=== PATIENT | male | born 1935 | race Caucasian/White ===

== ENCOUNTER → 2017-12-17 16:03 | Outpatient (CLI) | payer MEDICARE, OTHER, SELFPAY ==
--- NOTE | 2017-12-17 16:20 | EKG12_ITS ---
Test Reason : PREOP Blood Pressure : / mmHG Vent. 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
[2017-12-17 16:45] LABS: Hematocrit 43.2 % (40-54); Hemoglobin 14.1 g/dl (13.0-16.5); Mean Corp Hgb Conc 32.6 g/gl (32-36); Mean Corpuscular Hgb 29.9 pg (27.0-32.0); Mean Corpuscular Volume 91.5 fL (80-94); Mean Platelet Vol. 9.8 fl (6.2-12.0); Platelet Count 221 K/mm3 (150-450); RBC Distribution Width CV 13.4 % (11.6-14.6); RBC Distribution Width SD 44.1 fl (35.1-43.9); Red Blood Count 4.72 M/mm3 (4.6-6.2); White Blood Count 8.1 K/mm3 (4.4-11.0)
[2017-12-17 16:46] LABS: Scan Indicated on CBC? Y/N NO
[2017-12-17 17:24] LABS: Anion Gap 9 (5-15); BUN 24 mg/dL (7-18); Calcium,Total 8.8 mg/dL (8.5-10.1); Chloride 104 mmol/L (98-107); Creatinine, Serum 1.72 mg/dL (0.70-1.30); EST Glomerular Filtration Rate 41 mL/min (>60); Est Glom Filt Rate - Afr Amer 49 mL/min (>60); Glucose 92 mg/dL (74-106); Potassium 4.6 mmol/L (3.5-5.1); Sodium Level 139 mmol/L (136-145)
== END ==
PROVIDERS: Family Provider Family Medicine; PCP Family Medicine; Visit Provider Physician Assistant
DX: Z01.810 Encounter for preprocedural cardiovascular examination (principal); Z01.818 Encounter for other preprocedural examination; I10 Essential (primary) hypertension
CPT/HCPCS: 36415; 80048; 85027; 93005

== ENCOUNTER 2017-12-18 22:21 | Emergency (ER) | payer MEDICARE, OTHER, SELFPAY ==
[2017-12-18 22:22] VITALS: BP 179/88; PULSE 76; RESP 16; TEMP 36.5; O2SAT 94; BMI 33.5
[2017-12-18 23:12] LABS: Absolute Lymphocyte Count 2.19 X10^3/ul (0.83-4.51); Absolute Neutrophil Count 3.4 X10^3/uL (2.0-7.7); Basophil# 0.03 X10^3/uL; Basophil% 0.4 % (0-1); Eosinophil# 0.43 X10^3/uL; Eosinophils% 6.3 % (0-5); Hematocrit 40.6 % (40-54); Hemoglobin 13.2 g/dl (13.0-16.5); Lymphocyte # 2.19 X10^3/ul (4.0); Lymphocyte % 32.3 % (19-41); Mean Corp Hgb Conc 32.5 g/gl (32-36); Mean Corpuscular Volume 92.3 fL (80-94); Mean Platelet Vol. 9.5 fl (6.2-12.0); Monocyte# 0.76 X10^3/uL; Monocyte% 11.2 % (0-10); Neutrophil # 3.35 X10^3/uL (2.7-7.7); Neutrophil % 49.5 % (47-70); POSITIVE COUNT NO; POSITIVE DIFFERENTIAL NO; POSITIVE MORPHOLOGY NO; Platelet Count 184 K/mm3 (150-450); RBC Distribution Width CV 13.4 % (11.6-14.6); RBC Distribution Width SD 44.7 fl (35.1-43.9); White Blood Count 6.8 K/mm3 (4.4-11.0)
[2017-12-18 23:25] LABS: Anion Gap 7 (5-15); BUN 25 mg/dL (7-18); BUN/Creat Ratio 12.5 RATIO (10-20); Calcium,Total 8.4 mg/dL (8.5-10.1); Chloride 108 mmol/L (98-107); EST Glomerular Filtration Rate 34 mL/min (>60); Est Glom Filt Rate - Afr Amer 41 mL/min (>60); Estimated Creatinine Clearance 30.85 ml/min; Glucose 162 mg/dL (74-106); Potassium 4.6 mmol/L (3.5-5.1); Sodium Level 141 mmol/L (136-145)
--- NOTE | 2017-12-18 23:41 | ED.DCSUM_ITS ---
- ER Visit Summary Date of Service: 12/18/17 Chief Complaint: High blood pressure History of Present Illness: The patient is a [address] Mounika Hester. He reports that he has a long-standing history of high blood pressure. He has been on 80 mg of Diovan for years. Ports that he went to the orthopedic surgeon yesterday his blood pressure was 190/90. Because of that he has been measuring it today. His systolic is been anywhere from 165-217. His diastolic is been anywhere from 80-108. Denies any symptoms with this. No headache, numbness, or weakness. No chest pain. He reports he has chronic shortness of breath is unchanged. Physical Examination: Vitals: Stable. Afebrile. General: Well-nourished and well-developed. Head: Normocephalic atraumatic. Neck: Supple, no lymphadenopathy. No JVD. Nontender. Cardiovascular: Regular rate and rhythm. No murmurs. Respiratory: No respiratory distress. Clear to auscultation bilaterally. Abdominal: Soft, nontender, nondistended, normal bowel sounds. No guarding, rebound, or peritoneal signs. Back: Nontender. Extremities: Nontender, trace edema bilaterally. Skin: Normal color, no rash. Neurologic: Alert and oriented ?3. Cranial nerves II through XII are intact. Normal strength and sensation. Psych: Normal affect. Test Results: Screening labs were obtained. CBC is remarkable for monocytes of 11 eosinophils of 6. Chem-7 is more for chloride of 108, calcium 8.4, glucose 162, BUN of 25, creatinine 2.0. His creatinine ranged between 1.72 and 2.08 in 2017. Emergency Department Course and Treatment: Patient is resting comfortably. His blood pressure decreased to 169/82 without any treatment. Treatment Plan: He will be discharged instructions to follow-up Dr. Hester within a week to have his blood pressure checked again. Return to the emergency department for any worsening symptoms. Disposition: To home in improved and stable condition. Impression: 1. Hypertension. This note was generated with PeerSpaceation software. It may contain incorrect words, spelling, and punctuation that were not noted in review of the chart prior to signing ED Disposition - Plan for ED Patient: Disposition: Home or Assisted Living Chief Complaint: Hypertension Instructions: ED HTN Established Referrals: Porter Hester DO [Primary Care Provider] - 1 Week
[2017-12-18 23:50] VITALS: BP 173/90; PULSE 63; RESP 20; O2SAT 94
== END 2017-12-18 23:53 | disposition home or self-care (01) ==
LOC: ED 22:57
PROVIDERS: Emergency Provider Emergency Medicine; Family Provider Family Medicine; PCP Family Medicine
DX: I10 Essential (primary) hypertension (principal); R06.02 Shortness of breath; I25.10 Atherosclerotic heart disease of native coronary artery without angina pectoris; E11.9 Type 2 diabetes mellitus without complications; M19.90 Unspecified osteoarthritis, unspecified site; G47.33 Obstructive sleep apnea (adult) (pediatric); F32.9 Major depressive disorder, single episode, unspecified; Z79.84 Long term (current) use of oral hypoglycemic drugs; Z79.899 Other long term (current) drug therapy; Z90.5 Acquired absence of kidney
CPT/HCPCS: 80048; 85025; 99285; A4216

== ENCOUNTER 2018-01-23 21:33 | Emergency (ER) | payer MEDICARE, OTHER, SELFPAY ==
[2018-01-23 21:35] VITALS: BP 161/89; PULSE 71; RESP 20; TEMP 36.7; O2SAT 95; BMI 32.3
--- NOTE | 2018-01-23 21:57 | RAD_ITS ---
STUDY: X-RAY - LEFT KNEE REASON FOR EXAM: Male, 82 years old. Fall, pain TECHNIQUE: 3 view(s) of the knee. COMPARISON: None. FINDINGS: Normal visualized distal femur. Normal visualized proximal tibia and fibula. Normal proximal tibiofibular articulation. 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 Normal lateral femorotibial compartment. There is mild degenerative arthrosis of the patellofemoral articulation. The soft tissue structures are unremarkable. RAD/Knee 3 Views IMPRESSION: Degenerative arthrosis. No fracture or dislocation. Electronically Signed: Yahir García DO at 22:27 EDT , Service support ,
--- NOTE | 2018-01-23 22:07 | RAD_ITS ---
STUDY: X-RAY - PELVIS AND LEFT HIP REASON FOR EXAM: Male, 82 years old. Fall, pain TECHNIQUE: Radiological exam, hip, unilateral, with pelvis when performed; 2 or 3 views. COMPARISON: None. FINDINGS: There is a non-specific bowel gas pattern. Normal visualized soft tissue structures. Normal bilateral iliac wings, sacroiliac joints and visualized sacrum. Normal bilateral superior and inferior pubic rami. Normal pubic symphysis. Normal bilateral ischial tuberosities. Normal visualized femoral head. Normal acetabulum. Normal hip joint. RAD/Hip 2-3 Views with Pelvis IMPRESSION: Normal x-ray examination of the pelvis and hip. Electronically Signed: Yahir García DO at 22:33 EDT , Service support ,
--- NOTE | 2018-01-23 23:35 | ED.DCSUM_ITS ---
- ER Visit Summary Date of Service: 01/23/18 Chief Complaint: Tripped and fell at home complaining of left hip and left knee pain. History of Present Illness: The patient is a 82 M over wire at home fell on the ground. Complaint left hip and knee pain. No prior history of surgery to his left hip or knee. He has had a prior right knee replacement. Denies hitting his head. He is on no blood thinners. Denies other complaints or other injuries. States he felt fine prior to the fall. Physical Examination: Well-appearing older male. Vital signs are stable afebrile. He does not look septic or toxic. He is in no acute distress. Pulse ox 95% on room air no hypoxia. HEENT exam atraumatic. Pupils round reactive light. No head or facial trauma. C-spine, T-spine, LS-spine and back are all nontender. He has normal range of motion to his neck. Lungs clear to auscultation bilaterally. Chest wall nontender. Heart regular rate and rhythm no murmur. Abdomen soft nontender. Pelvic girdle intact. He is p.o. P to his left lateral hip and buttock. There is no deformity. There is no rotation or shortening. He is able to flex and extend the left hip, left knee, left ankle and foot. Left foot is neurovascularly intact. He has mild tenderness to the medial left knee at the ACL PCL, MCL LCL are all intact. There is no effusion. He has good endpoints. 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 He is able to flex and extend the knee without any difficulty. The extensor mechanism is intact. Both the right upper, left upper and right lower extremities are unremarkable and nontender. Neurologic exam is normal without focal motor deficits. Test Results: Pelvis x-ray shows no acute fracture of the pelvis or the hip. X- ray of his left knee show degenerative changes but again no acute fracture. Both of the films are read both by myself and the radiologist. Emergency Department Course and Treatment: Patient will be discharged to home. [place] home pack as needed. Otherwise Tylenol Motrin for pain. An ice all sore areas down. Follow-up with his primary care physician if not improving in 1 week. Treatment Plan: [] Disposition: Discharge Impression: Acute fall Left hip and left knee contusions This note was generated with Dragon dictation software. It may contain incorrect words, spelling, and punctuation that were not noted in review of the chart prior to signing ED Disposition - Plan for ED Patient: Chief Complaint: Fall Referrals: Porter Hester DO [Primary Care Provider] -
--- NOTE | 2018-01-23 23:36 | DCINST.ED_ITS ---
ED Disposition - Plan for ED Patient: Disposition: Home or Assisted Living Chief Complaint: Fall Instructions: ED Contusion Hip Referrals: Porter Hester DO [Primary Care Provider] - 1 Week if not improving Additional Instructions: Ice all sore areas down. [place] for pain as needed. Also may use Tylenol and/or Motrin. You are going to be sore if this is not improving in the next week be reexamined. On your x-rays tonight there are no signs of any fractures or dislocations to your hip or your knee.
[2018-01-23] MEDS: HYDROcodone Bitartrate/Apap 5/325 Tablet PO (23:53)
[2018-01-23 23:55] VITALS: BP 159/89; PULSE 74; RESP 16; O2SAT 97
== END 2018-01-23 23:56 | disposition home or self-care (01) ==
PROVIDERS: Emergency Provider Emergency Medicine; Family Provider Family Medicine; PCP Family Medicine
DX: S70.02XA Contusion of left hip, initial encounter (principal); S80.02XA Contusion of left knee, initial encounter; W01.0XXA Fall on same level from slipping, tripping and stumbling without subsequent striking against object, initial encounter; Y93.9 Activity, unspecified; Y92.009 Unspecified place in unspecified non-institutional (private) residence as the place of occurrence of the external cause; Y99.9 Unspecified external cause status; M17.12 Unilateral primary osteoarthritis, left knee; I48.91 Unspecified atrial fibrillation; E11.9 Type 2 diabetes mellitus without complications; I10 Essential (primary) hypertension; Z96.651 Presence of right artificial knee joint; Z79.84 Long term (current) use of oral hypoglycemic drugs; Z79.899 Other long term (current) drug therapy
CPT/HCPCS: 73502; 73562; 99282

== ENCOUNTER → 2018-05-26 10:27 | Outpatient (CLI) | payer MEDICARE, OTHER, SELFPAY ==
[2018-05-26 11:45] LABS: PSA,Total- Diagnostic 8.95 ng/mL (0.0-4.0)
[2018-05-26 14:44] LABS: Anion Gap 7 (5-15); BUN 34 mg/dL (7-18); Calcium,Total 8.5 mg/dL (8.5-10.1); Chloride 109 mmol/L (98-107); Creatinine, Serum 2.12 mg/dL (0.70-1.30); EST Glomerular Filtration Rate 32 mL/min (>60); Est Glom Filt Rate - Afr Amer 39 mL/min (>60); Glucose 124 mg/dL (74-106); Potassium 4.8 mmol/L (3.5-5.1); Sodium Level 140 mmol/L (136-145)
== END ==
PROVIDERS: Family Provider Family Medicine; PCP Family Medicine; Visit Provider Urology
DX: R82.99 Other abnormal findings in urine (principal); N40.0 Benign prostatic hyperplasia without lower urinary tract symptoms; Z87.448 Personal history of other diseases of urinary system
CPT/HCPCS: 36415; 80048; 84153; 87086; 87088

== ENCOUNTER → 2018-05-30 10:01 | Outpatient (CLI) | payer MEDICARE, OTHER, SELFPAY ==
[2018-05-30 11:24] LABS: PSA,Total- Diagnostic 9.13 ng/mL (0.0-4.0)
== END ==
PROVIDERS: Family Provider Family Medicine; PCP Family Medicine; Visit Provider Urology
DX: R97.20 Elevated prostate specific antigen [PSA] (principal)
CPT/HCPCS: 36415; 84153

== ENCOUNTER → 2018-06-09 10:06 | Outpatient (CLI) | payer MEDICARE, OTHER, SELFPAY ==
[2018-06-09 12:22] LABS: Absolute Lymphocyte Count 2.07 X10^3/ul (0.83-4.51); Absolute Neutrophil Count 3.9 X10^3/uL (2.0-7.7); Basophil# 0.04 X10^3/uL; Basophil% 0.6 % (0-1); Eosinophil# 0.29 X10^3/uL; Hematocrit 42.6 % (40-54); Lymphocyte # 2.07 X10^3/ul (4.0); Lymphocyte % 28.7 % (19-41); Mean Corp Hgb Conc 32.9 g/gl (32-36); Mean Corpuscular Hgb 29.9 pg (27.0-32.0); Mean Platelet Vol. 10.4 fl (6.2-12.0); Monocyte# 0.84 X10^3/uL; Monocyte% 11.7 % (0-10); Neutrophil # 3.94 X10^3/uL (2.7-7.7); Neutrophil % 54.6 % (47-70); Platelet Count 210 K/mm3 (150-450); RBC Distribution Width CV 13.2 % (11.6-14.6); RBC Distribution Width SD 43.7 fl (35.1-43.9); Red Blood Count 4.68 M/mm3 (4.6-6.2); White Blood Count 7.2 K/mm3 (4.4-11.0)
[2018-06-09 12:29] LABS: POSITIVE COUNT NO; POSITIVE DIFFERENTIAL NO; POSITIVE MORPHOLOGY NO
[2018-06-09 12:43] LABS: ALB/GLOB Ratio 0.9 RATIO (0.9-2.4); AST(SGOT) 16 U/L (15-37); Alanine Aminotransfer ALT/SGPT 27 U/L (16-61); Albumin, Serum 3.5 g/dL (3.2-5.0); Alkaline Phosphatase 54 U/L (45-117); Anion Gap 5 (5-15); BUN 29 mg/dL (7-18); BUN/Creat Ratio 15.2 RATIO (10-20); Calcium,Total 8.7 mg/dL (8.5-10.1); Chloride 107 mmol/L (98-107); Creatinine, Serum 1.91 mg/dL (0.70-1.30); EST Glomerular Filtration Rate 36 mL/min (>60); Est Glom Filt Rate - Afr Amer 44 mL/min (>60); Globulin 3.9 g/dL (2.2-4.2); Glucose 150 mg/dL (74-106); Potassium 4.7 mmol/L (3.5-5.1); Protein, Total 7.4 g/dL (6.4-8.2); Sodium Level 138 mmol/L (136-145); Thyroid Stim Hormone (TSH) 1.67 uIU/mL (0.358-3.74)
[2018-06-09 12:49] LABS: AST(SGOT) 18 U/L (15-37); Alanine Aminotransfer ALT/SGPT 28 U/L (16-61); Albumin, Serum 3.6 g/dL (3.2-5.0); Alkaline Phosphatase 55 U/L (45-117); Bilirubin, Direct 0.11 mg/dL (0.00-0.30); Cholesterol 188 mg/dL (200); Globulin 3.8 g/dL (2.2-4.2); High Density Lipoprotein 38 mg/dL; Protein, Total 7.4 g/dL (6.4-8.2); Triglycerides 211 mg/dL; Very Low Density Lipoprotein 42 mg/dL (5-40)
== END ==
PROVIDERS: Internal Medicine Cardiovascular Disease; Family Provider Family Medicine; PCP Family Medicine; Visit Provider Physician Assistant Medical
DX: I10 Essential (primary) hypertension (principal); E78.5 Hyperlipidemia, unspecified; I25.10 Atherosclerotic heart disease of native coronary artery without angina pectoris; R06.00 Dyspnea, unspecified; R53.83 Other fatigue; Z79.899 Other long term (current) drug therapy
CPT/HCPCS: 80053; 80061; 80076; 84436; 84443; 85025

== ENCOUNTER → 2018-06-16 06:24 | Outpatient (CLI) | payer MEDICARE, OTHER, SELFPAY ==
--- NOTE | 2018-06-16 12:26 | STRESSREP ---
Stress Test Report Date: 06/16/2018 Procedure: Pharmacologic stress nuclear imaging study Indications: Shortness of breath/dyspnea; CAD; PVCs Consent: Per the patient Procedure: The patient underwent pharmacologic (Regadenoson) evaluation with a peak heart rate of 77 beats per minute (55 predicted maximal heart rate) and a peak blood pressure of 134/80 mmHg. The baseline ECG demonstrated sinus rhythm with a right bundle branch block pattern. The peak pharmacologic ECG demonstrated no obvious ECG changes. There were no cardiac dysrhythmias pretest, during pharmacologic infusion, or recovery. There was no complaint of chest discomfort during pharmacologic infusion or recovery. The examination was discontinued secondary to completion of protocol. Impression: 1. Pharmacologic (Regadenoson) evaluation 2. Peak pharmacologic ECG with continued right bundle branch block pattern with no obvious ECG changes. 3. There were no cardiac dysrhythmias pretest, during pharmacologic infusion, or recovery 4. Nuclear images pending Myocardial perfusion imaging study: Technique: The patient was injected with 15 millicuries of technetium 99m Cardiolite and subsequently rest SPECT Cardiolite nuclear imaging was obtained in the horizontal long, vertical long, and short axis views. The patient underwent pharmacologic (Regadenoson) evaluation with a peak heart rate of 77 beats per minute (55 % percent predicted maximal heart rate) and a peak blood pressure of 134/80 mmHg. The patient was injected with 45 millicuries of technetium 99m Cardiolite and subsequently stress SPECT Cardiolite nuclear imaging was obtained in the horizontal long, vertical long, and short axis views. A gated Cardiolite study at peak stress was obtained. Interpretation: Rest and stress SPECT Cardiolite nuclear imaging status post realignment, normalization, and attenuation correction demonstrate a small area of subtle diminished tracer uptake near the apical segment which appears to be somewhat more prominent at rest as opposed to stress and otherwise appearing to demonstrate relative uniform tracer uptake and myocardial perfusion appearing within normal limits. There is end systolic thickening and brightening. The gated Cardiolite study demonstrates myocardial thickening and inward wall motion. The reported LVEF is 63 %. Impression: 1. Rest and stress SPECT currently nuclear imaging demonstrate a small area of subtle diminished tracer uptake near the apical segments which appears to be somewhat more prominent at rest as opposed to stress compatible with an area of shifting soft tissue attenuation/artifact and/or physiologic apical thinning and otherwise appearing to demonstrate relative uniform tracer uptake and myocardial perfusion appearing within normal limits. There are no myocardial perfusion changes consider diagnostic for associated stress-induced myocardial ischemia. 2. The gated Cardiolite study reports an LVEF of 63 %. This note was generated with [employer] Interactiveation software. It may contain incorrect words, spelling, and punctuation that were not noted in checking the note before signing.
== END ==
PROVIDERS: Family Provider Family Medicine; PCP Family Medicine; Visit Provider Nurse Practitioner Family
DX: R06.09 Other forms of dyspnea (principal); R53.83 Other fatigue
CPT/HCPCS: 78452; 93017; A9500; A4216; J2785

== ENCOUNTER → 2018-06-22 14:47 | Outpatient (CLI) | payer MEDICARE, OTHER, SELFPAY | PROVIDERS: Family Provider Family Medicine; PCP Family Medicine; Visit Provider Internal Medicine Cardiovascular Disease | DX: R06.02 Shortness of breath (principal) | CPT/HCPCS: 71046 ==

== ENCOUNTER → 2018-07-05 20:00 | Outpatient (CLI) | payer MEDICARE, OTHER, SELFPAY | PROVIDERS: Family Provider Family Medicine; PCP Family Medicine; Visit Provider Family Medicine | DX: G47.33 Obstructive sleep apnea (adult) (pediatric) (principal) | CPT/HCPCS: 98960; G0463 ==

== ENCOUNTER → 2018-07-20 11:03 | Outpatient (CLI) | payer MEDICARE, OTHER, SELFPAY ==
[2018-07-20 13:15] LABS: Microalbumin,Random Urine 23.3 mg/L (NO RANGE EST.); Microalbumin:Creatinine Ratio 20.6 mg/g CRE (<30 mg/g CRE)
== END ==
PROVIDERS: Family Provider Family Medicine; PCP Family Medicine; Visit Provider Internal Medicine Nephrology
DX: E11.9 Type 2 diabetes mellitus without complications (principal)
CPT/HCPCS: 82043; 82570

== ENCOUNTER → 2018-07-21 10:13 | Outpatient (CLI) | payer MEDICARE, OTHER, SELFPAY ==
--- NOTE | 2018-07-21 10:17 | US_ITS ---
STUDY: RENAL ULTRASOUND - COMPLETE REASON FOR EXAM: Male, 83 years old. Chronic renal disease TECHNIQUE: Ultrasound evaluation of the kidneys was performed with real-time and static denson-scale imaging. COMPARISON: None. FINDINGS: RIGHT KIDNEY: Not visualized which may be consistent with prior nephrectomy.. LEFT KIDNEY: Normal location of the left kidney, which is normal in size. The left kidney measures 11.9 x 6.2 x 6.2 cm. There is a normal cortex of the left kidney. The renal cortex measures 1.7 cm. There is no left renal mass or cyst. There are no left renal calculi. There is no left hydronephrosis. DISTAL LEFT URETER: There is non-visualization of the distal left ureter. There is no demonstrated left ureterovesical junction calculus. There is a visualized left ureteral jet. Increased cortical echoes which may be consistent with renal parenchymal disease BLADDER: The distended urinary bladder has a volume of 29.37 ml. US/Kidney and Bladder IMPRESSION: Status post right nephrectomy.. Findings consistent with nonspecific renal parenchymal disease Electronically Signed: Leonel Rojas MD at 22:56 EDT , Service support ,
== END ==
PROVIDERS: Family Provider Family Medicine; PCP Family Medicine; Visit Provider Internal Medicine Nephrology
DX: Z90.5 Acquired absence of kidney (principal)
CPT/HCPCS: 76770

== ENCOUNTER → 2018-08-22 13:20 | Outpatient (CLI) | payer MEDICARE, OTHER, SELFPAY ==
[2018-08-22 14:29] LABS: Albumin, Serum 3.8 g/dL (3.2-5.0); BUN 22 mg/dL (7-18); BUN/Creat Ratio 13.3 RATIO (10-20); Calcium,Total 9.2 mg/dL (8.5-10.1); Chloride 107 mmol/L (98-107); Creatinine, Serum 1.66 mg/dL (0.70-1.30); EST Glomerular Filtration Rate 42 mL/min (>60); Est Glom Filt Rate - Afr Amer 51 mL/min (>60); Glucose 103 mg/dL (74-106); Phosphorus 2.9 mg/dL (2.5-4.9); Potassium 4.5 mmol/L (3.5-5.1); Sodium Level 139 mmol/L (136-145)
[2018-08-22 14:39] LABS: PTHIN 84.7 pg/mL (18.4-80.1); Vitamin D,25 Hydroxy 20.6 ng/mL (29.95-100.01)
== END ==
PROVIDERS: Family Provider Family Medicine; PCP Family Medicine; Referring Provider Internal Medicine Nephrology; Visit Provider Internal Medicine Nephrology
DX: N18.3 Chronic kidney disease, stage 3 (moderate) (principal)
CPT/HCPCS: 36415; 80069; 82306; 83970

== ENCOUNTER → 2018-10-20 11:44 | Outpatient (CLI) | payer MEDICARE, OTHER, SELFPAY ==
[2018-06-22 13:27] VITALS: BMI 33.5
--- NOTE | 2018-10-20 11:49 | RAD_ITS ---
STUDY: X-RAY CHEST REASON FOR EXAM: Male, 83 years old. Dyspnea on exertion. TECHNIQUE: PA and lateral views of the chest. COMPARISON: PA and lateral chest x-ray June 22, 2018. FINDINGS: Stable calcified granulomata in the right lateral midlung and right lateral costophrenic sulcus. Stable chronic scarring or subsegmental atelectasis in the inferior left base. No new infiltrate. There is no demonstrated pleural abnormality. Normal size heart. Normal mediastinum and morgan. Normal visualized pulmonary arteries. There is stable atherosclerotic calcification of the aortic arch and proximal descending thoracic aorta. There are stable multilevel degenerative changes and mild dextroscoliosis of the visualized thoracic spine. Prior right shoulder arthroplasty with humeral prosthesis again noted. There is no demonstrated abnormality of the visualized soft tissue structures of the upper abdomen. RAD/Chest PA and Lateral IMPRESSION: Stable x-ray examination of the chest since June 2018. Electronically Signed: Jaime Mitchell MD at 12:08 EST , Service support ,
--- OUTSIDE RECORDS SUMMARY | 2018-12-06 07:09 | XMS RPT_ITS ---
:1935 Author Organization [place] Support Name Relationship Address Phone MICHELLE SEXTON Unavailable Unavailable + [place] [address] R Unavailable Unavailable Unavailable SCHEIBE, BARB Unavailable [address] + [place] [address] LUIS FERNANDO SEXTONA Unavailable Unavailable + [place] [address] R Unavailable Unavailable Unavailable SCHEIBE, BARB Unavailable [address] + [place] [address] LUIS FERNANDO SEXTONA Unavailable Unavailable + [place] [address] R Unavailable Unavailable Unavailable SCHEIBE, BARB Unavailable [address] + [place] [address] CARLIE MICHELLE Unavailable Unavailable + [place] [address] R Unavailable Unavailable Unavailable SCHEIBE, BARB Unavailable [address] + [place] [address] CARLIE MICHELLE Unavailable Unavailable + [place] [address] R Unavailable Unavailable Unavailable SCHEIBE, BARB Unavailable [address] + [place] [address] CARLIE MICHELLE Unavailable Unavailable + [place] [address] R Unavailable Unavailable Unavailable SCHEIBE, BARB Unavailable [address] + [place] [address] CARLIE MICHELLE Unavailable Unavailable + [place] [address] R Unavailable Unavailable Unavailable SCHEIBE, BARB Unavailable [address] + [place] [address] SEXTON, MICHELLE Unavailable 1 + [place] [address] R Unavailable Unavailable Unavailable SCHEIBE, BARB Unavailable [address] + [place] [address] SEXTON, MICHELLE Unavailable 1 + [place] [address] R Unavailable Unavailable Unavailable SCHEIBE, BARB Unavailable [address] + [place] [address] SEXTON, MICHELLE Unavailable 1 + [place] [address] R Unavailable Unavailable Unavailable SCHEIBE, BARB Unavailable [address] + [place] [address] SEXTON, MICHELLE Unavailable 1 + [place] [address] R Unavailable Unavailable Unavailable SCHEIBE, BARB Unavailable [address] + [place] [address] SEXTON, MICHELLE Unavailable 1 + [place] [address] R Unavailable Unavailable Unavailable SCHEIBE, BARB Unavailable [address] + [place] [address] SEXTON, MICHELLE Unavailable Unavailable + [place] [address] R Unavailable Unavailable Unavailable SCHEIBE, BARB Unavailable [address] + [place] [address] SEXTON, MICHELLE Unavailable 1 + [place] [address] R Unavailable Unavailable Unavailable SCHEIBE, BARB Unavailable [address] + [place] [address] SEXTON, MICHELLE Unavailable 1 + [place] [address] R Unavailable Unavailable Unavailable SCHEIBE, BARB Unavailable [address] + [place] [address] SEXTON, MICHELLE Unavailable Unavailable + [place] [address] R Unavailable Unavailable Unavailable SCHEIBE, BARB Unavailable [address] + [place] [address] SEXTON, MICHELLE Unavailable Unavailable + [place] [address] R Unavailable Unavailable Unavailable SCHEIBE, BARB Unavailable [address] + [place] [address] SEXTON MICHELLE Unavailable Unavailable + [place] [address] R Unavailable Unavailable Unavailable SCHEIBE, BARB Unavailable [address] + [place] [address] SEXTON MICHELLE Unavailable Unavailable + [place] [address] R Unavailable Unavailable Unavailable SCHEIBE, BARB Unavailable [address] + [place] [address] Sexton Michelle Unavailable . + [place] [address] R Unavailable Unavailable Unavailable SCHEIBE, BARB Unavailable [address] + [place] [address] Sexton, Michelle Unavailable . + [place] [address] R Unavailable Unavailable Unavailable SCHEIBE, BARB Unavailable [address] + [place] [address] R Unavailable Unavailable Unavailable SCHEIBE, BARB Unavailable [address] + [place] [address] R Unavailable Unavailable Unavailable SCHEIBE, BARB Unavailable [address] + [place] [address] Sexton Michelle Unavailable . + [place] [address] R Unavailable Unavailable Unavailable SCHEIBE, BARB Unavailable [address] + [place] [address] Care Team Providers Name Role Phone Porter Hester Attending Unavailable Porter Hester Referring Unavailable Porter Hester Primary Care Unavailable Porter Hester Attending Unavailable Porter Hester Referring Unavailable Porter Hester Primary Care Unavailable Porter Hester Attending Unavailable Porter Hester Referring Unavailable Porter Hester Primary Care Unavailable Carole, Ashanti Attending Unavailable Carole, Jayaprakash Referring Unavailable Porter Hester Primary Care Unavailable Carole, Ashanti Attending Unavailable Carole, Jayaprakash Referring Unavailable Mir, Porter Primary Care Unavailable Aldo Lora Attending Unavailable Mir, Porter Referring Unavailable JanAlejandro jordan Attending Unavailable JanAlejandro jordan Referring Unavailable Mir, Porter Primary Care Unavailable Mir, Porter Primary Care Unavailable Oleg Dove Attending Unavailable Fili Turcios D.O. Attending Unavailable Mir, Porter Referring Unavailable Mir, Porter Primary Care Unavailable Leonel Antonio Attending Unavailable Johann Henley Attending Unavailable Alejandro Michelle Referring Unavailable Ginny, Harjit Hinds Attending Unavailable Ginny, Harjit Hinds Referring Unavailable Mir, Porter Primary Care Unavailable Ginny, Harjit Hinds Attending Unavailable Ginny, Harjit Hinds Referring Unavailable Mir, Porter Primary Care Unavailable Ginny, Harjit Hinds Attending Unavailable Ginny, Rey Referring Unavailable Mir, Porter Primary Care Unavailable LiAnita roman Attending Unavailable LiAnita Referring Unavailable Mir, Porter Primary Care Unavailable Juan F Rubin H Attending Unavailable Mir, Porter Referring Unavailable Mir, Porter Primary Care Unavailable RoofJuan F H Attending Unavailable Roof, Juan F H Referring Unavailable Mir, Porter Primary Care Unavailable Luis Fernando Ribera Attending Unavailable Mir, Porter Referring Unavailable Mir, Porter Primary Care Unavailable Luis Fernando Ribera Attending Unavailable Luis Fernando Ribera Referring Unavailable Mir, Porter Primary Care Unavailable Mir, Porter Attending Unavailable Mir, Porter Primary Care Unavailable Mir, Porter Referring Unavailable Luis Fernando Ribera Attending Unavailable Roof, Juan F H Referring Unavailable Tatiana Oleary Attending Unavailable Mir, Porter Primary Care Unavailable Tatiana Oleary Attending Unavailable Anirudh, Tatiana Referring Unavailable Mir, Porter Primary Care Unavailable Tatiana Oleary Attending Unavailable Tatiana Oleary Referring Unavailable Mir, Porter Primary Care Unavailable Jyotsna Duron Consulting Unavailable PROBLEMS PROBLEMS DATE TYPE CONDITION / CODE ATTENDING STATUS SOURCE 11/09/2018 Unknown J18.9 - Pneumonia, Porter Hester Active [place] unspecified organism / Community J18.9(ICD-10) Hospital Repository 11/18/2018 Unknown R06.09 - Other forms Aldo Lora Active [place] of dyspnea / Community R06.09(ICD-10) Hospital Repository 07/20/2018 Unknown E11.9 - Type 2 Tatiana Oleary Active [place] diabetes mellitus Community without complications Hospital / E11.9(ICD-10) Repository 06/22/2018 Unknown R06.02 - Shortness of [place], Active [place] breath / [facility] R06.02(ICD-10) Hospital Repository 06/10/2018 Unknown R53.83 - Other fatigue Juan F Rubin Active [place] / R53.83(ICD-10) [facility] Repository 05/27/2018 Unknown N40.0 - Benign Ginny, Harjit Active [place] prostatic hyperplasia [facility] without lower urinary Hospital tract symptoms / Repository N40.0(ICD-10) 06/01/2018 Unknown R82.99 - Other Ginny, Harjit Active [place] abnormal findings in [facility] urine / R82.99(ICD-10) Hospital Repository 03/02/2018 Unknown G47.33 - Obstructive Fili Turcios Active [place] sleep apnea (adult) D.O. Community (pediatric) / Hospital G47.33(ICD-10) Repository 03/02/2018 Unknown E66.9 - Obesity, Fili uTrcios Active [place] unspecified / D.O. Community E66.9(ICD-10) Hospital Repository 12/17/2017 Unknown Z01.810 - Encounter Alejandro Michelle Active [place] for preprocedural [facility] cardiovascular Hospital examination / Repository Z01.810(ICD-10) 12/17/2017 Unknown Z01.818 - Encounter Alejandro Michelle Active [place] for other Community preprocedural Hospital examination / Repository Z01.818(ICD-10) 01/27/2018 Unknown R94.31 - Abnormal Kale, Johann Active [place] electrocardiogram Community [ECG] [EKG] / Hospital R94.31(ICD-10) Repository PROCEDURES PROCEDURES No Procedure Records FoundRESULTS RESULTS VITAMIN D,25 HYDROXY Collected: 11/17/2018 Status: F Source: [place] 2:19 PM [facility] REPOSITORY TYPE CODE TESTS RESULT OUT OF REFERENCE UNITS RANGE LAB L506.1000 29.95-100.01 ng/mL Low Vitamin D 28.1 25-OH Result Comment: Vitamin D 25(OH) Status Range Deficiency <20 ng/mL (50nmol/L) Insuffciency 20 - 30 ng/mL (50 - 75 nmol/L) Sufficiency 30 - 100 ng/mL (75 - 250 nmol/L) Toxicity >100 ng/mL (>250 nmol/L) Performed By: #### L506.1000 #### [facility] [address] [place], [place], [address] CBC-COMPLETE BLOOD CNT Collected: 11/15/2018 Status: F Source: [place] NO DIFF 12:44 PM [facility] REPOSITORY TYPE CODE TESTS RESULT OUT OF RANGE REFERENCE UNITS LAB L100.1000 4.4-11.0 K/mm3 Normal WBC 10.2 LAB L100.1200 4.6-6.2 M/mm3 Low RBC 4.55 LAB L100.1300 13.0-16.5 g/dl Normal HGB 13.6 LAB L100.1400 40-54 % Normal HCT 42.2 LAB L100.1500 80-94 fL Normal MCV 92.7 LAB L100.1600 27.0-32.0 pg Normal MCH 29.9 LAB L100.1700 32-36 g/gl Normal MCHC 32.2 LAB L100.1810 11.6-14.6 % Normal RDW CV 13.6 LAB L100.1820 35.1-43.9 fl High RDW SD 45.0 LAB L100.1900 150-450 K/mm3 Normal PLT 232 LAB L100.2000 6.2-12.0 fl Normal MPV 10.0 Performed By: #### L100.0500 #### [facility] [address] [place], [place], [address] PROTEIN+CREATININE Collected: Status: F Source: [place] RATIO,URINE 11/15/2018 12:44 PM [facility] REPOSITORY TYPE CODE TESTS RESULT OUT OF RANGE REFERENCE UNITS LAB L501.1200 NO RANGE EST. mg/dL Normal UR CREAT 117.00 LAB L501.1930 <11.9 mg/dL High 19.0 PROTEIN,UR.R AN. LAB L501.1940 0-200 mg/g CRE Normal PROT:CRE 162 RATIO Performed By: #### L501.0900 #### [facility] [address] [place], [place], [address] RENAL PROFILE Collected: 11/15/2018 Status: F Source: [place] 12:44 PM [facility] REPOSITORY TYPE CODE TESTS RESULT OUT OF RANGE REFERENCE UNITS LAB L501.0100 74-106 mg/dL High GLU 121 Result Comment: Fasting Glucose result from 100 to 125 mg/dL suggests IMPAIRED HOMEOSTASIS per A.D.A. criteria. Please note revised GLUCOSE reference range effective 2017. LAB L501.1000 7-18 mg/dL High BUN 26 LAB L501.1100 0.70-1.30 mg/dL High CREAT,SERUM 1.70 Result Comment: The validity of the calculated GFR AND GFRAA in patients over 70 years has not been determined. Clinical correlation is essential. LAB L501.1110 >60 mL/min Low EST GFR 41 Result Comment: Non- GFR Calc LAB L501.1115 >60 mL/min Low EST GFR - AA 50 Result Comment: GFR Calc LAB L501.1300 10-20 RATIO Normal BUN/CRE 15.3 LAB L501.1800 3.2-5.0 g/dL Normal ALB 3.5 LAB L501.2200 8.5-10.1 mg/dL CA Normal 8.5 LAB L501.2300 2.5-4.9 mg/dL Normal PHOS 2.8 LAB L501.5300 136-145 mmol/L NA Normal 140 LAB L501.5600 3.5-5.1 mmol/L K Normal 4.3 LAB L501.5900 98-107 mmol/L High CL 109 LAB L501.6100 21.0-32.0 mmol/L Normal CO2 22.0 Performed By: #### L500.3600 #### [facility] [address] [facility], [address] PTHIN Collected: 11/15/2018 Status: F Source: [place] 12:44 PM [facility] REPOSITORY TYPE CODE TESTS RESULT OUT OF RANGE REFERENCE UNITS LAB L509.1000 18.4-80.1 pg/mL High PTHIN 102.6 Performed By: #### L509.1000 #### [facility] [address] [place], [address] CHEST PA AND LATERAL Observed: 11/09/2018 Status: F Source: [place] 11:19 AM [facility] REPOSITORY [facility] Imaging Services [address] [facility] [place] [place] [address] Chest PA and Lateral MR#: [id number] Acct: [id number] Name: TARAN RAMIREZ Rep #: [id number] : 1935 M 83 From: Khari Robbins MD PCP: Porter Hester DO Status: REG CLI Study: Chest PA and Lateral Date of Exam: 11/09/18 Exam# [id number] Ordering Dr: Porter Hester DO STUDY: X-RAY CHEST REASON FOR EXAM: Male, 83 years old. Cough and shortness of breath for 6 weeks TECHNIQUE: PA and lateral views of the chest. COMPARISON: 10/20/2018 FINDINGS: Granulomata of the right lung are stable. Similar scarring in the lingula. No airspace consolidation. There is no demonstrated pleural abnormality. Normal size heart. Normal mediastinum and morgan. Normal visualized pulmonary arteries. There is atherosclerotic calcification of the aortic arch with tortuosity. There are diffuse degenerative changes of the visualized thoracic spine. Right shoulder replacement noted. There is no demonstrated abnormality of the visualized soft tissue structures of the upper abdomen. RAD/Chest PA and Lateral IMPRESSION: No airspace consolidation or pleural effusion. Electronically Signed: Khari Robbins MD at 14:28 EST , Service support , CC: Porter Hester DO Gis Administrator: Signed PULMONARY FUNCTION Observed: 11/05/2018 Status: F Source: [place] REPORT COMP 5:46 AM [facility] REPOSITORY [facility] Pulmonary Services/Neurology [address] [place] [address] MR#: [id number] Acct: [id number] Name: TARAN RAMIREZ Rep #: [id number] : 1935 83 From: Aldo Lora MD Referring Dr: Porter Hester DO Status: REG CLI Ordering Dr: Date: Location: [facility] Sex: M C COMPLETE PULMONARY FUNCTION TEST INTERPRETATION Brief HPI: Patient is an 83 year old male, currently under the care of Dr. Hester, who presents to [facility] for complete pulmonary function tests secondary to diagnosis of dyspnea. Respiratory therapist reports good effort and reproducible results. Interpretation: Forced expiration spirometry shows no large airways obstructive ventilatory defect with an FEV1 of 145% predicted. There is no significant bronchodilator response by strict ATS criteria. Spirograms are of good quality and plateau slowly, indicating slowly emptying areas of the lungs. The respiratory flow volume loop shows decreased expiratory flow rates at high lung volumes consistent with small airways obstruction. Lung volumes by body plethysmography show an elevated total lung capacity at 6.49 L, 173% predicted. All other lung volumes are increased symmetrically. Diffusion capacity by carbon monoxide is normal at 124% predicted. The airway resistance is normal. Compared to previous pulmonary function tests from 08/31/2016, there has been no significant change. Impression: Pulmonary function tests are within normal limits and show no significant change compared to previous 11/05/18 0546 <Electronically signed by Aldo Lora MD> Date Aldo Lora MD CC: Aldo Lora MD; Porter Hester DO Date Dictated: 11/04/181416 Date Transcribed: 11/04/181416 Gis Administrator: NAREN Signed CHEST PA AND LATERAL Observed: 10/20/2018 Status: F Source: [place] 11:49 AM [facility] REPOSITORY [facility] Imaging Services [address] [place] [address] Chest PA and Lateral MR#: [id number] Acct: [id number] Name: TARAN RAMIREZ Rep #: [id number] : 1935 M 83 From: Gustavo Mitchell MD PCP: Porter Hester DO Status: REG CLI Study: Chest PA and Lateral Date of Exam: 10/20/18 Exam# [id number] Ordering Dr: Porter Hester DO STUDY: X-RAY CHEST REASON FOR EXAM: Male, 83 years old. Dyspnea on exertion. TECHNIQUE: PA and lateral views of the chest. COMPARISON: PA and lateral chest x-ray June 22, 2018. FINDINGS: Stable calcified granulomata in the right lateral midlung and right lateral costophrenic sulcus. Stable chronic scarring or subsegmental atelectasis in the inferior left base. No new infiltrate. There is no demonstrated pleural abnormality. Normal size heart. Normal mediastinum and morgan. Normal visualized pulmonary arteries. There is stable atherosclerotic calcification of the aortic arch and proximal descending thoracic aorta. There are stable multilevel degenerative changes and mild dextroscoliosis of the visualized thoracic spine. Prior right shoulder arthroplasty with humeral prosthesis again noted. There is no demonstrated abnormality of the visualized soft tissue structures of the upper abdomen. RAD/Chest PA and Lateral IMPRESSION: Stable x-ray examination of the chest since June 2018. Electronically Signed: Jaime Mitchell MD at 12:08 EST , Service support , CC: Porter Hester DO Gis Administrator: Signed RENAL PROFILE Collected: 08/22/2018 Status: F Source: [place] 1:24 PM [facility] REPOSITORY TYPE CODE TESTS RESULT OUT OF RANGE REFERENCE UNITS LAB L501.0100 74-106 mg/dL Normal GLU 103 Result Comment: Fasting Glucose result from 100 to 125 mg/dL suggests IMPAIRED HOMEOSTASIS per A.D.A. criteria. Please note revised GLUCOSE reference range effective 2017. LAB L501.1000 7-18 mg/dL High BUN 22 LAB L501.1100 0.70-1.30 mg/dL High CREAT,SERUM 1.66 Result Comment: The validity of the calculated GFR AND GFRAA in patients over 70 years has not been determined. Clinical correlation is essential. LAB L501.1110 >60 mL/min Low EST GFR 42 Result Comment: Non- GFR Calc LAB L501.1115 >60 mL/min Low EST GFR - AA 51 Result Comment: GFR Calc LAB L501.1300 10-20 RATIO Normal BUN/CRE 13.3 LAB L501.1800 3.2-5.0 g/dL Normal ALB 3.8 LAB L501.2200 8.5-10.1 mg/dL CA Normal 9.2 LAB L501.2300 2.5-4.9 mg/dL Normal PHOS 2.9 LAB L501.5300 136-145 mmol/L NA Normal 139 LAB L501.5600 3.5-5.1 mmol/L K Normal 4.5 LAB L501.5900 98-107 mmol/L CL Normal 107 LAB L501.6100 21.0-32.0 mmol/L Normal CO2 25.0 Performed By: #### L500.3600 #### [facility] [address] [facility], [address] PTHIN Collected: 08/22/2018 Status: F Source: [place] 1:24 PM [facility] REPOSITORY TYPE CODE TESTS RESULT OUT OF RANGE REFERENCE UNITS LAB L509.1000 18.4-80.1 pg/mL High PTHIN 84.7 Performed By: #### L509.1000 #### [facility] [address] [facility], [address] VITAMIN D,25 HYDROXY Collected: 08/22/2018 Status: F Source: [place] 1:24 PM [facility] REPOSITORY TYPE CODE TESTS RESULT OUT OF REFERENCE UNITS RANGE LAB L506.1000 29.95-100.01 ng/mL Low Vitamin D 20.6 25-OH Result Comment: Vitamin D 25(OH) Status Range Deficiency <20 ng/mL (50nmol/L) Insuffciency 20 - 30 ng/mL (50 - 75 nmol/L) Sufficiency 30 - 100 ng/mL (75 - 250 nmol/L) Toxicity >100 ng/mL (>250 nmol/L) Performed By: #### L506.1000 #### [facility] [address] [facility], [address] KIDNEY AND BLADDER Observed: 07/21/2018 Status: F Source: [place] 10:17 AM [facility] REPOSITORY [facility] Imaging Services [address] [place] [address] Kidney and Bladder MR#: [id number] Acct: [id number] Name: TARAN RAMIREZ Rep #: [id number] : 1935 M 83 From: Leonel Rojas MD PCP: Porter Hester DO Status: REG CLI Study: Kidney and Bladder Date of Exam: 07/21/18 Exam# [id number] Ordering Dr: Tatiana Oleary DO STUDY: RENAL ULTRASOUND - COMPLETE REASON FOR EXAM: Male, 83 years old. Chronic renal disease TECHNIQUE: Ultrasound evaluation of the kidneys was performed with real-time and static denson-scale imaging. COMPARISON: None. FINDINGS: RIGHT KIDNEY: Not visualized which may be consistent with prior nephrectomy.. LEFT KIDNEY: Normal location of the left kidney, which is normal in size. The left kidney measures 11.9 x 6.2 x 6.2 cm. There is a normal cortex of the left kidney. The renal cortex measures 1.7 cm. There is no left renal mass or cyst. There are no left renal calculi. There is no left hydronephrosis. DISTAL LEFT URETER: There is non-visualization of the distal left ureter. There is no demonstrated left ureterovesical junction calculus. There is a visualized left ureteral jet. Increased cortical echoes which may be consistent with renal parenchymal disease BLADDER: The distended urinary bladder has a volume of 29.37 ml. US/Kidney and Bladder IMPRESSION: Status post right nephrectomy.. Findings consistent with nonspecific renal parenchymal disease Electronically Signed: Leonel Rojas MD at 22:56 EDT , Service support , CC: Tatiana Oleary DO; Porter Hester DO Gis Administrator: Signed MICROALB:CREAT Collected: 07/20/2018 Status: F Source: [facility] 11:05 AM [facility] REPOSITORY TYPE CODE TESTS RESULT OUT OF RANGE REFERENCE UNITS LAB L501.1200 NO RANGE EST. mg/dL Normal UR CREAT 113.00 LAB L502.0500 NO RANGE EST. mg/L Normal 23.3 MICROALBUMIN ,UR LAB L502.0600 <30 mg/g CRE mg/g CRE Normal 20.6 MALB:CREAT Performed By: #### L502.0250 #### [facility] [address] [place], [address] CARDIOLOGY VISIT Observed: 06/22/2018 Status: F Source: [place] REPORT 5:21 PM [facility] REPOSITORY [facility] [address] [place] [address] OFFICE VISIT Date of Service: 06/22/18 MR#: [id number] Acct: [id number] Name: TARAN RAMIREZ Rep #: [id number] : 1935 Provider: Luis Fernando Ribera MD Age/Sex: 83/M [facility] [facility] Status: Signed HPI HPI Details: TARAN RAMIREZ, is a 83 M who presents to the office today for for outpatient cardiovascular follow-up. He recently underwent evaluation with an exercise tolerance test/imaging study at [facility] based on concerns of chest discomfort. This was a pharmacologic stress nuclear imaging study. His myocardial perfusion did not demonstrate any evidence of ongoing myocardial ischemia. His gated LVEF was 63%. He states he has discomfort in his chest. It waxes and wanes. He also notes he gets short of breath and dyspneic somewhat with activity. He has not had orthopnea or PND. He denies near syncope or syncope or obvious palpitations. He does become tired and fatigued. He also notes that he has progressive renal insufficiency of his one and only kidney. He is due to see nephrology for this in the near future. Intake Vital Signs06/22/18 Height 6 ft 06/22/18 Weight: 247 lb 06/22/18 Body Mass Index (BMI) 33.5 Intake Visit Reasons: 9 M FU Allergies amoxicillin Allergy (Verified 06/22/18 13:27) Hives diphenhydramine [From Benadryl] Allergy (Verified 06/22/18 13:27) Hives Medications Allopurinol [Zyloprim] 100 mg PO DAILYCM 09/08/16 [History Confirmed 06/22/18] Glimepiride [Amaryl] 2 mg PO DAILY 09/08/16 [History Confirmed 06/22/18] lovastatin 40 mg tablet 40 mg PO DAILY #90 tab 05/23/18 [Rx Confirmed 06/22/18] mexiletine 150 mg capsule 300 mg PO .COMPLEX #360 cap 05/23/18 [Rx Confirmed 06/22/18] losartan 50 mg tablet 50 mg PO QDAY #90 tab 06/22/18 [Rx Confirmed 06/22/18] PFSH Medical History Contraction, premature ventricular (Chronic) Fatigue (Chronic) Carotid bruit (Chronic) Dyspnea (Chronic) Long-term use of high-risk medication (Chronic) BMI 32.0-32.9,adult (Chronic) Obesity (Chronic) OSBALDO (obstructive sleep apnea) (Chronic) Sleep apnea (Chronic) CAD (coronary artery disease) (Chronic) History of osteoarthritis (Chronic) Essential hypertension (Chronic) Dyslipidemia (Chronic) History of depression (Chronic) BPH (benign prostatic hyperplasia) (Chronic) Surgical History History of nephrectomy, unilateral (Resolved) History of right knee joint replacement (Resolved) History of back surgery (Resolved) History of elbow surgery (Resolved) History of excision of pilonidal cyst (Resolved) History of appendectomy (Resolved) H/O shoulder surgery (Chronic) Family History Father CAD (coronary artery disease) Mother CAD (coronary artery disease) Diabetes Social History Smoking Status: Never smoker second hand exposure: No alcohol intake: current alcohol intake frequency: 0-2 drinks per day Alcohol type: wine substance use type: does not use caffeine: Yes what type of physical activity do you participate in: none ROS Const Const: Positive for fatigue (continues ); negative for weakness, weight gain, weight loss, frequent falls or excessive sweating Eyes Eyes: Negative for change in vision, blurry vision or transient loss of vision ENT ENT: Negative for dizziness or balance problems Cardio Chest Pain: Yes Onset: at rest Location: mid sternal Duration: minutes (20) Palpitations: No Edema: None Muscle aches with walking: None Additional Details: Patient reports that he has increased sweating. 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 Patient reports that CP was midsternal, unable to describe the character but states that discomfort radiated into his back. Second episode was last night which patient states felt more like a fullness and while sitting at the computer which lasted 15 minutes. Resp Respiratory: Positive for SOB with activity (increased); negative for SOB at rest GI GI: Negative vomiting or vomiting blood/hematemesis : Negative for hematuria Musc Musc: Positive for muscle aches/ myalgia (left knee pain); negative for balance problems, muscle weakness or joint pain Skin Skin: Negative non-healing lesions or rash Neuro Neuro: Negative for weakness, blurry vision, dizziness, lightheadedness, frequent falls or orthostatic symptoms Chente Hematologic/Lymphatic: Negative for easy bleeding Endo Endo: Positive for fatigue (continues ); negative for excessive sweating Psych Psych: Negative for anxiety or depression Allergy Allergy/Immunology: Negative for hives, Negative for rash Cardiology Exam Const Appearance: cooperative, comfortable, no acute distress, well developed and well groomed Nutritional Appearance: overweight Orientation: alert, awake and oriented x3 Head Head: normal to inspection, normocephalic and atraumatic Ears: hearing grossly impaired Nose: external nose normal Face and Sinus: face symmetric Mouth: oral mucosae normal Teeth and gingiva: fair dentition Eyes Eyelids: eyelids normal Conjunctivae: conjunctivae normal Pupils: PERRL EOM: EOM intact bilaterally Neck Neck: normal visual inspection and full ROM Carotids: normal carotid upstroke Chest Chest inspection: normal inspection of the chest and symmetric chest movement Auscultation: Bilateral: Clear to Auscultation Cardio Palpation: normal PMI Rate: regular rate Rhythm: regular rhythm Heart sounds: S1 normal and S2 normal GI GI: normal to inspection, bowel sounds present, soft and no hepatosplenomegaly Neuro General: alert, awake, oriented x3 and moves all extremities Skin Skin: no rashes or lesions noted Extremities Pulses: Normal: Right Radial Pulse, Left Radial Pulse Lower Extremity Edema: Trace: Bilateral Psych Psychological: normal affect Supplemental Info He had a transthoracic echocardiogram on 10/01/2017. The results are as described below. Interpretation Summary Normal LV size. Left ventricular systolic function is normal. The estimated ejection fraction is 55 %. Mild (1+) tricuspid valve insufficiency. Contrast injection was performed. Procedure: The patient underwent pharmacologic (Regadenoson) evaluation with a peak heart rate of 77 beats per minute (55 predicted maximal heart rate) and a peak blood pressure of 134/80 mmHg. The baseline ECG demonstrated sinus rhythm with a right bundle branch block pattern. The peak pharmacologic ECG demonstrated no obvious ECG changes. There were no cardiac dysrhythmias pretest, during pharmacologic infusion, or recovery. There was no complaint of chest discomfort during pharmacologic infusion or recovery. The examination was discontinued secondary to completion of protocol. Impression: 1. Pharmacologic (Regadenoson) evaluation 2. Peak pharmacologic ECG with continued right bundle branch block pattern with no obvious ECG changes. 3. There were no cardiac dysrhythmias pretest, during pharmacologic infusion, or recovery 4. Nuclear images pending Myocardial perfusion imaging study: Technique: The patient was injected with 15 millicuries of technetium 99m Cardiolite and subsequently rest SPECT Cardiolite nuclear imaging was obtained in the horizontal long, vertical long, and short axis views. The patient underwent pharmacologic (Regadenoson) evaluation with a peak heart rate of 77 beats per minute (55 % percent predicted maximal heart rate) and a peak blood pressure of 134/80 mmHg. The patient was injected with 45 millicuries of technetium 99m Cardiolite and subsequently stress SPECT Cardiolite nuclear imaging was obtained in the horizontal long, vertical long, and short axis views. A gated Cardiolite study at peak stress was obtained. Interpretation: Rest and stress SPECT Cardiolite nuclear imaging status post realignment, normalization, and attenuation correction demonstrate a small area of subtle diminished tracer uptake near the apical segment which appears to be somewhat more prominent at rest as opposed to stress and otherwise appearing to demonstrate relative uniform tracer uptake and myocardial perfusion appearing within normal limits. There is end systolic thickening and brightening. The gated Cardiolite study demonstrates myocardial thickening and inward wall motion. The reported LVEF is 63 %. Impression: 1. Rest and stress SPECT currently nuclear imaging demonstrate a small area of subtle diminished tracer uptake near the apical segments which appears to be somewhat more prominent at rest as opposed to stress compatible with an area of shifting soft tissue attenuation/artifact and/or physiologic apical thinning and otherwise appearing to demonstrate relative uniform tracer uptake and myocardial perfusion appearing within normal limits. There are no myocardial perfusion changes consider diagnostic for associated stress-induced myocardial ischemia. 2. The gated Cardiolite study reports an LVEF of 63 %. His previous cardiac catheterization was performed on 02/16/2013. FINAL IMPRESSION: 1. Relatively normal left ventricular end-diastolic pressure. 2. Left ventricle: A. Normal left ventricular size, wall motion, and systolic function. 13. Estimated left ventricular ejection fraction of 55 percent. 3. Left main coronary artery: A. Long vessels. B. Proximal [place] bend/kink with the appearance of 50 percent eccentric appearing stenosi s. C. Positive reflux into the left coronary cusp. D. Absence of left ventricular pressure damping/arterial waveform damping upon engagement of the left coronary artery catheter. 4. Left anterior descending coronary artery: A. Near the takeoff of the septa.l scale balancer, there is the appearance of 25 percent hazy, somewhat eccentric appearing stenosis. 5. Left circumflex coronary: A. Moderate nondominant vessels. B. Diffuse minimal luminal irregularities. 6. Right coronary: A. Large dominant vessels. B. Diffuse minimal luminal irregularities. His previous intravascular ultrasound was performed at [facility] on 02/16/2013. Per the hospital summary it noted that his LAD mid segment had 50% stenosis. He was recommended for continued medical management. He had a previous electrophysiology study performed on 06/02/2007. This was for PVC ablation. He had a previous 24-hour Holter monitor performed on 11/04/2010. SINUS RHYTHM WITH BUNDLE BRANCH BLOCK. MINIMUM HR 53 BPM AT 10:08:37 PM, NO ACTIVITY OR SYMPTOM RECORDED. AVERAGE HR 75 8PM MAXIMUM HR 118 8PM AT 7:09:17 AM, NO ACTIVITY OR SYMPTOM RECORDED. OCCASIONAL ISOLATED PREMATURE ATRIAL COMPLEXES. ONE ATRIAL COUPLET. NO RUNS NOTED. RARE ISOLATED PREMATURE VENTRICULAR COMPLEXES. ONE VENTRICULAR COUPLET. NO RUNS NOTED. ONE SYMPTOM OF SHARP PAIN IN R ARMPIT DOCUMENTED IN 24 HOUR HOLTER DIARY- MONITOR SHOWED SINUS RHYTHM WITH BUNDLE BRANCH BLOCK RATE 78 BPM WITHOUT ECTOPY OR ST CHANGES. Assessment AND Plan 1. Atherosclerosis of [place] coronary artery of [place] heart without angina pectoris I25.10 Plan He does have a history of underlying CAD as previously described. It is been non-angiographically significant in the past. He has had 2 stress test performed since his previous cardiac catheterization and intravascular ultrasound procedure. Neither one has demonstrated any obvious evidence of ongoing myocardial ischemia. At the present time it was not recommended that he proceed with further invasive evaluation especially in the light of his solo kidney with progressive renal insufficiency based on concerns of IV contrast related nephropathy. He should be considered for noncardiac evaluation of his chest discomfort. 2. Premature ventricular beat I49.3 Plan He does have a history of underlying ventricular ectopy. He has been on medical management. He has gone through electrophysiology procedures in the past. He appears without acute change at this time 3. Dyslipidemia E78.5 Plan His lipid history has been reviewed. He will continue medical management per 4. Essential hypertension I10 Plan His blood pressure appears to be somewhat low. He will change his losartan therapy to 25 mg twice a day. He will follow his blood pressure response. 5. Obesity E66.9 Plan He remains overweight. He states based upon his eating habits and his diminished musculoskeletal function it is hard for him to lose weight. 6. Dyspnea on exertion R06.09 Plan He does get short of breath and dyspneic. He will have a chest x-ray to evaluate for any obvious cardiovascular or pulmonary disease process may be contributing to this. Plan Detail Other Orders Orders: Other Medications Changed: Additional Comments He is going to follow-up with nephrology for his solo kidney with progressive renal insufficiency. Thank you for allowing me to participate in the care of your patient. Please don't hesitate to call if any issues arise. This note was generated using a voice recognition system and there may be incorrect words, spelling or punctuation that were not noted when reviewing the office note prior to saving. Follow Up 6 Months (PFM) Coding Level of Care Code Off vis,est,level 4 Diagnoses Atherosclerosis of [place] coronary artery of [place] heart without angina pectoris I25.10 Associated angina: without angina Coronary Disease-Associated Artery/Lesion type: [place] artery [place] vs. transplanted heart: [place] heart Premature ventricular beat I49.3 Dyslipidemia E78.5 Essential hypertension I10 Obesity E66.9 Dyspnea on exertion R06.09 Dyspnea type: dyspnea on exertion Coding Level of Care Code Off vis,est,level 4 Diagnoses Atherosclerosis of [place] coronary artery of [place] heart without angina pectoris I25.10 Associated angina: without angina Coronary Disease-Associated Artery/Lesion type: [place] artery [place] vs. transplanted heart: [place] heart Premature ventricular beat I49.3 Dyslipidemia E78.5 Essential hypertension I10 Obesity E66.9 Dyspnea on exertion R06.09 Dyspnea type: dyspnea on exertion 08/15/18 1721 <Electronically signed by Luis Fernando Ribera MD> Date Luis Fernando Ribera MD Cosigner Signature: Date (if applicable) CC: Tatiana Oleary DO; Porter Hester DO CHEST PA AND LATERAL Observed: 06/22/2018 Status: F Source: [facility] 2:49 PM [facility] REPOSIT[facility] Imaging Services [address] [place] [address] Chest PA and Lateral MR#: [id number] Acct: [id number] Name: TARAN RAMIREZ Rep #: [id number] : 1935 M 83 From: Gustavo Gonzáles MD PCP: Porter Hester DO Status: REG CLI Study: Chest PA and Lateral Date of Exam: 06/22/18 Exam# [id number] Ordering Dr: Luis Fernando Ribera MD STUDY: X-RAY CHEST REASON FOR EXAM: Male, 83 years old. Shortness of breath and cough TECHNIQUE: PA and lateral views of the chest. COMPARISON: 09/08/2016 FINDINGS: There are interstitial fibrotic changes of the lungs. There is no demonstrated pleural abnormality. Normal size heart. Normal mediastinum and morgan. Normal visualized pulmonary arteries. There is atherosclerotic calcification of the aortic arch with tortuosity. There are diffuse degenerative changes of the visualized thoracic spine. Replaced right glenohumeral joint shows anatomic alignment and no complication. There is no demonstrated abnormality of the visualized soft tissue structures of the upper abdomen. RAD/Chest PA and Lateral IMPRESSION: Degenerative changes, as described above. No demonstrated acute cardiopulmonary process. No interval change Electronically Signed: Jaime Gonzáles MD at 15:09 EDT , Service support , CC: Porter Hester DO; Luis Fernando Ribera MD Gis Administrator: Signed STRESS REPORT Observed: 06/16/2018 Status: F Source: [place] 12:31 PM [facility] REPOS[facility] Cardiovascular Services [address] [place] [address] MR#: [id number] Acct: [id number] Name: TARAN RAMIREZ Rep #: [id number] : 1935 83 From: Luis Fernando Ribera MD Primary Care: Porter Hester DO Status: REG CLI Ordering Dr: Ayesha: Tucker Escobar Stress Test Report Date: 06/16/2018 Procedure: Pharmacologic stress nuclear imaging study Indications: Shortness of breath/dyspnea; CAD; PVCs Consent: Per the patient Procedure: The patient underwent pharmacologic (Regadenoson) evaluation with a peak heart rate of 77 beats per minute (55 predicted maximal heart rate) and a peak blood pressure of 134/80 mmHg. The baseline ECG demonstrated sinus rhythm with a right bundle branch block pattern. The peak pharmacologic ECG demonstrated no obvious ECG changes. There were no cardiac dysrhythmias pretest, during pharmacologic infusion, or recovery. There was no complaint of chest discomfort during pharmacologic infusion or recovery. The examination was discontinued secondary to completion of protocol. Impression: 1. Pharmacologic (Regadenoson) evaluation 2. Peak pharmacologic ECG with continued right bundle branch block pattern with no obvious ECG changes. 3. There were no cardiac dysrhythmias pretest, during pharmacologic infusion, or recovery 4. Nuclear images pending Myocardial perfusion imaging study: Technique: The patient was injected with 15 millicuries of technetium 99m Cardiolite and subsequently rest SPECT Cardiolite nuclear imaging was obtained in the horizontal long, vertical long, and short axis views. The patient underwent pharmacologic (Regadenoson) evaluation with a peak heart rate of 77 beats per minute (55 % percent predicted maximal heart rate) and a peak blood pressure of 134/80 mmHg. The patient was injected with 45 millicuries of technetium 99m Cardiolite and subsequently stress SPECT Cardiolite nuclear imaging was obtained in the horizontal long, vertical long, and short axis views. A gated Cardiolite study at peak stress was obtained. Interpretation: Rest and stress SPECT Cardiolite nuclear imaging status post realignment, normalization, and attenuation correction demonstrate a small area of subtle diminished tracer uptake near the apical segment which appears to be somewhat more prominent at rest as opposed to stress and otherwise appearing to demonstrate relative uniform tracer uptake and myocardial perfusion appearing within normal limits. There is end systolic thickening and brightening. The gated Cardiolite study demonstrates myocardial thickening and inward wall motion. The reported LVEF is 63 %. Impression: 1. Rest and stress SPECT currently nuclear imaging demonstrate a small area of subtle diminished tracer uptake near the apical segments which appears to be somewhat more prominent at rest as opposed to stress compatible with an area of shifting soft tissue attenuation/artifact and/or physiologic apical thinning and otherwise appearing to demonstrate relative uniform tracer uptake and myocardial perfusion appearing within normal limits. There are no myocardial perfusion changes consider diagnostic for associated stress-induced myocardial ischemia. 2. The gated Cardiolite study reports an LVEF of 63 %. This note was generated with Reamazeation software. It may contain incorrect words, spelling, and punctuation that were not noted in checking the note before signing. 06/16/18 1231 <Electronically signed by Luis Fernando Ribera MD> Date Luis Fernando Ribera MD CC: BRENDA Rubin; Porter Hester DO Date Dictated: 06/16/18 1226 Date Transcribed: 06/16/18 1226 Gis Administrator: PM Signed CARDIOLOGY VISIT Observed: 06/10/2018 Status: F Source: [place] REPORT 3:19 PM [facility] REPOS[facility] [address] [place] [address] OFFICE VISIT Date of Service: 06/10/18 MR#: [id number] Acct: [id number] Name: TARAN RAMIREZ Rep #: [id number] : 1935 Provider: BRENDA Rubin Age/Sex: 83/M [place] [facility] [place]: Signed HPI HPI Details: TARAN RAMIREZ, is a 83 M who presents to the office today for a cardiovascular outpatient follow-up. He has a history of coronary artery disease, PVCs/paroxysmal ventricular tachycardia, previous LV systolic dysfunction, hypertension, hyperlipidemia, and OSBALDO. Pt. denies chest, arm, jaw, or neck discomfort. His exercise tolerance is stable. Pt. denies symptoms of CHF, palpitations, lightheadedness, dizziness, near syncope, or syncopal episodes. Pt. denies edema or claudication issues. Pt. denies orthopnea, PND, fever, chills, blood in urine, blood in stool, or myalgia. He states SOB with activity, though this is new it has worsened over the last months. He states worsening fatigue over the last 6 weeks. He states sleeping on a small incline d/t comfort. 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 Is patient in pain?: No Allergies amoxicillin Allergy (Verified 06/10/18 13:47) Hives diphenhydramine [From Benadryl] Allergy (Verified 06/10/18 13:47) Hives Medications Allopurinol [Zyloprim] 100 mg PO DAILYCM 09/08/16 [History Confirmed 06/10/18] Glimepiride [Amaryl] 2 mg PO DAILY 09/08/16 [History Confirmed 06/10/18] Valsartan [Diovan] 80 mg PO DAILY 09/08/16 [History Confirmed 06/10/18] lovastatin 40 mg tablet 40 mg PO DAILY #90 tab 05/23/18 [Rx Confirmed 06/10/18] mexiletine 150 mg capsule 300 mg PO .COMPLEX #360 cap 05/23/18 [Rx Confirmed 06/10/18] [facility] Medical History Contraction, premature ventricular (Chronic) Fatigue (Chronic) Carotid bruit (Chronic) Dyspnea (Chronic) Long-term use of high-risk medication (Chronic) BMI 32.0-32.9,adult (Chronic) Obesity (Chronic) OSBALDO (obstructive sleep apnea) (Chronic) Sleep apnea (Chronic) CAD (coronary artery disease) (Chronic) History of osteoarthritis (Chronic) Essential hypertension (Chronic) Dyslipidemia (Chronic) History of depression (Chronic) BPH (benign prostatic hyperplasia) (Chronic) Surgical History History of nephrectomy, unilateral (Resolved) History of right knee joint replacement (Resolved) History of back surgery (Resolved) History of elbow surgery (Resolved) History of excision of pilonidal cyst (Resolved) History of appendectomy (Resolved) H/O shoulder surgery (Chronic) Family History Father CAD (coronary artery disease) Mother CAD (coronary artery disease) Diabetes Social History Smoking Status: Never smoker second hand exposure: No alcohol intake: current alcohol intake frequency: 0-2 drinks per day Alcohol type: wine substance use type: does not use caffeine: Yes what type of physical activity do you participate in: none ROS Const Const: Positive for fatigue; negative for weakness, body ache, fever(s) or chills ENT ENT: Negative for dizziness Cardio Chest Pain: No Palpitations: No Edema: None Muscle aches with walking: None Resp Respiratory: Positive for SOB with activity; negative for SOB at rest, SOB orthopnea\SOB lying down or paroxysmal nocturnal dyspnea GI GI: Negative nausea, black,tarry stools, bright, red blood in stools or vomiting blood/hematemesis : Negative for hematuria or frequent nighttime urination/ nocturia Musc Musc: Negative for muscle aches/ myalgia Skin Skin: Negative non-healing lesions or rash Neuro Neuro: Negative for lightheadedness, near syncope, syncope, orthostatic symptoms, weakness or dizziness Endo Endo: Positive for fatigue Allergy Allergy/Immunology: Negative for rash Cardiology Exam Const Appearance: cooperative, healthy appearing, comfortable and no acute distress Nutritional Appearance: obese Orientation: alert, awake and oriented x3 Head Head: normal to inspection Ears: hearing grossly normal bilaterally Nose: external nose normal Face and Sinus: face symmetric Mouth: oral mucosae normal Eyes General: appearance normal, both eyes and all related structures Eyelids: eyelids normal Neck Neck: no JVD and normal visual inspection Carotids: normal carotid upstroke Chest Chest inspection: normal inspection of the chest and normal respiratory effort; negative cough Auscultation: Bilateral: Clear to Auscultation Cardio Rate: regular rate Rhythm: regular rhythm Heart sounds: S1 normal and S2 normal; negative rub, gallop or murmur GI GI: normal to inspection and obese Neuro General: alert, awake, oriented x3 and CN's II-XI intact bilaterally Skin Skin: no rashes or lesions noted Extremities Pulses: Normal: Right Posterior Tibial Pulse, Left Posterior Tibial Pulse, Right Radial Pulse, Left Radial Pulse Lower Extremity Edema: None: Bilateral Psych Psychological: normal affect Supplemental Info Echocardiogram from September 2017 showed normal LV size, estimated ejection fraction 55%, mild tricuspid valve insufficiency, and an RVSP of 28 mmHg. Stress test from December 2013 was negative for myocardial induced ischemia and reported an ejection fraction of 59%. Heart catheterization from February 2013 showed an ejection fraction 55% and showed stenosis of left main coronary artery system. It was recommended patient undergo intravascular ultrasound for further evaluation. This was done at [facility] and revealed mild coronary artery disease. Patient did not undergo any intervention at that time. Carotid duplex ultrasound from September 2017 showed mild, less than 50%, stenosis of both right and left extracranial internal carotid. Assessment AND Plan 1. Fatigue, unspecified type R53.83 Plan This is patient's main concern. He had laboratory work done for this. There was no evidence of anemia or thyroid disorder. His kidney function is stable. There is concerns that his fatigue is possibly an anginal equivalent. His heart catheterization 2012 did showed mild coronary artery disease. His stress test in 2013 was negative for stress induced myocardial ischemia. He will undergo repeat stress test to evaluate further. We will wait for results of this test for further recommendation. Orders Orders: 2. Dyspnea on exertion R06.09 Plan Patient does acknowledge shortness of breath on exertion. This is not new, but he feels this may have worsened over the last few months. He will undergo a stress test for further evaluation. His echocardiogram in 2016 showed preserved ejection fraction 55% and mild tricuspid valve insufficiency. If his stress test is negative further consideration from a pulmonary evaluation and continual weight management is recommended. Orders Orders: 3. Atherosclerosis of [place] coronary artery of [place] heart without angina pectoris I25.10 Plan Patient's echocardiogram in September 2017 showed ejection fraction 55%. Stress test in December 2013 was negative for stress-induced myocardial ischemia. Heart catheterization February 2013 showed mild coronary artery disease. He denies any chest pain, arm pain, or jaw pain suggestive angina. However his concerns of worsening dyspnea and fatigue raises some ischemic concerns. He will undergo a stress test for further evaluation of this. He will continue current medications. 4. PVC (premature ventricular contraction) I49.3 Plan Patient denies any palpitations. We will continue to monitor. 5. Essential (primary) hypertension I10 Plan His blood pressure on the lower end of expected range. This may be contributing to his fatigue. He was asked to decrease his valsartan to 40 mg p.o. daily and monitor blood pressure. 6. History of nephrectomy, unilateral Z90.5 Plan Patient does acknowledge having a nephrectomy in the past. This will be important to consider if he requires further evaluation with a cardiac catheterization. His most recent kidney function laboratory work is stable. He will continue to follow- up with primary anesthesiology fellow. Plan Detail Additional Comments Thank you for allowing us to participate in the patients plan of care, if you have any questions please do not hesitate to call. This note was generated using a voice recognition system and there may be incorrect words, spelling or punctuation that were not noted when reviewing the office note prior to saving. Coding Level of Care Code Off vis,est,level 3 Diagnoses Fatigue, unspecified type R53.83 Fatigue type: unspecified Dyspnea on exertion R06.09 Dyspnea type: dyspnea on exertion Atherosclerosis of [place] coronary artery of [place] heart without angina pectoris I25.10 Coronary Disease-Associated Artery/Lesion type: [place] artery [place] vs. transplanted heart: [place] heart Associated angina: without angina PVC (premature ventricular contraction) I49.3 Essential (primary) hypertension I10 History of nephrectomy, unilateral Z90.5 Coding Level of Care Code Off vis,est,level 3 Diagnoses Fatigue, unspecified type R53.83 Fatigue type: unspecified Dyspnea on exertion R06.09 Dyspnea type: dyspnea on exertion Atherosclerosis of [place] coronary artery of [place] heart without angina pectoris I25.10 Coronary Disease-Associated Artery/Lesion type: [place] artery [place] vs. 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 Signature: Date (if applicable) CC: Porter Mir DO CBC W/DIFF, AUTOMATED Collected: 06/09/2018 Status: F Source: MAGAN 10:11 AM [facility] REPOSITORY TYPE CODE TESTS RESULT OUT OF RANGE REFERENCE UNITS LAB L100.1000 4.4-11.0 K/mm3 Normal WBC 7.2 LAB L100.1200 4.6-6.2 M/mm3 Normal RBC 4.68 LAB L100.1300 13.0-16.5 g/dl Normal HGB 14.0 LAB L100.1400 40-54 % Normal HCT 42.6 LAB L100.1500 80-94 fL Normal MCV 91.0 LAB L100.1600 27.0-32.0 pg Normal MCH 29.9 LAB L100.1700 32-36 g/gl Normal MCHC 32.9 LAB L100.1810 11.6-14.6 % Normal RDW CV 13.2 LAB L100.1820 35.1-43.9 fl Normal RDW SD 43.7 LAB L100.1900 150-450 K/mm3 Normal PLT 210 LAB L100.2000 6.2-12.0 fl Normal MPV 10.4 LAB L100.2100 47-70 % Normal NEUT% 54.6 LAB L100.2200 19-41 % Normal LY% 28.7 LAB L100.2300 0-10 % High MONO% 11.7 LAB L100.2400 0-5 % Normal EO% 4.0 LAB L100.2500 0-1 % Normal BASO% 0.6 LAB L100.2550 0.0-0.9 % Normal IM GRAN % 0.400 Result Comment: IG% - Immature Granulocytes (promyelocytes, myelocytes and metamyelocytes) > 1% indicates that a LEFT SHIFT is Present. LAB L100.2620 2.0-7.7 X10 3/uL Normal Absolute Neut 3.9 LAB L100.2720 0.83-4.51 X10 3/ul Normal Absolute Lymph 2.07 Performed By: #### L100.0100 #### [facility] [address] [place], [address] COMPREHENSIVE METABOLIC Collected: 06/09/2018 Status: F Source: MAGAN [facility] 10:11 AM [facility] REPOSITORY TYPE CODE TESTS RESULT OUT OF RANGE REFERENCE UNITS LAB L501.0100 74-106 mg/dL High GLU 150 Result Comment: Fasting Glucose result greater than or equal to 126 mg/dL suggests DIABETES MELLITUS per A.D.A. criteria. Please note revised GLUCOSE reference range effective 2017. LAB L501.1000 7-18 mg/dL High BUN 29 LAB L501.1100 0.70-1.30 mg/dL High CREAT,SERUM 1.91 Result Comment: The validity of the calculated GFR AND GFRAA in patients over 70 years has not been determined. Clinical correlation is essential. LAB L501.1110 >60 mL/min Low EST GFR 36 Result Comment: Non- GFR Calc LAB L501.1115 >60 mL/min Low EST GFR - AA 44 Result Comment: GFR Calc LAB L501.1300 10-20 RATIO Normal BUN/CRE 15.2 LAB L501.1500 6.4-8.2 g/dL T Normal PROT 7.4 LAB L501.1800 3.2-5.0 g/dL Normal ALB 3.5 LAB L501.1950 2.2-4.2 g/dL Normal GLOB 3.9 LAB L501.2000 0.9-2.4 RATIO Normal A/G 0.9 LAB L501.2200 8.5-10.1 mg/dL CA Normal 8.7 LAB L501.4100 15-37 U/L Normal AST 16 LAB L501.4305 45-117 U/L Normal ALK P 54 LAB L501.4405 16-61 U/L Normal ALT 27 LAB L501.4600 0.20-1.00 mg/dL T Normal BILI 0.40 LAB L501.5300 136-145 mmol/L NA Normal 138 LAB L501.5600 3.5-5.1 mmol/L K Normal 4.7 LAB L501.5900 98-107 mmol/L CL Normal 107 LAB L501.6100 21.0-32.0 mmol/L Normal CO2 26.0 LAB L501.6200 5-15 Normal GAP 5 Performed By: #### L500.4050, L501.9310, L501.9520 #### [facility] [address] [place], [place], [id number] T4 TOTAL, THYROXIN Collected: 06/09/2018 Status: F Source: MAGAN 10:11 AM [facility] REPOSITORY TYPE CODE TESTS RESULT OUT OF RANGE REFERENCE UNITS LAB L501.9310 4.5-12.1 ug/dL T4 Normal THYROXIN 8.0 Performed By: #### L500.4050, L501.9310, L501.9520 #### [facility] [address] [place], [place], [address] THYROID STIM HORMONE Collected: 06/09/2018 Status: F Source: MAGAN (TSH) 10:11 AM [facility] REPOSITORY TYPE CODE TESTS RESULT OUT OF RANGE REFERENCE UNITS LAB L501.9520 0.358-3.74 uIU/mL Normal TSH 1.67 Performed By: #### L500.4050, L501.9310, L501.9520 #### [facility] [address] [place], [place], [address] LIVER PROFILE Collected: 06/09/2018 Status: F Source: MAGAN 10:11 AM [facility] REPOSITORY Order Comment: Order Date: 09/17/17 Order Info: [id number] - *Hepatic Function Panel Order Info: [id number] - *Lipid Profile CC PCP Comments: 12 hours fasting, may have water. TYPE CODE TESTS RESULT OUT OF RANGE REFERENCE UNITS LAB L501.1500 6.4-8.2 g/dL Normal T PROT 7.4 LAB L501.1800 3.2-5.0 g/dL Normal ALB 3.6 LAB L501.1950 2.2-4.2 g/dL Normal GLOB 3.8 LAB L501.4100 15-37 U/L Normal AST 18 LAB L501.4305 45-117 U/L Normal ALK P 55 LAB L501.4405 16-61 U/L Normal ALT 28 LAB L501.4600 0.20-1.00 mg/dL Normal T BILI 0.40 LAB L501.4700 0.00-0.30 mg/dL Normal D BILI 0.11 Performed By: #### L500.3400 #### [facility] [address] [place], [address] LIPID PROFILE Collected: 06/09/2018 Status: F Source: [place] 10:11 AM [facility] REPOSITORY Order Comment: Order Date: 09/17/17 Order Info: [id number] - *Hepatic Function Panel Order Info: [id number] - *Lipid Profile CC PCP Comments: 12 hours fasting, may have water. TYPE CODE TESTS RESULT OUT OF RANGE REFERENCE UNITS LAB L501.4900 200 mg/dL Normal CHOL 188 Result Comment: <200 mg/dL Desirable 200-240 mg/dL Borderline >240 mg/dL High Risk LAB L501.5000 mg/dL High TRIG 211 Result Comment: The drugs N-Acetylcysteine and Metamizole may falsely depress this assay. Serum Triglycerides Reference Interval Normal <150 mg/dL Borderline high 150 - 199 mg/dL High 200 - 499 mg/dL Very High > or = 500 mg/dL LAB L501.6400 mg/dL Low HDL 38 Result Comment: The drugs N-Acetylcysteine and Metamizole may falsely depress this assay. Reference Range HDL <40 mg/dL Low HDL Cholesterol HDL >or= 60 mg/dL High HDL Cholesterol LAB L501.6500 0-130 mg/dL Normal LDL 108 LAB L501.6600 5-40 mg/dL High VLDL 42 Performed By: #### L500.4100 #### [facility] [address], [address] PSA,TOTAL- DIAGNOSTIC Collected: 05/30/2018 Status: F Source: [place] 10:06 AM [facility] REPOSITORY TYPE CODE TESTS RESULT OUT OF REFERENCE UNITS RANGE LAB L501.9940 0.0-4.0 ng/mL PSA, High DIAGNOSTIC 9.13 Result Comment: This test was performed using the TPSA assay method for the [employer] chemistry system. Values obtained with different assay methods cannot be used interchangably. When changing PSA assays in the course of monitoring a patient, additional sequential testing should be carried out to confirm baseline values. Performed By: #### L501.9940 #### [facility] [address] [place], [address] PSA,TOTAL- DIAGNOSTIC Collected: 05/26/2018 Status: F Source: [place] 10:40 AM [facility] REPOSITORY TYPE CODE TESTS RESULT OUT OF REFERENCE UNITS RANGE LAB L501.9940 0.0-4.0 ng/mL PSA, High DIAGNOSTIC 8.95 Result Comment: This test was performed using the TPSA assay method for the [employer] chemistry system. Values obtained with different assay methods cannot be used interchangably. When changing PSA assays in the course of monitoring a patient, additional sequential testing should be carried out to confirm baseline values. Performed By: #### L501.9940, L500.2500 #### [facility] [address] [place], [address] BASIC METABOLIC Collected: 05/26/2018 Status: F Source: [place] PROFILE (BMP) 10:40 AM [facility] REPOSITORY TYPE CODE TESTS RESULT OUT OF RANGE REFERENCE UNITS LAB L501.0100 74-106 mg/dL High GLU 124 Result Comment: Fasting Glucose result from 100 to 125 mg/dL suggests IMPAIRED HOMEOSTASIS per A.D.A. criteria. Please note revised GLUCOSE reference range effective 2017. LAB L501.1000 7-18 mg/dL High BUN 34 LAB L501.1100 0.70-1.30 mg/dL High CREAT,SERUM 2.12 Result Comment: The validity of the calculated GFR AND GFRAA in patients over 70 years has not been determined. Clinical correlation is essential. LAB L501.1110 >60 mL/min Low EST GFR 32 Result Comment: Non- GFR Calc LAB L501.1115 >60 mL/min Low EST GFR - AA 39 Result Comment: GFR Calc LAB L501.1300 10-20 RATIO Normal BUN/CRE 16.0 LAB L501.2200 8.5-10.1 mg/dL CA Normal 8.5 LAB L501.5300 136-145 mmol/L NA Normal 140 LAB L501.5600 3.5-5.1 mmol/L K Normal 4.8 LAB L501.5900 98-107 mmol/L High CL 109 LAB L501.6100 21.0-32.0 mmol/L Normal CO2 24.0 LAB L501.6200 5-15 Normal GAP 7 Performed By: #### L501.9940, L500.2500 #### [facility] [address] [place], [address] Observed: 05/26/2018 Status: F Source: [facility]ON CULTURE, URINE 10:00 AM [facility] REPOSITORY Urine Culture Below infection level. ORGANISM 1: Mixed Gram Positive Organisms [place] Count 1000-10,000 Performed By: #### M100.0650 #### [facility] [address] [place], [address] EMERGENCY DEPARTMENT Observed: 01/24/2018 Status: F Source: MAGAN SUMMARY 7:00 AM [facility] REPOSITORY [facility] Medical Records Department [address] [facility] [place] [address] Emergency Department Summary 01/23/18 2332 MR#: [id number] Acct: [id number] Name: TARAN RAMIREZ Rep #: [id number] : 1935 82 From: Leonel Antonio MD PCP: Porter Hester DO Status: DEP ER - ER Visit Summary Date of Service: 01/23/18 Chief Complaint: Tripped and fell at home complaining of left hip and left knee pain. History of Present Illness: The patient is a 82 M over wire at home fell on the ground. Complaint left hip and knee pain. No prior history of surgery to his left hip or knee. He has had a prior right knee replacement. Denies hitting his head. He is on no blood thinners. Denies other complaints or other injuries. States he felt fine prior to the fall. Physical Examination: Well-appearing older male. Vital signs are stable afebrile. He does not look septic or toxic. He is in no acute distress. Pulse ox 95% on room air no hypoxia. HEENT exam atraumatic. Pupils round reactive light. No head or facial trauma. C-spine, T-spine, LS-spine and back are all nontender. He has normal range of motion to his neck. Lungs clear to auscultation bilaterally. Chest wall nontender. Heart regular rate and rhythm no murmur. Abdomen soft nontender. Pelvic girdle intact. He is p.o. P to his left lateral hip and buttock. There is no deformity. There is no rotation or shortening. He is able to flex and extend the left hip, left knee, left ankle and foot. Left foot is neurovascularly intact. He has mild tenderness to the medial left knee at the ACL PCL, MCL LCL are all intact. There is no effusion. He has good endpoints. 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 He is able to flex and extend the knee without any difficulty. The extensor mechanism is intact. Both the right upper, left upper and right lower extremities are unremarkable and nontender. Neurologic exam is normal without focal motor deficits. Test Results: Pelvis x-ray shows no acute fracture of the pelvis or the hip. X-ray of his left knee show degenerative changes but again no acute fracture. Both of the films are read both by myself and the radiologist. Emergency Department Course and Treatment: Patient will be discharged to home. Randolph home pack as needed. Otherwise Tylenol Motrin for pain. An ice all sore areas down. Follow-up with his primary care physician if not improving in 1 week. Treatment Plan: [] Disposition: Discharge Impression: Acute fall Left hip and left knee contusions This note was generated with [employer] dictation software. It may contain incorrect words, spelling, and punctuation that were not noted in review of the chart prior to signing ED Disposition - Plan for ED Patient: Chief Complaint: Fall Referrals: Porter Hester, DO [Primary Care Provider] - What to do if you have Problems For any increased pain, shortness of breath, bleeding, nausea or vomiting, chest pain, or any unexpected problems, contact your Primary Care Provider. Call [facility] ([phone]) or report to the closest Emergency Room. Call 911 if necessary. 01/24/18 0700 <Electronically signed by Leonel Antonio MD> Date Leonel Antonio MD Cosigner Signature (If Indicated): Date CC: Porter Hester DO DISCHARGE INSTRUCTION Observed: 01/24/2018 Status: F Source: MAGAN 7:00 AM [facility] REPOSITORY [facility] Medical Records Department [address] [place] [address] Discharge Instruction 01/23/18 2335 MR#: [id number] Acct: [id number] Name: TARAN RAMIREZ Rep #: [id number] : 1935 82 From: Leonel Antonio MD PCP: Porter Hester DO Status: DEP ER ED Disposition - Plan for ED Patient: Disposition: Home or Assisted Living Chief Complaint: Fall Instructions: ED Contusion Hip Referrals: Porter Hester DO [Primary Care Provider] - 1 Week if not improving Additional Instructions: Ice all sore areas down. Randolph for pain as needed. Also may use Tylenol and/or Motrin. You are going to be sore if this is not improving in the next week be reexamined. On your x-rays tonight there are no signs of any fractures or dislocations to your hip or your knee. What to do if you have Problems For any increased pain, shortness of breath, bleeding, nausea or vomiting, chest pain, or any unexpected problems, contact your Primary Care Provider. Call [facility] ([phone]) or report to the closest Emergency Room. Call 911 if necessary. 01/24/18 0700 <Electronically signed by Leonel Antonio MD> Date Leonel Antonio MD Cosigner Signature (If Indicated): Date CC: Porter Hester DO KNEE 3 VIEWS Observed: 01/23/2018 Status: F Source: MAGAN 9:59 PM [facility] REPOSITORY [facility] Imaging Services [address] [place] [address] Knee 3 Views MR#: [id number] Acct: [id number] Name: TARAN RAMIREZ Rep #: [id number] : 1935 M 82 From: Yahir García PCP: Porter Hester DO Status: PRE ER Study: Knee 3 Views Date of Exam: 01/23/18 Exam# [id number] Ordering Dr: Provider, Mulugeta P. STUDY: X-RAY - LEFT KNEE REASON FOR EXAM: Male, 82 years old. Fall, pain TECHNIQUE: 3 view(s) of the knee. COMPARISON: None. FINDINGS: Normal visualized distal femur. Normal visualized proximal tibia and fibula. Normal proximal tibiofibular articulation. 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 Normal lateral femorotibial compartment. There is mild degenerative arthrosis of the patellofemoral articulation. The soft tissue structures are unremarkable. RAD/Knee 3 Views IMPRESSION: Degenerative arthrosis. No fracture or dislocation. Electronically Signed: Yahir García DO at 22:27 EDT , Service support , CC: ED PHYSICIAN PROVIDER; Porter Hester DO Gis Administrator: Signed HIP 2-3 VIEWS WITH Observed: 01/23/2018 Status: F Source: [place]ERNON PELVIS 9:59 PM [facility] REPOSITORY [facility] Imaging Services [address] [place] [address] Hip 2-3 Views with Pelvis MR#: [id number] Acct: [id number] Name: TARAN RAMIREZ Rep #: [id number] : 1935 M 82 From: Yahir García PCP: oPrter Hester DO Status: PRE ER Study: Hip 2-3 Views with Pelvis Date of Exam: 01/23/18 Exam# [id number] Ordering Dr: Provider, Mulugeta PBhupinder STUDY: X-RAY - PELVIS AND LEFT HIP REASON FOR EXAM: Male, 82 years old. Fall, pain TECHNIQUE: Radiological exam, hip, unilateral, with pelvis when performed; 2 or 3 views. COMPARISON: None. FINDINGS: There is a non-specific bowel gas pattern. Normal visualized soft tissue structures. Normal bilateral iliac wings, sacroiliac joints and visualized sacrum. Normal bilateral superior and inferior pubic rami. Normal pubic symphysis. Normal bilateral ischial tuberosities. Normal visualized femoral head. Normal acetabulum. Normal hip joint. RAD/Hip 2-3 Views with Pelvis IMPRESSION: Normal x-ray examination of the pelvis and hip. Electronically Signed: Yahir García DO at 22:33 EDT , Service support , CC: ED PHYSICIAN PROVIDER; Porter Hester DO Gis Administrator: Signed PULMONARY VISIT REPORT Observed: 01/11/2018 Status: F Source: [place] 12:03 PM [facility] of [address] [place] [address] OFFICE VISIT Date of Service: 01/11/18 MR#: [id number] Acct: [id number] Name: IGOR RAMIREZORD Nhung Rep #: [id number] : 1935 Provider: Fili Turcios D.O. Age/Sex: 82/M Location: [facility] Status: Signed Assessment AND Plan 1. OSBALDO (obstructive sleep apnea) G47.33 Plan The patient's sleep apnea is currently controlled on bilevel therapy with a pressure setting of 14/10 cm of water with humidification. The patient's main concern was for that of an air leak. However, it does appear that he is not regularly changing his interface cushions. The patient has been advised to contact [employer] or supplies and to regularly change his interface cushions to help minimize the chance of breakdown and subsequent air leaks. He is in agreement. There is no indication for a change in his current pressure settings. The patient has been advised to call this office with any issues. Otherwise, we will see him back for follow-up in 1 year. 2. Obesity E66.9 Plan Weight loss through dietary modification and a graded exercise regimen is strongly encouraged. Plan Detail Follow Up 1 Year (DMB) HPI HPI Comments Details: The patient is an 82-year-old male who presents to the clinic today for a routine scheduled follow-up office visit due to underlying obstructive sleep apnea. If you recall, the patient has an established diagnosis of OSBALDO, for which she is currently prescribed nocturnal bilevel therapy. Patient did complete pulmonary function testing in August 2016, which was essentially found to be normal. A subsequent 6 minute walk test showed no evidence of exertional hypoxia. His last surface echocardiogram dated July 2016 showed normal LV size and function with an ejection fraction of 60%. His RV was normal in size and function. RVSP was estimated to be 31 mmHg. The patient is currently utilizing [employer] for his DME needs. The patients compliance report was personally reviewed at today's office visit. Over the last 30 days, the patient has demonstrated a 70% compliance with use. Of that, 57% of the time the patient was utilizing his bilevel therapy greater than or equal to 4 hours per night. On average, he is utilizing his nocturnal Pap therapy a little under 5 hours per night. He is currently prescribed bilevel therapy with a pressure setting of 14/10 cm of water. He has a residual AHI noted to be 2.0. No significant air leaks are noted. Despite this, the patient reports that he experiences air leaks from his current interface, which has led to a great deal of frustration on his part. In fact, he reports that he is about ready to give up using his BiPAP. Upon further questioning, it does not appear that the patient is changing his cushions on a regular basis. He waited 6 months to replace his last set. He did report that upon changing his cushions, that the air leaks diminished. He also voiced frustration over having so many physician appointments. He reports feeling rested upon awakening in the morning. He is making strides in losing weight. He denies the presence of daytime napping or excessive daytime fatigue/sleepiness. Intake Vital Signs01/11/18 Height 5 ft 11 in 01/11/18 Weight: 245 lb Intake Visit Reasons: 6 M [place] [facility]: [facility] Accompanied by: Self Allergies amoxicillin Allergy (Verified 01/11/18 10:22) Hives diphenhydramine [From Benadryl] Allergy (Verified 01/11/18 10:22) Hives Medications Allopurinol [Zyloprim] 100 mg PO DAILYCM 09/08/16 [History Confirmed 01/11/18] Glimepiride [Amaryl] 2 mg PO DAILY 09/08/16 [History Confirmed 01/11/18] Lovastatin [Mevacor] 40 mg PO DAILY 09/08/16 [History Confirmed 01/11/18] Mexiletine [Mexitil] 150 mg PO BID 09/08/16 [History Confirmed 01/11/18] Valsartan [Diovan] 80 mg PO DAILY 09/08/16 [History Confirmed 01/11/18] [facility] Medical History Contraction, premature ventricular (Chronic) Fatigue (Chronic) Carotid bruit (Chronic) Dyspnea (Chronic) Long-term use of high-risk medication (Chronic) BMI 32.0-32.9,adult (Chronic) Obesity (Chronic) OSBALDO (obstructive sleep apnea) (Chronic) Sleep apnea (Chronic) CAD (coronary artery disease) (Chronic) History of osteoarthritis (Chronic) Essential hypertension (Chronic) Dyslipidemia (Chronic) History of depression (Chronic) BPH (benign prostatic hyperplasia) (Chronic) Surgical History History of nephrectomy, unilateral (Resolved) History of right knee joint replacement (Resolved) History of back surgery (Resolved) History of elbow surgery (Resolved) History of excision of pilonidal cyst (Resolved) History of appendectomy (Resolved) H/O shoulder surgery (Chronic) Family History Father CAD (coronary artery disease) Mother CAD (coronary artery disease) Diabetes Social History Smoking Status: Never smoker second hand exposure: No alcohol intake: current alcohol intake frequency: 0-2 drinks per day Alcohol type: wine substance use type: does not use caffeine: Yes what type of physical activity do you participate in: none Review of Systems Const CONSTITUTIONAL: Positive daytime sleepiness and fatigue; negative anorexia, body ache, chills, fever(s), night sweats, oral thrush, stops breathing during sleep, weight loss, sleeping in chair, weight loss, weight gain, frequent colds, seasonal allergies, other, headache(s) or orthopnea EETM Ear Nose Throat Mouth: Positive hearing normal and dry mouth in morning; negative hard of hearing, hoarseness, change in vision, itchy eyes, eye pain, swallowing Difficulty, ear pain, nose bleed, headache(s), mouth pain, nasal congestion, nasal discharge, post nasal drip, sinus pain, sinus pressure, sore throat or other Cardio Cardiovascular: Negative chest pain, chest pain at rest, chest pain with activity, irregular heart rhythm, edema, shortness of breath when lying down, palpitations, murmur or other Resp Respiratory: Positive as per HPI and shortness of breath shortness of breath: Positive with activity; negative pain with cough, wheezing, chest congestion, cough, chest tightness, pain on inspiration, inhalers, increase use of rescue inhalers, snoring, apnea or other Gastro Gastrointestional: Negative bloody stools, change in appetite, difficulty swallowing, reflux, hematemesis, melena stool, loose stool, constipation or other Genitourinary: Negative blood in urine, nocturia, pain with urination or other Musc Musculoskeletal: Negative body pain, back pain, neck pain or other Skin/Breast Skin/Breast: Negative dry skin, itching, rash, unusual bruising, breast lump or other Neuro Neurological: Negative restless legs, confusion, weakness or other Psych Psychocological: Negative abnormal sleep pattern, anxiety, thoughts of hurting self/others, hopelessness or other Lymph Lymphatic: Negative easy bleeding, easy bruising, swollen lymph nodes or other Exam Const Constitutional: Positive conversant, cooperative, in no acute respiratory distress, well developed, well nourished, good hygiene and obese Head Head: Positive normocephalic and atraumatic; negative cyanosis of lips/distal nose Eyes Eye: Positive clear conjunctiva; negative nystagmus or scleral abnormality Ears Ear: Positive hearing normal and external ears normal; negative hard of hearing Nose Nose: Positive external nose normal; negative epistaxis Mouth Mouth: Positive oral mucosae normal and posterior oropharynx is adequate; negative no lesions or post nasal drip Mallampati Score: II: Mallampati Score Neck Neck: Positive normal visual inspection and trachea midline; negative lymphadenopathy Chest Wall Chest: Positive symmetric chest movement Normal AP diameter. Resp lung sounds: Positive clear to auscultation and good air exchange; negative wheezes, rhonchi or rales Cardio Cardiac: Positive regular rate, regular rhythm, S1 normal and S2 normal; negative rub, gallop or murmur GI GI: Positive normal bowel sounds and obese Soft without distention Genitourinary: Positive deferred Musc Musculoskeletal: Positive steady gait Skin Pulmonary Skin Exam: Positive intact; negative lesion, ulcers, dermal atrophy or rash Pulses Pulse: Yes Pedal pulses present: Extremities Extremities: No clubbing, No cyanosis, No edema Neuro Neurologic: Yes conversant, Yes no focal neuro deficits, Yes cooperative Lymph Lymphatic: No lymphadenopathy Psych Appearance: Positive grossly normal Mental Status: Positive mental status grossly normal Mood: Positive congruent mood Affect: Positive normal affect Coding Level of Care Code Off vis,est,level 3 Diagnoses OSBALDO (obstructive sleep apnea) G47.33 Obesity E66.9 01/11/18 1203 <Electronically signed by Fili Turcios DO> Date Fili Turcios DO Cosigner Signature: Date (if applicable) CC: Porter Hester DO 12 LEAD ELECTROCARDIOGRAM Observed: 12/20/2017 Status: F Source: VERNON 2:56 PM [facility] REPOSITORY [facility] Cardiovascular Services [address] [place] [address] 12 Lead EKG 12/17/17 1628 MR#: [id number] Acct: [id number] Name: TARAN RAMIREZ Rep #: [id number] : 1935 82 From: Johann Henley MD Attending Dr: Alejandro Oneal Status: REG CLI Ordering Dr: Alejandro Michelle PA-C Date: 12/17/17 Location: LAB Sex: M C Admitted: Test Reason : PREOP Blood Pressure : / mmHG Vent. 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) Abnormal ECG Confirmed by JOHANN HENLEY MD ([id number]), manager editorial ROXANNE YAÑEZ ([id number]) on 12/20/2017 2:55:50 PM Referred By: Alejandro Michelle Confirmed By:JOHANN HENLEY MD 12/20/17 1455 Date Johann Henley MD CC: Porter Hester DO; Alejandro IBARRA Signed EMERGENCY DEPARTMENT Observed: 12/20/2017 Status: F Source: VERNON SUMMARY 1:13 AM [facility] REPOSITORY [facility] Medical Records Department [address] [place] [address] Emergency Department Summary 12/18/17 2334 MR#: [id number] Acct: [id number] Name: TARAN RAMIREZ Rep #: [id number] : 1935 82 From: Oleg Dove MD PCP: Porter Hester DO Status: DEP ER - ER Visit Summary Date of Service: 12/18/17 Chief Complaint: High blood pressure History of Present Illness: The patient is a [address] Mounika Hester. He reports that he has a long-standing history of high blood pressure. He has been on 80 mg of Diovan for years. Ports that he went to the orthopedic surgeon yesterday his blood pressure was 190/90. Because of that he has been measuring it today. His systolic is been anywhere from 165-217. His diastolic is been anywhere from 80-108. Denies any symptoms with this. No headache, numbness, or weakness. No chest pain. He reports he has chronic shortness of breath is unchanged. Physical Examination: Vitals: Stable. Afebrile. General: Well-nourished and well-developed. Head: Normocephalic atraumatic. Neck: Supple, no lymphadenopathy. No JVD. Nontender. Cardiovascular: Regular rate and rhythm. No murmurs. Respiratory: No respiratory distress. Clear to auscultation bilaterally. Abdominal: Soft, nontender, nondistended, normal bowel sounds. No guarding, rebound, or peritoneal signs. Back: Nontender. Extremities: Nontender, trace edema bilaterally. Skin: Normal color, no rash. Neurologic: Alert and oriented 3. Cranial nerves II through XII are intact. Normal strength and sensation. Psych: Normal affect. Test Results: Screening labs were obtained. CBC is remarkable for monocytes of 11 eosinophils of 6. Chem-7 is more for chloride of 108, calcium 8.4, glucose 162, BUN of 25, creatinine 2.0. His creatinine ranged between 1.72 and 2.08 in 2017. Emergency Department Course and Treatment: Patient is resting comfortably. His blood pressure decreased to 169/82 without any treatment. Treatment Plan: He will be discharged instructions to follow- up Dr. Hester within a week to have his blood pressure checked again. Return to the emergency department for any worsening symptoms. Disposition: To home in improved and stable condition. Impression: 1. Hypertension. This note was generated with INXPO dictation software. It may contain incorrect words, spelling, and punctuation that were not noted in review of the chart prior to signing ED Disposition - Plan for ED Patient: Disposition: Home or Assisted Living Chief Complaint: Hypertension Instructions: ED HTN Established Referrals: Porter Hester, DO [Primary Care Provider] - 1 Week What to do if you have Problems For any increased pain, shortness of breath, bleeding, nausea or vomiting, chest pain, or any unexpected problems, contact your Primary Care Provider. Call [facility] ([phone]) or report to the closest Emergency Room. Call 911 if necessary. 12/20/17 0111 <Electronically signed by Oleg Dove MD> Date Oleg Dove MD Cosigner Signature (If Indicated): Date CC: Porter Hester DO CBC W/DIFF, AUTOMATED Collected: 12/18/2017 Status: F Source: MAGAN 11:08 PM [facility] REPOSITORY TYPE CODE TESTS RESULT OUT OF RANGE REFERENCE UNITS LAB L100.1000 4.4-11.0 K/mm3 Normal WBC 6.8 LAB L100.1200 4.6-6.2 M/mm3 Low RBC 4.40 LAB L100.1300 13.0-16.5 g/dl Normal HGB 13.2 LAB L100.1400 40-54 % Normal HCT 40.6 LAB L100.1500 80-94 fL Normal MCV 92.3 LAB L100.1600 27.0-32.0 pg Normal MCH 30.0 LAB L100.1700 32-36 g/gl Normal MCHC 32.5 LAB L100.1810 11.6-14.6 % Normal RDW CV 13.4 LAB L100.1820 35.1-43.9 fl High RDW SD 44.7 LAB L100.1900 150-450 K/mm3 Normal PLT 184 LAB L100.2000 6.2-12.0 fl Normal MPV 9.5 LAB L100.2100 47-70 % Normal NEUT% 49.5 LAB L100.2200 19-41 % Normal LY% 32.3 LAB L100.2300 0-10 % High MONO% 11.2 LAB L100.2400 0-5 % High EO% 6.3 LAB L100.2500 0-1 % Normal BASO% 0.4 LAB L100.2550 0.0-0.9 % Normal IM GRAN % 0.300 Result Comment: IG% - Immature Granulocytes (promyelocytes, myelocytes and metamyelocytes) > 1% indicates that a LEFT SHIFT is Present. LAB L100.2620 2.0-7.7 X10 3/uL Normal Absolute Neut 3.4 LAB L100.2720 0.83-4.51 X10 3/ul Normal Absolute Lymph 2.19 Performed By: #### L100.0100 #### [facility] [address] [place], [address] BASIC METABOLIC Collected: 12/18/2017 Status: F Source: MAGAN PROFILE (BMP) 11:08 PM [facility] REPOSITORY TYPE CODE TESTS RESULT OUT OF RANGE REFERENCE UNITS LAB L501.0100 74-106 mg/dL High GLU 162 Result Comment: Fasting Glucose result greater than or equal to 126 mg/dL suggests DIABETES MELLITUS per A.D.A. criteria. Please note revised GLUCOSE reference range effective 2017. LAB L501.1000 7-18 mg/dL High BUN 25 LAB L501.1100 0.70-1.30 mg/dL High CREAT,SERUM 2.00 Result Comment: The validity of the calculated GFR AND GFRAA in patients over 70 years has not been determined. Clinical correlation is essential. LAB L501.1110 >60 mL/min Low EST GFR 34 Result Comment: Non- GFR Calc LAB L501.1115 >60 mL/min Low EST GFR - AA 41 Result Comment: GFR Calc LAB L501.1255 ml/min Normal Estimated CRCL 30.85 LAB L501.1300 10-20 RATIO Normal BUN/CRE 12.5 LAB L501.2200 8.5-10 mg/dL Low .1 CA 8.4 LAB L501.5300 136-14 mmol/L Normal 5 NA 141 LAB L501.5600 3.5-5. mmol/L Normal 1 K 4.6 LAB L501.5900 98-107 mmol/L High CL 108 LAB L501.6100 21.0-3 mmol/L Normal 2.0 CO2 26.0 LAB L501.6200 5-15 Normal GAP 7 Performed By: #### L500.2500 #### [facility] [address] [place], [address] CBC-COMPLETE BLOOD CNT Collected: 12/17/2017 Status: F Source: MAGAN NO DIFF 4:10 PM [facility] REPOSITORY TYPE CODE TESTS RESULT OUT OF RANGE REFERENCE UNITS LAB L100.1000 4.4-11.0 K/mm3 Normal WBC 8.1 LAB L100.1200 4.6-6.2 M/mm3 Normal RBC 4.72 LAB L100.1300 13.0-16.5 g/dl Normal HGB 14.1 LAB L100.1400 40-54 % Normal HCT 43.2 LAB L100.1500 80-94 fL Normal MCV 91.5 LAB L100.1600 27.0-32.0 pg Normal MCH 29.9 LAB L100.1700 32-36 g/gl Normal MCHC 32.6 LAB L100.1810 11.6-14.6 % Normal RDW CV 13.4 LAB L100.1820 35.1-43.9 fl High RDW SD 44.1 LAB L100.1900 150-450 K/mm3 Normal PLT 221 LAB L100.2000 6.2-12.0 fl Normal MPV 9.8 Performed By: #### L100.0500 #### [facility] [address] [place], [address] BASIC METABOLIC Collected: 12/17/2017 Status: F Source: VERNON PROFILE ([facility]) 4:10 PM [facility] REPOSITORY TYPE CODE TESTS RESULT OUT OF RANGE REFERENCE UNITS LAB L501.0100 74-106 mg/dL Normal GLU 92 Result Comment: Please note revised GLUCOSE reference range effective 2017. LAB L501.1000 7-18 mg/dL High BUN 24 LAB L501.1100 0.70-1.30 mg/dL High CREAT,SERUM 1.72 Result Comment: The validity of the calculated GFR AND GFRAA in patients over 70 years has not been determined. Clinical correlation is essential. LAB L501.1110 >60 mL/min Low EST GFR 41 Result Comment: Non- GFR Calc LAB L501.1115 >60 mL/min Low EST GFR - AA 49 Result Comment: GFR Calc LAB L501.1300 10-20 RATIO Normal BUN/CRE 14.0 LAB L501.2200 8.5-10.1 mg/dL CA Normal 8.8 LAB L501.5300 136-145 mmol/L NA Normal 139 LAB L501.5600 3.5-5.1 mmol/L K Normal 4.6 LAB L501.5900 98-107 mmol/L CL Normal 104 LAB L501.6100 21.0-32.0 mmol/L Normal CO2 26.0 LAB L501.6200 5-15 Normal GAP 9 Performed By: #### L500.2500 #### [facility] [address], [address] ALLERGIES ALLERGIES DATE TYPE / CODE NAME / CODE REACTION SEVERITY SOURCE 06/22/2018 Drug amoxicillin/ Hives Unknown [facility] Allergy/4160 [id number](R Hospital 68725(SNOMED XNORM) Repository CT) 06/22/2018 Drug diphenhydram Hives Unknown [facility] Allergy/4160 ine/[id number] Hospital 12707(SNOMED 87(RXNORM) Repository CT) ENCOUNTERS ENCOUNTERS ADMIT/DISCHARGE ACCOUNT ADMITTING ENCOUNTER LOCATION SOURCE NUMBER CLASS 11/17/2018 [id number] Ambulatory Magan Darragh 9 [facility] ing:MTLAB Repository 11/15/2018 [id number] Ambulatory Darragh Darragh 4 [facility] ing:MTLAB Repository 11/09/2018 [id number] Ambulatory Magan Darragh 8 [facility] ing:MTRAD Repository 11/04/2018 [id number] Ambulatory Darragh Darragh 3 [facility] ing:PSN Repository 11/04/2018 [id number] Ambulatory BMSBuilding:W Darragh 9 [facility] Repository 10/20/2018 [id number] Ambulatory Darragh Magan 3 [facility] ing:MTRAD Repository 08/22/2018 [id number] Ambulatory Darragh Darragh 8 [facility] ing:MTLAB Repository 07/21/2018 [id number] Ambulatory Magan Darragh 3 [facility] ing:US Repository 07/20/2018 [id number] Ambulatory Magan Magan 3 [facility] ing:POLAB3 Repository 07/05/2018 [id number] Ambulatory Darragh Magan 0 [facility] ing:SL Repository 06/22/2018 [id number] Ambulatory Darragh Darragh 5 [facility] ing:RAD Repository 06/22/2018/ [id number] Ambulatory BMSBuilding:B Magan 8 6 [facility] Repository 06/16/2018 [id number] Ambulatory Darragh Magan 1 [facility] ing:CVS Repository 06/16/2018 [id number] Ambulatory BMSBuilding:W Darragh 8 [facility] Repository 06/10/2018/ [id number] Ambulatory BMSBuilding:B Darragh 8 7 MS.[facility] Repository 06/09/2018 [id number] Ambulatory Darragh Darragh 3 [facility] ing:MTLAB Repository 05/30/2018 [id number] Ambulatory Magan Darragh 4 [facility] ing:LAB Repository 05/26/2018 [id number] Ambulatory Darragh Magan 3 [facility] ing:LAB Repository 05/26/2018 [id number] Ambulatory Magan Darragh 7 [facility] ing:LABSPEC Repository 01/23/2018/ [id number] Emergency Magan Magan 8 8 [facility] ing:ED Repository 01/11/2018/ [id number] [facility] 12/18/2017/ [id number] Emergency Darragh Darragh 8 5 [facility] ing:ED Repository 12/17/2017 [id number] Ambulatory Darragh Darragh 7 [facility] ing:LAB Repository 12/17/2017 [id number] Ambulatory BMSBuilding:W Darragh 4 [facility] Repository PAYERS PAYERS ENCOUNTER GUARANTOR PAYER SUBSCRIBER SOURCE 11/17/2018 TARAN E Primary TARAN E Darragh [id number] Insurance:MEDICARE SCHEIBEDOB: [facility] PART A BPolicy Number: [id number] [id number] Repository [address]Qsm: (330) Date:2018-11-17 [phone] () 11/17/2018 Secondary TARAN E Darragh Insurance:HUMANA SCHEIBEDOB: [facility] [id number] Hospital Number: Repository [id number] Date:0782-19-87IY[address] [address]HU: 11/17/2018 Tertiary NOT GIVENUNK Magan Insurance:SELF PAY [facility] Number: Effective Repository Date:2018-11-17 11/15/2018 TARAN E Primary TARAN E Magan [id number] Insurance:MEDICARE SCHEIBEDOB: [facility] PART A BPolicy Number: [id number] [id number] Repository [address]Tkg: (330) Date:2018-11-15 () 11/15/2018 Secondary TARAN E Magan Insurance:HUMANA SCHEIBEDOB: [facility] [id number] Hospital Number: Repository [id number] Date:9326-60-30MJ[address] [address]CR: 11/15/2018 Tertiary NOT GIVENUNK Magan Insurance:SELF PAY [facility] Number: Effective Repository Date:2018-11-15 11/09/2018 TARAN E Primary TARAN E Darragh [id number] Insurance:MEDICARE SCHEIBEDOB: [facility] PART A BPolicy Number: [id number] [id number] Repository [address]Aag: 330) Date:2018-11-09 () 11/09/2018 Secondary TARAN E Darragh Insurance:HUMANA SCHEIBEDOB: [facility] [id number] Hospital Number: Repository [id number] Date:0080-77-01AS [address] [place] [address]RZ: 11/09/2018 Tertiary NOT GIVENUNK Darragh Insurance:SELF PAY [facility] Number: Effective Repository Date:2018-11-09 11/04/2018 TARAN E Primary TARAN E Magan [id number] Insurance:MEDICARE SCHEIBEDOB: [facility] PART A BPolicy Number: [id number] [id number] Repository [address]Wrz: (330) Date:2018-10-24 () 11/04/2018 Secondary TARAN E Darragh Insurance:HUMANA SCHEIBEDOB: [facility] [id number] Hospital Number: Repository [id number] Date:4256-26-13WK[address] [address]TP: 11/04/2018 Tertiary NOT GIVENUNK Magan Insurance:SELF PAY [facility] Hospital Number: Effective Repository Date:2018-10-24 11/04/2018 TARAN E Primary TARAN E Darragh [id number] Insurance:MEDICARE SCHEIBEDOB: [facility] PART A BPolicy Number: [id number] [id number] Repository [address]Set: 330) Date:2018-10-240052 () 11/04/2018 Secondary TARAN E Darragh Insurance:HUMANA SCHEIBEDOB: [facility] [id number] Hospital Number: Repository [id number] Date:3277-19-09EA [address] [address]SG: 11/04/2018 Tertiary NOT GIVENUNK Darragh Insurance:SELF PAY [facility] Hospital Number: Effective Repository Date:2018-11-04 10/20/2018 TARAN E Primary TARAN E Magan [id number] Insurance:MEDICARE SCHEIBEDOB: [facility] PART A BPolicy Number: [id number] [place], [place] [id number] Repository [address]Ogq: 330) Date:2018-10-209015 () 10/20/2018 Secondary TARAN E Magan Insurance:HUMANA SCHEIBEDOB: [facility] [id number] Hospital Number: Repository [id number] Date:5958-69-09EV [address] [address]HZ: 10/20/2018 Tertiary NOT GIVENUNK Magan Insurance:SELF PAY [facility] Hospital Number: Effective Repository Date:2018-10-20 08/22/2018 TARAN E Primary TARAN E Magan [id number] Insurance:MEDICARE SCHEIBEDOB: [facility] PART A BPolicy Number: [id number] [place] [id number] Repository [address]Zpu: (330) Date:2018-08-22 () 08/22/2018 Secondary TARAN E Darragh Insurance:HUMANA SCHEIBEDOB: [facility] [id number] Hospital Number: Repository [id number] Date:2684-26-27XY [address] [address]NY: 08/22/2018 Tertiary NOT GIVENUNK Magan Insurance:SELF PAY [facility] Hospital Number: Effective Repository Date:2018-08-22 07/21/2018 TARAN E Primary TARAN E Darragh [id number] Insurance:MEDICARE SCHEIBEDOB: [facility] PART A BPolicy Number: [id number] [place], [place] [id number] Repository [address]Tcy: 330) Date:2018-07-20 () 07/21/2018 Secondary TARAN E Darragh Insurance:HUMANA SCHEIBEDOB: [facility] [id number] Hospital Number: Repository [id number] Date:3494-29-80YY [address] [address]KJ: 07/21/2018 Tertiary NOT GIVENUNK Magan Insurance:SELF PAY [facility] Hospital Number: Effective Repository Date:2018-07-20 07/20/2018 TARAN E Primary TARAN E Magan [id number] Insurance:MEDICARE SCHEIBEDOB: [facility] PART A BPolicy Number: [id number] [place] [id number] Repository [address]Ctq: (330) Date:2018-07-20 () 07/20/2018 Secondary TARAN E Magan Insurance:HUMANA SCHEIBEDOB: [facility] [id number] Hospital Number: Repository [id number] Date:3712-31-88RV [address] [place] [address]KG: 07/20/2018 Tertiary NOT GIVENUNK Darragh Insurance:SELF PAY [facility] Number: Effective Repository Date:2018-07-20 07/05/2018 TARAN E Primary TARAN E Darragh [id number] Insurance:MEDICARE SCHEIBEDOB: [facility] PART A BPolicy Number: [id number] [place] [id number] Repository [address]Ubx: (964) Date:2018-07-010375 () 07/05/2018 Secondary TARAN E Magan Insurance:HUMANA SCHEIBEDOB: [facility] [id number] Hospital Number: Repository [id number] Date:7441-28-90MS [address] [address]YT: 07/05/2018 Tertiary NOT GIVENUNK Magan Insurance:SELF PAY [facility] Hospital Number: Effective Repository Date:2018-07-01 06/22/2018 TARAN E Primary TARAN E Magan [id number] Insurance:MEDICARE SCHEIBEDOB: [facility] PART A BPolicy Number: [id number] [place], [place] [id number] Repository [address]Xmp: (936) Date:2018-06-222087 () 06/22/2018 Secondary TARAN E Darragh Insurance:HUMANA SCHEIBEDOB: [facility] [id number] Hospital Number: Repository [id number] Date:1490-49-38ZN [address] [place] [address]WM: 06/22/2018 Tertiary NOT GIVENUNK Magan Insurance:SELF PAY [facility] Number: Effective Repository Date:2018-06-22 06/22/2018 TARAN E Primary TARAN E Darragh [id number] Insurance:MEDICARE SCHEIBEDOB: [facility] PART A BPolicy Number: [id number] [place], [place] [id number] Repository [address]Fab: (330) Date:2017-10-26 () 06/22/2018 Secondary TARAN E Darragh Insurance:HUMANA SCHEIBEDOB: [facility] [id number] Hospital Number: Repository [id number] Date:5940-84-81SP [address] [place] [address]ZA: 06/22/2018 Tertiary NOT GIVENUNK Magan Insurance:SELF PAY [facility] Hospital Number: Effective Repository Date:2018-06-22 06/16/2018 TARAN E Primary TARAN E Darragh [id number] Insurance:MEDICARE SCHEIBEDOB: [facility] PART A BPolicy Number: [id number] [place], [place] [id number] Repository [address]Elb: 330) Date:2018-06-10 () 06/16/2018 Secondary TARAN E Magan Insurance:HUMANA SCHEIBEDOB: [facility] [id number] Hospital Number: Repository [id number] Date:2762-27-86EE [address] [place] [address]CV: 06/16/2018 Tertiary NOT GIVENUNK Magan Insurance:SELF PAY [facility] Hospital Number: Effective Repository Date:2018-06-10 06/16/2018 TARAN E Primary TARAN E Magan [id number] Insurance:MEDICARE SCHEIBEDOB: [facility] PART A BPolicy Number: [id number] [place] [id number] Repository [address]Bra: 330) Date:2018-06-10 () 06/16/2018 Secondary TARAN E Magan Insurance:HUMANA SCHEIBEDOB: [facility] [id number] Hospital Number: Repository [id number] Date:7732-89-50XU[address] [address]MC: 06/16/2018 Tertiary NOT GIVENUNK Darragh Insurance:SELF PAY [facility] Hospital Number: Effective Repository Date:2018-06-16 06/10/2018 TARAN E Primary TARAN E Darragh [id number] Insurance:MEDICARE SCHEIBEDOB: [facility] PART A BPolicy Number: [id number] [place], [place] [id number] Repository [address]Ctp: (330) Date:2018-06-10 () 06/10/2018 Secondary TARAN E Magan Insurance:HUMANA SCHEIBEDOB: [facility] [id number] Hospital Number: Repository [id number] Date:0853-52-54CL [address] [address]XW: 06/10/2018 Tertiary NOT GIVENUNK Magan Insurance:SELF PAY [facility] Hospital Number: Effective Repository Date:2018-06-10 06/09/2018 TARAN E Primary TARAN E Darragh [id number] Insurance:MEDICARE SCHEIBEDOB: [facility] PART A BPolicy Number: [id number] [place], [place] [id number] Repository [address]Eag: 330) Date:2018-06-09 () 06/09/2018 Secondary TARAN E Darragh Insurance:HUMANA SCHEIBEDOB: [facility] [id number] Hospital Number: Repository [id number] Date:0423-09-49KK [address] [place] [address]HT: 06/09/2018 Tertiary NOT GIVENUNK Magan Insurance:SELF PAY [facility] Hospital Number: Effective Repository Date:2018-06-09 05/30/2018 TARAN E Primary TARAN E Magan [id number] Insurance:MEDICARE SCHEIBEDOB: [facility] PART A BPolicy Number: [id number] [place], [place] [id number] Repository [address]Hcr: (330) Date:2018-05-30 () 05/30/2018 Secondary TARAN E Magan Insurance:HUMANA SCHEIBEDOB: [facility] [id number] Hospital Number: Repository [id number] Date:2933-82-36SL[address] [address]JG: 05/30/2018 Tertiary NOT GIVENUNK Magan Insurance:SELF PAY [facility] Hospital Number: Effective Repository Date:2018-05-30 05/26/2018 TARAN E Primary TARAN E Magan [id number] Insurance:MEDICARE SCHEIBEDOB: [facility] PART A BPolicy Number: [id number] [place], [place] [id number] Repository [address]Msy: 330) Date:2018-05-266762 () 05/26/2018 Secondary TARAN E Magan Insurance:HUMANA SCHEIBEDOB: [facility] [id number] Hospital Number: Repository [id number] Date:4282-73-46ZX[address] [address]HV: 05/26/2018 Tertiary NOT GIVENUNK Darragh Insurance:SELF PAY [facility] [facility] Hospital Number: Effective Repository Date:2018-05-26 05/26/2018 TARAN E Primary TARAN E Darragh [id number] Insurance:MEDICARE SCHEIBEDOB: [facility] PART A BPolicy Number: [id number] [id number] Repository 42216Rkb: [phone]) Date:2018-05-263285 () 05/26/2018 Secondary TARAN E Darragh Insurance:HUMANA SCHEIBEDOB: [facility] [id number] Hospital Number: Repository [id number] Date:[id number] [address]DD: 05/26/2018 Tertiary NOT GIVENUNK Darragh Insurance:SELF PAY [facility] Hospital Number: Effective Repository Date:2018-05-26 01/23/2018 TARAN E Primary TARAN E Darragh [id number] Insurance:MEDICARE SCHEIBEDOB: [facility] PART A BPolicy Number: [id number] [place], [place] [id number] Repository 198[address]Zvx: ([phone]) Date:2018-01-23760 () 01/23/2018 Secondary TARAN E Magan Insurance:HUMANA SCHEIBEDOB: [facility] [id number] Hospital Number: Repository [id number] Date:[id number] [address] [place] [address]MO: 01/23/2018 Tertiary NOT GIVENUNK Darragh Insurance:SELF PAY [facility] Hospital Number: Effective Repository Date:2018-01-23 01/11/2018 TARAN E Primary TARAN E Darragh [id number] Insurance:MEDICARE SCHEIBEDOB: [facility] PART A BPolicy Number: [id number] [place], [place] [id number] Repository [address]Xax: [phone]) Date:2017-10-185798 () 01/11/2018 Secondary TARAN E Darragh Insurance:HUMANA SCHEIBEDOB: [facility] [id number] Hospital Number: Repository [id number] Date:[id number] [address] [address]NO: 01/11/2018 Tertiary NOT GIVENUNK Magan Insurance:SELF PAY [facility] Hospital Number: Effective Repository Date:2017-10-18 12/18/2017 Taran E Primary Taran E Darragh [id number] Insurance:MEDICARE ScheibeDOB[facility] PART [facility] BPolicy Number: [id number] [id number] Repository [address]Uky: ([phone]) Date:2017-12-186302 () 12/18/2017 Secondary Taran E Darragh Insurance:HUMANA ScheibeDOB: [facility] [id number] Hospital Number: Repository [id number] Date:[id number] [address] [place] [address]NR: 12/18/2017 Tertiary NOT GIVENUNK Magan Insurance:SELF PAY [facility] Number: Effective Repository Date:2017-12-18 12/17/2017 Taran E Primary Taran E Magan [id number] Insurance:MEDICARE ScheibeDOB: [facility] PART A BPolicy Number: [id number], [place] [id number] Repository [address]Ozn: [phone]) Date:2017-12-176463 () 12/17/2017 Secondary Taran E Magan Insurance:HUMANA ScheibeDOB: [facility] [id number] Hospital Number: Repository [id number] Date:[id number] [address] [address]VQ: 12/17/2017 Tertiary NOT GIVENUNK Magan Insurance:SELF PAY [facility] Hospital Number: Effective Repository Date:2017-12-17 12/17/2017 TARAN E Primary TARAN E Darragh [id number] Insurance:MEDICARE SCHEIBEDOB: [facility] PART A BPolicy Number: [id number] [place], [place] [id number] Repository [address]Vsj: ([phone]) Date:2017-12-176435 (HP) 12/17/2017 Secondary TARAN E Darragh Insurance:HUMANA SCHEIBEDOB: [facility] [id number] Hospital Number: Repository [id number] Date:[id number] [address] [address]RY: 12/17/2017 Tertiary NOT GIVENUNK Darragh Insurance:SELF PAY [facility] Number: Effective Repository Date:2017-12-17
== END ==
PROVIDERS: Family Provider Family Medicine; PCP Family Medicine; Referring Provider Family Medicine; Visit Provider Family Medicine
DX: R06.09 Other forms of dyspnea (principal)
CPT/HCPCS: 71046

== ENCOUNTER → 2018-11-04 07:58 | Outpatient (CLI) | payer MEDICARE, OTHER, SELFPAY ==
--- NOTE | 2018-11-04 14:17 | PFTCOMP ---
COMPLETE PULMONARY FUNCTION TEST INTERPRETATION Brief HPI: Patient is an 83 year old male, currently under the care of Dr. Hester, who presents to [facility] for complete pulmonary function tests secondary to diagnosis of dyspnea. Respiratory therapist reports good effort and reproducible results. Interpretation: Forced expiration spirometry shows no large airways obstructive ventilatory defect with an FEV1 of 145% predicted. There is no significant bronchodilator response by strict ATS criteria. Spirograms are of good quality and plateau slowly, indicating slowly emptying areas of the lungs. The respiratory flow volume loop shows decreased expiratory flow rates at high lung volumes consistent with small airways obstruction. Lung volumes by body plethysmography show an elevated total lung capacity at 6.49 L, 173% predicted. All other lung volumes are increased symmetrically. Diffusion capacity by carbon monoxide is normal at 124% predicted. The airway resistance is normal. Compared to previous pulmonary function tests from 08/31/2016, there has been no significant change. Impression: Pulmonary function tests are within normal limits and show no significant change compared to previous
== END ==
PROVIDERS: Family Provider Family Medicine; PCP Family Medicine; Referring Provider Family Medicine; Visit Provider Family Medicine
DX: R06.09 Other forms of dyspnea (principal)
CPT/HCPCS: 94060; 94726; 94729

== ENCOUNTER → 2018-11-09 11:15 | Outpatient (CLI) | payer MEDICARE, OTHER, SELFPAY ==
[2018-06-22 13:27] VITALS: BMI 33.5
--- NOTE | 2018-11-09 11:19 | RAD_ITS ---
STUDY: X-RAY CHEST REASON FOR EXAM: Male, 83 years old. Cough and shortness of breath for 6 weeks TECHNIQUE: PA and lateral views of the chest. COMPARISON: 10/20/2018 FINDINGS: Granulomata of the right lung are stable. Similar scarring in the lingula. No airspace consolidation. There is no demonstrated pleural abnormality. Normal size heart. Normal mediastinum and morgan. Normal visualized pulmonary arteries. There is atherosclerotic calcification of the aortic arch with tortuosity. There are diffuse degenerative changes of the visualized thoracic spine. Right shoulder replacement noted. There is no demonstrated abnormality of the visualized soft tissue structures of the upper abdomen. RAD/Chest PA and Lateral IMPRESSION: No airspace consolidation or pleural effusion. Electronically Signed: Khari Robbins MD at 14:28 EST , Service support ,
== END ==
PROVIDERS: Family Provider Family Medicine; PCP Family Medicine; Referring Provider Family Medicine; Visit Provider Family Medicine
DX: J18.9 Pneumonia, unspecified organism (principal)
CPT/HCPCS: 71046

== ENCOUNTER → 2018-11-15 12:39 | Outpatient (CLI) | payer MEDICARE, OTHER, SELFPAY ==
[2018-06-22 13:27] VITALS: BMI 33.5
[2018-11-15 13:27] LABS: Hematocrit 42.2 % (40-54); Hemoglobin 13.6 g/dl (13.0-16.5); Mean Corp Hgb Conc 32.2 g/gl (32-36); Mean Corpuscular Hgb 29.9 pg (27.0-32.0); Mean Corpuscular Volume 92.7 fL (80-94); Platelet Count 232 K/mm3 (150-450); RBC Distribution Width CV 13.6 % (11.6-14.6); Red Blood Count 4.55 M/mm3 (4.6-6.2); White Blood Count 10.2 K/mm3 (4.4-11.0)
[2018-11-15 13:29] LABS: Scan Indicated on CBC? Y/N NO
[2018-11-15 13:40] LABS: Protein:Creat Ratio 162 mg/g CRE (0-200)
[2018-11-15 13:51] LABS: Albumin, Serum 3.5 g/dL (3.2-5.0); BUN 26 mg/dL (7-18); BUN/Creat Ratio 15.3 RATIO (10-20); Calcium,Total 8.5 mg/dL (8.5-10.1); Chloride 109 mmol/L (98-107); EST Glomerular Filtration Rate 41 mL/min (>60); Est Glom Filt Rate - Afr Amer 50 mL/min (>60); Glucose 121 mg/dL (74-106); Phosphorus 2.8 mg/dL (2.5-4.9); Potassium 4.3 mmol/L (3.5-5.1); Sodium Level 140 mmol/L (136-145)
[2018-11-15 13:59] LABS: PTHIN 102.6 pg/mL (18.4-80.1)
== END ==
PROVIDERS: Family Provider Family Medicine; PCP Family Medicine; Referring Provider Internal Medicine Nephrology; Visit Provider Internal Medicine Nephrology
DX: N28.89 Other specified disorders of kidney and ureter (principal)
CPT/HCPCS: 36415; 80069; 82570; 83970; 84156; 85027

== ENCOUNTER → 2018-11-17 14:16 | Outpatient (CLI) | payer MEDICARE, OTHER, SELFPAY ==
[2018-11-17 16:09] LABS: Vitamin D,25 Hydroxy 28.1 ng/mL (29.95-100.01)
== END ==
PROVIDERS: Family Provider Family Medicine; PCP Family Medicine; Referring Provider Internal Medicine Nephrology; Visit Provider Internal Medicine Nephrology
DX: N28.89 Other specified disorders of kidney and ureter (principal); E55.9 Vitamin D deficiency, unspecified
CPT/HCPCS: 82306

== ENCOUNTER → 2018-12-13 12:37 | Outpatient (CLI) | payer MEDICARE, OTHER, SELFPAY ==
[2018-12-13 11:35] VITALS: BMI 33.3
== END ==
PROVIDERS: Family Provider Family Medicine; PCP Family Medicine; Referring Provider Nurse Practitioner Family; Visit Provider Nurse Practitioner Family
DX: R07.9 Chest pain, unspecified (principal)
CPT/HCPCS: 36415; 84484

== ENCOUNTER → 2019-01-04 08:49 | Outpatient (CLI) | payer MEDICARE, OTHER, SELFPAY ==
[2018-12-13 11:35] VITALS: BMI 33.3
[2019-01-04 10:23] LABS: Hemoglobin 13.9 g/dl (13.0-16.5); Mean Corp Hgb Conc 33.1 g/gl (32-36); Mean Corpuscular Volume 93.5 fL (80-94); Mean Platelet Vol. 10.3 fl (6.2-12.0); Platelet Count 204 K/mm3 (150-450); RBC Distribution Width CV 13.3 % (11.6-14.6); RBC Distribution Width SD 44.1 fl (35.1-43.9); Red Blood Count 4.49 M/mm3 (4.6-6.2); White Blood Count 6.3 K/mm3 (4.4-11.0)
[2019-01-04 10:24] LABS: Protein, Urine (Random) 17.1 mg/dL (<11.9); Protein:Creat Ratio 192 mg/g CRE (0-200); Scan Indicated on CBC? Y/N NO
[2019-01-04 10:43] LABS: PTHIN 75.9 pg/mL (18.4-80.1)
[2019-01-04 11:04] LABS: AST(SGOT) 17 U/L (15-37); Alanine Aminotransfer ALT/SGPT 27 U/L (16-61); Albumin, Serum 3.4 g/dL (3.2-5.0); Alkaline Phosphatase 58 U/L (45-117); Anion Gap 6 (5-15); BUN 32 mg/dL (7-18); BUN/Creat Ratio 19.6 RATIO (10-20); Bilirubin, Direct 0.11 mg/dL (0.00-0.30); Calcium,Total 8.6 mg/dL (8.5-10.1); Chloride 109 mmol/L (98-107); Cholesterol 192 mg/dL (200); Creatinine, Serum 1.63 mg/dL (0.70-1.30); EST Glomerular Filtration Rate 43 mL/min (>60); Est Glom Filt Rate - Afr Amer 52 mL/min (>60); Globulin 3.6 g/dL (2.2-4.2); Glucose 143 mg/dL (74-106); High Density Lipoprotein 42 mg/dL; Phosphorus 3.2 mg/dL (2.5-4.9); Potassium 4.5 mmol/L (3.5-5.1); Sodium Level 138 mmol/L (136-145); Triglycerides 197 mg/dL; Very Low Density Lipoprotein 39 mg/dL (5-40)
== END ==
PROVIDERS: Internal Medicine Cardiovascular Disease; Family Provider Family Medicine; PCP Family Medicine; Referring Provider Internal Medicine Nephrology; Visit Provider Internal Medicine Nephrology
DX: N28.89 Other specified disorders of kidney and ureter (principal); E55.9 Vitamin D deficiency, unspecified; E78.5 Hyperlipidemia, unspecified
CPT/HCPCS: 36415; 80048; 80061; 80076; 82306; 82570; 83970; 84100; 84156; 85027

== ENCOUNTER → 2019-03-02 11:38 | Outpatient (CLI) | payer MEDICARE, OTHER, SELFPAY ==
[2019-01-06 13:43] VITALS: BMI 33.3
[2019-03-02 14:04] LABS: Protein, Urine (Random) 8.5 mg/dL (<11.9); Protein:Creat Ratio 197 mg/g CRE (0-200)
[2019-03-02 14:05] LABS: Albumin, Serum 3.5 g/dL (3.2-5.0); BUN 26 mg/dL (7-18); BUN/Creat Ratio 14.9 RATIO (10-20); Calcium,Total 8.4 mg/dL (8.5-10.1); Chloride 110 mmol/L (98-107); Creatinine, Serum 1.75 mg/dL (0.70-1.30); EST Glomerular Filtration Rate 40 mL/min (>60); Est Glom Filt Rate - Afr Amer 48 mL/min (>60); Glucose 100 mg/dL (74-106); Phosphorus 2.2 mg/dL (2.5-4.9); Potassium 4.5 mmol/L (3.5-5.1); Sodium Level 139 mmol/L (136-145)
[2019-03-02 14:09] LABS: Vitamin D,25 Hydroxy 16.5 ng/mL (29.95-100.01)
[2019-03-02 14:10] LABS: PTHIN 76.7 pg/mL (18.4-80.1)
[2019-03-02 17:49] LABS: Hematocrit 41.8 % (40-54); Hemoglobin 13.6 g/dl (13.0-16.5); Mean Corp Hgb Conc 32.5 g/gl (32-36); Mean Corpuscular Hgb 29.4 pg (27.0-32.0); Mean Corpuscular Volume 90.3 fL (80-94); Mean Platelet Vol. 10.4 fl (6.2-12.0); Platelet Count 203 K/mm3 (150-450); RBC Distribution Width CV 13.3 % (11.6-14.6); RBC Distribution Width SD 43.7 fl (35.1-43.9); Red Blood Count 4.63 M/mm3 (4.6-6.2); White Blood Count 6.9 K/mm3 (4.4-11.0)
[2019-03-02 17:52] LABS: Scan Indicated on CBC? Y/N NO
== END ==
PROVIDERS: Family Provider Family Medicine; PCP Family Medicine; Referring Provider Internal Medicine Nephrology; Visit Provider Internal Medicine Nephrology
DX: N28.89 Other specified disorders of kidney and ureter (principal); E55.9 Vitamin D deficiency, unspecified
CPT/HCPCS: 36415; 80069; 82306; 82570; 83970; 84156; 85027

== ENCOUNTER → 2019-04-11 14:06 | Outpatient (CLI) | payer MEDICARE, OTHER, SELFPAY ==
[2019-04-11 13:04] VITALS: BMI 33.0
--- NOTE | 2019-04-11 14:10 | RAD_ITS ---
STUDY: X-RAY CHEST REASON FOR EXAM: Male, 84 years old. Shortness of breath. TECHNIQUE: PA and lateral views of the chest. Patient again is mildly slumped and rotated to the left. COMPARISON: PA and lateral chest x-ray November 09, 2018. FINDINGS: Calcified granulomata again seen in the right lung base, and there is stable subsegmental atelectasis or scarring in the left base. There is no demonstrated pleural abnormality. Normal size heart. Normal mediastinum and morgan. Normal visualized pulmonary arteries. There is atherosclerotic calcification of the aortic arch. There are stable multilevel degenerative changes of the visualized thoracic spine. 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 There is no demonstrated abnormality of the visualized soft tissue structures of the upper abdomen. RAD/Chest PA and Lateral IMPRESSION: Stable x-ray examination of the chest, as described. Electronically Signed: Jaime Mitchell MD at 14:34 EDT , Service support ,
[2019-04-11 15:52] LABS: Absolute Lymphocyte Count 2.48 X10^3/ul (0.83-4.51); Absolute Neutrophil Count 3.8 X10^3/uL (2.0-7.7); Basophil# 0.04 X10^3/uL; Basophil% 0.5 % (0-1); Eosinophil# 0.39 X10^3/uL; Eosinophils% 5.2 % (0-5); Hematocrit 40.5 % (40-54); Hemoglobin 13.3 g/dl (13.0-16.5); Lymphocyte # 2.48 X10^3/ul (4.0); Lymphocyte % 33.1 % (19-41); Mean Corp Hgb Conc 32.8 g/gl (32-36); Mean Corpuscular Volume 91.4 fL (80-94); Mean Platelet Vol. 10.2 fl (6.2-12.0); Monocyte# 0.75 X10^3/uL; Neutrophil # 3.81 X10^3/uL (2.7-7.7); Neutrophil % 50.9 % (47-70); POSITIVE COUNT NO; POSITIVE DIFFERENTIAL NO; POSITIVE MORPHOLOGY NO; Platelet Count 218 K/mm3 (150-450); RBC Distribution Width CV 13.5 % (11.6-14.6); RBC Distribution Width SD 44.7 fl (35.1-43.9); Red Blood Count 4.43 M/mm3 (4.6-6.2); White Blood Count 7.5 K/mm3 (4.4-11.0)
[2019-04-11 16:09] LABS: Anion Gap 7 (5-15); BUN 29 mg/dL (7-18); BUN/Creat Ratio 17.2 RATIO (10-20); Calcium,Total 8.4 mg/dL (8.5-10.1); Chloride 110 mmol/L (98-107); Creatinine, Serum 1.69 mg/dL (0.70-1.30); EST Glomerular Filtration Rate 41 mL/min (>60); Est Glom Filt Rate - Afr Amer 50 mL/min (>60); Glucose 130 mg/dL (74-106); Potassium 4.3 mmol/L (3.5-5.1); Sodium Level 138 mmol/L (136-145)
[2019-04-11 16:29] LABS: BNP,B-Type NATRIURETIC PEPTIDE 9.3 pg/mL (0-100)
== END ==
PROVIDERS: Family Provider Family Medicine; PCP Family Medicine; Referring Provider Nurse Practitioner Family; Visit Provider Nurse Practitioner Family
DX: I10 Essential (primary) hypertension (principal); E78.5 Hyperlipidemia, unspecified; I25.10 Atherosclerotic heart disease of native coronary artery without angina pectoris; I47.2 Ventricular tachycardia; R06.00 Dyspnea, unspecified
CPT/HCPCS: 36415; 71046; 80048; 83880; 85025

== ENCOUNTER → 2019-05-02 12:46 | Outpatient (CLI) | payer MEDICARE, OTHER, SELFPAY ==
[2019-04-11 13:04] VITALS: BMI 33.0
--- NOTE | 2019-05-02 12:48 | ECHOCS_ITS ---
Reason For Study: DYSPNEA/SOB Procedure This was a 2D Doppler, Color Flow transthoracic echocardiogram. The study was technically difficult. Due to body habitus. Contrast injection was performed. Exam performed in department. Left Ventricle Normal LV size. Left ventricular systolic function is normal. The estimated ejection fraction is 65 %. No evidence for diastolic dysfunction. No regional wall motion abnormalities noted. Right Ventricle Normal RV size. Normal systolic function. Atria The left atrium is mildly enlarged. Normal right atrium. No doppler evidence for ASD. Mitral Valve There is mild to moderate mitral annular calcification. Extension of the mitral annular calcification onto the posterior mitral valve leaflet. Trivial mitral valve insufficiency. Tricuspid Valve Normal tricuspid valve. Trivial tricuspid valve insufficiency. Right ventricular systolic pressure estimated to be 25 mmHg. Aortic Valve Trisinus/trileaflet aortic valve. Normal aortic valve. Pulmonic Valve The pulmonic valve is not well visualized. Mild (1+) pulmonic valve insufficiency. Great Vessels Normal sized aortic root. Pericardium/Pleural No pericardial effusion. Medication 22 gauge I.V. with prn adaptor inserted into right arm. Diluted definity 3.0ml given slow IV push to enhance endocardial definition. MMode/2D Measurements & Calculations RVDd: 4.2 cm Ao root diam: 3.8 cm LAV(MOD-bp): 60.0 ml LAV(MOD-bp) Indexed: 26.8 ml/m2 LAV(MOD-sp2): 52.4 ml LAV(MOD-sp4): 63.6 ml LA dimension(2D): 4.4 cm LA A4 area: 21.0 cm2 RA A4 area: 17.1 cm2 Doppler Measurements & Calculations MV E max sudeep: 45.0 cm/sec Lat Peak E' Sudeep: 6.4 cm/sec Med Peak E' Sudeep: 4.4 cm/sec MV A max sudeep: 95.5 cm/sec E/E' lat: 7.0 E/E' med: 10.2 MV E/A: 0.47 Ao V2 max: 108.0 cm/sec LV V1 max: 83.3 cm/sec PA V2 max: 113.5 cm/sec Ao max P.7 mmHg LV V1 max P.8 mmHg TR max sudeep: 239.4 cm/sec TR max P.9 mmHg Interpretation Summary The study was technically difficult. Contrast injection was performed. Left ventricular systolic function is normal. The estimated ejection fraction is 65 %. The left atrium is mildly enlarged. There is mild to moderate mitral annular calcification. Extension of the mitral annular calcification onto the posterior mitral valve leaflet. Trivial mitral valve insufficiency. Trivial tricuspid valve insufficiency. Mild (1+) pulmonic valve insufficiency. Right ventricular systolic pressure estimated to be 25 mmHg. No evidence for diastolic dysfunction. Ordering Physician: Juan F Rubin Referring Physician: Porter Hester Performed By: Magalie Brar RDCS, RVT
== END ==
PROVIDERS: Family Provider Family Medicine; PCP Family Medicine; Referring Provider Nurse Practitioner Family; Visit Provider Nurse Practitioner Family
DX: R06.00 Dyspnea, unspecified (principal); R06.02 Shortness of breath; I25.10 Atherosclerotic heart disease of native coronary artery without angina pectoris; I47.2 Ventricular tachycardia; I10 Essential (primary) hypertension; E78.5 Hyperlipidemia, unspecified
CPT/HCPCS: 93306; Q9957; A4216; C8929

== ENCOUNTER → 2019-05-22 15:54 | Outpatient (CLI) | payer MEDICARE, OTHER, SELFPAY ==
[2019-04-11 13:04] VITALS: BMI 33.0
[2019-05-22 18:06] LABS: Anion Gap 7 (5-15); BUN 31 mg/dL (7-18); BUN/Creat Ratio 16.2 RATIO (10-20); Calcium,Total 8.5 mg/dL (8.5-10.1); Chloride 111 mmol/L (98-107); Creatinine, Serum 1.91 mg/dL (0.70-1.30); EST Glomerular Filtration Rate 36 mL/min (>60); Est Glom Filt Rate - Afr Amer 44 mL/min (>60); Glucose 150 mg/dL (74-106); PSA,Total- Diagnostic 9.26 ng/mL (0.0-4.0); Potassium 4.6 mmol/L (3.5-5.1); Sodium Level 140 mmol/L (136-145)
== END ==
PROVIDERS: Family Provider Family Medicine; PCP Family Medicine; Referring Provider Urology; Visit Provider Urology
DX: C64.9 Malignant neoplasm of unspecified kidney, except renal pelvis (principal); N40.1 Benign prostatic hyperplasia with lower urinary tract symptoms; N13.8 Other obstructive and reflux uropathy
CPT/HCPCS: 36415; 80048; 84153

== ENCOUNTER → 2019-09-08 13:02 | Outpatient (CLI) | payer MEDICARE, OTHER, SELFPAY ==
[2019-09-04 11:18] VITALS: BMI 33.0
[2019-09-08 14:09] LABS: Absolute Lymphocyte Count 1.83 X10^3/uL (0.83-4.51); Basophil# 0.05 X10^3/uL; Basophil% 0.7 % (0-1); Eosinophil# 0.32 X10^3/uL; Eosinophils% 4.6 % (0-5); Hematocrit 40.7 % (40-54); Lymphocyte # 1.83 X10^3/ul (4.0); Lymphocyte % 26.6 % (19-41); Mean Corp Hgb Conc 31.9 g/dL (32-36); Mean Corpuscular Hgb 29.8 pg (27.0-32.0); Mean Corpuscular Volume 93.3 fL (80-94); Monocyte# 0.66 X10^3/uL; Monocyte% 9.6 % (0-10); NRBC Flagged by Analyzer 0 % (0-5); Neutrophil # 3.99 X10^3/uL (2.7-7.7); Neutrophil % 57.9 % (47-70); Platelet Count 236 K/mm3 (150-450); RBC Distribution Width SD 44.7 fl (35.1-43.9); Red Blood Count 4.36 M/mm3 (4.6-6.2); White Blood Count 6.9 K/mm3 (4.4-11.0)
[2019-09-08 14:22] LABS: Protein:Creat Ratio 199 mg/g CRE (0-200)
[2019-09-08 14:23] LABS: Albumin, Serum 3.3 g/dL (3.2-5.0); BUN 23 mg/dL (7-18); BUN/Creat Ratio 13.5 RATIO (10-20); Calcium,Total 8.9 mg/dL (8.5-10.1); Chloride 105 mmol/L (98-107); EST Glomerular Filtration Rate 41 mL/min (>60); Est Glom Filt Rate - Afr Amer 50 mL/min (>60); Glucose 176 mg/dL (74-106); Phosphorus 3.2 mg/dL (2.5-4.9); Sodium Level 139 mmol/L (136-145)
[2019-09-08 14:48] LABS: Vitamin D,25 Hydroxy 45.2 ng/mL (29.95-100.01)
[2019-09-08 14:49] LABS: PTHIN 58.4 pg/mL (18.4-80.1)
== END ==
PROVIDERS: Family Provider Family Medicine; PCP Family Medicine; Referring Provider Internal Medicine Nephrology; Visit Provider Internal Medicine Nephrology
DX: N18.3 Chronic kidney disease, stage 3 (moderate) (principal); E55.9 Vitamin D deficiency, unspecified
CPT/HCPCS: 36415; 80069; 82306; 82570; 83970; 84156; 85025

== ENCOUNTER → 2019-10-20 07:48 | Outpatient (CLI) | payer MEDICARE, OTHER, SELFPAY ==
[2019-09-08 13:42] VITALS: BMI 33.0
[2019-10-20 10:29] LABS: Hemoglobin A1c 7.1 % (4.2-6.3)
[2019-10-20 10:38] LABS: Vitamin B12 407 pg/mL (211-911)
[2019-10-20 10:47] LABS: AST(SGOT) 13 U/L (15-37); Alanine Aminotransfer ALT/SGPT 24 U/L (16-61); Albumin, Serum 3.4 g/dL (3.2-5.0); Alkaline Phosphatase 57 U/L (45-117); Bilirubin, Direct 0.08 mg/dL (0.00-0.30); Cholesterol 195 mg/dL (200); Globulin 3.6 g/dL (2.2-4.2); High Density Lipoprotein 37 mg/dL; T4 Free Direct 1.03 ng/dL (0.76-1.46); Thyroid Stim Hormone (TSH) 2.18 uIU/mL (0.358-3.74); Triglycerides 157 mg/dL; Uric Acid 6.7 mg/dL (3.5-7.2); Very Low Density Lipoprotein 31 mg/dL (5-40)
== END ==
PROVIDERS: Internal Medicine Cardiovascular Disease; Family Provider Family Medicine; PCP Family Medicine; Referring Provider Family Medicine; Visit Provider Family Medicine
DX: E11.9 Type 2 diabetes mellitus without complications (principal); I48.91 Unspecified atrial fibrillation; I10 Essential (primary) hypertension; M10.9 Gout, unspecified; E53.8 Deficiency of other specified B group vitamins; E78.5 Hyperlipidemia, unspecified
CPT/HCPCS: 36415; 80061; 80076; 82607; 83036; 84439; 84443; 84550

== ENCOUNTER → 2020-02-26 14:49 | Outpatient (CLI) | payer MEDICARE, OTHER, SELFPAY ==
[2019-11-03 09:51] VITALS: BMI 33.7
[2020-02-26 17:51] LABS: Hematocrit 42.2 % (40-54); Hemoglobin 13.5 g/dL (13.0-16.5); Mean Corpuscular Hgb 29.4 pg (27.0-32.0); Mean Corpuscular Volume 91.9 fL (80-94); Mean Platelet Vol. 10.2 fl (6.2-12.0); Platelet Count 237 K/mm3 (150-450); RBC Distribution Width CV 13.2 % (11.6-14.6); RBC Distribution Width SD 44.4 fl (35.1-43.9); Red Blood Count 4.59 M/mm3 (4.6-6.2); White Blood Count 9.4 K/mm3 (4.4-11.0)
[2020-02-26 18:08] LABS: PTHIN 85.6 pg/mL (18.4-80.1)
[2020-02-26 18:16] LABS: Albumin, Serum 3.6 g/dL (3.2-5.0); BUN 28 mg/dL (7-18); BUN/Creat Ratio 17.2 RATIO (10-20); Calcium,Total 8.9 mg/dL (8.5-10.1); Chloride 109 mmol/L (98-107); Creatinine, Serum 1.63 mg/dL (0.70-1.30); EST Glomerular Filtration Rate 43 mL/min (>60); Est Glom Filt Rate - Afr Amer 52 mL/min (>60); Glucose 111 mg/dL (74-106); Phosphorus 3.6 mg/dL (2.5-4.9); Potassium 4.1 mmol/L (3.5-5.1); Sodium Level 140 mmol/L (136-145)
[2020-02-26 18:54] LABS: Protein, Urine (Random) 16.7 mg/dL (<11.9); Protein:Creat Ratio 127 mg/g CRE (0-200)
== END ==
PROVIDERS: PCP Family Medicine; Referring Provider Internal Medicine Nephrology; Visit Provider Internal Medicine Nephrology
DX: N18.3 Chronic kidney disease, stage 3 (moderate) (principal); E55.9 Vitamin D deficiency, unspecified
CPT/HCPCS: 36415; 80069; 82306; 82570; 83970; 84156; 85027

== ENCOUNTER → 2020-05-08 10:59 | Outpatient (CLI) | payer MEDICARE, OTHER, SELFPAY ==
[2020-03-05 07:45] VITALS: BMI 33.7
[2020-05-08 11:31] LABS: Bacteria 0 SEEN /hpf (None Seen); Mucous, Urine 0 SEEN /hpf (<or=2+)
[2020-05-08 12:28] LABS: Color, Urine Yellow (Yellow); Glucose, Dipstick Normal (Normal); Ketone-Dipstick Negative (Negative); Leukocyte Esterase-Dipstick 500 /ul (Negative); Nitrite-Dipstick Negative (Negative); Occult Blood-Urine 10 /ul (Negative); Protein-Dipstick Negative (Negative); Specific Gravity, Urine 1.015 (1.002-1.030); Urine Bilirubin Dipstick Negative (Negative); Urine Clarity Sl. Cloudy (Clear); Urine Urobilinogen Normal (Normal)
[2020-05-08 12:36] LABS: Red Blood Cells-Urine 0-5 SEEN /hpf (0-5); Squamous Epithelial Cells - UA 0-5 SEEN /hpf (0-5); White Blood Cells 25-50 SEEN /hpf (0-5)
[2020-05-08 12:37] LABS: Absolute Lymphocyte Count 2.09 X10^3/uL (0.83-4.51); Absolute Neutrophil Count 4.6 X10^3/uL (2.0-7.7); Basophil# 0.05 X10^3/uL; Basophil% 0.6 % (0-1); Eosinophil# 0.27 X10^3/uL; Eosinophils% 3.4 % (0-5); Hematocrit 42.2 % (40-54); Lymphocyte # 2.09 X10^3/ul (4.0); Lymphocyte % 26.4 % (19-41); Mean Corp Hgb Conc 30.8 g/dL (32-36); Mean Corpuscular Hgb 29.3 pg (27.0-32.0); Mean Corpuscular Volume 95.3 fL (80-94); Mean Platelet Vol. 10.1 fl (6.2-12.0); Monocyte# 0.92 X10^3/uL; Monocyte% 11.6 % (0-10); NRBC Flagged by Analyzer 0 % (0-5); Neutrophil # 4.56 X10^3/uL (2.7-7.7); Neutrophil % 57.6 % (47-70); Platelet Count 222 K/mm3 (150-450); RBC Distribution Width CV 13.5 % (11.6-14.6); RBC Distribution Width SD 46.9 fl (35.1-43.9); Red Blood Count 4.43 M/mm3 (4.6-6.2); White Blood Count 7.9 K/mm3 (4.4-11.0)
[2020-05-08 12:51] LABS: Microalbumin,Random Urine 10.9 mg/L (NO RANGE EST.); Microalbumin:Creatinine Ratio 10.7 mg/g CRE (<30 mg/g CRE)
[2020-05-08 12:57] LABS: PTHIN 76.2 pg/mL (18.4-80.1)
[2020-05-08 13:00] LABS: Hemoglobin A1c 6.7 % (3.8-5.6); Vitamin B12 367 pg/mL (211-911); Vitamin D,25 Hydroxy 76.3 ng/mL
[2020-05-08 13:17] LABS: ALB/GLOB Ratio 0.8 RATIO (0.9-2.4); AST(SGOT) 9 U/L (15-37); Alanine Aminotransfer ALT/SGPT 23 U/L (16-61); Albumin, Serum 3.4 g/dL (3.2-5.0); Alkaline Phosphatase 63 U/L (45-117); Anion Gap 6 (5-15); BUN 39 mg/dL (7-18); CPK Total, Creatine Kinase 165 U/L (39-308); Calcium,Total 8.8 mg/dL (8.5-10.1); Chloride 112 mmol/L (98-107); Creatinine, Serum 1.77 mg/dL (0.70-1.30); EST Glomerular Filtration Rate 39 mL/min (>60); Est Glom Filt Rate - Afr Amer 47 mL/min (>60); Ferritin 104 ng/mL (26-388); Globulin 4.1 g/dL (2.2-4.2); Glucose 130 mg/dL (74-106); Magnesium 2.3 mg/dL (1.6-2.6); Potassium 4.5 mmol/L (3.5-5.1); Protein, Total 7.5 g/dL (6.4-8.2); Sodium Level 140 mmol/L (136-145); Thyroid Stim Hormone (TSH) 1.06 uIU/mL (0.358-3.74); Uric Acid 7.6 mg/dL (3.5-7.2)
[2020-05-12 23:45] LABS: Vitamin B1, Thiamine 135.5 nmol/L (66.5-200.0)
== END ==
PROVIDERS: PCP Family Medicine; Visit Provider Family Medicine
DX: E11.22 Type 2 diabetes mellitus with diabetic chronic kidney disease (principal); I12.9 Hypertensive chronic kidney disease with stage 1 through stage 4 chronic kidney disease, or unspecified chronic kidney disease; N18.9 Chronic kidney disease, unspecified; R25.2 Cramp and spasm; G62.9 Polyneuropathy, unspecified; I49.01 Ventricular fibrillation; M10.9 Gout, unspecified
CPT/HCPCS: 80053; 81001; 82043; 82306; 82550; 82570; 82607; 82728; 83036; 83735; 83970; 84100; 84425; 84443; 84550; 85025

== ENCOUNTER → 2020-05-21 09:41 | Outpatient (CLI) | payer MEDICARE, OTHER, SELFPAY ==
[2020-03-05 07:45] VITALS: BMI 33.7
--- NOTE | 2020-05-21 09:50 | ART_ITS ---
Reason For Study: claudication Procedure A bilateral lower extremity continuous wave Doppler with analog waveform analysis and ankle brachial indexes. Left Segmental Pressures Left brachial= 143mmHg. Left posterior tibial artery = 194mmHg. Left dorsalis pedis artery = 152mmHg. Left digit = 70 mmHg. The left dorsalis pedis waveforms are triphasic. The left posterior tibial artery waveforms are triphasic. Right Segmental Pressures Right brachial= 143mmHg. Right posterior tibial artery = 179mmHg. Right dorsalis pedis artery = 155mmHg. Right digit = 119 mmHg. The right dorsalis pedis waveforms are triphasic. The right posterior tibial artery waveforms are triphasic. Indices The right ankle brachial index by the posterior tibial artery is 1.25. The right ankle brachial index by the dorsalis pedis is 1.08. The right digital-brachial index is .83. The right post exercise ankle brachial index is 1.27. The left ankle brachial index by the posterior tibial artery is 1.36. The left ankle brachial index by the dorsalis pedis is 1.06. The left digital-brachial index is .49. The left post exercise ankle brachial index is 1.52. Interpretation Summary Triphasic Doppler waveforms are noted at ankle level bilaterally. Pulse-volume recordings appear satisfactory at ankle and digital levels bilaterally. Resting ankle-brachial indices are normal bilaterally. The right digital-brachial index is normal. The left digital-brachial index is moderately diminished. The patient ambulated at a moderate pace for 2.5 minutes, following which ankle pressures augmented, which is a normal physiological response. Arterial flow appears normal at all levels in the right lower extremity. Arterial flow appears normal at ankle level on the left. There is evidence of moderate, distal, small-vessel arterial occlusive disease at digital level on the left. Ordering Physician: Juan F Clayton Performed By: JOSÉ LUIS RODGERS RVT
== END ==
PROVIDERS: PCP Family Medicine; Referring Provider Family Medicine; Visit Provider Family Medicine
DX: R97.20 Elevated prostate specific antigen [PSA] (principal); I73.9 Peripheral vascular disease, unspecified
CPT/HCPCS: 36415; 84153; 93922

== ENCOUNTER → 2020-06-03 08:32 | Outpatient (CLI) | payer MEDICARE, OTHER, SELFPAY ==
[2020-03-05 07:45] VITALS: BMI 33.7
[2020-06-03 10:09] LABS: ALB/GLOB Ratio 0.9 RATIO (0.9-2.4); AST(SGOT) 11 U/L (15-37); Alanine Aminotransfer ALT/SGPT 21 U/L (16-61); Albumin, Serum 3.4 g/dL (3.2-5.0); Alkaline Phosphatase 62 U/L (45-117); Anion Gap 6 (5-15); BUN 39 mg/dL (7-18); BUN/Creat Ratio 24.4 RATIO (10-20); Calcium,Total 8.8 mg/dL (8.5-10.1); Chloride 109 mmol/L (98-107); Cholesterol 182 mg/dL (200); EST Glomerular Filtration Rate 44 mL/min (>60); Est Glom Filt Rate - Afr Amer 53 mL/min (>60); Globulin 3.7 g/dL (2.2-4.2); Glucose 145 mg/dL (74-106); High Density Lipoprotein 35 mg/dL; Potassium 4.3 mmol/L (3.5-5.1); Protein, Total 7.1 g/dL (6.4-8.2); Sodium Level 139 mmol/L (136-145); Triglycerides 184 mg/dL; Very Low Density Lipoprotein 37 mg/dL (5-40)
== END ==
PROVIDERS: PCP Family Medicine; Referring Provider Family Medicine; Visit Provider Family Medicine
DX: I25.10 Atherosclerotic heart disease of native coronary artery without angina pectoris (principal); I10 Essential (primary) hypertension
CPT/HCPCS: 36415; 80053; 80061

== ENCOUNTER → 2020-06-25 14:33 | Outpatient (CLI) | payer MEDICARE, OTHER, SELFPAY ==
[2020-03-05 07:45] VITALS: BMI 33.7
[2020-06-25 17:59] LABS: AST(SGOT) 14 U/L (15-37); Alanine Aminotransfer ALT/SGPT 29 U/L (16-61); Albumin, Serum 3.4 g/dL (3.2-5.0); Alkaline Phosphatase 59 U/L (45-117); Bilirubin, Direct 0.12 mg/dL (0.00-0.30); Cholesterol 140 mg/dL (200); Globulin 3.7 g/dL (2.2-4.2); High Density Lipoprotein 39 mg/dL; Protein, Total 7.1 g/dL (6.4-8.2); Triglycerides 211 mg/dL; Very Low Density Lipoprotein 42 mg/dL (5-40)
== END ==
PROVIDERS: PCP Family Medicine; Referring Provider Internal Medicine Cardiovascular Disease; Visit Provider Internal Medicine Cardiovascular Disease
DX: E78.5 Hyperlipidemia, unspecified (principal)
CPT/HCPCS: 36415; 80061; 80076

== ENCOUNTER → 2020-07-17 08:56 | Outpatient (CLI) | payer MEDICARE, OTHER, SELFPAY ==
[2020-03-05 07:45] VITALS: BMI 33.7
[2020-07-10 15:28] VITALS: BMI 33.0
--- NOTE | 2020-07-17 08:58 | CDU_ITS ---
Reason For Study: Carotid stenosis Rt. Velocities/BP Lt. Velocities/BP Prox CCA 117.4/17 cm/sec. Prox CCA 157.6/20.6 cm/sec. Mid CCA 121.1/15.2 cm/sec. Mid CCA 95.5/18.8 cm/sec. Dist CCA 143/18.8 cm/sec. Dist CCA 108.3/20.6 cm/sec. Prox ICA 108.3/15.2 cm/sec. Prox ICA 64.2/12.6 cm/sec. Mid ICA 93.7/18.8 cm/sec. Mid ICA 74/20 cm/sec. Dist ICA 75.4/17 cm/sec. Dist ICA 58.1/20 cm/sec. Rt. ICA/CCA = 0.9. Lt. ICA/CCA = 0.7. Prox ECA 143/11.5 cm/sec. Prox ECA 84.1/5 cm/sec. Rt. Vert. 40.9/9.7 cm/sec. Lt. Vert. 49.4/13.5 cm/sec. Right Extracranial There is heterogeneous, irregular atherosclerotic plaque noted in the right common carotid artery. There is heterogeneous, irregular atherosclerotic plaque noted in the right internal carotid artery. There is homogeneous, smooth atherosclerotic plaque noted in the right external carotid artery. Antegrade flow is noted in the right vertebral artery. Left Extracranial There is heterogeneous, irregular atherosclerotic plaque noted in the left common carotid artery. There is heterogeneous, smooth atherosclerotic plaque noted in the left internal carotid artery. There is heterogeneous, smooth atherosclerotic plaque noted in the left external carotid artery. Antegrade flow is noted in the left vertebral artery. Procedure Carotid Duplex 23889. Exam performed in department. Interpretation Summary Mild (<50%) stenosis right extracranial internal carotid. Mild (<50%) stenosis left extracranial internal carotid. Flow within the vertebral arteries is antegrade bilaterally. Ordering Physician: Juan F Clayton Referring Physician: Juan F Clayton Performed By: Marlys Garsia RVT
== END ==
PROVIDERS: PCP Family Medicine; Referring Provider Family Medicine; Visit Provider Family Medicine
DX: I65.23 Occlusion and stenosis of bilateral carotid arteries (principal)
CPT/HCPCS: 93880

== ENCOUNTER → 2020-10-04 09:24 | Outpatient (CLI) | payer MEDICARE, OTHER, SELFPAY ==
[2020-07-10 15:28] VITALS: BMI 33.0
[2020-10-04 10:44] LABS: Absolute Lymphocyte Count 2.33 X10^3/uL (0.83-4.51); Absolute Neutrophil Count 4.8 X10^3/uL (2.0-7.7); Basophil# 0.07 X10^3/uL; Basophil% 0.8 % (0-1); Eosinophil# 0.38 X10^3/uL; Eosinophils% 4.4 % (0-5); Hematocrit 41.8 % (40-54); Hemoglobin 13.2 g/dL (13.0-16.5); Lymphocyte # 2.33 X10^3/ul (4.0); Lymphocyte % 27.3 % (19-41); Mean Corp Hgb Conc 31.6 g/dL (32-36); Mean Corpuscular Hgb 29.5 pg (27.0-32.0); Mean Corpuscular Volume 93.5 fL (80-94); Mean Platelet Vol. 10.1 fl (6.2-12.0); Monocyte% 10.5 % (0-10); NRBC Flagged by Analyzer 0 % (0-5); Neutrophil # 4.83 X10^3/uL (2.7-7.7); Neutrophil % 56.5 % (47-70); Platelet Count 219 K/mm3 (150-450); RBC Distribution Width SD 44.1 fl (35.1-43.9); Red Blood Count 4.47 M/mm3 (4.6-6.2); White Blood Count 8.6 K/mm3 (4.4-11.0)
[2020-10-04 11:15] LABS: Hemoglobin A1c 7.2 % (3.8-5.6)
[2020-10-04 11:33] LABS: AST(SGOT) 21 U/L (15-37); Alanine Aminotransfer ALT/SGPT 40 U/L (16-61); Albumin, Serum 3.6 g/dL (3.2-5.0); Alkaline Phosphatase 61 U/L (45-117); Anion Gap 5 (5-15); BUN 29 mg/dL (7-18); BUN/Creat Ratio 14.8 RATIO (10-20); Chloride 109 mmol/L (98-107); Cholesterol 127 mg/dL (200); Creatinine, Serum 1.96 mg/dL (0.70-1.30); EST Glomerular Filtration Rate 35 mL/min (>60); Est Glom Filt Rate - Afr Amer 42 mL/min (>60); Globulin 3.6 g/dL (2.2-4.2); Glucose 179 mg/dL (74-106); High Density Lipoprotein 48 mg/dL; Magnesium 2.2 mg/dL (1.6-2.6); Potassium 4.7 mmol/L (3.5-5.1); Protein, Total 7.2 g/dL (6.4-8.2); Sodium Level 137 mmol/L (136-145); Triglycerides 162 mg/dL; Uric Acid 6.1 mg/dL (3.5-7.2); Very Low Density Lipoprotein 32 mg/dL (5-40)
[2020-10-04 12:50] LABS: PTHIN 100.8 pg/mL (18.4-80.1)
[2020-10-04 14:36] LABS: Vitamin D,25 Hydroxy 34.6 ng/mL
== END ==
PROVIDERS: PCP Family Medicine; Referring Provider Family Medicine; Visit Provider Family Medicine
DX: E11.22 Type 2 diabetes mellitus with diabetic chronic kidney disease (principal); I12.9 Hypertensive chronic kidney disease with stage 1 through stage 4 chronic kidney disease, or unspecified chronic kidney disease; N18.30 Chronic kidney disease, stage 3 unspecified; I48.91 Unspecified atrial fibrillation; N25.81 Secondary hyperparathyroidism of renal origin; E78.5 Hyperlipidemia, unspecified; E55.9 Vitamin D deficiency, unspecified; M10.9 Gout, unspecified
CPT/HCPCS: 36415; 80053; 80061; 82306; 83036; 83735; 83970; 84550; 85025

== ENCOUNTER → 2020-10-15 | Outpatient (CLI) | payer MEDICARE, OTHER, SELFPAY ==
[2020-07-10 15:28] VITALS: BMI 33.0
== END | disposition home or self-care (01) ==
LOC: LABSPEC 16:22
PROVIDERS: PCP Family Medicine; Referring Provider Nurse Practitioner Adult Health; Visit Provider Nurse Practitioner Adult Health
DX: N39.0 Urinary tract infection, site not specified (principal)
CPT/HCPCS: 87086; 87088

== ENCOUNTER → 2020-10-24 15:04 | Outpatient (CLI) | payer MEDICARE, OTHER, SELFPAY ==
[2020-07-10 15:28] VITALS: BMI 33.0
[2020-10-24 18:21] LABS: Anion Gap 6 (5-15); BUN 31 mg/dL (7-18); BUN/Creat Ratio 15.7 RATIO (10-20); Calcium,Total 8.9 mg/dL (8.5-10.1); Chloride 108 mmol/L (98-107); Creatinine, Serum 1.98 mg/dL (0.70-1.30); EST Glomerular Filtration Rate 34 mL/min (>60); Est Glom Filt Rate - Afr Amer 42 mL/min (>60); Glucose 102 mg/dL (74-106); Potassium 4.3 mmol/L (3.5-5.1); Sodium Level 138 mmol/L (136-145)
== END ==
PROVIDERS: PCP Family Medicine; Referring Provider Family Medicine; Visit Provider Family Medicine
DX: N18.30 Chronic kidney disease, stage 3 unspecified (principal)
CPT/HCPCS: 36415; 80048

== ENCOUNTER → 2020-12-27 09:13 | Outpatient (CLI) | payer MEDICARE, OTHER, SELFPAY ==
[2020-07-10 15:28] VITALS: BMI 33.0
[2020-12-27 09:53] LABS: Absolute Neutrophil Count 4.7 X10^3/uL (2.0-7.7); Basophil# 0.06 X10^3/uL; Basophil% 0.7 % (0-1); Eosinophil# 0.37 X10^3/uL; Eosinophils% 4.5 % (0-5); Hematocrit 43.5 % (40-54); Hemoglobin 14.1 g/dL (13.0-16.5); Lymphocyte % 26.7 % (19-41); Mean Corp Hgb Conc 32.4 g/dL (32-36); Mean Corpuscular Hgb 29.3 pg (27.0-32.0); Mean Corpuscular Volume 90.4 fL (80-94); Mean Platelet Vol. 9.8 fl (6.2-12.0); Monocyte# 0.84 X10^3/uL; Monocyte% 10.2 % (0-10); NRBC Flagged by Analyzer 0 % (0-5); Neutrophil # 4.71 X10^3/uL (2.7-7.7); Neutrophil % 57.2 % (47-70); Platelet Count 229 K/mm3 (150-450); RBC Distribution Width SD 42.8 fl (35.1-43.9); Red Blood Count 4.81 M/mm3 (4.6-6.2); White Blood Count 8.2 K/mm3 (4.4-11.0)
[2020-12-27 10:22] LABS: ALB/GLOB Ratio 0.9 RATIO (0.9-2.4); AST(SGOT) 15 U/L (15-37); Alanine Aminotransfer ALT/SGPT 28 U/L (16-61); Albumin, Serum 3.5 g/dL (3.2-5.0); Alkaline Phosphatase 60 U/L (45-117); Anion Gap 4 (5-15); BUN 28 mg/dL (7-18); Calcium,Total 8.9 mg/dL (8.5-10.1); Chloride 109 mmol/L (98-107); Cholesterol 150 mg/dL (200); Creatinine, Serum 1.75 mg/dL (0.70-1.30); EST Glomerular Filtration Rate 40 mL/min (>60); Est Glom Filt Rate - Afr Amer 48 mL/min (>60); Globulin 3.7 g/dL (2.2-4.2); Glucose 190 mg/dL (74-106); High Density Lipoprotein 49 mg/dL; Potassium 4.6 mmol/L (3.5-5.1); Protein, Total 7.2 g/dL (6.4-8.2); Sodium Level 136 mmol/L (136-145); Triglycerides 191 mg/dL; Very Low Density Lipoprotein 38 mg/dL (5-40)
[2020-12-27 10:25] LABS: Hemoglobin A1c 8.2 % (3.8-5.6)
[2020-12-27 10:51] LABS: Microalbumin,Random Urine 15.7 mg/L (NO RANGE EST.); Microalbumin:Creatinine Ratio 18.9 mg/g CRE (<30 mg/g CRE)
== END ==
PROVIDERS: PCP Family Medicine; Referring Provider Family Medicine; Visit Provider Family Medicine
DX: I10 Essential (primary) hypertension (principal); E11.9 Type 2 diabetes mellitus without complications; E78.5 Hyperlipidemia, unspecified
CPT/HCPCS: 36415; 80053; 80061; 82043; 82570; 83036; 85025

== ENCOUNTER → 2021-02-26 16:02 | Outpatient (CLI) | payer MEDICARE, OTHER, SELFPAY ==
[2020-07-10 15:28] VITALS: BMI 33.0
--- NOTE | 2021-02-26 16:05 | RAD_ITS ---
INDICATION: SOB EXAMINATION/TECHNIQUE: X-RAY - XR Chest 2 Views COMPARISON: 04/11/2019. FINDINGS: Calcified granulomata again seen in the right lung base, and there is stable subsegmental atelectasis or scarring in the left base. 1.1 cm round density in the right lower hemithorax. Normal size heart. Normal mediastinum and morgan. Normal visualized pulmonary arteries. There is atherosclerotic calcification of the aortic arch. There are stable multilevel degenerative changes of the visualized thoracic spine. 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 There is no demonstrated abnormality of the visualized soft tissue structures of the upper abdomen. RAD/Chest PA and Lateral IMPRESSION: No acute abnormalities. 1.1 cm round density in the right lower hemithorax is most likely a nipple shadow, however, recommend short term follow up chest radiographs to rule out pulmonary nodule. Electronically Signed: Xavier Carias MD at 19:49 EDT Tel , Service support ,
[2021-02-26 17:56] LABS: Anion Gap 6 (5-15); BUN 32 mg/dL (7-18); BUN/Creat Ratio 17.2 RATIO (10-20); Calcium,Total 9.2 mg/dL (8.5-10.1); Chloride 108 mmol/L (98-107); Creatinine, Serum 1.86 mg/dL (0.70-1.30); EST Glomerular Filtration Rate 37 mL/min (>60); Est Glom Filt Rate - Afr Amer 45 mL/min (>60); Glucose 157 mg/dL (74-106); Potassium 4.1 mmol/L (3.5-5.1); Sodium Level 137 mmol/L (136-145)
== END ==
LOC: MTLAB 16:03 → MTRAD 16:04
PROVIDERS: PCP Family Medicine; Referring Provider Family Medicine; Visit Provider Family Medicine
DX: R06.02 Shortness of breath (principal); E11.59 Type 2 diabetes mellitus with other circulatory complications
CPT/HCPCS: 36415; 71046; 80048

== ENCOUNTER → 2021-03-05 10:04 | Outpatient (CLI) | payer MEDICARE, OTHER, SELFPAY ==
[2021-03-05 09:14] VITALS: BMI 33.9
[2021-03-05 12:36] LABS: Anion Gap 6 (5-15); BUN 27 mg/dL (7-18); BUN/Creat Ratio 14.4 RATIO (10-20); Chloride 109 mmol/L (98-107); Creatinine, Serum 1.88 mg/dL (0.70-1.30); EST Glomerular Filtration Rate 36 mL/min (>60); Est Glom Filt Rate - Afr Amer 44 mL/min (>60); Glucose 132 mg/dL (74-106); Potassium 4.2 mmol/L (3.5-5.1); Sodium Level 139 mmol/L (136-145)
== END ==
PROVIDERS: PCP Family Medicine; Referring Provider Family Medicine; Visit Provider Family Medicine
DX: E11.59 Type 2 diabetes mellitus with other circulatory complications (principal)
CPT/HCPCS: 36415; 80048

== ENCOUNTER → 2021-03-12 10:58 | Outpatient (CLI) | payer MEDICARE, OTHER, SELFPAY ==
[2021-03-05 09:14] VITALS: BMI 33.9
--- NOTE | 2021-03-12 11:00 | RAD_ITS ---
INDICATION: SOB F/U MASS EXAMINATION/TECHNIQUE: X-RAY - XR Chest 2 Views COMPARISON: 02/26/2021. FINDINGS: Calcified granulomata again seen in the right lung base, and there is stable subsegmental atelectasis or scarring in the left base. 1.1 cm round density in the right lower hemithorax is again seen. The cardiomediastinal silhouette is unremarkable. No pleural effusion or pneumothorax. There are stable multilevel degenerative changes of the visualized thoracic spine. 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 RAD/Chest PA and Lateral IMPRESSION: Redemonstration of 1.1 cm round density in the right lower hemithorax. Recommend repeat chest radiograph with nipple markers. Otherwise, no change from prior study. Electronically Signed: Xavier Carias MD at 18:36 EDT Tel , Service support ,
[2021-03-12 13:13] LABS: Anion Gap 4 (5-15); BUN 24 mg/dL (7-18); BUN/Creat Ratio 13.9 RATIO (10-20); Calcium,Total 9.1 mg/dL (8.5-10.1); Chloride 111 mmol/L (98-107); Creatinine, Serum 1.73 mg/dL (0.70-1.30); EST Glomerular Filtration Rate 40 mL/min (>60); Est Glom Filt Rate - Afr Amer 49 mL/min (>60); Glucose 122 mg/dL (74-106); Potassium 4.3 mmol/L (3.5-5.1); Sodium Level 138 mmol/L (136-145)
== END ==
PROVIDERS: PCP Family Medicine; Referring Provider Family Medicine; Visit Provider Family Medicine
DX: R06.02 Shortness of breath (principal); E11.59 Type 2 diabetes mellitus with other circulatory complications
CPT/HCPCS: 36415; 71046; 80048

== ENCOUNTER → 2021-03-20 08:08 | Outpatient (CLI) | payer MEDICARE, OTHER, SELFPAY ==
[2021-03-05 09:14] VITALS: BMI 33.9
[2021-03-20 10:08] LABS: Absolute Lymphocyte Count 2.52 X10^3/uL (0.83-4.51); Absolute Neutrophil Count 4.5 X10^3/uL (2.0-7.7); Basophil# 0.07 X10^3/uL; Basophil% 0.8 % (0-1); Eosinophil# 0.43 X10^3/uL; Eosinophils% 5.1 % (0-5); Hematocrit 44.8 % (40-54); Hemoglobin 14.1 g/dL (13.0-16.5); Lymphocyte # 2.52 X10^3/ul (0.83-4.51); Lymphocyte % 29.8 % (19-41); Mean Corp Hgb Conc 31.5 g/dL (32-36); Mean Corpuscular Hgb 29.3 pg (27.0-32.0); Mean Corpuscular Volume 92.9 fL (80-94); Mean Platelet Vol. 9.8 fl (6.2-12.0); Monocyte# 0.91 X10^3/uL; Monocyte% 10.8 % (0-10); NRBC Flagged by Analyzer 0 % (0-5); Neutrophil # 4.47 X10^3/uL (2.7-7.7); Neutrophil % 52.9 % (47-70); Platelet Count 221 K/mm3 (150-450); RBC Distribution Width CV 13.2 % (11.6-14.6); RBC Distribution Width SD 44.9 fl (35.1-43.9); Red Blood Count 4.82 M/mm3 (4.6-6.2); White Blood Count 8.5 K/mm3 (4.4-11.0)
[2021-03-20 10:36] LABS: Hemoglobin A1c 7.2 % (3.8-5.6)
[2021-03-20 10:39] LABS: ALB/GLOB Ratio 0.9 RATIO (0.9-2.4); AST(SGOT) 15 U/L (15-37); Alanine Aminotransfer ALT/SGPT 24 U/L (16-61); Albumin, Serum 3.4 g/dL (3.2-5.0); Alkaline Phosphatase 54 U/L (45-117); Anion Gap 6 (5-15); BUN 26 mg/dL (7-18); BUN/Creat Ratio 14.3 RATIO (10-20); Calcium,Total 8.9 mg/dL (8.5-10.1); Chloride 107 mmol/L (98-107); Cholesterol 129 mg/dL (200); Creatinine, Serum 1.82 mg/dL (0.70-1.30); EST Glomerular Filtration Rate 38 mL/min (>60); Est Glom Filt Rate - Afr Amer 46 mL/min (>60); Globulin 3.8 g/dL (2.2-4.2); Glucose 104 mg/dL (74-106); High Density Lipoprotein 49 mg/dL; Potassium 4.3 mmol/L (3.5-5.1); Protein, Total 7.2 g/dL (6.4-8.2); Sodium Level 137 mmol/L (136-145); Triglycerides 182 mg/dL; Uric Acid 5.4 mg/dL (3.5-7.2); Very Low Density Lipoprotein 36 mg/dL (5-40)
[2021-03-20 10:40] LABS: PTHIN 89.9 pg/mL (18.4-80.1)
[2021-03-20 11:02] LABS: Vitamin D,25 Hydroxy 33.5 ng/mL
== END ==
PROVIDERS: PCP Family Medicine; Referring Provider Family Medicine; Visit Provider Family Medicine
DX: R06.02 Shortness of breath (principal); E11.69 Type 2 diabetes mellitus with other specified complication; N25.81 Secondary hyperparathyroidism of renal origin; M10.9 Gout, unspecified; E55.9 Vitamin D deficiency, unspecified
CPT/HCPCS: 36415; 80053; 80061; 82306; 83036; 83970; 84550; 85025

== ENCOUNTER → 2021-04-18 08:29 | Outpatient (CLI) | payer MEDICARE, OTHER, SELFPAY ==
[2021-03-05 09:14] VITALS: BMI 33.9
[2021-04-18 10:08] LABS: Absolute Lymphocyte Count 2.14 X10^3/uL (0.83-4.51); Absolute Neutrophil Count 4.5 X10^3/uL (2.0-7.7); Basophil# 0.06 X10^3/uL; Basophil% 0.8 % (0-1); Eosinophil# 0.38 X10^3/uL; Eosinophils% 4.8 % (0-5); Hemoglobin 13.6 g/dL (13.0-16.5); Lymphocyte # 2.14 X10^3/ul (0.83-4.51); Lymphocyte % 26.9 % (19-41); Mean Corp Hgb Conc 32.4 g/dL (32-36); Mean Corpuscular Hgb 29.4 pg (27.0-32.0); Mean Corpuscular Volume 90.9 fL (80-94); Mean Platelet Vol. 9.8 fl (6.2-12.0); Monocyte# 0.83 X10^3/uL; Monocyte% 10.4 % (0-10); NRBC Flagged by Analyzer 0 % (0-5); Neutrophil % 56.6 % (47-70); Platelet Count 230 K/mm3 (150-450); RBC Distribution Width CV 13.3 % (11.6-14.6); RBC Distribution Width SD 43.8 fl (35.1-43.9); Red Blood Count 4.62 M/mm3 (4.6-6.2)
[2021-04-18 10:28] LABS: Hemoglobin A1c 6.7 % (3.8-5.6)
[2021-04-18 10:30] LABS: PTHIN 93.3 pg/mL (18.4-80.1)
[2021-04-18 10:31] LABS: ALB/GLOB Ratio 0.9 RATIO (0.9-2.4); AST(SGOT) 22 U/L (15-37); Alanine Aminotransfer ALT/SGPT 38 U/L (16-61); Albumin, Serum 3.4 g/dL (3.2-5.0); Alkaline Phosphatase 58 U/L (45-117); Anion Gap 7 (5-15); BUN 29 mg/dL (7-18); BUN/Creat Ratio 16.3 RATIO (10-20); Calcium,Total 8.7 mg/dL (8.5-10.1); Chloride 110 mmol/L (98-107); Creatinine, Serum 1.78 mg/dL (0.70-1.30); EST Glomerular Filtration Rate 39 mL/min (>60); Est Glom Filt Rate - Afr Amer 47 mL/min (>60); Globulin 3.7 g/dL (2.2-4.2); Glucose 134 mg/dL (74-106); Potassium 4.4 mmol/L (3.5-5.1); Protein, Total 7.1 g/dL (6.4-8.2); Sodium Level 140 mmol/L (136-145); Uric Acid 6.4 mg/dL (3.5-7.2)
[2021-04-18 10:34] LABS: Microalbumin,Random Urine 14.3 mg/L (NO RANGE EST.)
[2021-04-18 13:43] LABS: Cholesterol 127 mg/dL (200); High Density Lipoprotein 48 mg/dL; Triglycerides 125 mg/dL; Very Low Density Lipoprotein 25 mg/dL (5-40)
== END ==
PROVIDERS: PCP Family Medicine; Referring Provider Family Medicine; Visit Provider Family Medicine
DX: E11.69 Type 2 diabetes mellitus with other specified complication (principal); N25.81 Secondary hyperparathyroidism of renal origin; M10.9 Gout, unspecified; E55.9 Vitamin D deficiency, unspecified
CPT/HCPCS: 36415; 80053; 80061; 82043; 82306; 82570; 83036; 83970; 84550; 85025

== ENCOUNTER 2021-05-28 09:16 | Outpatient (RCR) | payer MEDICARE, OTHER, SELFPAY ==
[2021-03-05 09:14] VITALS: BMI 33.9
[2021-05-28 10:51] LABS: AST(SGOT) 15 U/L (15-37); Alanine Aminotransfer ALT/SGPT 33 U/L (16-61); Albumin, Serum 3.5 g/dL (3.2-5.0); Alkaline Phosphatase 57 U/L (45-117); Cholesterol 131 mg/dL (200); Globulin 3.8 g/dL (2.2-4.2); High Density Lipoprotein 48 mg/dL; Protein, Total 7.3 g/dL (6.4-8.2); Triglycerides 144 mg/dL; Very Low Density Lipoprotein 29 mg/dL (5-40)
== END 2021-05-28 18:00 | disposition home or self-care (01) ==
LOC: MTLAB 09:16
PROVIDERS: PCP Family Medicine; Referring Provider Internal Medicine Cardiovascular Disease; Visit Provider Internal Medicine Cardiovascular Disease
DX: E78.00 Pure hypercholesterolemia, unspecified (principal)
CPT/HCPCS: 36415; 80061; 80076

== ENCOUNTER → 2021-06-11 09:37 | Outpatient (CLI) | payer MEDICARE, OTHER, SELFPAY ==
[2021-06-06 15:00] VITALS: BMI 33.1
[2021-06-11 12:25] LABS: PSA,Total- Diagnostic 6.52 ng/mL (0.0-4.0)
== END ==
PROVIDERS: PCP Family Medicine; Referring Provider Urology; Visit Provider Urology
DX: R97.20 Elevated prostate specific antigen [PSA] (principal)
CPT/HCPCS: 36415; 84153

== ENCOUNTER → 2021-07-18 09:02 | Outpatient (CLI) | payer MEDICARE, OTHER, SELFPAY ==
[2021-07-18 10:20] LABS: Absolute Lymphocyte Count 2.45 X10^3/uL (0.83-4.51); Basophil# 0.06 X10^3/uL; Basophil% 0.6 % (0-1); Eosinophil# 0.35 X10^3/uL; Eosinophils% 3.6 % (0-5); Hematocrit 43.7 % (40-54); Hemoglobin 14.2 g/dL (13.0-16.5); Lymphocyte # 2.45 X10^3/ul (0.83-4.51); Lymphocyte % 24.9 % (19-41); Mean Corp Hgb Conc 32.5 g/dL (32-36); Mean Corpuscular Hgb 29.6 pg (27.0-32.0); Mean Platelet Vol. 9.9 fl (6.2-12.0); Monocyte# 0.97 X10^3/uL; Monocyte% 9.9 % (0-10); NRBC Flagged by Analyzer 0 % (0-5); Neutrophil # 5.95 X10^3/uL (2.7-7.7); Neutrophil % 60.6 % (47-70); Platelet Count 251 K/mm3 (150-450); RBC Distribution Width CV 13.4 % (11.6-14.6); RBC Distribution Width SD 45.3 fl (35.1-43.9); White Blood Count 9.8 K/mm3 (4.4-11.0)
[2021-07-18 11:10] LABS: ALB/GLOB Ratio 0.8 RATIO (0.9-2.4); AST(SGOT) 22 U/L (15-37); Alanine Aminotransfer ALT/SGPT 41 U/L (16-61); Albumin, Serum 3.4 g/dL (3.2-5.0); Alkaline Phosphatase 65 U/L (45-117); Anion Gap 5 (5-15); BUN 29 mg/dL (7-18); BUN/Creat Ratio 15.4 RATIO (10-20); Calcium,Total 9.1 mg/dL (8.5-10.1); Chloride 109 mmol/L (98-107); Creatinine, Serum 1.88 mg/dL (0.70-1.30); EST Glomerular Filtration Rate 36 mL/min (>60); Est Glom Filt Rate - Afr Amer 44 mL/min (>60); Globulin 4.4 g/dL (2.2-4.2); Glucose 137 mg/dL (74-106); Magnesium 2.2 mg/dL (1.6-2.6); Potassium 4.7 mmol/L (3.5-5.1); Protein, Total 7.8 g/dL (6.4-8.2); Sodium Level 137 mmol/L (136-145); Thyroid Stim Hormone (TSH) 1.86 uIU/mL (0.358-3.74)
== END ==
PROVIDERS: PCP Family Medicine; Referring Provider Family Medicine; Visit Provider Family Medicine
DX: I48.91 Unspecified atrial fibrillation (principal); E11.9 Type 2 diabetes mellitus without complications
CPT/HCPCS: 36415; 80053; 83036; 83735; 84443; 85025

== ENCOUNTER 2021-08-22 10:26 | Observation (INO) | payer MEDICARE, OTHER, SELFPAY ==
[2021-08-22] VITALS (8 sets, daily range): BP systolic 134–157; BP diastolic 67–75; PULSE 58–83; RESP 14–20; TEMP 36.5–36.7; O2SAT 92–95; BMI 36.2; BMI 36.0
--- NOTE | 2021-08-22 10:38 | RAD_ITS ---
STUDY: X-RAY CHEST REASON FOR EXAM: Male, 86 years old. Chest pain TECHNIQUE: Single AP portable view of the chest. COMPARISON: Comparison is made with prior study dated 03/12/2021. FINDINGS: EKG electrodes are seen. Increased markings at the left lung base with a confluence suggestive of atelectasis and/or early infiltrate. There is no demonstrated pleural abnormality. Normal size heart. Normal mediastinum and morgan. Normal visualized pulmonary arteries. There is atherosclerotic calcification of the aortic arch with tortuosity. There are diffuse degenerative changes of the visualized thoracic spine. The patient is status post right shoulder replacement. There is no demonstrated abnormality of the visualized soft tissue structures of the upper abdomen. RAD/Chest 1 View (Portable) IMPRESSION: Atelectasis versus early infiltrate in the left lower lobe. Electronically Signed: Bin Eubanks MD at 12:15 EDT , Service support ,
--- NOTE | 2021-08-22 10:38 | EDS_ITS ---
HPI History of Present Illness Chief Complaint: Chest Pain Narrative Narrative: 86-year-old male presenting with chest pain. He states this has been intermittent for the past week. He states it is progressively worsening. His chest pain is associated with shortness of breath, diaphoresis, nausea. He denies radiation of his pain. At worst it is 5-6 out of 10. He is currently chest pain-free. Prior similar symptoms: Yes Recent Illness/Hospitalization: No PFSH PFSH Medical History Atherosclerotic heart disease of [place] coronary artery without angina pectoris BMI 32.0-32.9,adult BPH (benign prostatic hyperplasia) Carotid bruit Contraction, premature ventricular Diabetes Dyslipidemia Dyspnea Essential hypertension Fatigue History of depression History of osteoarthritis HTN (hypertension) Kidney disease Long-term use of high-risk medication Obesity OSBALDO (obstructive sleep apnea) Paroxysmal ventricular tachycardia Sleep apnea SOB (shortness of breath) Type 2 diabetes mellitus Home Medications allopurinol 100 mg tablet 100 mg PO DAILYCM #90 tab 11/03/19 [Rx Last Taken Unknown] valsartan 320 mg tablet 320 mg PO DAILY 06/07/20 [History Last Taken Unknown] aspirin 81 mg tablet,delayed release 81 mg PO DAILY 07/10/20 [History Last Taken Unknown] finasteride 5 mg tablet 5 mg PO DAILY 07/10/20 [History Last Taken Unknown] rosuvastatin 40 mg tablet 40 mg PO DAILY 07/10/20 [History Last Taken Unknown] glipizide 10 mg tablet 10 mg PO DAILY 03/05/21 [History Last Taken Unknown] mexiletine 150 mg capsule See Rx Instructions .ROUTE .COMPLEX #360 cap 05/16/21 [Rx Last Taken Unknown] amlodipine 10 mg tablet 10 mg PO DAILY tab 06/06/21 [History Last Taken Unknown] Allergy/AdvReac Type Severity Reaction Status Date / Time amoxicillin Allergy Hives Verified 08/22/21 10:27 diphenhydramine Allergy Hives Verified 08/22/21 10:27 [From Benconradl] Family History Mother CAD (coronary artery disease) Diabetes Surgical History History of appendectomy History of back surgery History of carpal tunnel release History of elbow surgery History of excision of pilonidal cyst History of nephrectomy, unilateral History of right knee joint replacement History of shoulder surgery Social History Smoking Status: Never smoker second hand exposure: No alcohol intake: current alcohol intake frequency: 0-2 drinks per day Alcohol type: wine substance use type: does not use caffeine: No what type of physical activity do you participate in: none ROS ROS ED Constitutional Constitutional ED: Denies fever(s) Eyes Eyes: Denies change in vision ENT ENT ED: Denies rhinorrhea or sore throat Cardiovascular Cardiovascular: Reports chest pain; Denies palpitations Respiratory/Chest Respiratory/Chest: Reports dyspnea; Denies cough Gastrointestinal Gastrointestinal: Reports nausea; Denies abdominal pain, diarrhea or vomiting Genitourinary Genitourinary ED: Denies dysuria Musculoskeletal Musculoskeletal: Denies myalgias Integumentary Denies rash Neurologic Neurologic: Denies headache(s) Psychiatric Psychiatric: Denies suicidal thoughts EXAM Physical Exam Const Vital Signs: 08/22/21 10:28 08/22/21 11:15 Temperature 97.7 F L Temperature Source Temporal Pulse Rate 83 Respiratory Rate 14 Blood Pressure 145/75 H Blood Pressure Mean 98 Pulse Ox 94 94 Oxygen Delivery Method Room Air Room Air Positive well nourished and well developed General Appearance ED: well developed HEENT Reports normocephalic and head/scalp atraumatic Eyes PERRL and EOMs intact bilaterally Neck supple General: Negative for tenderness Chest Wall inspection of chest normal Resp normal respiratory effort and clear to auscultation bilaterally Cardio regular rate and regular rhythm GI non-tender and non-distended Palpation: soft; Negative for guarding or rebound tenderness present no CVA tenderness Extremity normal to inspection Neuro oriented x3 Sensorium / Orientation: alert Psych mental status grossly normal MDM MDM MDM Narrative Medical decision making narrative: Patient was given aspirin. CBC, chemistries unremarkable other than creatinine 1.7, glucose 155. High-sensitivity troponin is 10. Chest x-ray read by myself and radiology shows atelectasis versus early infiltrate. Patient denies fever or cough. He is chest pain-free on reevaluation. Heart score is 6. Discussed with hospitalist for observation. Lab Data Attestation: I reviewed the patient's lab results. Labs: Laboratory Results - last 24 hr 08/22/21 08/22/21 11:00 11:00 WBC 7.5 RBC 4.12 L Hgb 12.2 L Hct 37.6 L MCV 91.3 MCH 29.6 MCHC 32.4 RDW Std Deviation 46.2 H RDW Coeff of Valeria 13.7 Plt Count 198 MPV 9.4 Immature Gran % (Auto) 0.400 Neut % (Auto) 60.2 Lymph % (Auto) 23.1 [place] % (Auto) 10.7 H Eos % (Auto) 4.9 Baso % (Auto) 0.7 Absolute Neuts (auto) 4.5 Absolute Lymphs (auto) 1.73 Nucleated RBC % 0 Sodium 138 Potassium 4.3 Chloride 110 H Carbon Dioxide 25.0 Anion Gap 3 L BUN 23 H Creatinine 1.70 H Estim Creat Clear Calc 31.77 Est GFR (MDRD) Af Amer 49 L Est GFR (MDRD) Non-Af 41 L BUN/Creatinine Ratio 13.5 Glucose 155 H Calcium 8.6 Troponin I High Sens 10 Radiography Chest X-Ray - ED: 1 View, Read by ED Physician and Read by Radiologist Diagnostic Testing: Clinical Impression(s) from Imaging Studies Chest X-Ray 08/22/21 10:38 IMPRESSION: Atelectasis versus early infiltrate in the left lower lobe. Electronically Signed: Bin Eubanks MD at 12:15 EDT , Service support , EKG Initial EKG: Attestation: I personally reviewed and interpreted this EKG as follows: Interpretation: Sinus Rhythm, No Acute Injury Pattern and RBBB Discharge Plan Dx/Rx/DC Orders Clinical Impression: Chest pain Disposition Disposition: Acute Care [facility]
--- NOTE | 2021-08-22 10:38 | EKG12_ITS ---
Test Reason : CP Blood Pressure : / mmHG Vent. Rate : 087 BPM Atrial Rate : 087 BPM P-R Int : 196 ms QRS Dur : 146 ms QT Int : 372 ms P-R-T Axes : 060 -48 030 degrees QTc Int : 447 ms Normal sinus rhythm Right bundle branch block Left anterior fascicular block Bifascicular block Inferior infarct , age undetermined Abnormal ECG Confirmed by VIKY CAMARGO, LIAM ([id number]), managing editor MATTY SHIRLEY ([id number]) on 08/26/2021 7:52:20 AM Referred By: /BB Confirmed By:LIAM SALMON MD
[2021-08-22 11:09] LABS: Absolute Lymphocyte Count 1.73 X10^3/uL (0.83-4.51); Absolute Neutrophil Count 4.5 X10^3/uL (2.0-7.7); Basophil# 0.05 X10^3/uL; Basophil% 0.7 % (0-1); Eosinophil# 0.37 X10^3/uL; Eosinophils% 4.9 % (0-5); Hematocrit 37.6 % (40-54); Hemoglobin 12.2 g/dL (13.0-16.5); Lymphocyte # 1.73 X10^3/ul (0.83-4.51); Lymphocyte % 23.1 % (19-41); Mean Corp Hgb Conc 32.4 g/dL (32-36); Mean Corpuscular Hgb 29.6 pg (27.0-32.0); Mean Corpuscular Volume 91.3 fL (80-94); Mean Platelet Vol. 9.4 fl (6.2-12.0); Monocyte% 10.7 % (0-10); NRBC Flagged by Analyzer 0 % (0-5); Neutrophil # 4.52 X10^3/uL (2.7-7.7); Neutrophil % 60.2 % (47-70); Platelet Count 198 K/mm3 (150-450); RBC Distribution Width CV 13.7 % (11.6-14.6); RBC Distribution Width SD 46.2 fl (35.1-43.9); Red Blood Count 4.12 M/mm3 (4.6-6.2); White Blood Count 7.5 K/mm3 (4.4-11.0)
[2021-08-22] MEDS: Aspirin 81 MG TAB.CHEW 324 MG PO (11:21)
[2021-08-22 11:25] LABS: Anion Gap 3 (5-15); BUN 23 mg/dL (7-18); BUN/Creat Ratio 13.5 RATIO (10-20); Calcium,Total 8.6 mg/dL (8.5-10.1); Chloride 110 mmol/L (98-107); EST Glomerular Filtration Rate 41 mL/min (>60); Est Glom Filt Rate - Afr Amer 49 mL/min (>60); Estimated Creatinine Clearance 31.77 ml/min; Glucose 155 mg/dL (74-106); Potassium 4.3 mmol/L (3.5-5.1); Sodium Level 138 mmol/L (136-145); Troponin-I HS 10 pg/mL (3.0-78.0)
[2021-08-22 13:55] LABS: Bedside Glucose 96 mg/dL (70-110)
--- NOTE | 2021-08-22 14:25 | EKG12_ITS ---
Test Reason : CP Blood Pressure : / mmHG Vent. Rate : 065 BPM Atrial Rate : 061 BPM P-R Int : 000 ms QRS Dur : 148 ms QT Int : 446 ms P-R-T Axes : 000 -27 017 degrees QTc Int : 463 ms Atrial fibrillation Right bundle branch block Inferior infarct , age undetermined Abnormal ECG When compared with ECG of 22-AUG-2021 10:35, MANUAL COMPARISON REQUIRED, DATA IS UNCONFIRMED Confirmed by VIKY CAMARGO, LIAM ([id number]), video effects editor MATTY SHIRLEY ([id number]) on 08/27/2021 9:50:26 AM Referred By: Juan F Clayton Confirmed By:LIAM SALMON MD
[2021-08-22 14:28] LABS: Troponin-I HS 11 pg/mL (3.0-78.0)
[2021-08-22 17:25] LABS: Troponin-I HS 11 pg/mL (3.0-78.0)
--- NOTE | 2021-08-22 19:24 | PCM.HP.STD ---
HPI - General General Date of Admission: 08/22/21 HPI Narrative SULEMAN RAMIREZ, is a 86 M who presents to the hospital with a weeks worth of intermittent chest pain. He states that it seems to start in his upper stomach underneath his sternum and radiates to the right. He had come in the night before but thought that the ER was too full so he came in today. He does have a heart score of 4 however the story is not very suspicious. Troponin was unremarkable in the ER at 10. An EKG was nonischemic. It is possible that he has GI source for pain however it was felt prudent to monitor him overnight with a stress test potentially to rule out ACS. [facility] Medical History Atherosclerotic heart disease of [place] coronary artery without angina pectoris BMI 32.0-32.9,adult BPH (benign prostatic hyperplasia) Carotid bruit Contraction, premature ventricular Diabetes Dyslipidemia Dyspnea Essential hypertension Fatigue History of depression History of osteoarthritis HTN (hypertension) Kidney disease Long-term use of high-risk medication Obesity OSBALDO (obstructive sleep apnea) Paroxysmal ventricular tachycardia Sleep apnea SOB (shortness of breath) Type 2 diabetes mellitus Home Medications allopurinol 100 mg tablet 100 mg PO DAILYCM #90 tab 11/03/19 [Rx Last Taken 08/22/21] valsartan 320 mg tablet 320 mg PO DAILY 06/07/20 [History Last Taken 08/22/21] aspirin 81 mg tablet,delayed release 81 mg PO DAILY 07/10/20 [History Last Taken 08/22/21] finasteride 5 mg tablet 5 mg PO DAILY 07/10/20 [History Last Taken Unknown] glipizide 10 mg tablet 20 mg PO DAILY 03/05/21 [History Last Taken 08/22/21] mexiletine 150 mg capsule See Rx Instructions .ROUTE .COMPLEX #360 cap 05/16/21 [Rx Last Taken 08/22/21] amlodipine 10 mg tablet 10 mg PO DAILY tab 06/06/21 [History Last Taken Unknown] insulin glargine U-300 conc [Toujeo Max U-300 SoloStar] 16 unit SUBCUT DAILY 08/22/21 [History Last Taken 08/22/21] tamsulosin 0.4 mg PO DAILY 08/22/21 [History Last Taken Unknown] Allergy/AdvReac Type Severity Reaction Status Date / Time amoxicillin Allergy Hives Verified 08/22/21 10:27 diphenhydramine Allergy Hives Verified 08/22/21 10:27 [From Durga] Family History Mother CAD (coronary artery disease) Diabetes Surgical History History of appendectomy History of back surgery History of carpal tunnel release History of elbow surgery History of excision of pilonidal cyst History of nephrectomy, unilateral History of right knee joint replacement History of shoulder surgery Social History Smoking Status: Never smoker second hand exposure: No alcohol intake: current alcohol intake frequency: 0-2 drinks per day Alcohol type: wine substance use type: does not use caffeine: No what type of physical activity do you participate in: none ROS Constitutional Constitutional: Denies chills, fatigue, fever(s) or malaise Eyes Eyes: Denies blurry vision ENT HEENT: Denies headache(s) or nasal discharge Cardiovascular Cardiovascular: Reports chest pain; Denies dyspnea on exertion or syncope Respiratory/Chest Respiratory/Chest: Denies cough, shortness of breath at rest or shortness of breath with exertion Gastrointestinal Gastrointestinal: Denies constipation, diarrhea, nausea or vomiting Genitourinary Genitourinary: Denies dysuria Neurologic Neurologic: Denies focal weakness, numbness or tremor(s) Psychiatric Psychiatric: Denies anxiety or depression Vital Signs Vital Signs Vital Signs: 08/22/21 10:28 08/22/21 11:15 08/22/21 12:35 Temperature 97.7 F L 98 F Temperature Source Temporal Temporal Pulse Rate 83 61 Respiratory Rate 14 20 H Respiratory Effort Respiratory Depth Respiratory Pattern Blood Pressure 145/75 H 137/71 H Blood Pressure Mean 98 93 Blood Pressure Source Blood Pressure Position Blood Pressure Location Pulse Ox 94 94 92 Oxygen Delivery Method Room Air Room Air Room Air 08/22/21 13:39 08/22/21 14:13 08/22/21 15:51 Temperature 97.7 F L Temperature Source Oral Pulse Rate 76 58 L Respiratory Rate 16 Respiratory Effort Normal Non-Labored Respiratory Depth Normal Respiratory Pattern Normal Blood Pressure 134/67 H Blood Pressure Mean 89 Blood Pressure Source Monitor Blood Pressure Position Semi-Fowlers Blood Pressure Location Left Arm Pulse Ox 94 Oxygen Delivery Method Room Air Room Air Weight Weight: 244 lb 3.2 oz Body Mass Index (BMI) 36.0 Physical Exam Const alert, oriented x3 and no apparent distress General Appearance: cooperative HEENT normocephalic and moist oral mucous membranes Eyes PERRL, EOMs intact bilaterally and conjunctivae normal Neck supple and no JVD Resp normal respiratory effort, no retractions, no use of accessory muscles and clear to auscultation bilaterally Auscultation: Negative for crackles, rales, rhonchi or wheezes Cardio regular rate, regular rhythm, S1 normal heart sound, S2 normal heart sound and no murmurs GI soft to palpation, non-tender and non-distended; Negative for hepatosplenomegaly Extremity no clubbing, cyanosis or edema Skin no rashes or lesions noted Neuro no focal motor deficits and no sensory deficits noted Psych affect normal Appearance: appropriate Results Lab / Micro Data Result Diagrams: 08/23/21 06:30 08/23/21 06:30 Labs: Laboratory Results - last 24 hr 08/22/21 11:00: WBC 7.5, RBC 4.12 L, Hgb 12.2 L, Hct 37.6 L, MCV 91.3, MCH 29.6, MCHC 32.4, RDW Std Deviation 46.2 H, RDW Coeff of Valeria 13.7, Plt Count 198, MPV 9.4, Immature Gran % (Auto) 0.400, Neut % (Auto) 60.2, Lymph % (Auto) 23.1, [place] % (Auto) 10.7 H, Eos % (Auto) 4.9, Baso % (Auto) 0.7, Absolute Neuts (auto) 4.5, Absolute Lymphs (auto) 1.73, Nucleated RBC % 0 08/22/21 11:00: Sodium 138, Potassium 4.3, Chloride 110 H, Carbon Dioxide 25.0, Anion Gap 3 L, BUN 23 H, Creatinine 1.70 H, Estim Creat Clear Calc 31.77, Est GFR (MDRD) Af Amer 49 L, Est GFR (MDRD) Non-Af 41 L, BUN/Creatinine Ratio 13.5, Glucose 155 H, Calcium 8.6, Troponin I High Sens 10 08/22/21 13:45: POC Glucose 96 08/22/21 13:50: Troponin I High Sens 11 08/22/21 16:46: Troponin I High Sens 11 Radiology Impression Chest X-Ray 08/22/21 10:38 IMPRESSION: Atelectasis versus early infiltrate in the left lower lobe. Electronically Signed: Bin Eubanks MD at 12:15 EDT , Service support , Assessment & Plan Assessment/Plan (1) Chest pain: PLAN: 1. Chest pain rule out/HTN/HLD/paroxysmal V. tach -Troponin stayed normal, EKG is nonischemic we will proceed with stress test. If stress test is normal plan for discharge in the morning can potentially start him on a PPI -We will continue with his home blood pressure medications -He states that he has had heart caths in the past which were unremarkable and he has never had a stent placed -Continue with mexiletine for his cardiac arrhythmia 2. DM2 -Stable, continue with his glipizide and his home insulin -Accu-Cheks AC at bedtime with sliding scale insulin for coverage 3. BPH -Stable -Continue with finasteride and Flomax DVT: Ambulation Charges/Coding Visit Charges OBSV E&M: 02429 Initial observation care L2
--- NOTE | 2021-08-22 19:57 | PCS.PANDOC ---
PANDEMIC DOCUMENTATION INITIATED: Date: 06/23/2021 Time: 190
[2021-08-22 21:45] LABS: Bedside Glucose 98 mg/dL (70-110)
[2021-08-22] MEDS: Mexiletine 150 MG Capsule 300 MG PO (22:57)
[2021-08-22 23:10] LABS: Bedside Glucose 188 mg/dL (70-110)
[2021-08-23 02:56] VITALS: BP 128/74; PULSE 66; RESP 18; TEMP 36.7; O2SAT 95
[2021-08-23 03:00] VITALS: PULSE 69
--- NOTE | 2021-08-23 05:00 | EKG12_ITS ---
Test Reason : AM Blood Pressure : / mmHG Vent. Rate : 065 BPM Atrial Rate : 065 BPM P-R Int : 218 ms QRS Dur : 158 ms QT Int : 422 ms P-R-T Axes : 047 -27 020 degrees QTc Int : 438 ms Sinus rhythm with 1st degree A-V block with Premature supraventricular complexes and with occasional Premature ventricular complexes Right bundle branch block Inferior infarct , age undetermined Abnormal ECG When compared with ECG of 22-AUG-2021 14:25, MANUAL COMPARISON REQUIRED, DATA IS UNCONFIRMED Confirmed by VIKY CAMARGO, LIAM ([id number]), features editor GEMA CHANDLER ([id number]) on 08/26/2021 2:09:37 PM Referred By: VAMSHI Confirmed By:LIAM SALMON MD
[2021-08-23 06:02] VITALS: BP 145/77; PULSE 68; RESP 18; TEMP 36.7; O2SAT 94
[2021-08-23] MEDS: Aspirin E.C. 81 MG Tablet PO (06:11)
[2021-08-23 06:36] LABS: Bedside Glucose 132 mg/dL (70-110)
[2021-08-23 06:45] LABS: Absolute Lymphocyte Count 1.85 X10^3/uL (0.83-4.51); Absolute Neutrophil Count 4.1 X10^3/uL (2.0-7.7); Basophil# 0.05 X10^3/uL; Basophil% 0.7 % (0-1); Eosinophil# 0.42 X10^3/uL; Eosinophils% 5.7 % (0-5); Hematocrit 37.9 % (40-54); Lymphocyte # 1.85 X10^3/ul (0.83-4.51); Lymphocyte % 25.3 % (19-41); Mean Corp Hgb Conc 31.7 g/dL (32-36); Mean Corpuscular Hgb 29.5 pg (27.0-32.0); Mean Corpuscular Volume 93.1 fL (80-94); Mean Platelet Vol. 9.6 fl (6.2-12.0); Monocyte% 12.3 % (0-10); NRBC Flagged by Analyzer 0 % (0-5); Neutrophil # 4.06 X10^3/uL (2.7-7.7); Neutrophil % 55.6 % (47-70); Platelet Count 196 K/mm3 (150-450); RBC Distribution Width CV 13.5 % (11.6-14.6); RBC Distribution Width SD 46.3 fl (35.1-43.9); Red Blood Count 4.07 M/mm3 (4.6-6.2); White Blood Count 7.3 K/mm3 (4.4-11.0)
[2021-08-23 07:03] VITALS: PULSE 69
[2021-08-23 07:26] LABS: Anion Gap 4 (5-15); BUN 26 mg/dL (7-18); BUN/Creat Ratio 15.2 RATIO (10-20); Calcium,Total 8.5 mg/dL (8.5-10.1); Chloride 107 mmol/L (98-107); Creatinine, Serum 1.71 mg/dL (0.70-1.30); EST Glomerular Filtration Rate 41 mL/min (>60); Est Glom Filt Rate - Afr Amer 49 mL/min (>60); Estimated Creatinine Clearance 31.58 ml/min; Glucose 131 mg/dL (74-106); Potassium 5.1 mmol/L (3.5-5.1); Sodium Level 139 mmol/L (136-145)
[2021-08-23 09:57] VITALS: BP 127/68; PULSE 66; RESP 18; TEMP 36.7; O2SAT 93
--- NOTE | 2021-08-23 11:21 | STRESSREP_ITS ---
Stress Test Report Regadenoson myocardial perfusion stress test. Indication; 86-year-old patient, with multiple medical comorbidities diabetes hyperlipidemia essential hypertension and CKD as well as obstructive sleep apnea. Patient had symptoms of shortness of breath and also has a known history of CAD. Stress protocol: Resting EKG demonstrates. Normal sinus rhythm. Right bundle branch block Ist. degree AV block. 0.4 mg of regadenoson was infused per usual protocol followed by rapid intravenous saline flush injection continuous EKG monitoring was performed. The maximum heart rate attained was 82 bpm which was 60% of maximum predicted heart . Stress EKG showed, no significant change from the resting EKG, with maximum heart rate of 82 bpm. Arrhythmia: Infrequent PVCs Symptoms: Patient had no symptoms of chest pain Blood pressure at rest: 138/60 mmHg blood pressure at the end of stress: 138/60 mmHg Myocardial perfusion protocol. 14.4 mCi ]of Technetium 99m Sestamibi was injected at rest. [ 0.4 mg ]of Regadenoson was infused per usual protocol peak infusion[44.6 mCi ]of Technetium 99m sestamibi was injected. Stress images were obtained stress and rest images were reconstructed and compared in the short axis vertical and horizontal long axis. Gated images were also obtained Perfusion SPECT analysis: Review of the images demonstrate normal uptake of sestamibi at rest, post stress images demonstrate similar uptake of sestamibi to the resting images, homogeneous tracer uptake With no evidence of reversible myocardial ischemia. Inferior attenuation artifact noted Gated SPECT analysis: The gated ejection fraction is 68% Normal LV systolic function and normal left ventricular wall motion. Conclusion: Negative Lexiscan sestamibi myocardial perfusion study for reversible myocardial ischemia Normal LV systolic function Abnormal baseline EKG with right bundle branch block, 30 degree AV block and episodes of premature ventricular complexes Michael Osorio MD,FACC,[facility]
--- NOTE | 2021-08-23 12:45 | CASEMGMT ---
ROSHNI CM in to discuss NORMAN form with patient. RN CM explained NORMAN form, patient voiced understanding. Pt signed form and filed in chart. Pt provided with a copy of signed NORMAN form. Patient had no further questions or concerns at this time.
--- NOTE | 2021-08-23 12:52 | PCM.DC ---
Discharge Instructions Diet Discharge Diet: Carb Control Diet Activity Discharge Activity: Return to Normal Activity Dressing / Incision Call your doctor if you observe: Fever of 101 or Higher, Shortness of breath, Dizziness, Fainting spells, Swelling in the ankles, Chest pain and Increased palpitations (irregular heartbeat) Follow Up Care Test Results: Test results from this visit will be discussed in further detail at your follow-up appointment, if applicable. Discharge Plan Admission Admit Date/Time: 08/22/21 12:27 Attending Provider: Tashi Penny Primary Care Provider: Juan F Clayton Discharge Orders/Prescriptions Prescriptions: New omeprazole 20 mg capsule,delayed release(DR/EC) 20 mg PO DAILY Qty: 30 RF: 0 Continued allopurinol 100 mg tablet 100 mg PO DAILYCM Qty: 90 RF: 0 aspirin [Adult Low Dose Aspirin] 81 mg tablet,delayed release (DR/EC) 81 mg PO DAILY RF: 0 finasteride 5 mg tablet 5 mg PO DAILY RF: 0 valsartan 320 mg tablet 320 mg PO DAILY RF: 0 glipizide 10 mg tablet 20 mg PO DAILY RF: 0 Toujeo Max U-300 SoloStar 300 unit/mL (3 mL) Insulin Pen 16 unit SUBCUT DAILY RF: 0 tamsulosin 0.4 mg capsule 0.4 mg PO DAILY RF: 0 mexiletine 150 mg capsule See Rx Instructions .ROUTE .COMPLEX Qty: 360 RF: 3 amlodipine 10 mg tablet 10 mg PO DAILY RF: 0 Referrals / Follow Up: Juan F Clayton MD [Primary Care Provider] - Within 1 Week Disposition Disposition (needs filled in before D/C Order can be placed): Home, Self Care
[2021-08-23 13:16] LABS: Bedside Glucose 208 mg/dL (70-110)
--- NOTE | 2021-08-23 13:39 | DS.PCM_ITS ---
Providers Date of Admission: 08/22/21 Primary Care Physician: Dr. Juan F Clayton MD Reason For Visit: CP RO Diagnosis Discharge Diagnosis (1) Chest pain: Status: Acute Code(s): R07.9 - Chest pain, unspecified Medications at Discharge Home Medications allopurinol 100 mg tablet 100 mg PO DAILYCM #90 tab 11/03/19 valsartan 320 mg tablet 320 mg PO DAILY 06/07/20 aspirin 81 mg tablet,delayed release 81 mg PO DAILY 07/10/20 finasteride 5 mg tablet 5 mg PO DAILY 07/10/20 glipizide 10 mg tablet 20 mg PO DAILY 03/05/21 mexiletine 150 mg capsule See Rx Instructions .ROUTE .COMPLEX #360 cap 05/16/21 amlodipine 10 mg tablet 10 mg PO DAILY tab 06/06/21 Toujeo Max U-300 SoloStar 16 unit SUBCUT DAILY 08/22/21 tamsulosin 0.4 mg PO DAILY 08/22/21 omeprazole 20 mg PO DAILY #30 cap 08/23/21 Hospital Course Operations None Procedures Nuclear stress test Summary of Care Provided Minutes Spent on Discharge: 45 Hospital Course: Per HPI: SULEMAN RAMIREZ, is a 86 M who presents to the hospital with a weeks worth of intermittent chest pain. He states that it seems to start in his upper stomach underneath his sternum and radiates to the right. He had come in the night before but thought that the ER was too full so he came in today. He does have a heart score of 4 however the story is not very suspicious. Troponin was unremarkable in the ER at 10. An EKG was nonischemic. It is possible that he has GI source for pain however it was felt prudent to monitor him overnight with a stress test potentially to rule out ACS. Hospital Course: 1. Chest pain rule out/HTN/HLD/paroxysmal V. [id number] male presented to the hospital 1week of intermittent chest pain. He states that it started in his abdomen and would go up substernally and then up into his right chest. Initial troponin was unremarkable and a troponin series was negative. EKG was nonischemic. Given his heart score of 4 he was admitted for observation and a stress test. Stress test was negative. I discussed the situation with him and the fact that a lot of this originates in his abdomen decided to place him on a PPI and stressed outpatient follow-up with his PCP for further evaluation of the abdominal pain if it does not resolve. I discussed plan for discharge with him and his they expressed understanding of the risk and benefits of going home and would like to go home today. 2. Type 2 diabetes, BPH are chronic medical conditions which complicate his care. His home medications were continued were appropriate Physical Exam Const alert, oriented x3 and no apparent distress General Appearance: cooperative HEENT normocephalic and moist oral mucous membranes Eyes PERRL, EOMs intact bilaterally and conjunctivae normal Neck supple and no JVD Resp normal respiratory effort, no retractions, no use of accessory muscles and clear to auscultation bilaterally Auscultation: Negative for crackles, rales, rhonchi or wheezes Cardio regular rate, regular rhythm, S1 normal heart sound, S2 normal heart sound and no murmurs GI soft to palpation, non-tender and non-distended; Negative for hepatosplenomegaly Extremity no clubbing, cyanosis or edema Skin no rashes or lesions noted Neuro no focal motor deficits and no sensory deficits noted Psych affect normal Appearance: appropriate Weight / BMI Weight Weight: 244 lb 3.2 oz Body Mass Index (BMI) 36.0 ABG / Lab / Microbiology Data Result Diagrams: 08/23/21 06:30 08/23/21 06:30 Laboratory: Laboratory Results - last 24 hr 08/22/21 13:45: POC Glucose 96 08/22/21 13:50: Troponin I High Sens 11 08/22/21 16:46: Troponin I High Sens 11 08/22/21 21:38: POC Glucose 98 08/22/21 23:05: POC Glucose 188 H 08/23/21 06:28: POC Glucose 132 H 08/23/21 06:30: WBC 7.3, RBC 4.07 L, Hgb 12.0 L, Hct 37.9 L, MCV 93.1, MCH 29.5, MCHC 31.7 L, RDW Std Deviation 46.3 H, RDW Coeff of Valeria 13.5, Plt Count 196, MPV 9.6, Immature Gran % (Auto) 0.400, Neut % (Auto) 55.6, Lymph % (Auto) 25.3, [place] % (Auto) 12.3 H, Eos % (Auto) 5.7 H, Baso % (Auto) 0.7, Absolute Neuts (auto) 4.1, Absolute Lymphs (auto) 1.85, Nucleated RBC % 0 08/23/21 06:30: Sodium 139, Potassium 5.1, Chloride 107, Carbon Dioxide 28.0, Anion Gap 4 L, BUN 26 H, Creatinine 1.71 H, Estim Creat Clear Calc 31.58, Est GFR (MDRD) Af Amer 49 L, Est GFR (MDRD) Non-Af 41 L, BUN/Creatinine Ratio 15.2, Glucose 131 H, Calcium 8.5 08/23/21 11:39: POC Glucose 208 H D/C Instructions Discharge Diet: Carb Control Diet Call your doctor if you observe: Fever of 101 or Higher, Shortness of breath, Dizziness, Fainting spells, Swelling in the ankles, Chest pain and Increased palpitations (irregular heartbeat) Meaningful Use Info Meaningful Use Diagnoses (Choose all that apply): None applicable Discharge Plan Admission Admit Date/Time: 08/22/21 12:27 Attending Provider: Tashi Penny Primary Care Provider: Juan F Clayton Discharge Orders/Prescriptions Prescriptions: New omeprazole 20 mg capsule,delayed release(DR/EC) 20 mg PO DAILY Qty: 30 RF: 0 Continued allopurinol 100 mg tablet 100 mg PO DAILYCM Qty: 90 RF: 0 aspirin [Adult Low Dose Aspirin] 81 mg tablet,delayed release (DR/EC) 81 mg PO DAILY RF: 0 finasteride 5 mg tablet 5 mg PO DAILY RF: 0 valsartan 320 mg tablet 320 mg PO DAILY RF: 0 glipizide 10 mg tablet 20 mg PO DAILY RF: 0 Toujeo Max U-300 SoloStar 300 unit/mL (3 mL) Insulin Pen 16 unit SUBCUT DAILY RF: 0 tamsulosin 0.4 mg capsule 0.4 mg PO DAILY RF: 0 mexiletine 150 mg capsule See Rx Instructions .ROUTE .COMPLEX Qty: 360 RF: 3 amlodipine 10 mg tablet 10 mg PO DAILY RF: 0 Referrals / Follow Up: Juan F Clayton MD [Primary Care Provider] - Within 1 Week Disposition Disposition (needs filled in before D/C Order can be placed): Home, Self Care Charges/Coding Visit Charges OBSV E&M: 86672 Observation care discharge
== END 2021-08-23 13:01 | disposition home or self-care (01) ==
LOC: ED 12:32 → PCU 12:54
PROVIDERS: Admitting Provider Family Medicine; Emergency Provider Emergency Medicine; PCP Family Medicine; Visit Provider Family Medicine
DX: R07.89 Other chest pain (principal); R06.02 Shortness of breath; R61 Generalized hyperhidrosis; R11.0 Nausea; I25.10 Atherosclerotic heart disease of native coronary artery without angina pectoris; E78.5 Hyperlipidemia, unspecified; E11.9 Type 2 diabetes mellitus without complications; I10 Essential (primary) hypertension; M19.90 Unspecified osteoarthritis, unspecified site; N40.0 Benign prostatic hyperplasia without lower urinary tract symptoms; G47.33 Obstructive sleep apnea (adult) (pediatric); I45.10 Unspecified right bundle-branch block; I48.91 Unspecified atrial fibrillation; E66.9 Obesity, unspecified; Z79.899 Other long term (current) drug therapy; Z79.82 Long term (current) use of aspirin; Z68.36 Body mass index [BMI] 36.0-36.9, adult; Z79.4 Long term (current) use of insulin
CPT/HCPCS: 36415; 71045; 78452; 80048; 82962; 84484; 85025; 93005; 93017; 99218; 99285; A9500; A4216; G0378; J2785

== ENCOUNTER → 2021-08-26 10:55 | Outpatient (CLI) | payer MEDICARE, OTHER, SELFPAY ==
--- NOTE | 2021-08-26 10:58 | RAD_ITS ---
STUDY: X-RAY - ACUTE ABDOMINAL SERIES REASON FOR EXAM: Male, 86 years old. ABDOMINAL PAIN TECHNIQUE: Single view of the chest. Supine, and erect view(s) of the abdomen were obtained. COMPARISON: None. FINDINGS: Calcified granulomas. Normal size heart. Normal mediastinum and morgan. Normal visualized pulmonary arteries. There is atherosclerotic calcification of the aortic arch with tortuosity. Patient status post right shoulder replacement. There is a moderate amount of colonic fecal material. The soft tissue structures of the abdomen and pelvis are unremarkable. There are diffuse degenerative changes of the visualized lumbar spine. Dextroscoliosis of the thoracic spine. RAD/Acute Abdomen Inc Chest IMPRESSION: Moderate amount of fecal material is seen in the colon. Electronically Signed: Bin Eubanks MD at 11:41 EDT , Service support ,
== END ==
PROVIDERS: PCP Family Medicine; Referring Provider Family Medicine; Visit Provider Family Medicine
DX: R10.9 Unspecified abdominal pain (principal)
CPT/HCPCS: 74022

== ENCOUNTER 2021-09-18 11:53 | Emergency (ER) | payer MEDICARE, OTHER, SELFPAY ==
[2021-09-18 11:53] VITALS: BP 115/70; PULSE 94; RESP 16; TEMP 36.3; O2SAT 99; BMI 34.4
--- NOTE | 2021-09-18 12:35 | CT_ITS ---
STUDY: CT ABDOMEN AND PELVIS WITH CONTRAST REASON FOR EXAM: Male, 86 years old. Abdominal pain -- IV PO Contrast. The patient is status post right nephrectomy. RADIATION DOSAGE (If Supplied By Facility): CTDIvol = ( 18.70 ) mGy, DLP = ( 1321.93 ) mGycm TECHNIQUE: Transaxial images were obtained from the dome of the diaphragm to the symphysis pubis with oral contrast. Oral and amp; IV Gastrografin and amp; 100mL Isovue-300 was administered. Sagittal and coronal images were reconstructed. Individualized dose optimization techniques were used for this CT. COMPARISON: Comparison is made with prior examination dated 07/09/2016. FINDINGS: Mild increased linear markings at the lung bases suggestive of a linear atelectasis and/or scarring. Coronary artery calcification. Normal liver. Normal gallbladder and extrahepatic biliary system. Normal spleen. Normal pancreas. Normal bilateral adrenal glands. The patient is status post right nephrectomy. Normal left kidney. Normal visualized stomach. Normal small intestine. There are multiple colonic diverticula consistent with diverticulosis. The appendix is visualized and appears normal. There is diffuse atherosclerotic calcification of the abdominal aorta, without a demonstrated aneurysm. Normal inferior vena cava. Normal retroperitoneum. Distended urinary bladder. There is enlargement of the prostate gland. It measures 6 times by 5.6 cm. There is evidence of prior TURP. Prostatic calcifications are seen. There is a left-sided inguinal hernia containing adipose tissue. There are diffuse degenerative changes of the visualized lumbar spine. CT/Abdomen/Pelvis WITH Contrast IMPRESSION: Prostatic enlargement with evidence of prior TURP. Sigmoid diverticulosis. Status post right nephrectomy. Electronically Signed: Bin Eubanks MD at 14:59 EST , Service support ,
--- NOTE | 2021-09-18 12:36 | ED.VIS.GI ---
HPI HPI - GI History of Present Illness Chief Complaint: Abd Pain Detail of Chief Complaint: Abdominal pain off-and-on for the last 2 to 3 weeks Informant: patient Narrative Narrative: Abdominal pain for the last 2 to 3 weeks. Patient states that it is severe at times and wakes him up at night. Pains kind of in the middle of his abdomen. This morning it was severe but seems to be letting up a little bit now. He was seen in the emergency department 2 or 3 weeks ago for a similar pain that radiated up into his chest and was admitted and had a cardiac rule out. Patient has not had any imaging of his abdomen. He has had prior appendectomy. He denies pain radiating into his back or down his legs. He denies urinary symptoms. He denies blood in stool or black tarry stool. He denies fever. Food does not seem to affect the pain. Pain is currently just mild. [facility] Medical History Atherosclerotic heart disease of [place] coronary artery without angina pectoris BMI 32.0-32.9,adult BPH (benign prostatic hyperplasia) Carotid bruit Contraction, premature ventricular Diabetes Dyslipidemia Dyspnea Essential hypertension Fatigue History of depression History of osteoarthritis HTN (hypertension) Kidney disease Long-term use of high-risk medication Obesity OSBALDO (obstructive sleep apnea) Paroxysmal ventricular tachycardia Sleep apnea SOB (shortness of breath) Type 2 diabetes mellitus Home Medications allopurinol 100 mg tablet 100 mg PO DAILYCM #90 tab 11/03/19 [Rx Last Taken 08/22/21] valsartan 320 mg tablet 320 mg PO DAILY 06/07/20 [History Last Taken 08/22/21] aspirin 81 mg tablet,delayed release 81 mg PO DAILY 07/10/20 [History Last Taken 08/22/21] finasteride 5 mg tablet 5 mg PO DAILY 07/10/20 [History Last Taken Unknown] glipizide 10 mg tablet 20 mg PO DAILY 03/05/21 [History Last Taken 08/22/21] mexiletine 150 mg capsule See Rx Instructions .ROUTE .COMPLEX #360 cap 05/16/21 [Rx Last Taken 08/22/21] amlodipine 10 mg tablet 10 mg PO DAILY tab 06/06/21 [History Last Taken Unknown] Toujeo Max U-300 SoloStar 16 unit SUBCUT DAILY 08/22/21 [History Last Taken 08/22/21] tamsulosin 0.4 mg PO DAILY 08/22/21 [History Last Taken Unknown] omeprazole 20 mg PO DAILY #30 cap 08/23/21 [Rx Last Taken Unknown] rosuvastatin 40 mg PO QHS 09/18/21 [History Last Taken Unknown] Allergy/AdvReac Type Severity Reaction Status Date / Time amoxicillin Allergy Hives Verified 09/18/21 11:55 diphenhydramine Allergy Hives Verified 09/18/21 11:55 [From Benadryl] Family History Mother CAD (coronary artery disease) Diabetes Surgical History History of appendectomy History of back surgery History of carpal tunnel release History of elbow surgery History of excision of pilonidal cyst History of nephrectomy, unilateral History of right knee joint replacement History of shoulder surgery Social History Smoking Status: Never smoker second hand exposure: No alcohol intake: current alcohol intake frequency: 0-2 drinks per day Alcohol type: wine substance use type: does not use caffeine: No what type of physical activity do you participate in: none ROS ROS ED Constitutional Constitutional ED: Reports systems reviewed and no addt'l complaints, except as documented; Denies body ache(s), change in weight or chills Eyes Eyes: Denies acute decrease in peripheral vision, change in vision, double vision or loss of vision ENT ENT ED: Reports none; Denies ear pain, lip swelling, loss taste/smell, neck pain, otalgia or sore throat Cardiovascular Cardiovascular: Reports none; Denies abdominal pain, chest pain with activity, leg edema, lightheadedness, palpitations, rapid heart rate or syncope Respiratory/Chest Respiratory/Chest: Reports none; Denies change in mental status, dry cough, dyspnea, hemoptysis, shortness of breath at rest or shortness of breath with exertion Gastrointestinal Gastrointestinal: Reports none and abdominal pain; Denies change in stool character, diarrhea, hematemesis, hematochezia, melena, rectal bleeding or vomiting Genitourinary Genitourinary ED: Reports none; Denies abdominal discomfort, anuria, dysuria, genital pain or polyuria Musculoskeletal Musculoskeletal: Reports none; Denies arthralgias, back pain, difficulty walking, extremity pain, muscle weakness or myalgias Integumentary Reports none; Denies abscess or rash Neurologic Neurologic: Reports none; Denies abnormal gait, confusion, focal weakness, frequent falls, headache(s), loss of vision, numbness, paresthesias, radicular pain, vertigo or weakness Psychiatric Psychiatric: Reports systems reviewed and no addt'l complaints, except as documented and none; Denies behavioral changes, confusion, difficulty concentrating, hallucinations, suicidal ideation, tactile hallucinations or visual hallucinations Endocrine Endocrinology: Denies none, cold intolerance, excessive sweating, fatigue or heat intolerance Hematologic/Lymphatic Hematologic/Lymphatic: Reports none; Denies anemia, easy bleeding or easy bruising Allergic/Immunologic Allergic/Immunologic ED: Denies as per HPI, none, lip swelling, mouth swelling, throat swelling, tongue swelling or hives EXAM Physical Exam Const Vital Signs: 09/18/21 11:53 Temperature 97.4 F L Temperature Source Temporal Pulse Rate 94 Respiratory Rate 16 Blood Pressure 115/70 Blood Pressure Mean 85 Pulse Ox 99 Oxygen Delivery Method Room Air Positive well nourished and well developed General Appearance ED: well developed and NAD HEENT Reports TM's clear and moist mucous membranes normocephalic and atraumatic; Negative for trauma or tenderness Tympanic Membrane ED: Yes TM's clear Eyes PERRL and EOMs intact bilaterally General Eye ED: Negative for pale conjunctiva or scleral icterus Neck no lymphadenopathy, supple and no JVD General: Negative for tenderness Chest Wall inspection of chest normal and palpation of chest normal Chest: Negative for tenderness Resp normal respiratory effort and clear to auscultation bilaterally Effort and Inspection: Negative for respiratory distress or pain with movement Auscultation: Negative for rhonchi, wheezes or diminished lung sounds Cardio regular rate, regular rhythm, S1 normal heart sound, S2 normal heart sound and no murmurs Peripheral Pulses: pulses 2+ throughout GI normal to inspection, nondistended, normoactive bowel sounds, soft to palpation, non-distended and no masses GI Narrative: Patient has tenderness palpation over the mid central abdomen above the umbilicus. Patient has large body habitus and difficult to palpate aorta. No obvious masses noted. Patient does have some guarding. There is no rebound, rigidity, or peritoneal signs. Back/Spine no CVA tenderness and no thoracic nor lumbar tenderness Extremity normal to inspection General Extremety ED: Negative for edema General Extremity: Negative for edema Neuro oriented x3, CN's II-XII intact bilaterally, no sensory deficits noted and gait normal Sensorium / Orientation: awake, alert, oriented to person, oriented to place and oriented to time Motor Exam: strength 5/5 throughout and strength abnormal Psych mental status grossly normal Skin no rashes or lesions noted and no wounds MDM MDM MDM Narrative Medical decision making narrative: IV line established on arrival. Patient had significant work-up in the emergency department including labs and urine as well as a CT scan of the abdomen pelvis. No etiology for his abdominal pain was found. Patient was noted to have a large prostate and prior TURP. No other acute process noted. Patient states that he was written a prescription for omeprazole in the past but he has not been taking it. Patient advised to start taking his omeprazole and follow-up with his family doctor in possibly GI if his symptoms persist as he may need further evaluation such as EGD or colonoscopy. Lab Data Attestation: I reviewed the patient's lab results. Labs: Laboratory Results - last 24 hr 09/18/21 09/18/21 09/18/21 13:14 13:14 13:14 WBC 8.7 RBC 4.56 L Hgb 13.4 Hct 41.3 MCV 90.6 MCH 29.4 MCHC 32.4 RDW Std Deviation 44.8 H RDW Coeff of Valeria 13.3 Plt Count 246 MPV 9.5 Immature Gran % (Auto) 0.300 Neut % (Auto) 57.9 Lymph % (Auto) 27.1 [place] % (Auto) 10.1 H Eos % (Auto) 3.9 Baso % (Auto) 0.7 Absolute Neuts (auto) 5.1 Absolute Lymphs (auto) 2.37 Nucleated RBC % 0 Sodium 138 Potassium 4.3 Chloride 107 Carbon Dioxide 25.0 Anion Gap 6 BUN 22 H Creatinine 1.61 H Estim Creat Clear Calc 35.73 Est GFR (MDRD) Af Amer 53 L Est GFR (MDRD) Non-Af 44 L BUN/Creatinine Ratio 13.7 Glucose 116 H Lactic Acid 0.8 Calcium 8.9 Total Bilirubin 0.50 AST 18 ALT 25 Alkaline Phosphatase 66 Total Protein 7.2 Albumin 3.2 Globulin 4.0 Albumin/Globulin Ratio 0.8 L Lipase 76 Urine Color Urine Clarity Urine pH Ur Specific [place] Urine Protein Urine Glucose (UA) Urine Ketones Urine Occult Blood Urine Nitrite Urine Bilirubin Urine Urobilinogen Ur Leukocyte Esterase Urine RBC Urine WBC Ur Squamous Epith Cells Urine Bacteria Urine Mucus 09/18/21 14:45 WBC RBC Hgb Hct MCV MCH MCHC RDW Std Deviation RDW Coeff of Valeria Plt Count MPV Immature Gran % (Auto) Neut % (Auto) Lymph % (Auto) [place] % (Auto) Eos % (Auto) Baso % (Auto) Absolute Neuts (auto) Absolute Lymphs (auto) Nucleated RBC % Sodium Potassium Chloride Carbon Dioxide Anion Gap BUN Creatinine Estim Creat Clear Calc Est GFR (MDRD) Af Amer Est GFR (MDRD) Non-Af BUN/Creatinine Ratio Glucose Lactic Acid Calcium Total Bilirubin AST ALT Alkaline Phosphatase Total Protein Albumin Globulin Albumin/Globulin Ratio Lipase Urine Color Straw Urine Clarity Clear Urine pH 6.5 Ur Specific [place] 1.005 Urine Protein Negative Urine Glucose (UA) Normal Urine Ketones Negative Urine Occult Blood Negative Urine Nitrite Negative Urine Bilirubin Negative Urine Urobilinogen Normal Ur Leukocyte Esterase 100 H Urine RBC 0 SEEN Urine WBC 0-5 SEEN Ur Squamous Epith Cells 0 SEEN Urine Bacteria 0 SEEN Urine Mucus 0 SEEN Radiography Diagnostic Testing: Clinical Impression(s) from Imaging Studies Abdomen/Pelvis CT 09/18/21 12:35 IMPRESSION: Prostatic enlargement with evidence of prior TURP. Sigmoid diverticulosis. Status post right nephrectomy. Electronically Signed: Bin Eubanks MD at 14:59 EST , Service support , Discharge Plan Triage Chief Complaint: Abd Pain ED Provider: Jan Perez Dx/Rx/DC Orders Clinical Impression: Abdominal pain Instructions: ED Abdominal Pain Unkn Cause Male... Prescriptions: No Action allopurinol 100 mg tablet 100 mg PO DAILYCM Qty: 90 RF: 0 aspirin [Adult Low Dose Aspirin] 81 mg tablet,delayed release (DR/EC) 81 mg PO DAILY RF: 0 finasteride 5 mg tablet 5 mg PO DAILY RF: 0 valsartan 320 mg tablet 320 mg PO DAILY RF: 0 glipizide 10 mg tablet 20 mg PO DAILY RF: 0 Toujeo Max U-300 SoloStar 300 unit/mL (3 mL) Insulin Pen 16 unit SUBCUT DAILY RF: 0 tamsulosin 0.4 mg capsule 0.4 mg PO DAILY RF: 0 omeprazole 20 mg capsule,delayed release(DR/EC) 20 mg PO DAILY Qty: 30 RF: 0 rosuvastatin 40 mg tablet 40 mg PO QHS RF: 0 mexiletine 150 mg capsule See Rx Instructions .ROUTE .COMPLEX Qty: 360 RF: 3 amlodipine 10 mg tablet 10 mg PO DAILY RF: 0 Primary Care Provider: Juan F Clayton Referrals: Juan F Clayton MD [Primary Care Provider] - 3-5 Days Disposition Disposition: Home, Self Care
[2021-09-18] MEDS: 0.9% Normal Saline 1,000 ML 125 ML IV (13:16)
[2021-09-18 13:39] LABS: Absolute Lymphocyte Count 2.37 X10^3/uL (0.83-4.51); Absolute Neutrophil Count 5.1 X10^3/uL (2.0-7.7); Basophil# 0.06 X10^3/uL; Basophil% 0.7 % (0-1); Eosinophil# 0.34 X10^3/uL; Eosinophils% 3.9 % (0-5); Hematocrit 41.3 % (40-54); Hemoglobin 13.4 g/dL (13.0-16.5); Lymphocyte # 2.37 X10^3/ul (0.83-4.51); Lymphocyte % 27.1 % (19-41); Mean Corp Hgb Conc 32.4 g/dL (32-36); Mean Corpuscular Hgb 29.4 pg (27.0-32.0); Mean Corpuscular Volume 90.6 fL (80-94); Mean Platelet Vol. 9.5 fl (6.2-12.0); Monocyte# 0.88 X10^3/uL; Monocyte% 10.1 % (0-10); NRBC Flagged by Analyzer 0 % (0-5); Neutrophil # 5.05 X10^3/uL (2.7-7.7); Neutrophil % 57.9 % (47-70); Platelet Count 246 K/mm3 (150-450); RBC Distribution Width CV 13.3 % (11.6-14.6); RBC Distribution Width SD 44.8 fl (35.1-43.9); Red Blood Count 4.56 M/mm3 (4.6-6.2); White Blood Count 8.7 K/mm3 (4.4-11.0)
[2021-09-18 13:55] LABS: ALB/GLOB Ratio 0.8 RATIO (0.9-2.4); AST(SGOT) 18 U/L (15-37); Alanine Aminotransfer ALT/SGPT 25 U/L (16-61); Albumin, Serum 3.2 g/dL (3.2-5.0); Alkaline Phosphatase 66 U/L (45-117); Anion Gap 6 (5-15); BUN 22 mg/dL (7-18); BUN/Creat Ratio 13.7 RATIO (10-20); Calcium,Total 8.9 mg/dL (8.5-10.1); Chloride 107 mmol/L (98-107); Creatinine, Serum 1.61 mg/dL (0.70-1.30); EST Glomerular Filtration Rate 44 mL/min (>60); Est Glom Filt Rate - Afr Amer 53 mL/min (>60); Estimated Creatinine Clearance 35.73 ml/min; Glucose 116 mg/dL (74-106); Lipase 76 U/L (73-393); Potassium 4.3 mmol/L (3.5-5.1); Protein, Total 7.2 g/dL (6.4-8.2); Sodium Level 138 mmol/L (136-145)
[2021-09-18 14:09] LABS: Lactic Acid 0.8 mmol/L (0.4-1.9)
[2021-09-18 14:51] LABS: Bacteria 0 SEEN /hpf (None Seen); Mucous, Urine 0 SEEN /hpf (<or=2+); Red Blood Cells-Urine 0 SEEN /hpf (0-5); Squamous Epithelial Cells - UA 0 SEEN /hpf (0-5)
[2021-09-18 14:58] LABS: Color, Urine Straw (Yellow); Glucose, Dipstick Normal (Normal); Ketone-Dipstick Negative (Negative); Leukocyte Esterase-Dipstick 100 /ul (Negative); Nitrite-Dipstick Negative (Negative); Occult Blood-Urine Negative /ul (Negative); Protein-Dipstick Negative (Negative); Specific Gravity, Urine 1.005 (1.002-1.030); Urine Bilirubin Dipstick Negative (Negative); Urine Clarity Clear (Clear); Urine Urobilinogen Normal (Normal); Urine pH 6.5 (5.0 - 8.0)
[2021-09-18 15:25] LABS: White Blood Cells 0-5 SEEN /hpf (0-5)
[2021-09-18 15:48] VITALS: BP 161/73; PULSE 67; RESP 18; O2SAT 94
[2021-09-18 15:49] VITALS: BP 161/73; RESP 67; TEMP -7.7; TEMP 18; O2SAT 94
== END 2021-09-18 15:50 | disposition home or self-care (01) ==
PROVIDERS: Emergency Provider Emergency Medicine; PCP Family Medicine
DX: R10.9 Unspecified abdominal pain (principal); I25.10 Atherosclerotic heart disease of native coronary artery without angina pectoris; E11.9 Type 2 diabetes mellitus without complications; I10 Essential (primary) hypertension; E78.5 Hyperlipidemia, unspecified; N40.0 Benign prostatic hyperplasia without lower urinary tract symptoms; G47.33 Obstructive sleep apnea (adult) (pediatric); E66.9 Obesity, unspecified; Z68.32 Body mass index [BMI] 32.0-32.9, adult; Z79.4 Long term (current) use of insulin; Z79.82 Long term (current) use of aspirin; Z79.899 Other long term (current) drug therapy; Z96.651 Presence of right artificial knee joint; Z90.5 Acquired absence of kidney
CPT/HCPCS: 74177; 80053; 81001; 83605; 83690; 85025; 96360; 96361; 99283; J7030; Q9967

== ENCOUNTER → 2021-10-15 08:50 | Outpatient (CLI) | payer MEDICARE, OTHER, SELFPAY ==
--- NOTE | 2021-10-15 08:55 | ECHOD_ITS ---
Reason For Study: HERNANDEZ Procedure This was a 2D Doppler, Color Flow transthoracic echocardiogram. The study was technically difficult. Exam performed in department. Left Ventricle Normal LV size. Left ventricular systolic function is normal. The estimated ejection fraction is 60 %. No evidence for diastolic dysfunction. No regional wall motion abnormalities noted. Right Ventricle Normal RV size. Normal systolic function. Atria Normal left atrium. Normal right atrium. No doppler evidence for ASD. Mitral Valve There is moderate mitral annular calcification. Extension of the mitral annular calcification onto the base of the posterior mitral valve leaflet. Trivial mitral valve insufficiency. Tricuspid Valve Normal tricuspid valve. Trivial tricuspid valve insufficiency. Right ventricular systolic pressure estimated to be 27 mmHg. Aortic Valve Trisinus/trileaflet aortic valve. Normal aortic valve. Trivial aortic valve insufficiency. Pulmonic Valve The pulmonic valve is not well visualized. Mild (1+) pulmonic valve insufficiency. Great Vessels The aortic root is not well visualized. Pericardium/Pleural No pericardial effusion. Medication Definity deferred due to single kidney. MMode/2D Measurements & Calculations LVIDd: 3.8 cm IVSd: 1.1 cm LA dimension: 4.3 cm LVIDs: 1.9 cm LVPWd: 0.86 cm FS: 49.9 % LAV(MOD-bp): 44.9 ml LA A4 area: 19.9 cm2 LA dimension(2D): 3.8 cm LAV(MOD-bp) Indexed: 19.5 ml/m2 LAV(MOD-sp2): 29.6 ml LAV(MOD-sp4): 60.6 ml RA A4 area: 13.7 cm2 Doppler Measurements & Calculations MV E max sudeep: 51.8 cm/sec Lat Peak E' Sudeep: 7.9 cm/sec Med Peak E' Sudeep: 6.3 cm/sec MV A max sudeep: 72.9 cm/sec E/E' lat: 6.6 E/E' med: 8.2 MV E/A: 0.71 Ao V2 max: 105.0 cm/sec LV V1 max: 71.0 cm/sec PA V2 max: 100.9 cm/sec Ao max P.4 mmHg LV V1 max P.0 mmHg TR max sudeep: 245.3 cm/sec TR max P.1 mmHg ECHO/Echo Complete Interpretation Summary The study was technically difficult. Left ventricular systolic function is normal. The estimated ejection fraction is 60 %. There is moderate mitral annular calcification. Extension of the mitral annular calcification onto the base of the posterior mi tral valve leaflet. Trivial mitral valve insufficiency. Trivial tricuspid valve insufficiency. Trivial aortic valve insufficiency. Mild (1+) pulmonic valve insufficiency. Right ventricular systolic pressure estimated to be 27 mmHg. No evidence for diastolic dysfunction. Ordering Physician: Juan F Clayton Referring Physician: Juan F Clayton Performed By: Kaylie Sheikh CARLOS
== END ==
PROVIDERS: PCP Family Medicine; Referring Provider Family Medicine; Visit Provider Family Medicine
DX: R06.02 Shortness of breath (principal)
CPT/HCPCS: 93306

== ENCOUNTER 2021-11-10 08:45 | Outpatient (CLI) | payer MEDICARE, OTHER, SELFPAY ==
[2021-11-10 08:49] LABS: Bacteria 0 SEEN /hpf (None Seen); Mucous, Urine 0 SEEN /hpf (<or=2+); Squamous Epithelial Cells - UA 0 SEEN /hpf (0-5)
[2021-11-10 10:14] LABS: Absolute Lymphocyte Count 2.27 X10^3/uL (0.83-4.51); Absolute Neutrophil Count 4.4 X10^3/uL (2.0-7.7); Basophil# 0.06 X10^3/uL; Basophil% 0.8 % (0-1); Eosinophil# 0.32 X10^3/uL; Eosinophils% 4.1 % (0-5); Hematocrit 42.3 % (40-54); Hemoglobin 13.9 g/dL (13.0-16.5); Lymphocyte # 2.27 X10^3/ul (0.83-4.51); Lymphocyte % 28.8 % (19-41); Mean Corp Hgb Conc 32.9 g/dL (32-36); Mean Corpuscular Hgb 29.6 pg (27.0-32.0); Mean Platelet Vol. 9.7 fl (6.2-12.0); Monocyte# 0.78 X10^3/uL; Monocyte% 9.9 % (0-10); NRBC Flagged by Analyzer 0 % (0-5); Neutrophil # 4.41 X10^3/uL (2.7-7.7); Neutrophil % 55.9 % (47-70); Platelet Count 222 K/mm3 (150-450); RBC Distribution Width CV 13.5 % (11.6-14.6); RBC Distribution Width SD 45.1 fl (35.1-43.9); White Blood Count 7.9 K/mm3 (4.4-11.0)
[2021-11-10 10:47] LABS: Hemoglobin A1c 6.4 % (3.8-5.6); Vitamin D,25 Hydroxy 29.8 ng/mL
[2021-11-10 11:19] LABS: ALB/GLOB Ratio 0.8 RATIO (0.9-2.4); AST(SGOT) 15 U/L (15-37); Alanine Aminotransfer ALT/SGPT 28 U/L (16-61); Albumin, Serum 3.1 g/dL (3.2-5.0); Alkaline Phosphatase 60 U/L (45-117); Anion Gap 6 (5-15); BUN 27 mg/dL (7-18); BUN/Creat Ratio 15.6 RATIO (10-20); Calcium,Total 9.1 mg/dL (8.5-10.1); Chloride 111 mmol/L (98-107); Creatinine, Serum 1.73 mg/dL (0.70-1.30); EST Glomerular Filtration Rate 40 mL/min (>60); Est Glom Filt Rate - Afr Amer 48 mL/min (>60); Globulin 4.1 g/dL (2.2-4.2); Glucose 107 mg/dL (74-106); Magnesium 2.3 mg/dL (1.6-2.6); Potassium 4.5 mmol/L (3.5-5.1); Protein, Total 7.2 g/dL (6.4-8.2); Sodium Level 139 mmol/L (136-145); Thyroid Stim Hormone (TSH) 1.86 uIU/mL (0.358-3.74)
[2021-11-10 12:23] LABS: Color, Urine Yellow (Yellow); Glucose, Dipstick Normal (Normal); Ketone-Dipstick Negative (Negative); Leukocyte Esterase-Dipstick 500 /ul (Negative); Nitrite-Dipstick Negative (Negative); Occult Blood-Urine 10 /ul (Negative); Protein-Dipstick Negative (Negative); Specific Gravity, Urine 1.015 (1.002-1.030); Urine Bilirubin Dipstick Negative (Negative); Urine Clarity Clear (Clear); Urine Urobilinogen Normal (Normal)
[2021-11-10 12:29] LABS: Red Blood Cells-Urine 0-5 SEEN /hpf (0-5); White Blood Cells 25-50 SEEN /hpf (0-5)
[2021-11-10 13:06] LABS: AST(SGOT) 16 U/L (15-37); Alanine Aminotransfer ALT/SGPT 26 U/L (16-61); Albumin, Serum 3.1 g/dL (3.2-5.0); Alkaline Phosphatase 58 U/L (45-117); Bilirubin, Direct 0.08 mg/dL (0.00-0.30); Cholesterol 225 mg/dL (200); Globulin 4.1 g/dL (2.2-4.2); High Density Lipoprotein 37 mg/dL; Protein, Total 7.2 g/dL (6.4-8.2); Triglycerides 191 mg/dL; Very Low Density Lipoprotein 38 mg/dL (5-40)
[2021-11-10 13:16] LABS: Microalbumin,Random Urine 8.7 mg/L (NO RANGE EST.); Microalbumin:Creatinine Ratio 7.2 mg/g CRE (<30 mg/g CRE); Protein, Urine (Random) 21.1 mg/dL (<11.9); Protein:Creat Ratio 173 mg/g CRE (0-200)
== END 2021-11-10 23:59 | disposition short-term general hospital (02) ==
LOC: MFPLAB 08:46
PROVIDERS: Internal Medicine Cardiovascular Disease; PCP Family Medicine; Visit Provider Family Medicine
DX: E11.22 Type 2 diabetes mellitus with diabetic chronic kidney disease (principal); I48.91 Unspecified atrial fibrillation; N18.9 Chronic kidney disease, unspecified; E55.9 Vitamin D deficiency, unspecified
CPT/HCPCS: 80053; 80061; 80076; 81001; 82043; 82306; 82570; 83036; 83735; 84156; 84443; 85025

== ENCOUNTER → 2022-03-11 | Outpatient (CLI) | payer MEDICARE, OTHER, SELFPAY ==
[2022-03-11 08:56] LABS: Mucous, Urine 0 SEEN /hpf (<or=2+); Red Blood Cells-Urine 0 SEEN /hpf (0-5); Squamous Epithelial Cells - UA 0 SEEN /hpf (0-5)
[2022-03-11 09:59] LABS: Absolute Lymphocyte Count 1.81 X10^3/uL (0.83-4.51); Absolute Neutrophil Count 3.8 X10^3/uL (2.0-7.7); Basophil# 0.05 X10^3/uL; Basophil% 0.7 % (0-1); Eosinophil# 0.34 X10^3/uL; Hematocrit 42.5 % (40-54); Hemoglobin 13.8 g/dL (13.0-16.5); Lymphocyte # 1.81 X10^3/ul (0.83-4.51); Lymphocyte % 26.6 % (19-41); Mean Corp Hgb Conc 32.5 g/dL (32-36); Mean Corpuscular Hgb 30.1 pg (27.0-32.0); Mean Corpuscular Volume 92.8 fL (80-94); Mean Platelet Vol. 9.8 fl (6.2-12.0); Monocyte# 0.77 X10^3/uL; Monocyte% 11.3 % (0-10); NRBC Flagged by Analyzer 0 % (0-5); Neutrophil # 3.77 X10^3/uL (2.7-7.7); Neutrophil % 55.5 % (47-70); Platelet Count 239 K/mm3 (150-450); RBC Distribution Width CV 13.8 % (11.6-14.6); RBC Distribution Width SD 46.6 fl (35.1-43.9); Red Blood Count 4.58 M/mm3 (4.6-6.2); White Blood Count 6.8 K/mm3 (4.4-11.0)
[2022-03-11 10:02] LABS: Color, Urine Yellow (Yellow); Glucose, Dipstick Normal (Normal); Ketone-Dipstick Negative (Negative); Leukocyte Esterase-Dipstick 100 /ul (Negative); Nitrite-Dipstick Negative (Negative); Occult Blood-Urine 10 /ul (Negative); Protein-Dipstick Negative (Negative); Specific Gravity, Urine 1.015 (1.002-1.030); Urine Bilirubin Dipstick Negative (Negative); Urine Clarity Clear (Clear); Urine Urobilinogen Normal (Normal)
[2022-03-11 10:17] LABS: Vitamin D,25 Hydroxy 31.1 ng/mL
[2022-03-11 10:19] LABS: Microalbumin:Creatinine Ratio 26.5 mg/g CRE (<30 mg/g CRE); Protein, Urine (Random) 31.9 mg/dL (<11.9); Protein:Creat Ratio 352 mg/g CRE (0-200); White Blood Cells 5-10 SEEN /hpf (0-5)
[2022-03-11 10:20] LABS: Bacteria 1+ /hpf (None Seen)
[2022-03-11 10:21] LABS: ALB/GLOB Ratio 0.9 RATIO (0.9-2.4); AST(SGOT) 16 U/L (15-37); Alanine Aminotransfer ALT/SGPT 25 U/L (16-61); Albumin, Serum 3.5 g/dL (3.2-5.0); Alkaline Phosphatase 57 U/L (45-117); Anion Gap 8 (5-15); BUN 32 mg/dL (7-18); BUN/Creat Ratio 20.8 RATIO (10-20); Calcium,Total 8.8 mg/dL (8.5-10.1); Chloride 110 mmol/L (98-107); Cholesterol 261 mg/dL (200); Creatinine, Serum 1.54 mg/dL (0.70-1.30); EST Glomerular Filtration Rate 46 mL/min (>60); Est Glom Filt Rate - Afr Amer 55 mL/min (>60); Globulin 3.9 g/dL (2.2-4.2); Glucose 167 mg/dL (74-106); High Density Lipoprotein 43 mg/dL; Magnesium 2.1 mg/dL (1.6-2.6); Potassium 4.5 mmol/L (3.5-5.1); Protein, Total 7.4 g/dL (6.4-8.2); Sodium Level 138 mmol/L (136-145); Thyroid Stim Hormone (TSH) 1.65 uIU/mL (0.358-3.74); Triglycerides 156 mg/dL; Very Low Density Lipoprotein 31 mg/dL (5-40)
[2022-03-11 10:23] LABS: Hemoglobin A1c 6.6 % (3.8-5.6)
== END | disposition home or self-care (01) ==
LOC: MFPLAB 08:50
PROVIDERS: PCP Family Medicine; Referring Provider Family Medicine; Visit Provider Family Medicine
DX: I48.91 Unspecified atrial fibrillation (principal); E11.22 Type 2 diabetes mellitus with diabetic chronic kidney disease; E55.9 Vitamin D deficiency, unspecified; N18.9 Chronic kidney disease, unspecified
CPT/HCPCS: 36415; 80053; 80061; 81001; 82043; 82306; 82570; 83036; 83735; 84156; 84443; 85025

== ENCOUNTER → 2022-03-20 | Outpatient (CLI) | payer MEDICARE, OTHER, SELFPAY ==
--- NOTE | 2022-03-20 12:43 | PFTCOMP ---
COMPLETE PULMONARY FUNCTION TEST INTERPRETATION Brief HPI: Patient is an 87-year-old male, currently under the care of Dr. Clayton, who presents to [facility] for complete pulmonary function tests secondary to diagnosis of dyspnea. Respiratory therapist reports good effort and reproducible results. Interpretation: Forced expiration spirometry shows a mild large airways obstructive ventilatory defect with an FEV1 of 80% predicted. There is no significant bronchodilator response by strict ATS criteria. Spirograms are of good quality and plateau slowly, indicating slowly emptying areas of the lungs. The respiratory flow volume loop shows decreased expiratory flow rates at high lung volumes consistent with small airways obstruction. Lung volumes by body plethysmography show a decreased total lung capacity at 5.26 L, 81% predicted. All other lung volumes are reduced symmetrically. Diffusion capacity by carbon monoxide is normal at 109% predicted. The airway resistance is elevated. Compared to previous pulmonary function tests from 11/04/18, there has been a significant reduction in total lung capacity by 19%. Impression: Mild mixed ventilatory defect with relatively preserved diffusion capacity. There has been worsening in lung volumes compared to previous testing.
== END | disposition home or self-care (01) ==
LOC: PSN 10:38
PROVIDERS: PCP Family Medicine; Referring Provider Family Medicine; Visit Provider Family Medicine
DX: R06.02 Shortness of breath (principal)
CPT/HCPCS: 94060; 94726; 94729

== ENCOUNTER → 2022-03-26 | Outpatient (CLI) | payer MEDICARE, OTHER, SELFPAY ==
[2022-03-26 10:53] LABS: AST(SGOT) 13 U/L (15-37); Alanine Aminotransfer ALT/SGPT 22 U/L (16-61); Albumin, Serum 3.3 g/dL (3.2-5.0); Alkaline Phosphatase 60 U/L (45-117); Bilirubin, Direct 0.11 mg/dL (0.00-0.30); Cholesterol 235 mg/dL (200); Globulin 3.7 g/dL (2.2-4.2); High Density Lipoprotein 38 mg/dL; Triglycerides 145 mg/dL; Very Low Density Lipoprotein 29 mg/dL (5-40)
== END | disposition home or self-care (01) ==
LOC: MTLAB 08:19
PROVIDERS: PCP Family Medicine; Referring Provider Internal Medicine Cardiovascular Disease; Visit Provider Internal Medicine Cardiovascular Disease
DX: I25.10 Atherosclerotic heart disease of native coronary artery without angina pectoris (principal); E78.2 Mixed hyperlipidemia
CPT/HCPCS: 36415; 80061; 80076

== ENCOUNTER → 2022-04-10 | Outpatient (CLI) | payer MEDICARE, OTHER, SELFPAY ==
--- NOTE | 2022-04-10 12:36 | RAD_ITS ---
STUDY: X-RAY - LUMBAR SPINE REASON FOR EXAM: Male, 87 years old. Low back pain. Facet joint osteoarthritis. TECHNIQUE: 3 view(s) of the lumbar spine were obtained. COMPARISON: None FINDINGS: Normal lumbar lordosis. There is a levoscoliosis of the lumbar spine. Minimal anterior listhesis of L3 on L4 most likely secondary to the facet joint osteoarthritis. There is multilevel endplate spondylosis of the lumbar vertebrae. There is multi-level degenerative disc disease with multi-level disc space narrowing. Facet joint osteoarthritis and hypertrophy. There is atherosclerotic calcification of the abdominal aorta without a demonstrated aneurysm. RAD/Lumbar Spine 2 or 3 Views IMPRESSION: Degenerative changes of the spine, as detailed above. Electronically Signed: Bin Eubanks MD at 16:22 EDT ,
[2022-04-10 16:03] LABS: Erythrocyte Sedimentation Rate 16 mm/hr (0-20)
== END | disposition home or self-care (01) ==
PROVIDERS: PCP Family Medicine; Referring Provider Family Medicine; Visit Provider Family Medicine
DX: M47.819 Spondylosis without myelopathy or radiculopathy, site unspecified (principal)
CPT/HCPCS: 36415; 72100; 85652

== ENCOUNTER 2022-04-20 11:24 | Emergency (ER) | payer MEDICARE, OTHER, SELFPAY ==
[2022-04-20 11:25] VITALS: BP 135/61; PULSE 74; RESP 16; TEMP 36.7; O2SAT 95; BMI 32.8
--- NOTE | 2022-04-20 12:03 | VDLE_ITS ---
Reason For Study: Pain RIGHT GSV is normal. CFV is compressible, spontaneous, phasic, competent and demonstrates normal augmentation. FV is compressible, spontaneous, phasic, competent and demonstrates normal augmentation. POP V is compressible, spontaneous, phasic, competent and demonstrates normal augmentation. T/P Trunk is compressible. PTV is compressible. RT PerV is compressible. Procedure This is a venous duplex using B-mode, color flow and spectral Doppler. Exam performed portable in ED. A preliminary report was called and/or faxed to [facility]. VL/Venous Duplex US, Unilateral Interpretation Summary There is no evidence of right lower extremity deep vein thrombosis. Right great saphenous vein appears patent and compressible segmentally. Ordering Physician: Urvashi Rios Referring Physician: Juan F Clayton Performed By: Marlys Garsia RVT
--- NOTE | 2022-04-20 12:14 | EDS_ITS ---
HPI History of Present Illness Chief Complaint: Lower Extremity Injury Informant: patient Onset/Context/Timing Onset: Days Context: Gradual Onset Current Severity: Mild Maximum Severity: Moderate Narrative Narrative: Patient present secondary to right leg pain. He states has had pain ongoing for greater than a week. He states it started in his right hip and radiates to his right thigh. Last evening he felt it was radiating down into his lower leg. He is concerned that he may have a blood clot. He has not noted significant swelling. His PCP put him on prednisone last week but he reports no improvement with that. He does note that he was riding on a tractor plowing a field shortly before the pain started. He states he was stiff and sore that evening. [facility] Medical History Atherosclerotic heart disease of [place] coronary artery without angina pectoris BMI 32.0-32.9,adult BPH (benign prostatic hyperplasia) Carotid bruit Contraction, premature ventricular Diabetes Dyslipidemia Dyspnea Essential hypertension Fatigue History of depression History of osteoarthritis HTN (hypertension) Kidney disease Long-term use of high-risk medication Mixed hyperlipidemia Obesity OSBALDO (obstructive sleep apnea) Paroxysmal ventricular tachycardia Sleep apnea SOB (shortness of breath) Type 2 diabetes mellitus Home Medications allopurinol 100 mg tablet 100 mg PO DAILYCM #90 tab 11/03/19 [Rx Last Taken 08/22/21] valsartan 320 mg tablet 320 mg PO DAILY 06/07/20 [History Last Taken 08/22/21] aspirin 81 mg tablet,delayed release 81 mg PO DAILY 07/10/20 [History Last Taken 08/22/21] finasteride 5 mg tablet 5 mg PO DAILY 07/10/20 [History Last Taken Unknown] glipizide 10 mg tablet 20 mg PO DAILY 03/05/21 [History Last Taken 08/22/21] amlodipine 10 mg tablet 10 mg PO DAILY tab 06/06/21 [History Last Taken Unknown] Toujeo Max U-300 SoloStar 16 unit SUBCUT DAILY 08/22/21 [History Last Taken 08/22/21] tamsulosin 0.4 mg PO DAILY 08/22/21 [History Last Taken Unknown] omeprazole 20 mg PO DAILY #30 cap 08/23/21 [Rx Last Taken Unknown] rosuvastatin 40 mg tablet 40 mg PO QHS #90 tab 11/10/21 [Rx Last Taken Unknown] mexiletine 150 mg capsule See Rx Instructions .ROUTE .COMPLEX #360 cap 01/06/22 [Rx Last Taken Unknown] hydrocodone-acetaminophen 1 tab PO Q6H PRN 3 Days #10 tab 04/20/22 [Rx Last Taken Unknown] prednisone See Taper PO DAILY #63 tab 04/20/22 [Rx Last Taken Unknown] Allergy/AdvReac Type Severity Reaction Status Date / Time amoxicillin Allergy Hives Verified 04/20/22 11:29 diphenhydramine Allergy Hives Verified 04/20/22 11:29 [From Benadryl] Family History Mother CAD (coronary artery disease) Diabetes Surgical History History of appendectomy History of back surgery History of carpal tunnel release History of elbow surgery History of excision of pilonidal cyst History of nephrectomy, unilateral History of right knee joint replacement History of shoulder surgery Social History Smoking Status: Never smoker second hand exposure: No alcohol intake: current alcohol intake frequency: 0-2 drinks per day Alcohol type: wine substance use type: does not use caffeine: No what type of physical activity do you participate in: none ROS ROS ED Constitutional Constitutional ED: Denies chills or fever(s) Eyes Eyes: Denies change in vision ENT ENT ED: Denies sore throat Cardiovascular Cardiovascular: Denies chest pain Respiratory/Chest Respiratory/Chest: Denies cough or dyspnea Gastrointestinal Gastrointestinal: Denies abdominal pain, nausea or vomiting Genitourinary Genitourinary ED: Denies dysuria Musculoskeletal Musculoskeletal: Reports arthralgias; Denies back pain or neck pain Integumentary Denies rash Neurologic Neurologic: Denies headache(s), paresthesias or weakness Allergic/Immunologic Allergic/Immunologic ED: Denies urticaria EXAM Physical Exam Const Vital Signs: 04/20/22 11:25 Temperature 98.0 F Temperature Source Temporal Pulse Rate 74 Respiratory Rate 16 Blood Pressure 135/61 H Blood Pressure Mean 85 Pulse Ox 95 Oxygen Delivery Method Room Air Positive well nourished and well developed General Appearance ED: well developed HEENT Reports moist mucous membranes Eyes PERRL and EOMs intact bilaterally Neck supple Chest Wall inspection of chest normal and palpation of chest normal Resp normal respiratory effort and clear to auscultation bilaterally Cardio regular rate and regular rhythm GI non-tender Palpation: soft Back/Spine Back/Spine Narrative: No lumbar tenderness. Mild tenderness over the right sciatic notch. Extremity Extremity Narrative: Reproducible tenderness with palpation over the right lower extremity. No pain with logroll of the hip. Full range of motion at joints. Neuro oriented x3 Sensorium / Orientation: alert Psych mental status grossly normal Skin no rashes or lesions noted MDM MDM MDM Narrative Medical decision making narrative: Venous ultrasound of the right leg obtained. Radiography Diagnostic Testing: Clinical Impression(s) from Imaging Studies Venous Doppler Study 04/20/22 12:03 Interpretation Summary There is no evidence of right lower extremity deep vein thrombosis. Right great saphenous vein appears patent and compressible segmentally. Ordering Physician: Urvashi Rios Referring Physician: Juan F Clayton Performed By: Marlys Garsia RVT Treatment and Re-Evaluation Narrative: Venous ultrasound reveals no evidence of DVT. Patient be treated with a short course of [place] and prednisone. I believe his symptoms and exam are consistent with sciatica. Return instructions provided. Discharge Plan Triage Chief Complaint: Lower Extremity Injury ED Provider: Urvashi Rios Dx/Rx/DC Orders Clinical Impression: Sciatica Instructions: ED Sciatica Prescriptions: New hydrocodone-acetaminophen 5-325 mg tablet 1 tab PO Q6H PRN (Reason: pain) 3 Days Qty: 10 RF: 0 prednisone 10 mg tablet See Taper mg PO DAILY Qty: 63 RF: 0 No Action allopurinol 100 mg tablet 100 mg PO DAILYCM Qty: 90 RF: 0 aspirin [Adult Low Dose Aspirin] 81 mg tablet,delayed release (DR/EC) 81 mg PO DAILY RF: 0 finasteride 5 mg tablet 5 mg PO DAILY RF: 0 valsartan 320 mg tablet 320 mg PO DAILY RF: 0 glipizide 10 mg tablet 20 mg PO DAILY RF: 0 Toujeo Max U-300 SoloStar 300 unit/mL (3 mL) Insulin Pen 16 unit SUBCUT DAILY RF: 0 tamsulosin 0.4 mg capsule 0.4 mg PO DAILY RF: 0 omeprazole 20 mg capsule,delayed release(DR/EC) 20 mg PO DAILY Qty: 30 RF: 0 amlodipine 10 mg tablet 10 mg PO DAILY RF: 0 rosuvastatin 40 mg tablet 40 mg PO QHS Qty: 90 RF: 4 mexiletine 150 mg capsule See Rx Instructions .ROUTE .COMPLEX Qty: 360 RF: 3 Primary Care Provider: Juan F Clayton Referrals: Juan F Clayton MD [Primary Care Provider] - 1-2 Weeks Disposition Disposition: Home, Self Care
== END 2022-04-20 13:26 | disposition home or self-care (01) ==
PROVIDERS: Emergency Provider Emergency Medicine; PCP Family Medicine; Visit Provider Emergency Medicine
DX: M54.31 Sciatica, right side (principal); I47.2 Ventricular tachycardia; E11.9 Type 2 diabetes mellitus without complications; I25.10 Atherosclerotic heart disease of native coronary artery without angina pectoris; I10 Essential (primary) hypertension; E78.2 Mixed hyperlipidemia; N40.0 Benign prostatic hyperplasia without lower urinary tract symptoms; G47.33 Obstructive sleep apnea (adult) (pediatric); E66.9 Obesity, unspecified; Z68.32 Body mass index [BMI] 32.0-32.9, adult; Z79.84 Long term (current) use of oral hypoglycemic drugs; Z79.82 Long term (current) use of aspirin; Z79.899 Other long term (current) drug therapy
CPT/HCPCS: 93971; 99282

== ENCOUNTER → 2022-06-03 | Outpatient (CLI) | payer MEDICARE, OTHER, SELFPAY ==
[2022-06-03 09:15] LABS: Bacteria 0 SEEN /hpf (None Seen); Mucous, Urine 0 SEEN /hpf (<or=2+); Red Blood Cells-Urine 0 SEEN /hpf (0-5); Squamous Epithelial Cells - UA 0 SEEN /hpf (0-5)
[2022-06-03 09:58] LABS: Absolute Lymphocyte Count 2.02 X10^3/uL (0.83-4.51); Basophil# 0.04 X10^3/uL; Basophil% 0.5 % (0-1); Eosinophil# 0.41 X10^3/uL; Eosinophils% 5.6 % (0-5); Hematocrit 42.3 % (40-54); Hemoglobin 13.7 g/dL (13.0-16.5); Lymphocyte # 2.02 X10^3/ul (0.83-4.51); Lymphocyte % 27.7 % (19-41); Mean Corp Hgb Conc 32.4 g/dL (32-36); Mean Corpuscular Hgb 30.2 pg (27.0-32.0); Mean Corpuscular Volume 93.4 fL (80-94); Monocyte# 0.76 X10^3/uL; Monocyte% 10.4 % (0-10); NRBC Flagged by Analyzer 0 % (0-5); Neutrophil # 4.02 X10^3/uL (2.7-7.7); Neutrophil % 55.3 % (47-70); Platelet Count 213 K/mm3 (150-450); RBC Distribution Width CV 13.7 % (11.6-14.6); RBC Distribution Width SD 47.5 fl (35.1-43.9); Red Blood Count 4.53 M/mm3 (4.6-6.2); White Blood Count 7.3 K/mm3 (4.4-11.0)
[2022-06-03 10:04] LABS: Color, Urine Yellow (Yellow); Glucose, Dipstick Normal (Normal); Ketone-Dipstick Negative (Negative); Leukocyte Esterase-Dipstick 100 /ul (Negative); Nitrite-Dipstick Negative (Negative); Occult Blood-Urine Negative /ul (Negative); Protein-Dipstick Negative (Negative); Specific Gravity, Urine 1.015 (1.002-1.030); Urine Bilirubin Dipstick Negative (Negative); Urine Clarity Clear (Clear); Urine Urobilinogen Normal (Normal)
[2022-06-03 10:09] LABS: Protein:Creat Ratio 254 mg/g CRE (0-200)
[2022-06-03 10:10] LABS: White Blood Cells 0-5 SEEN /hpf (0-5)
[2022-06-03 10:26] LABS: Hemoglobin A1c 6.8 % (3.8-5.6)
[2022-06-03 10:32] LABS: ALB/GLOB Ratio 0.9 RATIO (0.9-2.4); AST(SGOT) 12 U/L (15-37); Alanine Aminotransfer ALT/SGPT 20 U/L (16-61); Albumin, Serum 3.3 g/dL (3.2-5.0); Alkaline Phosphatase 60 U/L (45-117); Anion Gap 4 (5-15); BUN 29 mg/dL (7-18); BUN/Creat Ratio 17.9 RATIO (10-20); Chloride 112 mmol/L (98-107); Cholesterol 224 mg/dL (200); Creatinine, Serum 1.62 mg/dL (0.70-1.30); EST Glomerular Filtration Rate 43 mL/min (>60); Est Glom Filt Rate - Afr Amer 52 mL/min (>60); Globulin 3.5 g/dL (2.2-4.2); Glucose 150 mg/dL (74-106); High Density Lipoprotein 37 mg/dL; Magnesium 2.1 mg/dL (1.6-2.6); Phosphorus 2.8 mg/dL (2.5-4.9); Potassium 4.5 mmol/L (3.5-5.1); Protein, Total 6.8 g/dL (6.4-8.2); Sodium Level 139 mmol/L (136-145); Triglycerides 185 mg/dL; Very Low Density Lipoprotein 37 mg/dL (5-40)
[2022-06-03 10:42] LABS: Vitamin D,25 Hydroxy 36.7 ng/mL
== END | disposition home or self-care (01) ==
LOC: MFPLAB 09:14
PROVIDERS: PCP Family Medicine; Referring Provider Family Medicine; Visit Provider Family Medicine
DX: E11.69 Type 2 diabetes mellitus with other specified complication (principal); E11.22 Type 2 diabetes mellitus with diabetic chronic kidney disease; I48.91 Unspecified atrial fibrillation; N25.81 Secondary hyperparathyroidism of renal origin; E55.9 Vitamin D deficiency, unspecified; N18.9 Chronic kidney disease, unspecified
CPT/HCPCS: 36415; 80053; 80061; 81001; 82306; 82570; 83036; 83735; 83970; 84100; 84156; 85025

== ENCOUNTER → 2022-06-10 | Outpatient (CLI) | payer MEDICARE, OTHER, SELFPAY ==
--- NOTE | 2022-06-10 11:28 | RAD_ITS ---
INDICATION: STOOL BURDEN EXAMINATION/TECHNIQUE: X-RAY - XR Abdomen Series W/ Chest 1 View COMPARISON: 08/26/2021 FINDINGS: --Chest: LINES/DEVICES: None. LUNGS: Peribronchial cuffing, mild prominence of the perihilar bronchovascular markings is visualized. Linear streaky opacities visualized in the left lower lung field with subtle bronchovascular prominence suggestive of subsegmental atelectatic streaks. No evidence of focal consolidation. The costophrenic angles are clear no evidence of pleural effusion is seen. No evidence of pneumothorax or parenchymal lung mass. MEDIASTINUM AND CARDIOVASCULAR STRUCTURES: Cardiac silhouette not enlarged. BONES AND SOFT TISSUES: No acute findings. Unremarkable right shoulder prosthesis. --Abdomen: BOWEL GAS PATTERN: Non-obstructive. No bowel or stomach distention. FREE AIR: None visualized. ORGANOMEGALY: Not seen. CALCIFICATIONS: No abnormal calcifications observed. BONES AND SOFT TISSUES: No acute findings. Degenerative bone changes visualized most prominent at L4-L5. RAD/Acute Abdomen Inc Chest IMPRESSION: Subsegmental atelectatic streaks visualized in the left lower lung field. COPD changes. No evidence of acute chest, abdomen or pelvic pathology is seen. Electronically Signed: Jb Mar MD at 14:11 EDT Reading Location ID and State: [facility] / [place] Tel , Service support ,
== END | disposition home or self-care (01) ==
LOC: MTRAD 11:26
PROVIDERS: PCP Family Medicine; Referring Provider Family Medicine; Visit Provider Family Medicine
DX: R10.9 Unspecified abdominal pain (principal)
CPT/HCPCS: 74022

== ENCOUNTER 2022-06-29 14:02 | Emergency (ER) | payer MEDICARE, OTHER, SELFPAY ==
[2022-06-29 14:03] VITALS: BP 164/66; PULSE 97; RESP 19; TEMP 37; O2SAT 95; BMI 34.8
--- NOTE | 2022-06-29 14:26 | RAD_ITS ---
STUDY: X-RAY CHEST REASON FOR EXAM: Male, 87 years old. Chest pain and shortness of breath. TECHNIQUE: Single AP portable view of the chest. COMPARISON: Acute abdominal series with chest, 06/10/2022. FINDINGS: Lungs well-expanded. There is chronic interstitial changes without new infiltrate or mass. There is no demonstrated pleural abnormality. Normal size heart. Normal mediastinum and morgan. Normal visualized pulmonary arteries. There is atherosclerotic calcification of the aortic arch with tortuosity. Stable dextroscoliosis and degenerative changes. Again seen are degenerative changes left hip with right humeral head replacement. There is no demonstrated abnormality of the visualized soft tissue structures of the upper abdomen. RAD/Chest 1 View (Portable) IMPRESSION: No acute cardiopulmonary disease or major interval change. Electronically Signed: Edgard Bender DO at 21:36 EDT ,
--- NOTE | 2022-06-29 14:26 | EKG12_ITS ---
Test Reason : chest pain Blood Pressure : / mmHG Vent. Rate : 071 BPM Atrial Rate : 071 BPM P-R Int : 202 ms QRS Dur : 154 ms QT Int : 396 ms P-R-T Axes : 017 -29 015 degrees QTc Int : 430 ms Sinus rhythm with Premature atrial complexes Right bundle branch block Abnormal ECG Confirmed by NIDA CAMARGO, GEOVANNY ([id number]), research editor MATTY SHIRLEY ([id number]) on 07/01/2022 11:19:20 AM Referred By: Blanca Confirmed By:GEOVANNY ALVA MD
--- NOTE | 2022-06-29 14:28 | EDS_ITS ---
HPI History of Present Illness Chief Complaint: Chest Pain Informant: patient Onset/Context/Timing Onset: Yesterday Narrative Narrative: Patient presents with generalized malaise and chest pressure for the last 2 da ys. He states he does feels very fatigued. He does have some shortness of breath. He has had mild cough with yellow sputum production. states that he felt very warm last night but she could not find her thermometer. [facility] Medical History Atherosclerotic heart disease of [place] coronary artery without angina pectoris BMI 32.0-32.9,adult BPH (benign prostatic hyperplasia) Carotid bruit Contraction, premature ventricular Diabetes Dyslipidemia Dyspnea Essential hypertension Fatigue History of depression History of osteoarthritis HTN (hypertension) Kidney disease Long-term use of high-risk medication Mixed hyperlipidemia Obesity OSBALDO (obstructive sleep apnea) Paroxysmal ventricular tachycardia Sleep apnea SOB (shortness of breath) Type 2 diabetes mellitus Home Medications allopurinol 100 mg tablet 100 mg PO DAILYCM #90 tabs 11/03/19 [Rx Last Taken 08/22/21] valsartan 320 mg tablet 320 mg PO DAILY 06/07/20 [History Last Taken 08/22/21] aspirin 81 mg tablet,delayed release (Adult Low Dose Aspirin) 81 mg PO DAILY 07/10/20 [History Last Taken 08/22/21] finasteride 5 mg tablet 5 mg PO DAILY 07/10/20 [History Last Taken Unknown] amlodipine 10 mg tablet 10 mg PO DAILY 06/06/21 [History Last Taken Unknown] tamsulosin 0.4 mg capsule 0.4 mg PO DAILY 08/22/21 [History Last Taken Unknown] hydrocodone-acetaminophen 5-325mg 5mg-325mg 1 tab PO Q6H PRN pain 3 days #10 tabs 04/20/22 [Rx Last Taken Unknown] albuterol sulfate 90 mcg/actuation aerosol inhaler 2 inh inhalation Q6H PRN 05/04/22 [History Last Taken Unknown] glipizide 10 mg tablet 10 mg PO DAILY diabetes 05/04/22 [History Last Taken Unknown] glipizide 10 mg tablet, extended release 24 hr 10 mg PO DAILY 05/04/22 [History Last Taken Unknown] mexiletine 150 mg capsule See Rx Instructions .Route .COMPLEX #360 caps 06/15/22 [Rx Last Taken Unknown] Allergy/AdvReac Type Severity Reaction Status Date / Time amoxicillin Allergy Hives Verified 06/29/22 14:08 diphenhydramine Allergy Hives Verified 06/29/22 14:08 [From Benadryl] Family History Mother CAD (coronary artery disease) Diabetes Surgical History History of appendectomy History of back surgery History of carpal tunnel release History of elbow surgery History of excision of pilonidal cyst History of nephrectomy, unilateral History of right knee joint replacement History of shoulder surgery Social History Smoking Status: Never smoker second hand exposure: No alcohol intake: current alcohol intake frequency: 0-2 drinks per day Alcohol type: wine substance use type: does not use caffeine: No what type of physical activity do you participate in: none ROS ROS ED Constitutional Constitutional ED: Reports chills, fever(s) and subjective Eyes Eyes: Denies change in vision or discharge from eye(s) ENT ENT ED: Denies discharge from eye(s), rhinorrhea or sore throat Cardiovascular Cardiovascular: Reports chest pain; Denies palpitations Respiratory/Chest Respiratory/Chest: Reports cough, dyspnea and sputum Gastrointestinal Gastrointestinal: Reports constipation; Denies abdominal pain, diarrhea, nausea or vomiting Genitourinary Genitourinary ED: Denies difficulty urinating or dysuria Musculoskeletal Musculoskeletal: Denies back pain or extremity pain Integumentary Denies Abrasions or rash Neurologic Neurologic: Reports weakness; Denies headache(s) Psychiatric Psychiatric: Denies anxiety or depression Allergic/Immunologic Allergic/Immunologic ED: Denies lip swelling or urticaria EXAM Physical Exam Const Vital Signs: 06/29/22 14:03 06/29/22 14:09 06/29/22 14:03 Temperature 98.6 F Temperature Source Oral Pulse Rate 97 Respiratory Rate 19 H Respiratory Effort Short of Breath Blood Pressure 164/66 H Blood Pressure Mean 98 Pulse Ox 95 Oxygen Delivery Method Room Air 06/29/22 15:03 06/29/22 16:00 Temperature Temperature Source Pulse Rate 71 68 Respiratory Rate 18 17 Respiratory Effort Blood Pressure 148/70 H 153/71 H Blood Pressure Mean 96 98 Pulse Ox 93 95 Oxygen Delivery Method Room Air Room Air Positive well nourished and well developed General Appearance ED: well developed HEENT Reports normocephalic and head/scalp atraumatic Eyes PERRL and EOMs intact bilaterally Neck supple Chest Wall inspection of chest normal and palpation of chest normal Resp normal respiratory effort Resp Narrative: Diminished right lung base Cardio regular rate and regular rhythm GI normal to inspection, nondistended, normoactive bowel sounds Palpation: soft Extremity normal to inspection Neuro oriented x3 and no sensory deficits noted Sensorium / Orientation: alert Motor Exam: strength 5/5 throughout Psych mental status grossly normal Skin no rashes or lesions noted MDM MDM MDM Narrative Medical decision making narrative: EKG and chest x-ray obtained. Lab work ordered. COVID swab obtained. Lab Data Attestation: I reviewed the patient's lab results. Labs: Laboratory Results - last 24 hr 06/29/22 06/29/22 06/29/22 14:35 14:35 14:35 WBC 5.4 RBC 4.31 L Hgb 13.1 Hct 39.3 L MCV 91.2 MCH 30.4 MCHC 33.3 RDW Std Deviation 46.6 H RDW Coeff of Valeria 13.7 Plt Count 165 MPV 9.7 Immature Gran % (Auto) 0.600 Neut % (Auto) 47.3 Lymph % (Auto) 22.9 [place] % (Auto) 25.9 H Eos % (Auto) 2.6 Baso % (Auto) 0.7 Absolute Neuts (auto) 2.6 Absolute Lymphs (auto) 1.24 Nucleated RBC % 0 D-Dimer Quant (PE/DVT) 1.00 H* Sodium 137 Potassium 4.2 Chloride 108 H Carbon Dioxide 23.0 Anion Gap 6 BUN 27 H Creatinine 1.69 H Estim Creat Clear Calc 32.40 Est GFR (MDRD) Af Amer 50 L Est GFR (MDRD) Non-Af 41 L BUN/Creatinine Ratio 16.0 Glucose 150 H Calcium 8.6 Total Bilirubin 0.30 Direct Bilirubin 0.07 AST 16 ALT 22 Alkaline Phosphatase 57 Troponin I High Sens 15 Total Protein 6.6 Albumin 3.0 L Globulin 3.6 Lipase 153 Radiography Chest X-Ray - ED: 1 View, Read by ED Physician and Chronic Changes Diagnostic Testing: Clinical Impression(s) from Imaging Studies Chest CTA 06/29/22 15:08 IMPRESSION: 1. No evidence of pulmonary embolism. 2. No aortic dissection or aneurysm. 3. No acute cardiopulmonary disease or major interval change. Electronically Signed: Edgard Bender DO at 16:54 EDT Reading Location ID and State: [address] [place] [address] Tel [phone], Service support , EKG Initial EKG: Attestation: I personally reviewed and interpreted this EKG as follows: Interpretation: Sinus Rhythm (Sinus at 71 with right bundle branch block. No acute ischemia.) Treatment and Re-Evaluation Narrative: Repeat evaluation patient resting comfortably. EKG reveals no ischemia. Chest x-ray per my interpretation reveals chronic changes with no focal infiltrate. CBC is unremarkable. D-dimer elevated at 1.0. Chemistry studies reveal BUN of 27 and creatinine 1.69. Patient does have chronic renal insufficiency. LFTs and lipase unremarkable. CTA of the chest is obtained and reveals no evidence of PE. Patient's COVID test does return positive. Test results are discussed with patient and at bedside. I did offer to write Paxil event for the patient, however he states he feels that he is actually getting better and does not wish to take this medication. Supportive care was discussed. Return instructions provided. Discharge Plan Triage Chief Complaint: Chest Pain ED Provider: Urvashi Rios Dx/Rx/DC Orders Clinical Impression: COVID-19 Instructions: Coronavirus Disease 2019 (COVID-19): Overview, Coronavirus Disease 2019 (COVID-19): Caring for Yourself or Others Prescriptions: No Action allopurinol 100 mg tablet 100 mg PO DAILYCM Qty: 90 0RF aspirin [Adult Low Dose Aspirin] 81 mg tablet,delayed release (DR/EC) 81 mg PO DAILY finasteride 5 mg tablet 5 mg PO DAILY valsartan 320 mg tablet 320 mg PO DAILY glipizide 10 mg tablet 10 mg PO DAILY glipizide 10 mg tablet extended release 24hr 10 mg PO DAILY albuterol sulfate 90 mcg/actuation HFA aerosol inhaler 2 inh inhalation Q6H PRN tamsulosin 0.4 mg capsule 0.4 mg PO DAILY hydrocodone-acetaminophen 5-325 mg tablet 1 tab PO Q6H PRN (Reason: pain) 3 Days Qty: 10 0RF amlodipine 10 mg tablet 10 mg PO DAILY mexiletine 150 mg capsule See Rx Instructions .ROUTE .COMPLEX Qty: 360 3RF Dose Instruction: TAKE 2 CAPSULES BY MOUTH EVERY 12 HOURS Rx Instructions: TAKE 2 CAPSULES BY MOUTH EVERY 12 HOURS Primary Care Provider: Juan F Clayton Referrals: Juan F Calyton MD [Primary Care Provider] - 1-2 Weeks Disposition Disposition: Home, Self Care
[2022-06-29 14:47] LABS: Absolute Lymphocyte Count 1.24 X10^3/uL (0.83-4.51); Absolute Neutrophil Count 2.6 X10^3/uL (2.0-7.7); Basophil# 0.04 X10^3/uL; Basophil% 0.7 % (0-1); Eosinophil# 0.14 X10^3/uL; Eosinophils% 2.6 % (0-5); Hematocrit 39.3 % (40-54); Hemoglobin 13.1 g/dL (13.0-16.5); Lymphocyte # 1.24 X10^3/ul (0.83-4.51); Lymphocyte % 22.9 % (19-41); Mean Corp Hgb Conc 33.3 g/dL (32-36); Mean Corpuscular Hgb 30.4 pg (27.0-32.0); Mean Corpuscular Volume 91.2 fL (80-94); Mean Platelet Vol. 9.7 fl (6.2-12.0); Monocyte% 25.9 % (0-10); NRBC Flagged by Analyzer 0 % (0-5); Neutrophil # 2.56 X10^3/uL (2.7-7.7); Neutrophil % 47.3 % (47-70); Platelet Count 165 K/mm3 (150-450); RBC Distribution Width CV 13.7 % (11.6-14.6); RBC Distribution Width SD 46.6 fl (35.1-43.9); Red Blood Count 4.31 M/mm3 (4.6-6.2); White Blood Count 5.4 K/mm3 (4.4-11.0)
[2022-06-29 15:01] LABS: AST(SGOT) 16 U/L (15-37); Alanine Aminotransfer ALT/SGPT 22 U/L (16-61); Alkaline Phosphatase 57 U/L (45-117); Anion Gap 6 (5-15); BUN 27 mg/dL (7-18); Bilirubin, Direct 0.07 mg/dL (0.00-0.30); Calcium,Total 8.6 mg/dL (8.5-10.1); Chloride 108 mmol/L (98-107); Creatinine, Serum 1.69 mg/dL (0.70-1.30); EST Glomerular Filtration Rate 41 mL/min (>60); Est Glom Filt Rate - Afr Amer 50 mL/min (>60); Globulin 3.6 g/dL (2.2-4.2); Glucose 150 mg/dL (74-106); Lipase 153 U/L (73-393); Potassium 4.2 mmol/L (3.5-5.1); Protein, Total 6.6 g/dL (6.4-8.2); Sodium Level 137 mmol/L (136-145); Troponin-I HS 15 pg/mL (3.0-78.0)
[2022-06-29 15:03] VITALS: BP 148/70; PULSE 71; RESP 18; O2SAT 93
--- NOTE | 2022-06-29 15:08 | CT_ITS ---
STUDY: CTA CHEST REASON FOR EXAM: Male, 87 years old. Pulmonary embolism. Shortness of breath. Chest pain for 2 days radiating to the right shoulder. RADIATION DOSAGE (If Supplied By Facility): CTDIvol = ( 15.76 ) mGy, DLP = ( 521.22 ) mGycm TECHNIQUE: The examination was performed with the intravenous administration of IV 100mL Isovue-370. Post-processing of the angiographic images was performed, with multiplanar reformation and 3D reconstruction. Individualized dose optimization techniques were used for this CT. COMPARISON: Chest, 06/29/2022. CT of the chest, 12/26/2013. FINDINGS: Normal enhancement of the main pulmonary artery and right and left pulmonary arteries. Normal enhancement of the bilateral peripheral pulmonary arteries. There is no demonstrated pulmonary embolism. Mild atherosclerotic tortuosity without aneurysm. There is no demonstrated aortic dissection. Normal heart and pericardium. Coronary artery calcifications. Normal mediastinum. Normal hilar regions. Normal visualized trachea and bronchi. The lungs are under expanded. There is no visualized acute infiltrate or mass. Stable 6 mm calcified granuloma in the right upper lobe. Minimal atelectatic changes versus scarring in the lingula along the lower oblique fissure. This appears stable. Normal pleura. There is a right shoulder replacement. There are marked degenerative changes of the left shoulder. Chest wall structures are otherwise grossly normal. 2 Normal osseous structures. Normal visualized upper abdomen. CT/CTA Chest W/WO Contrast IMPRESSION: 1. No evidence of pulmonary embolism. 2. No aortic dissection or aneurysm. 3. No acute cardiopulmonary disease or major interval change. Electronically Signed: Edgard Bender DO at 16:54 EDT ,
[2022-06-29 16:00] VITALS: BP 153/71; PULSE 68; RESP 17; O2SAT 95
[2022-06-29 17:00] VITALS: BP 153/71; PULSE 60; RESP 22; O2SAT 94
[2022-06-29 17:02] VITALS: RESP 22
== END 2022-06-29 17:21 | disposition home or self-care (01) ==
PROVIDERS: Emergency Provider Emergency Medicine; PCP Family Medicine; Visit Provider Emergency Medicine
DX: U07.1 COVID-19 (principal); E11.22 Type 2 diabetes mellitus with diabetic chronic kidney disease; I25.10 Atherosclerotic heart disease of native coronary artery without angina pectoris; I12.9 Hypertensive chronic kidney disease with stage 1 through stage 4 chronic kidney disease, or unspecified chronic kidney disease; N18.9 Chronic kidney disease, unspecified; E78.2 Mixed hyperlipidemia; N40.0 Benign prostatic hyperplasia without lower urinary tract symptoms; G47.33 Obstructive sleep apnea (adult) (pediatric); E66.9 Obesity, unspecified; Z79.82 Long term (current) use of aspirin; Z79.84 Long term (current) use of oral hypoglycemic drugs; Z79.899 Other long term (current) drug therapy; Z90.5 Acquired absence of kidney; Z96.651 Presence of right artificial knee joint
CPT/HCPCS: 71045; 71275; 80048; 80076; 83690; 84484; 85025; 85379; 87811; 93005; 99284; Q9967; A4216

== ENCOUNTER → 2022-07-21 | Outpatient (CLI) | payer MEDICARE, OTHER, SELFPAY ==
[2022-07-21 15:57] LABS: PSA,Total- Diagnostic 7.62 ng/mL (0.0-4.0)
== END | disposition home or self-care (01) ==
PROVIDERS: PCP Family Medicine; Referring Provider Urology; Visit Provider Urology
DX: R97.20 Elevated prostate specific antigen [PSA] (principal)
CPT/HCPCS: 36415; 84153

== ENCOUNTER → 2022-09-02 | Outpatient (CLI) | payer MEDICARE, OTHER, SELFPAY ==
[2022-09-02 10:03] LABS: Absolute Lymphocyte Count 2.59 X10^3/uL (0.83-4.51); Absolute Neutrophil Count 5.9 X10^3/uL (2.0-7.7); Basophil# 0.07 X10^3/uL; Basophil% 0.7 % (0-1); Eosinophil# 0.36 X10^3/uL; Eosinophils% 3.6 % (0-5); Hematocrit 41.7 % (40-54); Hemoglobin 13.4 g/dL (13.0-16.5); Lymphocyte # 2.59 X10^3/ul (0.83-4.51); Lymphocyte % 25.7 % (19-41); Mean Corp Hgb Conc 32.1 g/dL (32-36); Mean Corpuscular Hgb 29.9 pg (27.0-32.0); Mean Corpuscular Volume 93.1 fL (80-94); Monocyte# 0.99 X10^3/uL; Monocyte% 9.8 % (0-10); NRBC Flagged by Analyzer 0 % (0-5); Neutrophil # 5.94 X10^3/uL (2.7-7.7); Neutrophil % 58.9 % (47-70); Platelet Count 258 K/mm3 (150-450); RBC Distribution Width CV 13.1 % (11.6-14.6); RBC Distribution Width SD 44.8 fl (35.1-43.9); Red Blood Count 4.48 M/mm3 (4.6-6.2); White Blood Count 10.1 K/mm3 (4.4-11.0)
[2022-09-02 10:37] LABS: Vitamin D,25 Hydroxy 43.8 ng/mL
[2022-09-02 10:43] LABS: ALB/GLOB Ratio 0.9 RATIO (0.9-2.4); AST(SGOT) 9 U/L (15-37); Alanine Aminotransfer ALT/SGPT 23 U/L (16-61); Albumin, Serum 3.3 g/dL (3.2-5.0); Alkaline Phosphatase 61 U/L (45-117); Anion Gap 4 (5-15); BUN 34 mg/dL (7-18); BUN/Creat Ratio 20.4 RATIO (10-20); Calcium,Total 8.7 mg/dL (8.5-10.1); Chloride 110 mmol/L (98-107); Creatinine, Serum 1.67 mg/dL (0.70-1.30); EST Glomerular Filtration Rate 42 mL/min (>60); Est Glom Filt Rate - Afr Amer 50 mL/min (>60); Globulin 3.6 g/dL (2.2-4.2); Glucose 210 mg/dL (74-106); Potassium 4.3 mmol/L (3.5-5.1); Protein, Total 6.9 g/dL (6.4-8.2); Sodium Level 138 mmol/L (136-145); Uric Acid 7.6 mg/dL (3.5-7.2)
[2022-09-02 10:44] LABS: Microalbumin,Random Urine 22.9 mg/L (NO RANGE EST.); Microalbumin:Creatinine Ratio 21.4 mg/g CRE (<30 mg/g CRE)
[2022-09-02 10:47] LABS: Hemoglobin A1c 7.2 % (3.8-5.6)
== END | disposition home or self-care (01) ==
LOC: MFPLAB 08:53
PROVIDERS: PCP Family Medicine; Referring Provider Family Medicine; Visit Provider Family Medicine
DX: E11.9 Type 2 diabetes mellitus without complications (principal); M10.9 Gout, unspecified; E55.9 Vitamin D deficiency, unspecified
CPT/HCPCS: 36415; 80053; 82043; 82306; 82570; 83036; 84550; 85025

== ENCOUNTER → 2022-09-16 | Outpatient (CLI) | payer MEDICARE, OTHER, SELFPAY ==
--- NOTE | 2022-09-16 12:08 | US_ITS ---
STUDY: ULTRASOUND - URINARY BLADDER REASON FOR EXAM: Male, 87 years old. bph, incont and urinary dribbling -- HX OF RT NEPRECTOMY TECHNIQUE: Ultrasound evaluation of the urinary bladder was performed with real-time and static booker-scale imaging. COMPARISON: None. FINDINGS: The patient is status post right nephrectomy. The distended volume of the urinary bladder is 210.3 ml. The empty volume of the urinary bladder is 21.5 ml. The bladder wall is diffusely thickened. The bladder wall measures 6 mm. There is no demonstrated bladder wall mass lesion. There are no demonstrated bladder calculi. Lobular enlargement of the prostate. The prostate measures 5.4 cm x 5.2 sides by 4 cm. US/Post Void Residual Bladder IMPRESSION: Status post right nephrectomy. Small postvoid residual. Enlarged lobular prostate with indentation of the bladder. Electronically Signed: Bin Eubanks MD at 14:10 EST ,
== END | disposition home or self-care (01) ==
PROVIDERS: PCP Family Medicine; Referring Provider Family Medicine; Visit Provider Family Medicine
DX: R33.9 Retention of urine, unspecified (principal)
CPT/HCPCS: 51798

== ENCOUNTER → 2022-10-09 | Outpatient (CLI) | payer MEDICARE, OTHER, SELFPAY ==
--- NOTE | 2022-10-09 11:24 | RAD_ITS ---
INDICATION: BRONCHITIS. Productive sputum. EXAMINATION/TECHNIQUE: X-RAY - PA and lateral views of chest. COMPARISON: AP chest x-ray from 06/29/2022 FINDINGS: LINES/DEVICES: None. LUNGS: No pulmonary edema or focal airspace consolidation. Stable small linear scarlike opacities left lower lung. Scattered small, benign granulomatous calcifications again noted. No sizable pleural effusion. No detectable pneumothorax. Mild chronic eventration of hemidiaphragms. MEDIASTINUM AND CARDIOVASCULAR STRUCTURES: Heart normal size. Atherosclerotic calcifications along aorta. BONES AND SOFT TISSUES: Skeletal degenerative changes. Partially imaged right shoulder arthroplasty hardware. RAD/Chest PA and Lateral IMPRESSION: Stable exam with no radiographic evidence of acute cardiopulmonary disease. Electronically Signed: Porter Noland MD at 2:02 EST ,
== END | disposition home or self-care (01) ==
PROVIDERS: PCP Family Medicine; Referring Provider Family Medicine; Visit Provider Family Medicine
DX: J20.9 Acute bronchitis, unspecified (principal)
CPT/HCPCS: 71046

== ENCOUNTER → 2022-10-23 | Outpatient (CLI) | payer MEDICARE, OTHER, SELFPAY ==
[2022-10-23 13:41] LABS: Anion Gap 5 (5-15); BUN 27 mg/dL (7-18); BUN/Creat Ratio 15.9 RATIO (10-20); Calcium,Total 9.2 mg/dL (8.5-10.1); Chloride 108 mmol/L (98-107); EST Glomerular Filtration Rate 41 mL/min (>60); Est Glom Filt Rate - Afr Amer 49 mL/min (>60); Glucose 173 mg/dL (74-106); Potassium 4.6 mmol/L (3.5-5.1); Sodium Level 137 mmol/L (136-145)
== END | disposition home or self-care (01) ==
LOC: LAB 12:43
PROVIDERS: PCP Family Medicine; Referring Provider Nurse Practitioner Family; Visit Provider Nurse Practitioner Family
DX: R06.09 Other forms of dyspnea (principal)
CPT/HCPCS: 36415; 80048; 83880

== ENCOUNTER → 2022-11-03 | Outpatient (CLI) | payer MEDICARE, OTHER, SELFPAY ==
--- NOTE | 2022-11-03 08:50 | ECHOD_ITS ---
Reason For Study: DYSPNEA, ASHD Procedure This was a 2D Doppler, Color Flow transthoracic echocardiogram. The study was technically difficult. Deferred Definity due to PT has a single kidney. Exam performed in department. Left Ventricle Normal LV size. Left ventricular systolic function is normal. The estimated ejection fraction is 70 %. No evidence for diastolic dysfunction. No regional wall motion abnormalities noted. Right Ventricle Normal RV size. Normal systolic function. Atria The left atrium is mildly enlarged. Normal right atrium. No doppler evidence for ASD. Mitral Valve There is moderate mitral annular calcification. Extension of the mitral annular calcification onto the posterior mitral valve leaflet. Trivial mitral valve insufficiency. Tricuspid Valve Normal tricuspid valve. Trivial tricuspid valve insufficiency. Right ventricular systolic pressure estimated to be 26 mmHg. Aortic Valve Trisinus/trileaflet aortic valve. Normal aortic valve. Pulmonic Valve The pulmonic valve is not well visualized. Trivial pulmonic valve insufficiency. Great Vessels Normal sized aortic root. Pericardium/Pleural No pericardial effusion. MMode/2D Measurements & Calculations LVIDd: 4.3 cm IVSd: 1.2 cm Ao root diam: 3.6 cm LVIDs: 3.1 cm LVPWd: 1.2 cm RVDd: 4.3 cm FS: 27.6 % LAV(MOD-bp): 67.3 ml LA A4 area: 21.3 cm2 LA dimension(2D): 5.6 cm LAV(MOD-bp) Indexed: 29.8 ml/m2 LAV(MOD-sp2): 67.4 ml LAV(MOD-sp4): 66.6 ml RA A4 area: 16.2 cm2 Time Measurements MV dec time: 0.31 sec Doppler Measurements & Calculations MV E max sudeep: 56.2 cm/sec Lat Peak E' Sudeep: 8.1 cm/sec Med Peak E' Sudeep: 8.1 cm/sec MV A max sudeep: 88.3 cm/sec E/E' lat: 6.9 E/E' med: 6.9 MV E/A: 0.64 Ao V2 max: 112.9 cm/sec LV V1 max: 71.1 cm/sec PA V2 max: 110.3 cm/sec Ao max P.1 mmHg LV V1 max P.0 mmHg TR max sudeep: 238.1 cm/sec TR max P.7 mmHg ECHO/Echo Complete Interpretation Summary The study was technically difficult. Left ventricular systolic function is normal. The estimated ejection fraction is 70 %. The left atrium is mildly enlarged. There is moderate mitral annular calcification. Extension of the mitral annular calcification onto the posterior mitral valve l eaflet. Trivial mitral valve insufficiency. Trivial tricuspid valve insufficiency. Trivial pulmonic valve insufficiency. Right ventricular systolic pressure estimated to be 26 mmHg. No evidence for diastolic dysfunction. Ordering Physician: Juan F Rubin Referring Physician: Juan F Clayton Performed By: Magalie Brar, KATHY, RVT
== END | disposition home or self-care (01) ==
LOC: CVS 08:50
PROVIDERS: PCP Family Medicine; Referring Provider Nurse Practitioner Family; Visit Provider Nurse Practitioner Family
DX: R06.09 Other forms of dyspnea (principal); I25.10 Atherosclerotic heart disease of native coronary artery without angina pectoris
CPT/HCPCS: 93306

== ENCOUNTER → 2022-12-21 | Outpatient (CLI) | payer MEDICARE, OTHER, SELFPAY ==
[2022-12-21 08:51] LABS: Bacteria 0 SEEN /hpf (None Seen); Mucous, Urine 0 SEEN /hpf (<or=2+); Squamous Epithelial Cells - UA 0 SEEN /hpf (0-5)
[2022-12-21 10:00] LABS: Absolute Neutrophil Count 3.8 X10^3/uL (2.0-7.7); Basophil# 0.07 X10^3/uL; Basophil% 0.9 % (0-1); Eosinophil# 0.43 X10^3/uL; Eosinophils% 5.6 % (0-5); Hematocrit 41.6 % (40-54); Hemoglobin 13.5 g/dL (13.0-16.5); Lymphocyte % 31.2 % (19-41); Mean Corp Hgb Conc 32.5 g/dL (32-36); Mean Corpuscular Hgb 30.2 pg (27.0-32.0); Mean Corpuscular Volume 93.1 fL (80-94); Mean Platelet Vol. 10.1 fl (6.2-12.0); Monocyte# 0.92 X10^3/uL; NRBC Flagged by Analyzer 0 % (0-5); Neutrophil # 3.83 X10^3/uL (2.7-7.7); Neutrophil % 49.8 % (47-70); Platelet Count 204 K/mm3 (150-450); RBC Distribution Width SD 44.2 fl (35.1-43.9); Red Blood Count 4.47 M/mm3 (4.6-6.2); White Blood Count 7.7 K/mm3 (4.4-11.0)
[2022-12-21 10:03] LABS: Color, Urine Yellow (Yellow); Glucose, Dipstick Normal (Normal); Ketone-Dipstick Negative (Negative); Leukocyte Esterase-Dipstick 100 /ul (Negative); Nitrite-Dipstick Negative (Negative); Occult Blood-Urine 10 /ul (Negative); Protein-Dipstick Negative (Negative); Specific Gravity, Urine 1.015 (1.002-1.030); Urine Bilirubin Dipstick Negative (Negative); Urine Clarity Clear (Clear); Urine Urobilinogen Normal (Normal)
[2022-12-21 10:09] LABS: Red Blood Cells-Urine 0-5 SEEN /hpf (0-5); White Blood Cells 0-5 SEEN /hpf (0-5)
[2022-12-21 10:16] LABS: Hemoglobin A1c 7.1 % (3.8-5.6)
[2022-12-21 10:20] LABS: Protein, Urine (Random) 18.9 mg/dL (<11.9); Protein:Creat Ratio 192 mg/g CRE (0-200)
[2022-12-21 10:29] LABS: PTHIN 74.4 pg/mL (18.4-80.1)
[2022-12-21 10:32] LABS: Vitamin D,25 Hydroxy 33.5 ng/mL
[2022-12-21 10:39] LABS: ALB/GLOB Ratio 0.9 RATIO (0.9-2.4); AST(SGOT) 14 U/L (15-37); Alanine Aminotransfer ALT/SGPT 20 U/L (16-61); Albumin, Serum 3.3 g/dL (3.2-5.0); Alkaline Phosphatase 54 U/L (45-117); Anion Gap 6 (5-15); BUN 31 mg/dL (7-18); BUN/Creat Ratio 17.9 RATIO (10-20); Calcium,Total 8.8 mg/dL (8.5-10.1); Chloride 112 mmol/L (98-107); Creatinine, Serum 1.73 mg/dL (0.70-1.30); EST Glomerular Filtration Rate 40 mL/min (>60); Est Glom Filt Rate - Afr Amer 48 mL/min (>60); Globulin 3.6 g/dL (2.2-4.2); Glucose 152 mg/dL (74-106); Potassium 4.5 mmol/L (3.5-5.1); Protein, Total 6.9 g/dL (6.4-8.2); Sodium Level 140 mmol/L (136-145); Uric Acid 8.9 mg/dL (3.5-7.2)
== END | disposition home or self-care (01) ==
LOC: MFPLAB 08:50
PROVIDERS: PCP Family Medicine; Visit Provider Family Medicine
DX: E11.22 Type 2 diabetes mellitus with diabetic chronic kidney disease (principal); E55.9 Vitamin D deficiency, unspecified; N18.9 Chronic kidney disease, unspecified
CPT/HCPCS: 36415; 80053; 81001; 82306; 82570; 83036; 83970; 84100; 84156; 84550; 85025

== ENCOUNTER → 2022-12-30 | Outpatient (CLI) | payer MEDICARE, OTHER, SELFPAY ==
--- NOTE | 2022-12-30 13:18 | NEURO_ITS ---
NCS and/or EMG Patient Report Ordering Doctor: Yann Ramos DATE OF SERVICE: 12/30/22 Taran presents for electrodiagnostic testing of the upper limbs. 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 Electrodiagnostic findings: Right median motor nerve demonstrates distal latency with normal amplitude and reduced conduction velocity. Left median motor nerve demonstrates prolonged distal latency with normal amplitude and reduced conduction velocity. Normal ulnar motor response bilaterally. Absent median sensory response at the wrist bilaterally. Absent median palmar response bilaterally. Prolonged left ulnar sensory latency at digit 5. Prolonged median F wave bilaterally. On needle EMG, all muscles tested in the upper limbs showed no evidence of denervation normal motor unit action potentials. Electrodiagnostic impression: This is an abnormal study of the upper limbs 1. Electrodiagnostic findings demonstrate bilateral median mononeuropathy. This is consistent with a moderate to advanced bilateral carpal tunnel syndrome. 2. No electrodiagnostic evidence is noted for cervical radiculopathy. 3. Electrodiagnostic evidence suggestive of left-sided ulnar sensory neuropathy at digit 5. 4. There is no electrodiagnostic evidence for cubital tunnel syndrome.
== END | disposition home or self-care (01) ==
LOC: PSN 06:58
PROVIDERS: PCP Family Medicine; Visit Provider Orthopaedic Surgery
DX: G56.03 Carpal tunnel syndrome, bilateral upper limbs (principal)
CPT/HCPCS: 95886; 95912

== ENCOUNTER 2023-02-27 09:46 | Emergency (ER) | payer MEDICARE, OTHER, SELFPAY ==
[2023-02-27 09:47] VITALS: BP 161/81; PULSE 89; RESP 18; TEMP 36.2; O2SAT 94; BMI 33.5
--- NOTE | 2023-02-27 10:24 | CT_ITS ---
EXAM: CT ABDOMEN AND PELVIS WITH INTRAVENOUS CONTRAST CLINICAL INDICATION: diffuse abd pain TECHNIQUE: Helically acquired images were obtained of the abdomen and pelvis with intravenous contrast. This CT exam was performed using one or more of the following dose reduction techniques: automated exposure control, adjustment of the mA and/or kV according to patient size, and/or use of iterative reconstruction technique. This report was created using [employer] report generation technology. CONTRAST: IV 75mL Isovue-370 COMPARISON: CT Abdomen Pelvis dated 09/18/2021 FINDINGS: LOWER THORAX: Normal. Lung bases are clear. No cardiomegaly. No pericardial effusion. ABDOMEN: LIVER: Normal. Homogeneous. No focal mass. PANCREAS: Normal. No focal cystic or solid mass. SPLEEN: Normal. Normal size without focal cystic or solid mass. ADRENALS: Normal. No nodules. KIDNEYS AND URETERS: Absence of the right kidney. Normal left renal size and position. No hydronephrosis. STOMACH AND BOWEL: Diverticulosis of the colon noted without evidence of acute diverticulitis. PELVIS: APPENDIX: No evidence of acute appendicitis. BLADDER: Normal. REPRODUCTIVE: Stable prostatomegaly. Stable hypodense area within the prostate gland. ABDOMEN and PELVIS: INTRAPERITONEAL SPACE: Normal. No ascites or other fluid collection. No free air. BONES/JOINTS: Prominent degenerative changes are noted within the spine. SOFT TISSUES: Small fat-containing bilateral inguinal hernias. VASCULATURE: Normal. Abdominal aorta is non-dilated. LYMPH NODES: Normal. No enlarged lymph nodes. CT/Abdomen/Pelvis W IV Cont ONLY IMPRESSION: No acute abdominal or pelvic abnormality. No interval change. Electronically Signed: Evert Mccain MD at 11:37 EDT ,
--- NOTE | 2023-02-27 10:25 | EDS_ITS ---
HPI HPI - GI History of Present Illness Chief Complaint: Abd Pain Informant: patient Abdominal Pain/Flank Pain Onset: Weeks Context: Gradual Onset Timing: Intermittent Quality: Cramping Location: Diffuse Current Severity: Mild Maximum Severity: Moderate Worsened by: Nothing Relieved by: Nothing Nausea/Vomiting/Emesis GI Symptom: Negative for Nausea or Vomiting Diarrhea/Melena/Hematochezia GI Symptom: Negative for Diarrhea, Melena or Hematochezia Associated Symptoms Associated Symptoms: Negative for Dysuria, Frequency or Hematuria Narrative Narrative: 88-year-old male extensive past medical history of diabetes, chronic kidney disease, BPH, prior right nephrectomy due to a benign growth, appendectomy and prior TURP procedure. States the last 3 weeks he has had intermittent abdominal pain that comes and goes. Is diffuse. Not specifically associated with anything. Primary care physician thought it might be secondary to constipation. States has been having bowel movements and has not changed discomfort. Denies any dysuria. He is able to urinate. No hematuria. Denies any fever. He has been eating less but gaining weight. Denies any trauma. Prior similar symptoms: No Recent Illness/Hospitalization: No PFSH PFSH Medical History Atherosclerotic heart disease of [place] coronary artery without angina pectoris BMI 32.0-32.9,adult BPH (benign prostatic hyperplasia) Carotid bruit Contraction, premature ventricular Diabetes Dyslipidemia Dyspnea Essential hypertension Fatigue History of depression History of osteoarthritis HTN (hypertension) Kidney disease Long-term use of high-risk medication Mixed hyperlipidemia Obesity OSBALDO (obstructive sleep apnea) Paroxysmal ventricular tachycardia Sleep apnea SOB (shortness of breath) Type 2 diabetes mellitus Home Medications valsartan 320 mg tablet 320 mg PO DAILY 06/07/20 [History Last Taken 08/22/21] aspirin 81 mg tablet,delayed release (Adult Low Dose Aspirin) 81 mg PO DAILY 07/10/20 [History Last Taken 08/22/21] finasteride 5 mg tablet 5 mg PO DAILY 07/10/20 [History Last Taken Unknown] amlodipine 10 mg tablet 10 mg PO DAILY 06/06/21 [History Last Taken Unknown] tamsulosin 0.4 mg capsule 0.4 mg PO DAILY 08/22/21 [History Last Taken Unknown] albuterol sulfate 90 mcg/actuation aerosol inhaler 2 inh inhalation Q6H PRN 05/04/22 [History Last Taken Unknown] glipizide 10 mg tablet 10 mg PO DAILY diabetes 05/04/22 [History Last Taken Unknown] mexiletine 150 mg capsule See Rx Instructions .Route .COMPLEX #360 caps 06/15/22 [Rx Last Taken Unknown] Allergy/AdvReac Type Severity Reaction Status Date / Time amoxicillin Allergy Hives Verified 02/27/23 09:49 diphenhydramine Allergy Hives Verified 02/27/23 09:49 [From Benadryl] Family History Mother CAD (coronary artery disease) Diabetes Surgical History History of appendectomy History of back surgery History of carpal tunnel release History of elbow surgery History of excision of pilonidal cyst History of nephrectomy, unilateral History of right knee joint replacement History of shoulder surgery Social History Smoking Status: Never smoker second hand exposure: No alcohol intake: current alcohol intake frequency: 0-2 drinks per day Alcohol type: wine substance use type: does not use caffeine: No what type of physical activity do you participate in: none ROS ROS ED ROS Narrative Abdominal pain. Denies nausea, vomiting or diarrhea. Denies dysuria. Positive weight gain no weight loss. No fever. Review of Systems ROS Unobtainable: Denies due to encephalopathy Constitutional Constitutional ED: Denies chills or fever(s) ENT ENT ED: Denies ear pain Cardiovascular Cardiovascular: Denies chest pain Respiratory/Chest Respiratory/Chest: Denies cough or dyspnea Gastrointestinal Gastrointestinal: Reports abdominal pain; Denies constipation, diarrhea, melena, nausea or vomiting Genitourinary Genitourinary ED: Denies dysuria or hematuria Musculoskeletal Musculoskeletal: Denies arthralgias Integumentary Denies abscess Neurologic Neurologic: Denies headache(s) Psychiatric Psychiatric: Denies anxiety Endocrine Endocrinology: Denies polydipsia Hematologic/Lymphatic Hematologic/Lymphatic: Denies easy bleeding Allergic/Immunologic Allergic/Immunologic ED: Denies mouth swelling EXAM Physical Exam Narrative Exam Narrative: A 8-year-old male no acute distress. Vital signs are stable afebrile. at bedside. H EENT exam unremarkable. Lungs clear. Heart regular rhythm. Abdomen is soft, nondistended, normal bowel sounds. No peritoneal signs. Mild diffuse tenderness. No obstruction. No mass or pulsatile mass. No specific right upper or right lower quadrant tenderness. No noted hernia. No signs of trauma. Moving all 4 extremities. Trace edema at the ankles. Back exam nontender. Neurologically is awake and alert with no focal motor deficits. Const Vital Signs: 02/27/23 09:47 02/27/23 12:42 Temperature 97.2 F L Temperature Source Temporal Pulse Rate 89 78 Respiratory Rate 18 18 Blood Pressure 161/81 H Blood Pressure Mean 107 Pulse Ox 94 100 Oxygen Delivery Method Room Air Positive well nourished, well developed and obese; Negative for cachectic, contractures or unkempt General Appearance ED: well developed and NAD; Negative for unkempt, cachectic, contractures or pallor Nutritional Appearance: obese; Negative for cachectic HEENT Reports moist mucous membranes normocephalic and atraumatic; Negative for trauma or tenderness Eyes PERRL and EOMs intact bilaterally General Eye ED: Negative for pale conjunctiva or scleral icterus Neck no lymphadenopathy, supple and no JVD General: Negative for tenderness Carotids: Negative for other Lymph Lymphatic: Negative for other Resp normal respiratory effort and clear to auscultation bilaterally Effort and Inspection: Negative for respiratory distress Auscultation: Negative for rales, rhonchi or wheezes Cardio regular rate, regular rhythm, S1 normal heart sound, S2 normal heart sound and no murmurs Rate: Negative for bradycardia or tachycardic Rhythm: Negative for abnormal rhythm GI non-distended and no masses; Negative for non-tender Inspection: Negative for abdominal distention Auscultation: normoactive bowel sounds Palpation: soft and tender; Negative for guarding, rigid, hepatomegaly, splenomegaly, hernia, mass, pulsatile mass or rebound tenderness present Back/Spine no CVA tenderness General Back: Negative for CVA tenderness Cervical Spine: Negative for cervical spine tenderness Thoracic Spine / Upper Back: Negative for thoracic spinal tenderness Lumbar Spine / Lower Back: Negative for lumbar spinal tenderness Coccyx: Negative for other Extremity full ROM General Extremety ED: Negative for edema or tenderness General Extremity: Negative for edema Neuro CN's II-XII intact bilaterally and moves all extremities Sensorium / Orientation: alert, oriented to person, oriented to place and oriented to time Motor Exam: Negative for strength 5/5 throughout Psych mental status grossly normal and thought process normal Appearance: Negative for unkempt Attitude: No agitated Mood & Affect: Negative for depressed, anxious or tearful Skin no wounds General Skin Exam: Negative for jaundice or pallor Lesions: no lesions Rashes: no rashes Trauma: Negative for abrasion Nails: Negative for discolored MDM MDM MDM Narrative Medical decision making narrative: 88-year-old male with diffuse abdominal pain for several weeks. He has mild tenderness. Said a right nephrectomy in the past and a prior appendectomy. This could be diverticulitis could be gallbladder disease and not really solids that. Clinically I do not think he is obstructed. Malignancy is a possibility but he has been gaining weight not losing. This could be secondary to urinary retention. But he states he is urinating fine. CAT scan labs to be obtained. He does not want anything for pain at this time. Repeat CMP and doing well at 12:30 PM. We went over his test results. I explained to him and his the CAT scan was read as unremarkable. Awaiting urinalysis. He will be discharged home. Follow-up with his primary care physician. Return if worse. History & Record Review Discussion w/independent historian: Patient and Family Lab Data Attestation: I reviewed the patient's lab results. Lab results narrative: CBC unremarkable. White count of 9.3. H&H of 13.1 and 39.6. Platelets 195. Chemistries show a gap of 4. BUN of 26 creatinine 1.53. Glucose 169. Liver enzymes are normal. Lipase is 27. CT is read by the radiologist showed no acute abnormality. Urinalysis shows 10-25 white cells. No red cells. Rare bacteria. No nitrates. He was having no urinary symptoms so this will be treated. I will send a culture. Labs: Laboratory Results - last 24 hr 02/27/23 02/27/23 02/27/23 10:35 10:35 12:28 WBC 9.3 RBC 4.29 L Hgb 13.1 Hct 39.6 L MCV 92.3 MCH 30.5 MCHC 33.1 RDW Std Deviation 43.8 RDW Coeff of [place]eria 13.1 Plt Count 195 MPV 9.7 Immature Gran % (Auto) 0.400 Neut % (Auto) 57.3 Lymph % (Auto) 25.4 [place] % (Auto) 12.1 H Eos % (Auto) 4.3 Baso % (Auto) 0.5 Absolute Neuts (auto) 5.3 Absolute Lymphs (auto) 2.36 Nucleated RBC % 0 Sodium 137 Potassium 4.1 Chloride 111 H Carbon Dioxide 22.0 Anion Gap 4 L BUN 26 H Creatinine 1.53 H Estim Creat Clear Calc 36.23 Est GFR (MDRD) Af Amer 56 L Est GFR (MDRD) Non-Af 46 L BUN/Creatinine Ratio 17.0 Glucose 169 H Calcium 8.7 Total Bilirubin 0.50 AST 13 L ALT 24 Alkaline Phosphatase 52 Total Protein 6.6 Albumin 3.2 Globulin 3.4 Albumin/Globulin Ratio 0.9 Lipase 27 Urine Color Yellow Urine Clarity Sl. Cloudy Urine pH 6.0 Ur Specific [place] 1.010 Urine Protein Negative Urine Glucose (UA) Normal Urine Ketones Negative Urine Occult Blood 10 H Urine Nitrite Negative Urine Bilirubin Negative Urine Urobilinogen Normal Ur Leukocyte Esterase 500 H Urine RBC 0-5 SEEN Urine WBC 10-25 SEEN Ur Squamous Epith Cells 0-5 SEEN Urine Bacteria RARE Urine Mucus 0 SEEN Radiography Diagnostic Testing: Clinical Impression(s) from Imaging Studies Abdomen/Pelvis CT 02/27/23 10:24 IMPRESSION: No acute abdominal or pelvic abnormality. No interval change. Electronically Signed: Evert Mccain MD at 11:37 EDT , Discharge Plan Triage Chief Complaint: Abd Pain ED Provider: Chalo Antonio Dx/Rx/DC Orders Clinical Impression: Abdominal pain, CKD (chronic kidney disease), Type 2 diabetes mellitus Instructions: Abdominal Pain Prescriptions: No Action aspirin [Adult Low Dose Aspirin] 81 mg tablet,delayed release (DR/EC) 81 mg PO DAILY finasteride 5 mg tablet 5 mg PO DAILY valsartan 320 mg tablet 320 mg PO DAILY glipizide 10 mg tablet 10 mg PO DAILY albuterol sulfate 90 mcg/actuation HFA aerosol inhaler 2 inh inhalation Q6H PRN tamsulosin 0.4 mg capsule 0.4 mg PO DAILY amlodipine 10 mg tablet 10 mg PO DAILY mexiletine 150 mg capsule See Rx Instructions .ROUTE .COMPLEX Qty: 360 3RF Dose Instruction: TAKE 2 CAPSULES BY MOUTH EVERY 12 HOURS Rx Instructions: TAKE 2 CAPSULES BY MOUTH EVERY 12 HOURS Primary Care Provider: Juan F Clayton Referrals: Juan F Clayton MD [Primary Care Provider] - 1 Week if not improving Activity Restrictions/Additional Instructions: Your labs and CAT scan today did not show any specific causing your abdominal pain. Follow-up with your primary care physician as needed. Disposition Disposition: Home, Self Care Discharge Date/Time: 02/27/23 12:42
[2023-02-27 10:40] LABS: Absolute Lymphocyte Count 2.36 X10^3/uL (0.83-4.51); Absolute Neutrophil Count 5.3 X10^3/uL (2.0-7.7); Basophil# 0.05 X10^3/uL; Basophil% 0.5 % (0-1); Eosinophils% 4.3 % (0-5); Hematocrit 39.6 % (40-54); Hemoglobin 13.1 g/dL (13.0-16.5); Lymphocyte # 2.36 X10^3/ul (0.83-4.51); Lymphocyte % 25.4 % (19-41); Mean Corp Hgb Conc 33.1 g/dL (32-36); Mean Corpuscular Hgb 30.5 pg (27.0-32.0); Mean Corpuscular Volume 92.3 fL (80-94); Mean Platelet Vol. 9.7 fl (6.2-12.0); Monocyte# 1.12 X10^3/uL; Monocyte% 12.1 % (0-10); NRBC Flagged by Analyzer 0 % (0-5); Neutrophil # 5.32 X10^3/uL (2.7-7.7); Neutrophil % 57.3 % (47-70); Platelet Count 195 K/mm3 (150-450); RBC Distribution Width CV 13.1 % (11.6-14.6); RBC Distribution Width SD 43.8 fl (35.1-43.9); Red Blood Count 4.29 M/mm3 (4.6-6.2); White Blood Count 9.3 K/mm3 (4.4-11.0)
[2023-02-27 10:56] LABS: ALB/GLOB Ratio 0.9 RATIO (0.9-2.4); AST(SGOT) 13 U/L (15-37); Alanine Aminotransfer ALT/SGPT 24 U/L (16-61); Albumin, Serum 3.2 g/dL (3.2-5.0); Alkaline Phosphatase 52 U/L (45-117); Anion Gap 4 (5-15); BUN 26 mg/dL (7-18); Calcium,Total 8.7 mg/dL (8.5-10.1); Chloride 111 mmol/L (98-107); Creatinine, Serum 1.53 mg/dL (0.70-1.30); EST Glomerular Filtration Rate 46 mL/min (>60); Est Glom Filt Rate - Afr Amer 56 mL/min (>60); Estimated Creatinine Clearance 36.23 ml/min; Globulin 3.4 g/dL (2.2-4.2); Glucose 169 mg/dL (74-106); Lipase 27 U/L (13-75); Potassium 4.1 mmol/L (3.5-5.1); Protein, Total 6.6 g/dL (6.4-8.2); Sodium Level 137 mmol/L (136-145)
[2023-02-27 12:34] LABS: Mucous, Urine 0 SEEN /hpf (<or=2+)
[2023-02-27 12:36] LABS: Color, Urine Yellow (Yellow); Glucose, Dipstick Normal (Normal); Ketone-Dipstick Negative (Negative); Leukocyte Esterase-Dipstick 500 /ul (Negative); Nitrite-Dipstick Negative (Negative); Occult Blood-Urine 10 /ul (Negative); Protein-Dipstick Negative (Negative); Urine Bilirubin Dipstick Negative (Negative); Urine Clarity Sl. Cloudy (Clear); Urine Urobilinogen Normal (Normal)
[2023-02-27 12:42] VITALS: PULSE 78; RESP 18; O2SAT 100
[2023-02-27 12:42] LABS: Bacteria RARE /hpf (None Seen); Red Blood Cells-Urine 0-5 SEEN /hpf (0-5); Squamous Epithelial Cells - UA 0-5 SEEN /hpf (0-5); White Blood Cells 10-25 SEEN /hpf (0-5)
== END 2023-02-27 12:42 | disposition home or self-care (01) ==
PROVIDERS: Emergency Provider Emergency Medicine; PCP Family Medicine; Visit Provider Emergency Medicine
DX: R10.9 Unspecified abdominal pain (principal); E11.22 Type 2 diabetes mellitus with diabetic chronic kidney disease; I12.9 Hypertensive chronic kidney disease with stage 1 through stage 4 chronic kidney disease, or unspecified chronic kidney disease; E78.2 Mixed hyperlipidemia; N18.9 Chronic kidney disease, unspecified; I25.10 Atherosclerotic heart disease of native coronary artery without angina pectoris; E66.9 Obesity, unspecified
CPT/HCPCS: 74177; 80053; 81001; 83690; 85025; 99283; Q9967

== ENCOUNTER 2023-04-18 21:11 | Emergency (ER) | payer MEDICARE, OTHER, SELFPAY ==
[2023-04-18 21:12] VITALS: BP 145/75; PULSE 71; RESP 15; TEMP 36.9; O2SAT 95
--- NOTE | 2023-04-18 22:42 | EDS_ITS ---
HPI History of Present Illness Chief Complaint: Flank Pain Informant: patient, spouse/S.O. and family Narrative Narrative: Patient is an 88-year-old male with past medical history of hypertension and morbid obesity chronic kidney disease and type 2 diabetes. He states he has been having intermittent right abdominal/back pain for approximately 1 to 2 months. He states he was seen by his family doctor as well as in the ER and he had a CT scan obtained which did not reveal an obvious cause of his symptoms. He reports that his symptoms can be completely gone for some time and then come back spontaneously. He states that he does note that symptoms worsen if he tries to roll over in bed or sit up. He states there has been no fevers or chills nausea vomiting diarrhea or dysuria associated with this. He states he developed increased pain once again this afternoon which he cannot relate to eating and therefore decided come into the hospital. He states that by the time he arrived however the pain has begun to subside [facility] Medical History (Reviewed 03/30/23 @ 10:13 by Nicole Hess DIRECTOR OF ELEMENTARY EDUCATION, DIRECTOR OF ELEMENTARY EDUCATION-C) Atherosclerotic heart disease of [place] coronary artery without angina pectoris BMI 32.0-32.9,adult BPH (benign prostatic hyperplasia) Carotid bruit Contraction, premature ventricular Diabetes Dyslipidemia Dyspnea Essential hypertension Fatigue History of depression History of osteoarthritis HTN (hypertension) Kidney disease Long-term use of high-risk medication Mixed hyperlipidemia Obesity OSBALDO (obstructive sleep apnea) Paroxysmal ventricular tachycardia Sleep apnea SOB (shortness of breath) Type 2 diabetes mellitus Home Medications valsartan 320 mg tablet 320 mg PO DAILY 06/07/20 [History Last Taken 08/22/21] aspirin 81 mg tablet,delayed release (Adult Low Dose Aspirin) 81 mg PO DAILY 07/10/20 [History Last Taken 08/22/21] finasteride 5 mg tablet 5 mg PO DAILY 07/10/20 [History Last Taken Unknown] amlodipine 10 mg tablet 10 mg PO DAILY 06/06/21 [History Last Taken Unknown] tamsulosin 0.4 mg capsule 0.4 mg PO DAILY 08/22/21 [History Last Taken Unknown] albuterol sulfate 90 mcg/actuation aerosol inhaler 2 inh inhalation Q6H PRN 05/04/22 [History Last Taken Unknown] glipizide 10 mg tablet 10 mg PO DAILY diabetes 05/04/22 [History Last Taken Unknown] allopurinol 100 mg tablet 100 mg PO DAILY 03/22/23 [History Last Taken Unknown] mexiletine 150 mg capsule 300 mg PO Q12H 03/22/23 [History Last Taken Unknown] methocarbamol 500 mg tablet 500 mg PO 4X/DAY PRN PRN Muscle pain/spasm #40 tabs 04/18/23 [Rx Last Taken Unknown] Allergy/AdvReac Type Severity Reaction Status Date / Time amoxicillin Allergy Hives Verified 04/18/23 21:17 diphenhydramine Allergy Hives Verified 03/30/23 10:08 [From Benadryl] Family History (Reviewed 03/30/23 @ 10:13 by Nicole Hess DIRECTOR OF ELEMENTARY EDUCATION, DIRECTOR OF ELEMENTARY EDUCATION-C) Mother CAD (coronary artery disease) Diabetes Surgical History (Reviewed 03/30/23 @ 10:13 by Nicole Hess DIRECTOR OF ELEMENTARY EDUCATION, DIRECTOR OF ELEMENTARY EDUCATION-C) History of appendectomy History of back surgery History of carpal tunnel release History of elbow surgery History of excision of pilonidal cyst History of nephrectomy, unilateral History of right knee joint replacement History of shoulder surgery Social History (Reviewed 03/30/23 @ 10:13 by Nicole Hess DIRECTOR OF ELEMENTARY EDUCATION, DIRECTOR OF ELEMENTARY EDUCATION-C) Smoking Status: Never smoker second hand exposure: No alcohol intake: current alcohol intake frequency: 0-2 drinks per day Alcohol type: wine substance use type: does not use caffeine: No what type of physical activity do you participate in: none ROS ROS ED Constitutional Constitutional ED: Denies chills or fever(s) ENT ENT ED: Denies sore throat Cardiovascular Cardiovascular: Denies chest pain Respiratory/Chest Respiratory/Chest: Denies cough or dyspnea Gastrointestinal Gastrointestinal: Reports abdominal pain and constipation; Denies diarrhea, nausea or vomiting Genitourinary Genitourinary ED: Denies dysuria or hematuria Musculoskeletal Musculoskeletal: Reports back pain Integumentary Denies rash Neurologic Neurologic: Denies headache(s) or paresthesias Hematologic/Lymphatic Hematologic/Lymphatic: Denies easy bleeding or easy bruising EXAM Physical Exam Const Vital Signs: 04/18/23 21:12 04/18/23 22:55 Temperature 98.4 F Temperature Source Temporal Pulse Rate 71 Respiratory Rate 15 Respiratory Effort Normal Non-Labored Blood Pressure 145/75 H Blood Pressure Mean 98 Pulse Ox 95 Oxygen Delivery Method Room Air Positive well nourished, well developed and obese General Appearance ED: well developed Nutritional Appearance: obese HEENT HEENT Narrative: Normocephalic atraumatic Eyes PERRL and EOMs intact bilaterally General Eye ED: Negative for scleral icterus Neck supple Resp normal respiratory effort and clear to auscultation bilaterally Resp Narrative: No nasal flaring retractions tachypnea or accessory muscle use Cardio regular rate and regular rhythm Rate: other Other Details: Radial pulses are plus 2 out of 4 bilaterally are equal and symmetric GI non-tender, non-distended and no masses GI Narrative: Abdomen is obese soft and nondistended with normal active bowel sounds. There is faint pain on palpation in the right upper quadrant without voluntary guarding or rigidity. Negative Murray sign. No fluid wave or pulsatile mass. Auscultation: normoactive bowel sounds Palpation: soft Back/Spine Back/Spine Narrative: No bony deformity or step-off of the thoracic or lumbar spine no midline pain on palpation. There is mild tension and tenderness to palpation along the right paralumbar and lower thoracic muscle bellies that worsens with extension and rotation. Negative straight leg raise. No clonus or Babinski. No saddle anesthesia. Patellar reflexes are plus 1 out of 4 bilaterally Extremity normal to inspection Neuro oriented x3 and CN's II-XII intact bilaterally Sensorium / Orientation: alert Psych mental status grossly normal Skin no rashes or lesions noted Skin Narrative: No overlying soft tissue changes to suggest trauma or infection MDM MDM MDM Narrative Medical decision making narrative: Patient had blood work at the end of February which did not show any clinically significant findings he also did a noncontrast CT at that time which revealed an absent right kidney and no acute inflammatory or infectious pathology. The patient's exam indicates this is musculoskeletal in nature as he has worsening pain with sitting up and rolling over and its intermittent in nature. However this could be potential biliary colic as he does have some right upper quadrant abdominal pain on exam. Without a right kidney kidney stone or pyelonephritis is unlikely. At this time as he has had normal liver enzymes at the end of February and majority of his pain is along the right back\flank I do not feel there is need to repeat blood work or imaging at this time. I will treat the patient for muscle spasm and strain but he will also have an outpatient ultrasound obtained of his gallbladder secondary to the mild right upper quadrant pain. This plan of care was discussed with the patient he is agreeable to it and therefore be discharged at this time History & Record Review Discussion w/independent historian: Patient and Family Discharge Plan Triage Chief Complaint: Flank Pain ED Provider: Alejo Dillon Dx/Rx/DC Orders Clinical Impression: Acute lumbosacral myofascial strain, Muscle spasm of back, CKD (chronic kidney disease), Essential hypertension, Type 2 diabetes mellitus Instructions: ED Back Spasm, No Trauma, ED Back Sprain/Strain Prescriptions: New methocarbamol 500 mg tablet 500 mg PO 4X/DAY PRN PRN (Reason: Muscle pain/spasm) Qty: 40 1RF No Action aspirin [Adult Low Dose Aspirin] 81 mg tablet,delayed release (DR/EC) 81 mg PO DAILY finasteride 5 mg tablet 5 mg PO DAILY valsartan 320 mg tablet 320 mg PO DAILY glipizide 10 mg tablet 10 mg PO DAILY albuterol sulfate 90 mcg/actuation HFA aerosol inhaler 2 inh inhalation Q6H PRN allopurinol 100 mg tablet 100 mg PO DAILY mexiletine 150 mg capsule 300 mg PO Q12H tamsulosin 0.4 mg capsule 0.4 mg PO DAILY amlodipine 10 mg tablet 10 mg PO DAILY Other Ambulatory Orders: Gallbladder (Routine) Facility: [facility] - Location: [facility] Ordered By: Dr. Alejo Dillon Primary Care Provider: Juan F Clayton Referrals: Juan F Clayton MD [Primary Care Provider] - Activity Restrictions/Additional Instructions: Your history and exam indicates you have a strain and spasm to your right sided back muscles. Use heat and stretch to help resolve your pain and in order to ensure there is no gallbladder dysfunction please obtain the outpatient ultraso und that was ordered today and return to the ER should you have any further concerns. Disposition Disposition: Home, Self Care Discharge Date/Time: 04/18/23 23:23
[2023-04-18] MEDS: Orphenadrine 60 MG/2 ML Ampul IM (22:54)
[2023-04-18] MEDS: Ketorolac 15 MG/ML Vial IM (22:54)
[2023-04-18 22:55] VITALS: BMI 35.4
== END 2023-04-18 23:23 | disposition home or self-care (01) ==
PROVIDERS: Emergency Provider Emergency Medicine; PCP Family Medicine; Visit Provider Emergency Medicine
DX: S39.012A Strain of muscle, fascia and tendon of lower back, initial encounter (principal); E11.22 Type 2 diabetes mellitus with diabetic chronic kidney disease; E66.01 Morbid (severe) obesity due to excess calories; I12.9 Hypertensive chronic kidney disease with stage 1 through stage 4 chronic kidney disease, or unspecified chronic kidney disease; I25.10 Atherosclerotic heart disease of native coronary artery without angina pectoris; M62.830 Muscle spasm of back; E78.2 Mixed hyperlipidemia; N18.9 Chronic kidney disease, unspecified; K59.00 Constipation, unspecified; Z90.5 Acquired absence of kidney; Z90.49 Acquired absence of other specified parts of digestive tract; X58.XXXA Exposure to other specified factors, initial encounter
CPT/HCPCS: 96372; 99282

== ENCOUNTER → 2023-04-19 | Outpatient (CLI) | payer MEDICARE, OTHER, SELFPAY ==
[2023-04-19 12:32] LABS: Absolute Lymphocyte Count 2.49 X10^3/uL (0.83-4.51); Absolute Neutrophil Count 4.5 X10^3/uL (2.0-7.7); Basophil# 0.06 X10^3/uL; Basophil% 0.7 % (0-1); Eosinophil# 0.35 X10^3/uL; Eosinophils% 4.2 % (0-5); Lymphocyte # 2.49 X10^3/ul (0.83-4.51); Lymphocyte % 30.1 % (19-41); Mean Corp Hgb Conc 31.8 g/dL (32-36); Mean Corpuscular Hgb 30.2 pg (27.0-32.0); Mean Platelet Vol. 10.3 fl (6.2-12.0); Monocyte# 0.87 X10^3/uL; Monocyte% 10.5 % (0-10); NRBC Flagged by Analyzer 0 % (0-5); Neutrophil # 4.46 X10^3/uL (2.7-7.7); Platelet Count 240 K/mm3 (150-450); RBC Distribution Width CV 12.9 % (11.6-14.6); RBC Distribution Width SD 44.9 fl (35.1-43.9); Red Blood Count 4.63 M/mm3 (4.6-6.2); White Blood Count 8.3 K/mm3 (4.4-11.0)
[2023-04-19 13:11] LABS: PTHIN 83.2 pg/mL (18.4-80.1)
[2023-04-19 13:13] LABS: Vitamin D,25 Hydroxy 43.1 ng/mL
[2023-04-19 13:59] LABS: ALB/GLOB Ratio 0.9 RATIO (0.9-2.4); AST(SGOT) 17 U/L (15-37); Alanine Aminotransfer ALT/SGPT 34 U/L (16-61); Albumin, Serum 3.3 g/dL (3.2-5.0); Alkaline Phosphatase 65 U/L (45-117); Anion Gap 9 (5-15); BUN 28 mg/dL (7-18); BUN/Creat Ratio 16.1 RATIO (10-20); Calcium,Total 8.9 mg/dL (8.5-10.1); Chloride 107 mmol/L (98-107); Cholesterol 229 mg/dL (200); Creatinine, Serum 1.74 mg/dL (0.70-1.30); EST Glomerular Filtration Rate 40 mL/min (>60); Est Glom Filt Rate - Afr Amer 48 mL/min (>60); Globulin 3.8 g/dL (2.2-4.2); Glucose 148 mg/dL (74-106); High Density Lipoprotein 36 mg/dL; Potassium 4.6 mmol/L (3.5-5.1); Protein, Total 7.1 g/dL (6.4-8.2); Sodium Level 137 mmol/L (136-145); Triglycerides 209 mg/dL; Very Low Density Lipoprotein 42 mg/dL (5-40)
[2023-04-19 14:13] LABS: Hemoglobin A1c 7.3 % (3.8-5.6)
== END | disposition home or self-care (01) ==
LOC: MFPLAB 09:43
PROVIDERS: PCP Family Medicine; Visit Provider Family Medicine
DX: E11.9 Type 2 diabetes mellitus without complications (principal); N25.81 Secondary hyperparathyroidism of renal origin; E55.9 Vitamin D deficiency, unspecified
CPT/HCPCS: 36415; 80053; 80061; 82306; 83036; 83970; 84443; 85025

== ENCOUNTER → 2023-04-28 | Outpatient (CLI) | payer MEDICARE, OTHER, SELFPAY ==
--- NOTE | 2023-04-28 09:02 | US_ITS ---
STUDY: ULTRASOUND RIGHT UPPER QUADRANT REASON FOR VISIT: Male, 88 years old. Right upper quadrant pain TECHNIQUE: Ultrasound evaluation of the right upper quadrant was performed with real-time and static booker-scale imaging. TECHNICAL QUALITY: Adequate. COMPARISON: None. FINDINGS: Liver measures 15.4 cm and demonstrates mild diffusely increased echogenicity. There is no mass or bile duct dilatation Gallbladder: Normal distended gallbladder. The gallbladder wall measures 3 mm. There is a negative sonographic Murray''s sign. There is no pericholecystic fluid. There are no gallstones. There is a hyperechoic focus with ringdown artifact likely representing adenomyomatosis Pancreas was not visualized due to bowel gas producing artifact Common Bile Duct (C.B.D.): The common bile duct measures 4 mm. Right kidney not visualized status post nephrectomy US/Gallbladder IMPRESSION: Mildly enlarged fatty infiltrated liver. 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 No gallstones or acute cholecystitis Electronically Signed: Leonel Rojas MD at 19:09 EDT ,
== END | disposition home or self-care (01) ==
PROVIDERS: PCP Family Medicine; Referring Provider Emergency Medicine; Visit Provider Emergency Medicine
DX: R10.11 Right upper quadrant pain (principal)
CPT/HCPCS: 76705

== ENCOUNTER 2023-05-19 10:05 | Emergency (ER) | payer MEDICARE, OTHER, SELFPAY ==
[2023-05-19 10:06] VITALS: BP 143/76; PULSE 75; RESP 14; TEMP 36.6; O2SAT 96; BMI 34.0
[2023-05-19 10:53] VITALS: O2SAT 96
--- NOTE | 2023-05-19 10:53 | ED.VIS.CHEST ---
HPI History of Present Illness Chief Complaint: Chest Pain Informant: patient, spouse/S.O. and family Narrative Narrative: Patient has been having [id number] episodes of left-sided pain in the chest without radiation since yesterday. 1 episode while he was sitting at breakfast this morning just before coming to the emergency department. No symptoms now. No other associated symptoms with this such as radiation, shortness of breath, palpitations, near-syncope, syncope, sweating, nausea/vomiting although family states he did complain of some nausea yesterday. The patient really has a hard time discerning questions regarding associated symptoms, triggers, timing, he basically thinks that the episodes have been random and can recall no obvious triggers, including changes in position, deep breathing, or eating. Patient suggest he had a heart cath 10 or 20 years ago that showed some coronary disease but nothing obstructive and he has been treated medically since then. He is on baby aspirin no other antiplatelets or anticoagulant medications. No recent illness. When asked about reflux, he thinks he has had a history of it. Poor historian. Has some chronic low back pain that is no different now that he has been having these symptoms. No leg pain or swelling history of thromboembolic disease, recent travel, immobilization, hospitalization, or surgery. [facility] Medical History Atherosclerotic heart disease of [place] coronary artery without angina pectoris BMI 32.0-32.9,adult BPH (benign prostatic hyperplasia) Carotid bruit Contraction, premature ventricular Diabetes Dyslipidemia Dyspnea Essential hypertension Fatigue History of depression History of osteoarthritis HTN (hypertension) Kidney disease Long-term use of high-risk medication Mixed hyperlipidemia Obesity OSBALDO (obstructive sleep apnea) Paroxysmal ventricular tachycardia Sleep apnea SOB (shortness of breath) Type 2 diabetes mellitus Home Medications valsartan 320 mg tablet 320 mg PO DAILY 06/07/20 [History Last Taken 08/22/21] aspirin 81 mg tablet,delayed release (Adult Low Dose Aspirin) 81 mg PO DAILY 07/10/20 [History Last Taken 08/22/21] finasteride 5 mg tablet 5 mg PO DAILY 07/10/20 [History Last Taken Unknown] amlodipine 10 mg tablet 10 mg PO DAILY 06/06/21 [History Last Taken Unknown] tamsulosin 0.4 mg capsule 0.4 mg PO DAILY 08/22/21 [History Last Taken Unknown] albuterol sulfate 90 mcg/actuation aerosol inhaler 2 inh inhalation Q6H PRN 05/04/22 [History Last Taken Unknown] glipizide 10 mg tablet 10 mg PO DAILY diabetes 05/04/22 [History Last Taken Unknown] allopurinol 100 mg tablet 100 mg PO DAILY 03/22/23 [History Last Taken Unknown] mexiletine 150 mg capsule 300 mg PO Q12H 03/22/23 [History Last Taken Unknown] methocarbamol 500 mg tablet 500 mg PO 4X/DAY PRN PRN Muscle pain/spasm #40 tabs 04/18/23 [Rx Last Taken Unknown] Allergy/AdvReac Type Severity Reaction Status Date / Time amoxicillin Allergy Hives Verified 05/18/23 13:04 diphenhydramine Allergy Hives Verified 05/18/23 13:04 [From Durga] Family History (Reviewed 03/30/23 @ 10:13 by Nicole Hess ZOOLOGY TECHNICAL OFFICER, ZOOLOGY TECHNICAL OFFICER-C) Mother CAD (coronary artery disease) Diabetes Surgical History (Reviewed 03/30/23 @ 10:13 by Nicole Hess ZOOLOGY TECHNICAL OFFICER, ZOOLOGY TECHNICAL OFFICER-C) History of appendectomy History of back surgery History of carpal tunnel release History of elbow surgery History of excision of pilonidal cyst History of nephrectomy, unilateral History of right knee joint replacement History of shoulder surgery Social History Smoking Status: Never smoker second hand exposure: No alcohol intake: current alcohol intake frequency: 0-2 drinks per day Alcohol type: wine substance use type: does not use caffeine: No what type of physical activity do you participate in: none ROS ROS ED Constitutional Constitutional ED: Denies chills or fever(s) Eyes Eyes: Denies change in vision or diplopia ENT ENT ED: Denies rhinorrhea or sore throat Cardiovascular Cardiovascular: Reports as per HPI and chest pain; Denies palpitations Respiratory/Chest Respiratory/Chest: Denies cough or dyspnea Gastrointestinal Gastrointestinal: Denies abdominal pain, diarrhea or vomiting Genitourinary Genitourinary ED: Denies dysuria or hematuria Musculoskeletal Musculoskeletal: Reports back pain and other Details: Chronic left shoulder rotator cuff pain no different now ; Denies neck pain Integumentary Denies abscess or rash Neurologic Neurologic: Denies headache(s), paresthesias or weakness Psychiatric Psychiatric: Denies anxiety or suicidal thoughts EXAM Physical Exam Const Vital Signs: 05/19/23 10:06 05/19/23 10:09 05/19/23 10:53 Temperature 97.9 F Temperature Source Oral Pulse Rate 75 Respiratory Rate 14 Respiratory Effort Short of Breath Blood Pressure 143/76 H Blood Pressure Mean 98 Pulse Ox 96 96 Oxygen Delivery Method Room Air Room Air 05/19/23 11:05 05/19/23 12:17 Temperature Temperature Source Pulse Rate 68 86 Respiratory Rate 17 27 H Respiratory Effort Blood Pressure 139/103 H Blood Pressure Mean 115 Pulse Ox 96 95 Oxygen Delivery Method Room Air Room Air Positive well nourished and well developed General Appearance ED: well developed and NAD HEENT Reports moist mucous membranes normocephalic and atraumatic Eyes PERRL and EOMs intact bilaterally Neck full ROM and supple Chest Wall inspection of chest normal and palpation of chest normal Resp normal respiratory effort and clear to auscultation bilaterally Resp Narrative: No splinting with deep inspiration Cardio regular rate, regular rhythm and no murmurs Rate: Negative for tachycardic GI non-tender and non-distended Auscultation: normoactive bowel sounds Palpation: soft Back/Spine no CVA tenderness General Back: other FROM Extremity normal to inspection, no calf tenderness and no pedal edema General Extremety ED: Negative for edema, pulses abnormal or tenderness General Extremity: Negative for edema or pulses abnormal Neuro oriented x3, CN's II-XII intact bilaterally and no sensory deficits noted Sensorium / Orientation: awake and alert Motor Exam: strength 5/5 throughout Psych mental status grossly normal Skin no rashes or lesions noted and no wounds Heart Score History: Slightly/Non-Suspicious ECG: Nonspecific Repolarization Age: >/= 65 years Risk Factors: >/= 3 Risk Factors or History of CAD Troponin: </= Normal Limit Score: 5 MDM MDM MDM Narrative Medical decision making narrative: Work-up is unremarkable including 2 sequential troponin measurements that are both within normal limits the second 1 being lower than the initial. Given this, his heart score is 5 and only because they are telling me he had prior coronary disease and he is 88 years old. I think the symptoms sound less like unstable angina. Therefore given the 2 negative measurements I am comfortable with him being discharged. I offered admission, he declines and is okay following up as an outpatient with his doctor. Lab Data Attestation: I reviewed the patient's lab results. Labs: Laboratory Results - last 24 hr 05/19/23 05/19/23 10:05 13:15 WBC 9.7 RBC 4.92 Hgb 14.8 Hct 44.8 MCV 91.1 MCH 30.1 MCHC 33.0 RDW Std Deviation 42.8 RDW Coeff of Valeria 12.8 Plt Count 248 MPV 9.9 Immature Gran % (Auto) 0.600 Neut % (Auto) 54.4 Lymph % (Auto) 30.8 Desha % (Auto) 9.8 Eos % (Auto) 3.7 Baso % (Auto) 0.7 Absolute Neuts (auto) 5.3 Absolute Lymphs (auto) 2.99 Nucleated RBC % 0 Sodium 138 Potassium 4.3 Chloride 109 H Carbon Dioxide 22.0 Anion Gap 7 BUN 19 H Creatinine 1.54 H Estim Creat Clear Calc 35.99 Est GFR (MDRD) Af Amer 55 L Est GFR (MDRD) Non-Af 46 L BUN/Creatinine Ratio 12.3 Glucose 165 H Calcium 9.2 Troponin I High Sens 14 11 Radiography Chest X-Ray - ED: 2 View, Read by ED Physician, No Acute Disease and No Infiltrates Diagnostic Testing: Clinical Impression(s) from Imaging Studies Chest X-Ray 05/19/23 11:06 IMPRESSION: Stable increased linear markings at the left lung base suggestive of scarring. Electronically Signed: Bin Eubanks MD at 12:07 EDT Reading Location ID and State: [facility] / [place] , Service support , Rhythm Strip Rhythm Strip: Sinus Rhythm Rate: 75 Ectopy: None EKG Initial EKG: Attestation: I personally reviewed and interpreted this EKG as follows: Interpretation: Sinus Rhythm, No Acute Injury Pattern, RBBB, LAFB and Non-Specific ST Changes Prior EKG tracings: available for review Prior: Unchanged Discharge Plan Triage Chief Complaint: Chest Pain ED Provider: Ed Leblanc Dx/Rx/DC Orders Clinical Impression: Atypical chest pain Instructions: ED Chest Pain, Uncertain Cause Prescriptions: No Action aspirin [Adult Low Dose Aspirin] 81 mg tablet,delayed release (DR/EC) 81 mg PO DAILY finasteride 5 mg tablet 5 mg PO DAILY valsartan 320 mg tablet 320 mg PO DAILY glipizide 10 mg tablet 10 mg PO DAILY albuterol sulfate 90 mcg/actuation HFA aerosol inhaler 2 inh inhalation Q6H PRN allopurinol 100 mg tablet 100 mg PO DAILY mexiletine 150 mg capsule 300 mg PO Q12H tamsulosin 0.4 mg capsule 0.4 mg PO DAILY methocarbamol 500 mg tablet 500 mg PO 4X/DAY PRN PRN (Reason: Muscle pain/spasm) Qty: 40 1RF amlodipine 10 mg tablet 10 mg PO DAILY Primary Care Provider: Juan F Clayton Referrals: Juan F Clayton MD [Primary Care Provider] - 3-5 Days if not improving Disposition Disposition: Home, Self Care
[2023-05-19 10:59] LABS: Absolute Lymphocyte Count 2.99 X10^3/uL (0.83-4.51); Absolute Neutrophil Count 5.3 X10^3/uL (2.0-7.7); Basophil# 0.07 X10^3/uL; Basophil% 0.7 % (0-1); Eosinophil# 0.36 X10^3/uL; Eosinophils% 3.7 % (0-5); Hematocrit 44.8 % (40-54); Hemoglobin 14.8 g/dL (13.0-16.5); Lymphocyte # 2.99 X10^3/ul (0.83-4.51); Lymphocyte % 30.8 % (19-41); Mean Corpuscular Hgb 30.1 pg (27.0-32.0); Mean Corpuscular Volume 91.1 fL (80-94); Mean Platelet Vol. 9.9 fl (6.2-12.0); Monocyte# 0.95 X10^3/uL; Monocyte% 9.8 % (0-10); NRBC Flagged by Analyzer 0 % (0-5); Neutrophil # 5.28 X10^3/uL (2.7-7.7); Neutrophil % 54.4 % (47-70); Platelet Count 248 K/mm3 (150-450); RBC Distribution Width CV 12.8 % (11.6-14.6); RBC Distribution Width SD 42.8 fl (35.1-43.9); Red Blood Count 4.92 M/mm3 (4.6-6.2); White Blood Count 9.7 K/mm3 (4.4-11.0)
--- NOTE | 2023-05-19 11:00 | EKG12_ITS ---
Test Reason : CP Blood Pressure : / mmHG Vent. Rate : 074 BPM Atrial Rate : 074 BPM P-R Int : 208 ms QRS Dur : 154 ms QT Int : 400 ms P-R-T Axes : 040 -43 013 degrees QTc Int : 444 ms Normal sinus rhythm with sinus arrhythmia Left axis deviation Right bundle branch block Inferior infarct , age undetermined Abnormal ECG Confirmed by VIKY CAMARGO, LIAM ([id number]), commercial production editor MATTY SHIRLEY ([id number]) on 05/20/2023 2:19:44 PM Referred By: EMANUEL/LUCIANA Confirmed By:LIAM SALMON MD
[2023-05-19 11:05] VITALS: PULSE 68; RESP 17; O2SAT 96
--- NOTE | 2023-05-19 11:06 | RAD_ITS ---
STUDY: X-RAY CHEST REASON FOR EXAM: Male, 88 years old. Chest pain. TECHNIQUE: PA and lateral views of the chest. COMPARISON: Comparison is made with prior study dated October 09, 2022. FINDINGS: EKG electrodes are seen. Stable increased linear markings at the left lung base suggestive of scarring. Scattered calcified granulomas. There is no demonstrated pleural abnormality. Normal size heart. Normal mediastinum and morgan. Normal visualized pulmonary arteries. There is atherosclerotic calcification of the aortic arch with tortuosity. There are diffuse degenerative changes of the visualized thoracic spine. Mild degree of dextroconvex scoliosis. Status post right shoulder replacement. There is no demonstrated abnormality of the visualized soft tissue structures of the upper abdomen. RAD/Chest PA and Lateral IMPRESSION: Stable increased linear markings at the left lung base suggestive of scarring. Electronically Signed: Bin Eubanks MD at 12:07 EDT ,
[2023-05-19 11:20] LABS: Anion Gap 7 (5-15); BUN 19 mg/dL (7-18); BUN/Creat Ratio 12.3 RATIO (10-20); Calcium,Total 9.2 mg/dL (8.5-10.1); Chloride 109 mmol/L (98-107); Creatinine, Serum 1.54 mg/dL (0.70-1.30); EST Glomerular Filtration Rate 46 mL/min (>60); Est Glom Filt Rate - Afr Amer 55 mL/min (>60); Estimated Creatinine Clearance 35.99 ml/min; Glucose 165 mg/dL (74-106); Potassium 4.3 mmol/L (3.5-5.1); Sodium Level 138 mmol/L (136-145); Troponin-I HS (w/2H Reflex) 14 pg/mL (3.0-78.0)
[2023-05-19 12:17] VITALS: BP 139/103; PULSE 86; RESP 27; O2SAT 95
[2023-05-19 12:56] LABS: Reflex Troponin-HS? (from REC) Y
[2023-05-19 13:46] LABS: Troponin-I HS 11 pg/mL (3.0-78.0)
[2023-05-19 14:00] VITALS: BP 130/80; PULSE 81; RESP 19; O2SAT 96
== END 2023-05-19 14:14 | disposition home or self-care (01) ==
PROVIDERS: Emergency Provider Emergency Medicine; PCP Family Medicine; Visit Provider Emergency Medicine
DX: R07.89 Other chest pain (principal); E11.9 Type 2 diabetes mellitus without complications; I25.10 Atherosclerotic heart disease of native coronary artery without angina pectoris; I10 Essential (primary) hypertension; E78.2 Mixed hyperlipidemia; M54.50 Low back pain, unspecified; G89.29 Other chronic pain; Z79.82 Long term (current) use of aspirin; Z79.84 Long term (current) use of oral hypoglycemic drugs; Z79.899 Other long term (current) drug therapy; Z90.5 Acquired absence of kidney
CPT/HCPCS: 71046; 80048; 84484; 85025; 93005; 99284; A4216

== ENCOUNTER → 2023-06-01 | Outpatient (CLI) | payer MEDICARE, OTHER, SELFPAY ==
--- NOTE | 2023-06-01 09:55 | NM_ITS ---
CLINICAL: 88-year-old male with history of abdominal pain. RADIONUCLIDE HEPATOBILIARY SCINTIGRAPHY COMPARISON: Gallbladder ultrasound report 04/28/2023 FINDINGS: Following the intravenous administration of 5.6 mCi of 99m Tc Mebrofenin, hepatobiliary images reveal: 1. Relatively prompt and homogeneous radiopharmaceutical concentration is noted by a normal sized liver. No parenchymal defects are identified. 2. Gallbladder activity is identified at 15 minutes post radiopharmaceutical administration. 3. Small intestinal tract is observed at 30 minutes following tracer injection. 4. Washout of the radiopharmaceutical by the hepatic parenchyma appears qualitatively normal. Cholecystokinin (0.02 ug/kg) was administered intravenously over a 30-minute period. The post CCK gallbladder ejection fraction calculated at 20 minutes following Cholecystokinin administration was noted to be 49.0 % (normal greater than 35%). During 30 minutes of post CCK imaging, there is no scintigraphic evidence of reflux of the radiotracer into the common hepatic duct or refilling of the gallbladder. NM/Hepatobilliary Img w/Pharm Int IMPRESSION: 1. NORMAL 99m Tc Mebrofenin hepatobiliary imaging examination with Cholecystokinin. A. A gallbladder ejection fraction calculated to be greater than 35% following the administration of Cholecystokinin makes the probability of functional hepatobiliary disease (gallbladder and/or sphincter of Oddi dyskinesia) and/or organic hepatobiliary disease (chronic acalculous cholecystitis and/or cystic duct syndrome) to be low. (Dolores Dietrich et al, Journal of Nuclear Medicine 32:1695, 1991). Electronically Signed: Brad Denise, at 9:33 EDT ,
== END | disposition home or self-care (01) ==
LOC: NM 09:55
PROVIDERS: PCP Family Medicine; Referring Provider Surgery; Visit Provider Surgery
DX: R10.9 Unspecified abdominal pain (principal)
CPT/HCPCS: 78227; A9503; J2805

== ENCOUNTER → 2023-06-18 | Outpatient (CLI) | payer MEDICARE, OTHER, SELFPAY ==
[2023-06-18 12:14] LABS: Absolute Lymphocyte Count 2.54 X10^3/uL (0.83-4.51); Absolute Neutrophil Count 5.2 X10^3/uL (2.0-7.7); Basophil# 0.05 X10^3/uL; Basophil% 0.6 % (0-1); Eosinophil# 0.34 X10^3/uL; Eosinophils% 3.8 % (0-5); Hematocrit 43.2 % (40-54); Hemoglobin 13.6 g/dL (13.0-16.5); Lymphocyte # 2.54 X10^3/ul (0.83-4.51); Lymphocyte % 28.2 % (19-41); Mean Corp Hgb Conc 31.5 g/dL (32-36); Mean Corpuscular Hgb 29.6 pg (27.0-32.0); Mean Corpuscular Volume 93.9 fL (80-94); Mean Platelet Vol. 10.5 fl (6.2-12.0); Monocyte# 0.87 X10^3/uL; Monocyte% 9.7 % (0-10); NRBC Flagged by Analyzer 0 % (0-5); Neutrophil # 5.17 X10^3/uL (2.7-7.7); Neutrophil % 57.3 % (47-70); Platelet Count 236 K/mm3 (150-450); RBC Distribution Width SD 44.7 fl (35.1-43.9)
[2023-06-18 12:44] LABS: Hemoglobin A1c 6.9 % (3.8-5.6)
[2023-06-18 12:51] LABS: Anion Gap 6 (5-15); BUN 38 mg/dL (7-18); BUN/Creat Ratio 17.9 RATIO (10-20); Chloride 109 mmol/L (98-107); Creatinine, Serum 2.12 mg/dL (0.70-1.30); EST Glomerular Filtration Rate 32 mL/min (>60); Est Glom Filt Rate - Afr Amer 38 mL/min (>60); Glucose 193 mg/dL (74-106); Potassium 4.6 mmol/L (3.5-5.1); Sodium Level 136 mmol/L (136-145)
== END | disposition home or self-care (01) ==
LOC: MTLAB 09:04
PROVIDERS: PCP Family Medicine; Visit Provider Orthopaedic Surgery
DX: Z01.818 Encounter for other preprocedural examination (principal)
CPT/HCPCS: 36415; 80048; 83036; 85025

== ENCOUNTER → 2023-07-28 | Outpatient (CLI) | payer MEDICARE, OTHER, SELFPAY ==
[2023-07-28 11:07] LABS: PSA,Total- Diagnostic 4.87 ng/mL (0.0-4.0)
== END | disposition home or self-care (01) ==
LOC: MTLAB 09:01
PROVIDERS: PCP Family Medicine; Referring Provider Urology; Visit Provider Urology
DX: R97.20 Elevated prostate specific antigen [PSA] (principal)
CPT/HCPCS: 36415; 84153

== ENCOUNTER → 2023-07-29 | Outpatient (CLI) | payer MEDICARE, OTHER, SELFPAY ==
--- NOTE | 2023-07-29 09:00 | RAD_ITS ---
INDICATION: PAIN EXAMINATION/TECHNIQUE: X-RAY - XR Abdomen W/ Decub and/or Erect Views COMPARISON: 02/27/2023 CT. FINDINGS: BOWEL GAS PATTERN: No evidence of dilated small bowel loops or abnormal air-fluid levels. Moderate stool retention. FREE AIR: No evidence of free air. CALCIFICATIONS: No evidence of a urinary tract stone. LOWER CHEST: Left basilar atelectasis versus scarring. BONES AND SOFT TISSUES: Nondisplaced acute fractures of the anterior left eighth and ninth ribs. RAD/Abd Inc Decub and/or Erect IMPRESSION: 1. No evidence of an acute intra-abdominal abnormality. 2. Acute nondisplaced fractures of the left anterior eighth and ninth ribs. Electronically Signed: Leonel Freeman DO at 7:54 EDT ,
[2023-07-29 10:16] LABS: Absolute Lymphocyte Count 2.56 X10^3/uL (0.83-4.51); Absolute Neutrophil Count 5.5 X10^3/uL (2.0-7.7); Basophil# 0.07 X10^3/uL; Basophil% 0.7 % (0-1); Eosinophil# 0.35 X10^3/uL; Eosinophils% 3.6 % (0-5); Hematocrit 41.6 % (40-54); Hemoglobin 13.5 g/dL (13.0-16.5); Lymphocyte # 2.56 X10^3/ul (0.83-4.51); Lymphocyte % 26.6 % (19-41); Mean Corp Hgb Conc 32.5 g/dL (32-36); Mean Corpuscular Hgb 29.8 pg (27.0-32.0); Mean Corpuscular Volume 91.8 fL (80-94); Mean Platelet Vol. 9.9 fl (6.2-12.0); Monocyte# 1.07 X10^3/uL; Monocyte% 11.1 % (0-10); NRBC Flagged by Analyzer 0 % (0-5); Neutrophil # 5.52 X10^3/uL (2.7-7.7); Neutrophil % 57.6 % (47-70); Platelet Count 256 K/mm3 (150-450); RBC Distribution Width CV 13.2 % (11.6-14.6); RBC Distribution Width SD 44.8 fl (35.1-43.9); Red Blood Count 4.53 M/mm3 (4.6-6.2); White Blood Count 9.6 K/mm3 (4.4-11.0)
[2023-07-29 10:53] LABS: ALB/GLOB Ratio 0.9 RATIO (0.9-2.4); AST(SGOT) 14 U/L (15-37); Alanine Aminotransfer ALT/SGPT 21 U/L (16-61); Albumin, Serum 3.4 g/dL (3.2-5.0); Alkaline Phosphatase 67 U/L (45-117); Anion Gap 8 (5-15); BUN 36 mg/dL (7-18); Calcium,Total 9.1 mg/dL (8.5-10.1); Chloride 111 mmol/L (98-107); Creatinine, Serum 2.25 mg/dL (0.70-1.30); EST Glomerular Filtration Rate 29 mL/min (>60); Est Glom Filt Rate - Afr Amer 36 mL/min (>60); Globulin 3.8 g/dL (2.2-4.2); Glucose 241 mg/dL (74-106); Potassium 4.3 mmol/L (3.5-5.1); Protein, Total 7.2 g/dL (6.4-8.2); Sodium Level 137 mmol/L (136-145)
== END | disposition home or self-care (01) ==
LOC: MTLAB 08:33
PROVIDERS: PCP Family Medicine; Visit Provider Family Medicine
DX: R10.9 Unspecified abdominal pain (principal)
CPT/HCPCS: 36415; 74019; 80053; 85025

== ENCOUNTER → 2023-08-09 | Outpatient (CLI) | payer MEDICARE, OTHER, SELFPAY ==
[2023-08-09 12:58] LABS: Anion Gap 9 (5-15); BUN 26 mg/dL (7-18); BUN/Creat Ratio 12.9 RATIO (10-20); Calcium,Total 8.7 mg/dL (8.5-10.1); Chloride 108 mmol/L (98-107); Creatinine, Serum 2.02 mg/dL (0.70-1.30); EST Glomerular Filtration Rate 33 mL/min (>60); Est Glom Filt Rate - Afr Amer 40 mL/min (>60); Glucose 188 mg/dL (74-106); Potassium 4.1 mmol/L (3.5-5.1); Sodium Level 137 mmol/L (136-145)
== END | disposition home or self-care (01) ==
PROVIDERS: PCP Family Medicine; Referring Provider Nurse Practitioner; Visit Provider Nurse Practitioner
DX: R94.4 Abnormal results of kidney function studies (principal)
CPT/HCPCS: 36415; 80048

== ENCOUNTER → 2023-09-15 | Outpatient (CLI) | payer MEDICARE, OTHER, SELFPAY ==
[2023-09-15 10:34] LABS: Absolute Lymphocyte Count 2.48 X10^3/uL (0.83-4.51); Absolute Neutrophil Count 4.4 X10^3/uL (2.0-7.7); Basophil# 0.08 X10^3/uL; Eosinophil# 0.43 X10^3/uL; Eosinophils% 5.2 % (0-5); Hematocrit 43.5 % (40-54); Hemoglobin 13.7 g/dL (13.0-16.5); Lymphocyte # 2.48 X10^3/ul (0.83-4.51); Lymphocyte % 29.7 % (19-41); Mean Corp Hgb Conc 31.5 g/dL (32-36); Mean Corpuscular Hgb 29.3 pg (27.0-32.0); Mean Corpuscular Volume 93.1 fL (80-94); Mean Platelet Vol. 10.2 fl (6.2-12.0); Monocyte# 0.94 X10^3/uL; Monocyte% 11.3 % (0-10); NRBC Flagged by Analyzer 0 % (0-5); Neutrophil # 4.36 X10^3/uL (2.7-7.7); Neutrophil % 52.2 % (47-70); Platelet Count 239 K/mm3 (150-450); RBC Distribution Width CV 13.5 % (11.6-14.6); RBC Distribution Width SD 45.9 fl (35.1-43.9); Red Blood Count 4.67 M/mm3 (4.6-6.2); White Blood Count 8.3 K/mm3 (4.4-11.0)
[2023-09-15 10:38] LABS: Protein:Creat Ratio 254 mg/g CRE (0-200)
[2023-09-15 10:50] LABS: ALB/GLOB Ratio 0.9 RATIO (0.9-2.4); AST(SGOT) 13 U/L (15-37); Alanine Aminotransfer ALT/SGPT 21 U/L (16-61); Albumin, Serum 3.2 g/dL (3.2-5.0); Alkaline Phosphatase 64 U/L (45-117); Anion Gap 5 (5-15); BUN 22 mg/dL (7-18); BUN/Creat Ratio 12.8 RATIO (10-20); Calcium,Total 9.2 mg/dL (8.5-10.1); Chloride 109 mmol/L (98-107); Cholesterol 247 mg/dL (200); Creatinine, Serum 1.72 mg/dL (0.70-1.30); EST Glomerular Filtration Rate 40 mL/min (>60); Est Glom Filt Rate - Afr Amer 49 mL/min (>60); Globulin 3.6 g/dL (2.2-4.2); Glucose 184 mg/dL (74-106); High Density Lipoprotein 41 mg/dL; Potassium 4.4 mmol/L (3.5-5.1); Protein, Total 6.8 g/dL (6.4-8.2); Sodium Level 137 mmol/L (136-145); Triglycerides 215 mg/dL; Uric Acid 7.5 mg/dL (3.5-7.2); Very Low Density Lipoprotein 43 mg/dL (5-40)
[2023-09-15 10:55] LABS: Vitamin D,25 Hydroxy 38.4 ng/mL
[2023-09-15 11:19] LABS: Hemoglobin A1c 7.9 % (3.8-5.6)
== END | disposition home or self-care (01) ==
LOC: MTLAB 08:16
PROVIDERS: PCP Family Medicine; Referring Provider Family Medicine; Visit Provider Family Medicine
DX: E11.59 Type 2 diabetes mellitus with other circulatory complications (principal); E11.69 Type 2 diabetes mellitus with other specified complication; N25.81 Secondary hyperparathyroidism of renal origin; E55.9 Vitamin D deficiency, unspecified; M10.9 Gout, unspecified
CPT/HCPCS: 36415; 80053; 80061; 82306; 82570; 83036; 83970; 84156; 84550; 85025

== ENCOUNTER → 2023-09-27 | Outpatient (CLI) | payer MEDICARE, OTHER, SELFPAY ==
[2023-10-09 20:07] LABS: Pancreatic Elastase, Fecal 99 (>200)
== END | disposition home or self-care (01) ==
LOC: MFPLAB 14:07
PROVIDERS: PCP Family Medicine; Visit Provider Family Medicine
DX: R19.7 Diarrhea, unspecified (principal)
CPT/HCPCS: 82653

== ENCOUNTER → 2024-01-21 | Outpatient (CLI) | payer MEDICARE, OTHER, SELFPAY ==
[2024-01-21 10:54] LABS: Absolute Lymphocyte Count 2.35 X10^3/uL (0.83-4.51); Absolute Neutrophil Count 3.6 X10^3/uL (2.0-7.7); Basophil# 0.06 X10^3/uL; Basophil% 0.8 % (0-1); Eosinophil# 0.39 X10^3/uL; Eosinophils% 5.4 % (0-5); Hematocrit 41.2 % (40-54); Hemoglobin 13.6 g/dL (13.0-16.5); Lymphocyte # 2.35 X10^3/ul (0.83-4.51); Lymphocyte % 32.7 % (19-41); Mean Corpuscular Hgb 30.1 pg (27.0-32.0); Mean Corpuscular Volume 91.2 fL (80-94); Mean Platelet Vol. 9.9 fl (6.2-12.0); Monocyte# 0.74 X10^3/uL; Monocyte% 10.3 % (0-10); NRBC Flagged by Analyzer 0 % (0-5); Neutrophil # 3.61 X10^3/uL (2.7-7.7); Neutrophil % 50.2 % (47-70); Platelet Count 215 K/mm3 (150-450); RBC Distribution Width CV 13.1 % (11.6-14.6); RBC Distribution Width SD 43.8 fl (35.1-43.9); Red Blood Count 4.52 M/mm3 (4.6-6.2); White Blood Count 7.2 K/mm3 (4.4-11.0)
[2024-01-21 11:15] LABS: PTHIN 51.7 pg/mL (18.4-80.1)
[2024-01-21 11:20] LABS: Vitamin D,25 Hydroxy 38.1 ng/mL
[2024-01-21 11:23] LABS: ALB/GLOB Ratio 0.9 RATIO (0.9-2.4); AST(SGOT) 16 U/L (15-37); Alanine Aminotransfer ALT/SGPT 26 U/L (16-61); Albumin, Serum 3.3 g/dL (3.2-5.0); Alkaline Phosphatase 53 U/L (45-117); Anion Gap 6 (5-15); BUN 35 mg/dL (7-18); Calcium,Total 8.9 mg/dL (8.5-10.1); Chloride 111 mmol/L (98-107); Cholesterol 246 mg/dL (200); Creatinine, Serum 1.67 mg/dL (0.70-1.30); EST Glomerular Filtration Rate 42 mL/min (>60); Est Glom Filt Rate - Afr Amer 50 mL/min (>60); Globulin 3.7 g/dL (2.2-4.2); Glucose 173 mg/dL (74-106); High Density Lipoprotein 43 mg/dL; Phosphorus 3.2 mg/dL (2.5-4.9); Potassium 4.7 mmol/L (3.5-5.1); Sodium Level 138 mmol/L (136-145); Triglycerides 155 mg/dL; Very Low Density Lipoprotein 31 mg/dL (5-40)
== END | disposition home or self-care (01) ==
LOC: MTLAB 09:25
PROVIDERS: PCP Family Medicine; Referring Provider Family Medicine; Visit Provider Family Medicine
DX: E11.22 Type 2 diabetes mellitus with diabetic chronic kidney disease (principal); E11.8 Type 2 diabetes mellitus with unspecified complications; N18.9 Chronic kidney disease, unspecified
CPT/HCPCS: 36415; 80053; 80061; 82306; 83036; 83970; 84100; 85025

== ENCOUNTER → 2024-04-05 | Outpatient (CLI) | payer MEDICARE, OTHER, SELFPAY ==
[2024-04-05 11:53] LABS: ALB/GLOB Ratio 0.9 RATIO (0.9-2.4); AST(SGOT) 17 U/L (15-37); Alanine Aminotransfer ALT/SGPT 23 U/L (16-61); Albumin, Serum 3.3 g/dL (3.2-5.0); Alkaline Phosphatase 57 U/L (45-117); Anion Gap 6 (5-15); BUN 30 mg/dL (7-18); BUN/Creat Ratio 17.3 RATIO (10-20); Calcium,Total 9.1 mg/dL (8.5-10.1); Chloride 111 mmol/L (98-107); Cholesterol 241 mg/dL (200); Creatinine, Serum 1.73 mg/dL (0.70-1.30); EST Glomerular Filtration Rate 40 mL/min (>60); Est Glom Filt Rate - Afr Amer 48 mL/min (>60); Globulin 3.6 g/dL (2.2-4.2); Glucose 167 mg/dL (74-106); High Density Lipoprotein 39 mg/dL; Potassium 4.2 mmol/L (3.5-5.1); Protein, Total 6.9 g/dL (6.4-8.2); Sodium Level 137 mmol/L (136-145); Triglycerides 183 mg/dL; Very Low Density Lipoprotein 37 mg/dL (5-40)
== END | disposition home or self-care (01) ==
LOC: MTLAB 09:10
PROVIDERS: PCP Family Medicine; Referring Provider Nurse Practitioner Gerontology; Visit Provider Nurse Practitioner Gerontology
DX: E11.8 Type 2 diabetes mellitus with unspecified complications (principal)
CPT/HCPCS: 36415; 80053; 80061

== ENCOUNTER → 2024-05-23 | Outpatient (CLI) | payer MEDICARE, OTHER, SELFPAY ==
[2024-05-23 10:34] LABS: Absolute Lymphocyte Count 2.14 X10^3/uL (0.83-4.51); Absolute Neutrophil Count 3.6 X10^3/uL (2.0-7.7); Basophil# 0.07 X10^3/uL; Eosinophil# 0.32 X10^3/uL; Eosinophils% 4.7 % (0-5); Hematocrit 42.2 % (40-54); Hemoglobin 13.6 g/dL (13.0-16.5); Lymphocyte # 2.14 X10^3/ul (0.83-4.51); Lymphocyte % 31.3 % (19-41); Mean Corp Hgb Conc 32.2 g/dL (32-36); Mean Corpuscular Hgb 29.6 pg (27.0-32.0); Mean Corpuscular Volume 91.9 fL (80-94); Mean Platelet Vol. 10.2 fl (6.2-12.0); Monocyte# 0.73 X10^3/uL; Monocyte% 10.7 % (0-10); NRBC Flagged by Analyzer 0 % (0-5); Neutrophil # 3.55 X10^3/uL (2.7-7.7); Platelet Count 232 K/mm3 (150-450); RBC Distribution Width CV 13.1 % (11.6-14.6); RBC Distribution Width SD 43.8 fl (35.1-43.9); Red Blood Count 4.59 M/mm3 (4.6-6.2); White Blood Count 6.8 K/mm3 (4.4-11.0)
[2024-05-23 10:34] LABS: AST(SGOT) 17 U/L (15-37); Alanine Aminotransfer ALT/SGPT 26 U/L (16-61); Albumin, Serum 3.3 g/dL (3.2-5.0); Alkaline Phosphatase 60 U/L (45-117); Anion Gap 6 (5-15); BUN 30 mg/dL (7-18); BUN/Creat Ratio 19.9 RATIO (10-20); Bilirubin, Direct 0.12 mg/dL (0.00-0.30); Calcium,Total 9.3 mg/dL (8.5-10.1); Chloride 110 mmol/L (98-107); Cholesterol 235 mg/dL (200); Creatinine, Serum 1.51 mg/dL (0.70-1.30); EST Glomerular Filtration Rate 47 mL/min (>60); Est Glom Filt Rate - Afr Amer 56 mL/min (>60); Globulin 3.6 g/dL (2.2-4.2); Glucose 187 mg/dL (74-106); High Density Lipoprotein 37 mg/dL; Magnesium 2.3 mg/dL (1.6-2.6); Potassium 4.5 mmol/L (3.5-5.1); Protein, Total 6.9 g/dL (6.4-8.2); Sodium Level 138 mmol/L (136-145); Triglycerides 227 mg/dL; Very Low Density Lipoprotein 45 mg/dL (5-40)
[2024-05-23 16:20] LABS: Hemoglobin A1c 6.9 % (3.8-5.6)
[2024-05-23 16:25] LABS: Microalbumin,Random Urine 7.2 mg/L (NO RANGE EST.); Microalbumin:Creatinine Ratio 13.6 mg/g CRE (<30 mg/g CRE)
== END | disposition home or self-care (01) ==
LOC: MTLAB 08:33
PROVIDERS: Internal Medicine Cardiovascular Disease; PCP Family Medicine; Referring Provider Family Medicine; Visit Provider Family Medicine
DX: E78.5 Hyperlipidemia, unspecified (principal); E11.22 Type 2 diabetes mellitus with diabetic chronic kidney disease; N18.9 Chronic kidney disease, unspecified
CPT/HCPCS: 36415; 80048; 80061; 80076; 82043; 82570; 83036; 83735; 85025

== ENCOUNTER → 2024-08-31 | Outpatient (CLI) | payer MEDICARE, OTHER, SELFPAY ==
[2024-08-31 11:57] LABS: Absolute Neutrophil Count 4.5 X10^3/uL (2.0-7.7); Basophil# 0.08 X10^3/uL; Eosinophil# 0.35 X10^3/uL; Eosinophils% 4.3 % (0-5); Hematocrit 41.9 % (40-54); Hemoglobin 13.5 g/dL (13.0-16.5); Lymphocyte % 27.2 % (19-41); Mean Corp Hgb Conc 32.2 g/dL (32-36); Mean Corpuscular Hgb 29.9 pg (27.0-32.0); Mean Corpuscular Volume 92.7 fL (80-94); Mean Platelet Vol. 9.8 fl (6.2-12.0); Monocyte# 0.86 X10^3/uL; Monocyte% 10.6 % (0-10); NRBC Flagged by Analyzer 0 % (0-5); Neutrophil # 4.54 X10^3/uL (2.7-7.7); Neutrophil % 56.3 % (47-70); Platelet Count 246 K/mm3 (150-450); RBC Distribution Width CV 12.8 % (11.6-14.6); RBC Distribution Width SD 43.5 fl (35.1-43.9); Red Blood Count 4.52 M/mm3 (4.6-6.2); White Blood Count 8.1 K/mm3 (4.4-11.0)
[2024-08-31 12:21] LABS: Vitamin D,25 Hydroxy 33.1 ng/mL
[2024-08-31 12:50] LABS: ALB/GLOB Ratio 0.9 RATIO (0.9-2.4); AST(SGOT) 14 U/L (15-37); Alanine Aminotransfer ALT/SGPT 28 U/L (16-61); Albumin, Serum 3.2 g/dL (3.2-5.0); Alkaline Phosphatase 72 U/L (45-117); Anion Gap 8 (5-15); BUN 25 mg/dL (7-18); BUN/Creat Ratio 16.8 RATIO (10-20); Calcium,Total 9.1 mg/dL (8.5-10.1); Chloride 109 mmol/L (98-107); Cholesterol 254 mg/dL (200); Creatinine, Serum 1.49 mg/dL (0.70-1.30); EST Glomerular Filtration Rate 47 mL/min (>60); Est Glom Filt Rate - Afr Amer 57 mL/min (>60); Globulin 3.7 g/dL (2.2-4.2); Glucose 165 mg/dL (74-106); High Density Lipoprotein 45 mg/dL; Potassium 4.1 mmol/L (3.5-5.1); Protein, Total 6.9 g/dL (6.4-8.2); Sodium Level 139 mmol/L (136-145); Triglycerides 200 mg/dL; Very Low Density Lipoprotein 40 mg/dL (5-40)
[2024-08-31 13:38] LABS: Microalbumin:Creatinine Ratio 13.1 mg/g CRE (<30 mg/g CRE); Protein, Urine (Random) 17.1 mg/dL (<11.9); Protein:Creat Ratio 282 mg/g CRE (0-200)
[2024-08-31 14:52] LABS: Hemoglobin A1c 7.3 % (3.8-5.6)
== END | disposition home or self-care (01) ==
LOC: MFPLAB 09:43
PROVIDERS: PCP Family Medicine; Referring Provider Family Medicine; Visit Provider Family Medicine
DX: E11.69 Type 2 diabetes mellitus with other specified complication (principal); E11.59 Type 2 diabetes mellitus with other circulatory complications; E11.22 Type 2 diabetes mellitus with diabetic chronic kidney disease; E55.9 Vitamin D deficiency, unspecified; N18.9 Chronic kidney disease, unspecified
CPT/HCPCS: 36415; 80053; 80061; 82043; 82306; 82570; 83036; 83970; 84100; 84156; 85025

== ENCOUNTER → 2024-09-07 | Outpatient (CLI) | payer MEDICARE, OTHER, SELFPAY ==
--- NOTE | 2024-09-07 10:40 | RAD_ITS ---
HISTORY: lumbar radiculopathy. TECHNIQUE: XR Spine Lumbar 2 or 3 Views. COMPARISON: 04/10/2022. FINDINGS: VERTEBRAE: Vertebral body heights preserved. Degenerative changes of the posterior elements. ALIGNMENT: Mild anterolisthesis of L3-4. Mild levoscoliosis. INTERVERTEBRAL DISCS: Degenerative endplate changes with intervertebral disc space narrowing again seen from L2-3 through L5-S1. RAD/Lumbar Spine 2 or 3 Views IMPRESSION: No acute fracture or dislocation identified in the lumbar spine. Multilevel degenerative change. Electronically Signed: Odessa Santana MD at 10:33 EDT ,
== END | disposition home or self-care (01) ==
LOC: MTRAD 10:35
PROVIDERS: PCP Family Medicine; Referring Provider Family Medicine; Visit Provider Family Medicine
DX: M54.16 Radiculopathy, lumbar region (principal)
CPT/HCPCS: 72100

== ENCOUNTER → 2024-12-05 | Outpatient (CLI) | payer MEDICARE, OTHER, SELFPAY ==
[2024-12-05 09:05] LABS: Mucous, Urine 0 SEEN /hpf (<or=2+)
[2024-12-05 10:08] LABS: Absolute Lymphocyte Count 3.14 X10^3/uL (0.83-4.51); Absolute Neutrophil Count 4.7 X10^3/uL (2.0-7.7); Basophil# 0.07 X10^3/uL; Basophil% 0.8 % (0-1); Eosinophil# 0.38 X10^3/uL; Eosinophils% 4.1 % (0-5); Hematocrit 43.4 % (40-54); Hemoglobin 13.9 g/dL (13.0-16.5); Lymphocyte # 3.14 X10^3/ul (0.83-4.51); Lymphocyte % 33.8 % (19-41); Mean Corpuscular Volume 90.6 fL (80-94); Mean Platelet Vol. 9.6 fl (6.2-12.0); Monocyte# 0.94 X10^3/uL; Monocyte% 10.1 % (0-10); NRBC Flagged by Analyzer 0 % (0-5); Neutrophil % 50.4 % (47-70); Platelet Count 270 K/mm3 (150-450); RBC Distribution Width CV 12.9 % (11.6-14.6); Red Blood Count 4.79 M/mm3 (4.6-6.2); White Blood Count 9.3 K/mm3 (4.4-11.0)
[2024-12-05 10:13] LABS: Color, Urine Yellow (Yellow); Glucose, Dipstick Normal (Normal); Ketone-Dipstick Negative (Negative); Leukocyte Esterase-Dipstick 100 /ul (Negative); Nitrite-Dipstick Negative (Negative); Occult Blood-Urine 50 /ul (Negative); Protein-Dipstick Negative (Negative); Specific Gravity, Urine 1.015 (1.002-1.030); Urine Bilirubin Dipstick Negative (Negative); Urine Clarity Clear (Clear); Urine Urobilinogen Normal (Normal)
[2024-12-05 10:30] LABS: Hemoglobin A1c 7.3 % (3.8-5.6)
[2024-12-05 10:33] LABS: Protein, Urine (Random) 23.4 mg/dL (<11.9); Protein:Creat Ratio 268 mg/g CRE (0-200)
[2024-12-05 10:34] LABS: Vitamin D,25 Hydroxy 35.1 ng/mL
[2024-12-05 10:59] LABS: Bacteria 1+ /hpf (None Seen); Red Blood Cells-Urine 5-10 SEEN /hpf (0-5); Squamous Epithelial Cells - UA 0-5 SEEN /hpf (0-5); White Blood Cells 10-25 SEEN /hpf (0-5)
[2024-12-05 11:10] LABS: ALB/GLOB Ratio 0.9 RATIO (0.9-2.4); AST(SGOT) 14 U/L (15-37); Alanine Aminotransfer ALT/SGPT 22 U/L (16-61); Albumin, Serum 3.3 g/dL (3.2-5.0); Alkaline Phosphatase 65 U/L (45-117); Anion Gap 9 (5-15); BUN 30 mg/dL (7-18); BUN/Creat Ratio 18.9 RATIO (10-20); Calcium,Total 9.2 mg/dL (8.5-10.1); Chloride 107 mmol/L (98-107); Cholesterol 260 mg/dL (200); Creatinine, Serum 1.59 mg/dL (0.70-1.30); EST Glomerular Filtration Rate 44 mL/min (>60); Est Glom Filt Rate - Afr Amer 53 mL/min (>60); Globulin 3.8 g/dL (2.2-4.2); Glucose 169 mg/dL (74-106); High Density Lipoprotein 47 mg/dL; Potassium 4.5 mmol/L (3.5-5.1); Protein, Total 7.1 g/dL (6.4-8.2); Sodium Level 137 mmol/L (136-145); Triglycerides 179 mg/dL; Uric Acid 7.4 mg/dL (3.5-7.2); Very Low Density Lipoprotein 36 mg/dL (5-40)
== END | disposition home or self-care (01) ==
LOC: MFPLAB 09:00
PROVIDERS: PCP Family Medicine; Referring Provider Family Medicine; Visit Provider Family Medicine
DX: E11.22 Type 2 diabetes mellitus with diabetic chronic kidney disease (principal); N18.9 Chronic kidney disease, unspecified
CPT/HCPCS: 36415; 80053; 80061; 81001; 82306; 82570; 83036; 84156; 84550; 85025

== ENCOUNTER → 2024-12-08 | Outpatient (CLI) | payer MEDICARE, OTHER, SELFPAY ==
--- NOTE | 2024-12-08 08:21 | CDU_ITS ---
Reason For Study: Carotid Stenosis Rt. Velocities/BP Lt. Velocities/BP Prox CCA 87.6/9.0 cm/sec. Prox CCA 93.5/16.4 cm/sec. Mid CCA 87.6/16.3 cm/sec. Mid CCA 86.4/18.8 cm/sec. Dist CCA 110.1/13.3 cm/sec. Dist CCA 115.6/24.3 cm/sec. Prox ICA 60.8/13.5 cm/sec. Prox ICA 123.6/20.4 cm/sec. Mid ICA 67.4/20.1 cm/sec. Mid ICA 72.9/20.1 cm/sec. Dist ICA 49.1/14.8 cm/sec. Dist ICA 53.6/18.3 cm/sec. Rt. ICA/CCA = 0.8. Lt. ICA/CCA = 1.4. Prox ECA 108.3/7.9 cm/sec. Prox ECA 132.4/5.0 cm/sec. Rt. Vert. 59.7/10.2 cm/sec. Lt. Vert. 37.9/9.5 cm/sec. Right Extracranial There is heterogeneous, irregular atherosclerotic plaque noted in the right common carotid artery. There is heterogeneous, irregular atherosclerotic plaque noted in the right internal carotid artery. There is heterogeneous, irregular atherosclerotic plaque noted in the right external carotid artery. Antegrade flow is noted in the right vertebral artery. Left Extracranial There is heterogeneous, irregular atherosclerotic plaque noted in the left common carotid artery. There is heterogeneous, irregular atherosclerotic plaque noted in the left internal carotid artery. There is heterogeneous, irregular atherosclerotic plaque noted in the left external carotid artery. Antegrade flow is noted in the left vertebral artery. Procedure Carotid Duplex 42993. This is a Carotid Duplex examination using B-mode, color flow and specral Doppler. Exam performed in department. VL/Carotid Duplex Ultrasound Interpretation Summary Mild (<50%) stenosis right extracranial internal carotid. Mild (<50%) stenosis left extracranial internal carotid. Patent and antegrade vertebrals bilaterally. Ordering Physician: Juan F Clayton Referring Physician: Juan F Clayton Performed By: Gerson Haynes RVT and Student
== END | disposition home or self-care (01) ==
LOC: CVS 08:20
PROVIDERS: PCP Family Medicine; Referring Provider Family Medicine; Visit Provider Family Medicine
DX: I65.23 Occlusion and stenosis of bilateral carotid arteries (principal)
CPT/HCPCS: 93880

== ENCOUNTER → 2024-12-15 | Outpatient (CLI) | payer MEDICARE, OTHER, SELFPAY ==
--- NOTE | 2024-12-15 13:05 | CT_ITS ---
PROCEDURE: Noncontrast CT of the left lower extremity (Ag protocol). REASON FOR EXAM: Left knee osteoarthritis. Preoperative evaluation TECHNIQUE: Contiguous unenhanced axial CT images were obtained through the left hip, knee, and ankle. Sagittal and coronal reformats were created. COMPARISON: None available. FINDINGS: The bones are osteopenic. [id number] degenerative change of the left hip joint. The included proximal left femur and included portions of the pelvis are intact. Small right and moderate left fat containing inguinal hernias. Heterogeneous appearance of the prostate gland may be due to prior TURP procedure. No pelvic mass or adenopathy. There are moderate/severe tricompartmental degenerative changes of the left knee. Chondrocalcinosis of the medial and lateral compartments. Small to moderate joint effusion. No acute fracture or dislocation of the left knee. A few areas of nodularity posterior to the distal femur, measuring up to 1.9 cm transverse image 204 of the axial knee images. Deep to the anterior/lateral quadriceps musculature there is some ill-defined soft tissue density measuring 2.6 x 3.2 cm (transverse axial image 114 and image 27 of the coronal images) of the knee images. Images through the left ankle show no acute fracture or dislocation. The tibiotalar joint is maintained. There is a nonspecific edema or induration of the soft tissues and subcutaneous fat of the left ankle. CT/Extremity Lower without Contra IMPRESSION: Osteopenia. No acute bony abnormality of the left hip, knee, or ankle. Moderate/severe tricompartmental degenerative changes of the left knee, with sm all to moderate left knee effusion. There are few soft tissue nodules posterior to the distal left femur as well as some ill-defined density anteriorly in the right thigh region, deep to the anterolateral right quadriceps musculature, measuring up to 2.6 x 3.2 cm. Precise etiology is uncertain. This could represent the sequela of prior trauma or infectious/infl ammatory process. Malignancy or neoplasm can not be entirely excluded. PET scan or biopsy may be considered for definitive hist ologic diagnosis. One or more dose reduction techniques were used (e.g., Automated exposure contr ol, adjustment of the mA and/or kV according to patient size, use of iterative reconstruction technique). Reading [facility]
[2024-12-20 12:10] LABS: Magnesium 2.1 mg/dL (1.6-2.6)
== END | disposition home or self-care (01) ==
LOC: CT 13:03
PROVIDERS: Anesthesiology; PCP Family Medicine; Referring Provider Student in an Organized Health Care Education/Training Program; Visit Provider Student in an Organized Health Care Education/Training Program
DX: Z01.818 Encounter for other preprocedural examination (principal); M17.12 Unilateral primary osteoarthritis, left knee
CPT/HCPCS: 36415; 73700; 83735

== ENCOUNTER 2025-01-01 11:41 | Inpatient (IN) | payer MEDICARE, OTHER, SELFPAY ==
--- NOTE | 2024-12-13 14:10 | PAT.ANESEVAL ---
Pre-Assessment Diagnosis/Proposed Procedure Planned Operative Procedure(s): ROBOTIC ASSISTED LEFT TOTAL KNEE ARTHROPLASTY Anesthesia History Anesthesia History - glost tile sorter: Anesthesia History - glost tile sorter Hx Hospitalization No 12/13/24 13:33 Any Problems With Anesthesia Yes: CONSTIPATION AFTER 12/13/24 13:33 NEPHRECTOMY 2016 Cholinesterase deficiency No 12/13/24 13:33 You/Your Family Experience No 12/13/24 13:33 fever (hyperthermia) with Relationship Recent Exposure to Contagious No 03/01/17 10:51 Disease Does patient have nerve No 12/13/24 13:33 stimulator Patient instructed to have device shut off --Does patient have Pacemaker or ICD? When Was Last Pacemaker Check QUESTION #4 FULL TEXT: You/Your Family Experience fever (hyperthermia) with Anesthesia Last Oral Intake Last Oral intake: Last Oral Intake NPO since Meds taken in AM with sips of water? Meds patient instructed to take am of surgery PONV PONV - glost tile sorter: PONV - glost tile sorter Female No 12/13/24 13:33 HX of Motion Sickness No 12/13/24 13:33 HX of N/V After Surgery No 12/13/24 13:33 Non-Smoker Yes 12/13/24 13:33 Duration of Surgery greater Yes 12/13/24 13:33 than 60 minutes Number of Risk Factors 2 12/13/24 13:33 PONV Score Moderate Risk 12/13/24 13:33 Height & Weight Height & Weight: Anesthesia: Height & Weight Height 5 ft 11 in 05/16/24 07:43 Respiratory Assessment Respiratory Assessment - glost tile sorter: Respiratory Tract Infection Hx - glost tile sorter Hx Respiratory Tract Infection No 12/13/24 13:33 STOP Sleep Apnea STOP Sleep Apnea - glost tile sorter: STOP Sleep Apnea - glost tile sorter Hx Hypertension Yes: CONTROLLED WITH MED 12/13/24 13:33 Hx Sleep Apnea Yes 12/13/24 13:33 CPAP Yes 12/13/24 13:33 BIPAP No 12/13/24 13:33 Do you snore loudly (louder than talking or can be heard Do you often feel tired/ fatigued/ sleepy during daytime? Has anyone observed you stop breathing during sleep? STOP Results Positive 12/13/24 13:33 QUESTION #5 FULL TEXT : Do you snore loudly (louder than talking or can be heard through closed doors)? Tobacco Use History Tobacco Use History - glost tile sorter: Tobacco Use History - glost tile sorter Tobacco Use Non-smoker 03/05/21 09:36 Smoking Status Never smoker 12/13/24 13:33 Hx Tobacco Use No 12/13/24 13:33 Years Smoking Packs Smoked per Day Smoking Cessation Date was within the last 15 years Hx Smoking Cessation Date Hx Smoking Cessation Counseling Hematologic Medial History Hematologic Hx - glost tile sorter: Hematologic Medical Hx - training and documentation specialist Hx of Blood Transfusion No 12/13/24 13:33 Hx of Transfusion in last 3 No 12/13/24 13:33 Months Date of Last Transfusion (if within last 3 months) Ever experience any problems No 12/13/24 13:33 with transfusion(s)? Specify any problems Hx of Preganancy in last 3 N/A 12/13/24 13:33 Months Nurse Filling Out Transfusion DSCHRIBER 12/13/24 13:33 & Questions: Date: 12/13/24 12/13/24 13:33 Time: 13:35 12/13/24 13:33 Patient unable to answer at this time (ie. confused, unrespo /Reproduction History /Reproductive History - glost tile sorter: /Reproductive Hx- glost tile sorter Hx Now No 12/13/24 13:33 Gestational Age (in weeks): EDC: Hx Hx Para Hx Section SAB No 12/13/24 13:33 PFSH Medical History (Updated 12/13/24 @ 14:10 by Debbie Abel) Alcohol use Wears hearing aid Wears glasses Wears partial dentures Wears dentures History of steroid therapy Ambulates with cane Gout Arthritis Prostate disease High cholesterol Back pain Dietary restriction Heartburn Non-smoker CPAP (continuous positive airway pressure) dependence Leg cramps History of pain when walking History of edema History of echocardiogram History of stress test Cardiology follow-up encounter Hx of closed fracture of nasal bones Hx of reduction of nasal fracture Mixed hyperlipidemia Type 2 diabetes mellitus Diabetes SOB (shortness of breath) HTN (hypertension) Paroxysmal ventricular tachycardia History of osteoarthritis Atherosclerotic heart disease of [place] coronary artery without angina pectoris Contraction, premature ventricular Fatigue Carotid bruit Dyspnea Long-term use of high-risk medication BMI 32.0-32.9,adult Obesity OSBALDO (obstructive sleep apnea) Sleep apnea Essential hypertension Dyslipidemia BPH (benign prostatic hyperplasia) Home Medications ?Medication ?Instructions ?Recorded ?Last Taken ?Type valsartan 320 mg tablet 320 mg PO QHS 06/07/20 08/22/21 History aspirin 81 mg tablet,delayed 81 mg PO DAILY 07/10/20 08/22/21 History release (Adult Low Dose Aspirin) finasteride 5 mg tablet 5 mg PO DAILY 07/10/20 Unknown History tamsulosin 0.4 mg capsule 0.4 mg PO QHS 08/22/21 Unknown History glipizide 10 mg tablet, extended 10 mg PO DAILY 10/05/23 Unknown History release 24 hr amlodipine 10 mg tablet 10 mg PO QHS 04/14/24 Unknown History mexiletine 150 mg capsule 300 mg (2 x 150 mg) PO Q12H 90 08/31/24 Unknown Rx days #360 caps cholecalciferol (vitamin D3) 125 250 mcg PO DAILY 12/13/24 Unknown History mcg (5,000 unit) tablet (Vitamin D3) cyanocobalamin-liver extract tablet 1 tab PO DAILY 12/13/24 Unknown History Allergy/AdvReac Type Severity Reaction Status Date / Time amoxicillin Allergy Hives Verified 12/13/24 13:18 diphenhydramine (From Allergy Hives Verified 12/13/24 13:18 Benadryl) Family History Mother CAD (coronary artery disease) Diabetes Surgical History (Updated 12/13/24 @ 13:50 by Debbie Abel) History of cardiac catheterization Hx of colonoscopy History of carpal tunnel surgery of right wrist History of carpal tunnel surgery of left wrist History of excision of pilonidal cyst History of shoulder surgery History of appendectomy History of back surgery History of right knee joint replacement History of nephrectomy, unilateral Social History Smoking Status: Never smoker second hand exposure: No alcohol intake: current alcohol intake frequency: 0-2 drinks per day Alcohol type: wine substance use type: does not use caffeine: No what type of physical activity do you participate in: none Audit: Pertinent Findings Pertinent Findings EKG Perinent findings: 11/16/2024 sinus rhythm 88 bpm right bundle branch block no new changes compared to 06/14/2023 EKG Echo (EF%) pertinent findings: 11/03/2022 EF 70% PA pressure 26 mmHg Consult pertinent findings: Cardiology 11/16/2024 patient with history of nonobstructive coronary artery disease denies angina stable patient on mexiletine for history of PVCs and nonsustained V. tach recommend taking patient off this medication hypertension stable Recommendation Anesthesia Recommendation Anesthesia recommendation: OPTIMIZED for anesthesia
[2025-01-01] VITALS (14 sets, daily range): BP systolic 91–146; BP diastolic 52–79; PULSE 73–88; RESP 15–18; TEMP 36.1–36.9; O2SAT 90–100; BMI 33.8
--- NOTE | 2025-01-01 | KNEE_PTH ---
PATIENT: SULEMAN RAMIREZ LOC: MS3 U#:[id number] AGE/SX: 89/M ROOM: [id number] RE01/03/[address]: Dr. Tashi Felder DO : 1935 BED: 1 DIS: 01/05/2025 SPEC #: [id number] RECD: 01/01/25 12:42 STATUS: CEDRICK VIDALESLemuel #: [id number] JENNIFER: 01/01/25 00:[address]: Tashi Felder DEPT: SURGICAL PATHOLOGY RECD BY: Keegan Rangel ENTERED: 01/01/25 12:42 SP TYPE: TOTAL KNEE OTHR DR: Dr. Juan F Clayton MD Tissues: Knee, NOS Procedures: Decalcification bone/plaque Surgery Specimen Level IV HEADER OPERATION: Total knee replacement robotic arm assist PRE-OP DIAGNOSIS: Primary osteoarthritis of left knee, varus deformity of left knee TISSUE SUBMITTED: Left knee bone and tissue MICROSCOPIC DIAGNOSIS Left knee, total knee arthroplasty: * Articular bone with reactive and degenerative changes. MICROSCOPIC DESCRIPTION Slides are reviewed. GROSS DESCRIPTION Received is one container designated bone and soft tissue left knee. The specimen consists of multiple fragments of vogel-yellow bone grossly consistent with bone tissue from the knee. There is obvious degenerative change with loss of cartilage focally on surfaces. Two branch sales and service representative sections submitted after proper decalcification. PW.mr 01/01/2025 More sections of bone are submitted in cassette 3. SJ.mr 01/04/2025 TC:5 CPT: 54374, 42790
[2025-01-01] MEDS: Lactated Ringers 1,000 ML 999 ML IV ×2 (08:03→11:20)
[2025-01-01] MEDS: Magnesium 1 GM over 15 mins IV (08:03)
[2025-01-01] MEDS: Gabapentin 600 MG Tablet PO (08:03)
[2025-01-01] MEDS: Acetaminophen 500 MG Tablet 1000 MG PO ×3 (08:04→23:02)
--- NOTE | 2025-01-01 08:09 | PCM.PRE.AN2 ---
ASA Classification* ASA Classification ASA Classification: 3 Assessment & Plan Anesthesia* Anesthesia Assessment Anesthesia Assessment: Discussed sedation and/or anesthesia options, risks, benefits, and alternatives with patient/parents/legal guardian/POA. Questions invited. The patient/parents/legal guardian/POA seems to understand and agrees to proceed with anesthesia plan. Reviewed the physical assessment, medical history, allergy history and patient home medications list prior to surgery/procedure/anesthetic and documented any changes. Performed airway and anesthesia risk assessments. Anesthesia Type Anesthesia Type: Spinal (pt with hx of back surgery, discussed that if not able to get spinal or patchy spinal may have to convert to GA) and Block (left adductor canal with ultrasound, discussed with patient including risk of nerve injury, LAST, lack of efficacy) History Source History Obtained from:: Patient, Chart and Significant Other Anesthesia Focused Assessment* Temperature: 97.9 F Pulse Rate: 87 Blood Pressure: 124/67 Respiratory Rate: 16 Pulse Ox: 100 Oxygen Delivery Method: Room Air Airway Assessment Mouth opens: 2 cm Mallampati Score: II Teeth Condition: Dentures (full upper and partial lower) Neck Range of motion (ROM): Full ROM Focused Labs Anesthesia Preop lab: CBC WBC 9.3 K/mm3 (4.4-11.0) 12/05/24 09:01 12/05/24 RBC 4.79 M/mm3 (4.6-6.2) 12/05/24 09:01 12/05/24 Hgb 13.9 g/dL (13.0-16.5) 12/05/24 09:01 12/05/24 Hct 43.4 % (40-54) 12/05/24 09:01 12/05/24 Plt Count 270 K/mm3 (150-450) 12/05/24 09:01 12/05/24 CHEMISTRY Potassium 4.5 mmol/L (3.5-5.1) 12/05/24 09:01 12/05/24 Sodium 137 mmol/L (136-145) 12/05/24 09:01 12/05/24 Magnesium 2.1 mg/dL (1.6-2.6) 12/20/24 10:10 12/20/24 Phosphorus 3.0 mg/dL (2.5-4.9) 08/31/24 09:45 08/31/24 BUN 30 mg/dL (7-18) H 12/05/24 09:01 12/05/24 Creatinine 1.59 mg/dL (0.70-1.30) H 12/05/24 09:01 12/05/24 Glucose 169 mg/dL (74-106) H 12/05/24 09:01 12/05/24 POC Glucose 208 mg/dL (70-110) H 08/23/21 11:39 08/23/21 TSH 1.70 uIU/mL (0.358-3.74) 04/19/23 09:43 04/19/23 COAG PT 13.3 SECONDS (11.9-14.4) 02/14/13 23:50 02/14/13 Pre-Assessment Diagnosis/Proposed Procedure Planned Operative Procedure(s): ROBOTIC ASSISTED LEFT TOTAL KNEE ARTHROPLASTY Anesthesia History Anesthesia History - chief of planning: Anesthesia History - chief of planning Hx Hospitalization No 12/13/24 13:33 Any Problems With Anesthesia Yes: CONSTIPATION AFTER 12/13/24 13:33 NEPHRECTOMY 2016 Cholinesterase deficiency No 12/13/24 13:33 You/Your Family Experience No 12/13/24 13:33 fever (hyperthermia) with Relationship Recent Exposure to Contagious No 01/01/25 07:49 Disease Does patient have nerve No 12/13/24 13:33 stimulator Patient instructed to have device shut off --Does patient have Pacemaker No 01/01/25 07:49 or ICD? When Was Last Pacemaker Check QUESTION #4 FULL TEXT: You/Your Family Experience fever (hyperthermia) with Anesthesia Last Oral Intake Last Oral intake: Last Oral Intake NPO since 22:00 01/01/25 07:49 Meds taken in AM with sips of Yes 01/01/25 07:49 water? Meds patient instructed to take am of surgery Any additional information?: Yes NPO since: 06:00 (black decaf coffee, no milk/creamer/sugar) Meds taken in AM with sips of water?: Yes PONV PONV - chief of planning: PONV - chief of planning Female No 12/13/24 13:33 HX of Motion Sickness No 12/13/24 13:33 HX of N/V After Surgery No 12/13/24 13:33 Non-Smoker Yes 12/13/24 13:33 Duration of Surgery greater Yes 12/13/24 13:33 than 60 minutes Number of Risk Factors 2 12/13/24 13:33 PONV Score Moderate Risk 12/13/24 13:33 Height & Weight Height & Weight: Anesthesia: Height & Weight Height 5 ft 11 in 01/01/25 07:49 Weight: 110 kg 01/01/25 07:49 Body Mass Index (BMI) 33.8 01/01/25 07:49 Respiratory Assessment Respiratory Assessment - chief of planning: Respiratory Tract Infection Hx - chief of planning Hx Respiratory Tract Infection No 12/13/24 13:33 STOP Sleep Apnea STOP Sleep Apnea - chief of planning: STOP Sleep Apnea - chief of planning Hx Hypertension Yes: CONTROLLED WITH MED 12/13/24 13:33 Hx Sleep Apnea Yes 12/13/24 13:33 CPAP Yes 12/13/24 13:33 BIPAP No 12/13/24 13:33 Do you snore loudly (louder than talking or can be heard Do you often feel tired/ fatigued/ sleepy during daytime? Has anyone observed you stop breathing during sleep? STOP Results Positive 12/13/24 13:33 QUESTION #5 FULL TEXT : Do you snore loudly (louder than talking or can be heard through closed doors)? Tobacco Use History Tobacco Use History - chief of planning: Tobacco Use History - chief of planning Tobacco Use Non-smoker 03/05/21 09:36 Smoking Status Never smoker 12/13/24 13:33 Hx Tobacco Use No 12/13/24 13:33 Years Smoking Packs Smoked per Day Smoking Cessation Date was within the last 15 years Hx Smoking Cessation Date Hx Smoking Cessation Counseling Hematologic Medial History Hematologic Hx - chief of planning: Hematologic Medical Hx - storage specialist Hx of Blood Transfusion No 12/13/24 13:33 Hx of Transfusion in last 3 No 12/13/24 13:33 Months Date of Last Transfusion (if within last 3 months) Ever experience any problems No 12/13/24 13:33 with transfusion(s)? Specify any problems Hx of Preganancy in last 3 N/A 12/13/24 13:33 Months Nurse Filling Out Transfusion DSCHRIBER 12/13/24 13:33 & Questions: Date: 12/13/24 12/13/24 13:33 Time: 13:35 12/13/24 13:33 Patient unable to answer at this time (ie. confused, unrespo /Reproduction History /Reproductive History - chief of planning: /Reproductive Hx- chief of planning Hx Now No 12/13/24 13:33 Gestational Age (in weeks): EDC: Hx Hx Para Hx Section SAB No 12/13/24 13:33 Active Medications Active Medications: Current Medications Generic Name Dose Route Start Last Admin Trade Name Freq PRN Reason Stop Dose Admin Lactated Ringer's 1,000 mls @ 999 mls/hr 01/01/25 07:30 01/01/25 08:03 IV 01/01/25 08:30 999 mls/hr .Q1H1M CYNTHIA Administration Lactated Ringer's 1,000 mls @ 999 mls/hr 01/01/25 07:30 IV 01/01/25 08:30 .Q1H1M CYNTHIA Lactated Ringer's 1,000 mls @ 125 mls/hr 01/01/25 07:30 IV 01/01/25 15:29 .Q8H CYNTHIA Insulin Human Lispro 1 - 6 unit 01/01/25 07:30 Insulin Lispro 100 Unit/Ml Insuln.Pen SC 01/01/25 23:59 Q4H PRN PRN BG>/= 180, SEE PROTOCOL Protocol PFSH Medical History Alcohol use Wears hearing aid Wears glasses Wears partial dentures Wears dentures History of steroid therapy Ambulates with cane Gout Arthritis Prostate disease High cholesterol Back pain Dietary restriction Heartburn Non-smoker CPAP (continuous positive airway pressure) dependence Leg cramps History of pain when walking History of edema History of echocardiogram History of stress test Cardiology follow-up encounter Hx of closed fracture of nasal bones Hx of reduction of nasal fracture Mixed hyperlipidemia Type 2 diabetes mellitus Diabetes SOB (shortness of breath) HTN (hypertension) Paroxysmal ventricular tachycardia History of osteoarthritis Atherosclerotic heart disease of [place] coronary artery without angina pectoris Contraction, premature ventricular Fatigue Carotid bruit Dyspnea Long-term use of high-risk medication BMI 32.0-32.9,adult Obesity OSBALDO (obstructive sleep apnea) Sleep apnea Essential hypertension Dyslipidemia BPH (benign prostatic hyperplasia) Home Medications ?Medication ?Instructions ?Recorded ?Last Taken ?Type valsartan 320 mg tablet 320 mg PO QHS 06/07/20 12/31/24 History aspirin 81 mg tablet,delayed 81 mg PO DAILY 07/10/20 12/27/24 History release (Adult Low Dose Aspirin) finasteride 5 mg tablet 5 mg PO DAILY 07/10/20 01/01/25 06:00 History tamsulosin 0.4 mg capsule 0.4 mg PO QHS 08/22/21 12/31/24 History glipizide 10 mg tablet, extended 10 mg PO DAILY 10/05/23 12/31/24 History release 24 hr amlodipine 10 mg tablet 10 mg PO QHS 04/14/24 12/31/24 History mexiletine 150 mg capsule 300 mg (2 x 150 mg) PO Q12H 90 08/31/24 01/01/25 06:00 Rx days #360 caps cholecalciferol (vitamin D3) 125 250 mcg PO DAILY 12/13/24 12/31/24 History mcg (5,000 unit) tablet (Vitamin D3) cyanocobalamin-liver extract tablet 1 tab PO DAILY 12/13/24 12/31/24 History Allergy/AdvReac Type Severity Reaction Status Date / Time amoxicillin Allergy Hives Verified 01/01/25 07:46 diphenhydramine (From Allergy Hives Verified 01/01/25 07:46 Benadryl) Family History Mother CAD (coronary artery disease) Diabetes Surgical History History of cardiac catheterization Hx of colonoscopy History of carpal tunnel surgery of right wrist History of carpal tunnel surgery of left wrist History of excision of pilonidal cyst History of shoulder surgery History of appendectomy History of back surgery History of right knee joint replacement History of nephrectomy, unilateral Social History Smoking Status: Never smoker second hand exposure: No alcohol intake: current alcohol intake frequency: 0-2 drinks per day Alcohol type: wine substance use type: does not use caffeine: No what type of physical activity do you participate in: none Review of Systems (Anesthesia) ROS Narrative System reviewed and no additional complaints, except as documented.
[2025-01-01 08:25] LABS: Bedside Glucose 167 mg/dL (74-106)
[2025-01-01] MEDS: Cefazolin 2 GM in Syringe IV ×2 (09:11→16:49)
[2025-01-01] MEDS: TXA 1000mg in NS100 100ml (IVPB at Closure) 660 MG IV (09:16)
[2025-01-01] MEDS: dexAMETHasone 10 MG/ML Vial IV (09:30)
[2025-01-01] MEDS: Joint Pain Solution (NO KETOROLAC) IV (10:30)
[2025-01-01] MEDS: TXA 1000mg in NS100 100ml (IVPB at Incision) 660 MG IV (10:46)
--- NOTE | 2025-01-01 11:27 | PCM.POST.ANE ---
Anesthesia: Postop Eval I Current Vital Signs Temperature: 97.1 F Pulse Rate: 87 Blood Pressure: 96/57 Respiratory Rate: 16 Pulse Ox: 95 Oxygen Delivery Method: Nasal Cannula Oxygen Flow Rate (L/min): 4 Assessment Airway patent: Yes Spontaneous unlabored respirations: Yes Mental status: Awake and Calm nausea: No Vomiting: No Anesthesia Complication: No Fluid Hydration Crystalloid volume administer (ml): 1,300 Total IV fluid infused: 1,300 Progress Note Anesthesia document: Postop Eval 1 completed: Yes
--- NOTE | 2025-01-01 12:00 | PCM.OPRPT ---
Operative Report (Standard) Operative Information Date of Procedure: 01/01/25 Pre-Operative Diagnosis: Left knee osteoarthritis Post-Operative Diagnosis: Left knee osteoarthritis Surgery/Procedure Performed: Robotic arm assisted left total knee arthroplasty manager universal: Yes Aoc Plans Intelligence Officer Chief: Evelyn Maloney Tasks completed by rn first assist: Opening & closing, Implanting device, Hemostasis: Electrocautery and Retracting Additional assistant strength coach?: No Type of Anesthesia: IV Sedation and Spinal RN Documented Start/Stop Times: Operation Date: 01/01/25 09:30 Case Time Into Pre-Op 01/01/25 07:17 Anesthesia Start 01/01/25 09:11 Into Room 01/01/25 09:11 Procedure Start 01/01/25 09:36 Anesthesia End 01/01/25 11:14 Out of Room 01/01/25 11:14 Procedure End 01/01/25 11:14 Into Recovery 01/01/25 11:16 Procedure Start Time: 09:36 Procedure Stop Time: 11:14 Select all DRAINS/GRAFTS/IMPLANTS that apply: Implanted device Implanted device details: [place] cemented triathlon CR size #6, tibial baseplate size #7, CS polyethylene size 11 mm Estimated Blood Loss: 50 cc Specimen collected: Yes Description of specimen(s) removed: Left total knee resections Description of surgery: Patient was identified in the preoperative holding area by name, medical record number, and date of . Informed consent was confirmed with the patient. The operative knee was marked with a surgical marker. At time of his procedure, patient brought to the operative suite and positioned supine a standard operating table. Anesthesia then administered a spinal anesthetic. He was then repositioned in the supine position with all bony prominences well-padded. We then placed a well-padded pneumatic tourniquet on the left upper thigh. The left upper extremity was brought across patient's chest throughout the procedure. We then prepped and draped the left lower extremity in a normal, sterile orthopedic fashion. We performed a timeout with all parties in attendance in agreement with the side, site, operation be performed. No concerns were voiced and would like to proceed with surgery. 2 g Ancef was administered prior to the incision by anesthesia staff as well as 1 g IV TXA. First exsanguinated the left lower extremity with a Esmarch bandage. Tourniquet was inflated to 280 mmHg which remained elevated for approximately 65 minutes. Esmarch was removed. I planned a standard midline approach to the left knee approximately 15 cm in length. Skin was sharply incised with a 10 blade scalpel developing full-thickness layers down to the retinaculum. Layers were developed identifying the VMO. I then planned a standard medial parapatellar arthrotomy performed in flexion. The anterior horn of the medial meniscus was released. Hoffa's fat pad was then released. I then everted the patella in extension and brought the knee into 90 degrees of flexion. The anterior horn of the lateral meniscus was then released. The ACL was split in its mid substance with a 10 blade. We then brought the knee back into extension. Patella was examined and appeared to be mildly degenerative and was left moapa. I then placed pins in the metaphyseal distal femur medial to lateral for the Ag arrays. In similar fashion, I made a 2 cm incision approximately a handsbreadth distal to the tibial tubercle along the medial aspect of the tibia, drilling 2 bicortical pins for the tibial array. The knee was brought into flexion. The patella was subluxed laterally but not everted. Medial lateral retractors were placed. We then utilized the JayCut software to confirm our planned surgical procedure and oriented with the patient's osseous anatomy. All checks with the JayCut system were confirmed. Patient had a flexible varus deformity after performing stress examination utilizing the JayCut software. Sawblade was then brought in. I first started with the tibial cut, ensuring protection of the MCL and patellar tendon. A tibial wafer was then excised. I then proceeded to make the posterior femoral, anterior, anterior chamfer cuts with the same blade. Ligaments were protected with Intermedics retractors. Sawblade was then exchanged to perform the distal femoral and posterior chamfer cuts. The robot was then removed from the surgical field. Remaining loose bone and meniscus was excised carefully. Posterior osteophytes were removed from the distal femur with a curved osteotome and rongeur. Trial components were then placed. Balance was excellent in both extension and 90 degrees flexion. No mid flexion instability was apparent. Tracking was excellent. We then marked for tibial baseplate. Distal femoral pegs were drilled. Tibial keel was punched. Trials were removed. Periarticular block was administered. The wound was copiously irrigated with normal saline solution. Simplex cement was then mixed on the back table. Components were then cemented in place with excess cement being removed. Cement was allowed to cure with the components in full extension utilizing a 11 mm trial polyethylene component. While the cement was curing, Betadine solution was irrigated into the wound and the wound edges. After cement had cured fully, trial polyethylene was removed. Tourniquet was deflated. Hemostasis was excellent. An additional 1 g TXA was administered IV. I selected a size 11 mm polyethylene which was placed and impacted per warehouse technician recommendations. Final components appeared very well balanced with excellent range of motion. There is no significant remaining flexion contracture. The wound was copiously irrigated with normal saline solution. Capsule was closed watertight with #1 strata fix barbed suture. Deeper bursal layer was reapproximated with 0 Vicryl suture. Dermis was reapproximated buried interrupted 2-0 Vicryl suture. Skin was finally reapproximated john. Patient tolerated the procedure well without apparent complication. He was safely awakened in the operative suite, transferred to his hospital bed and subsequently to PACU in stable condition. Need for skilled assistant strength coach: Evelyn Maloney PA-C was critical to the outcome of the case. During the course of the procedure the physician assistant strength coach played a vital role. Her intimate knowledge of my steps in the procedure aided in safe and expedient completion of the procedure. The PA played a vital role in positioning particularly in obtaining the appropriate positioning. The PA was also vital in the retraction of soft tissues during the exposure and projecting vital structures. The PA was also vital and protecting soft tissues during times of bony cuts. She also played a vital role in closure with my direct supervision. The PA was also important during reduction and dislocation of the joint and trials intraoperatively. Post Operative Plan: Patient will be placed in observation overnight. Likely plan for discharge home postoperative day #1 Weightbearing: Range of motion and weightbearing as tolerated left lower extremity. Antibiotics: Ancef 2 g every 8 hours x 3 doses DVT Prophylaxis: Multimodal with twice daily aspirin 81 mg, SCDs, TEMITOPE hose, early mobilization Linder: None Dressing: Maintain silver dressing x5 days X-Rays: 2-week x-rays in the office. Follow-up: 2 weeks in my office for staple removal Surgical Findings: Severe left knee osteoarthritis. Good tracking of the patella after final implantation Complications Complications: No
[2025-01-01] MEDS: Lactated Ringers 1,000 ML 125 ML IV (12:14)
[2025-01-01] MEDS: Insulin Lispro 100 UNIT/ML INSULN.PEN SC (12:35)
[2025-01-01 12:58] LABS: Bedside Glucose 214 mg/dL (74-106)
[2025-01-01] MEDS: oxyCODONE 5 MG Tablet PO ×2 (14:12→23:21)
--- NOTE | 2025-01-01 15:26 | POSTOPAN2_ITS ---
Anesthesia Postop Eval I Sum Postop Eval Completion status Anesthesia document: Postop Eval 1 completed: Yes Anesthesia Postop Eval I Summary Anesthesia Postop Eval I Summary: Anesthesia Postop Eval I: Assessment Summary Airway patent Yes 01/01/25 11:28 SEC REPORTING CONSULTANT.BHOS Spontaneous unlabored Yes 01/01/25 11:28 SEC REPORTING CONSULTANT.OS respirations Mental status Awake,Calm 01/01/25 11:28 SEC REPORTING CONSULTANT.BHOS nausea No 01/01/25 11:28 SEC REPORTING CONSULTANT.BHOS Vomiting No 01/01/25 11:28 SEC REPORTING CONSULTANT.[facility] Anesthesia Postop Eval I: Fluid Summary Crystalloid volume administer 1,300 01/01/25 11:28 SEC REPORTING CONSULTANT.BHOS (ml) Colloids volume administered ( ml) Blood Product volume administered (ml) Total IV fluid infused 1,300 01/01/25 11:28 SEC REPORTING CONSULTANT.[facility] Anesthesia Postop Eval I: Summary Notes Anesthesia Complication No 01/01/25 11:28 SEC REPORTING CONSULTANT.[facility] Anesthesia Complication Comment: Post-operative progress note Anesthesia: Postop Eval II Evaluation Mental status: Awake and Calm Pain Level: 3 nausea: No Vomiting: No Complications Anesthesia Complication: No
--- NOTE | 2025-01-01 15:26 | PCM.POSTANE2 ---
Anesthesia Postop Eval I Sum Postop Eval Completion status Anesthesia document: Postop Eval 1 completed: Yes Anesthesia Postop Eval I Summary Anesthesia Postop Eval I Summary: Anesthesia Postop Eval I: Assessment Summary Airway patent Yes 01/01/25 11:28 DESK ASSISTANT.BHOS Spontaneous unlabored Yes 01/01/25 11:28 DESK ASSISTANT.OS respirations Mental status Awake,Calm 01/01/25 11:28 DESK ASSISTANT.BHOS nausea No 01/01/25 11:28 DESK ASSISTANT.BHOS Vomiting No 01/01/25 11:28 DESK ASSISTANT.[facility] Anesthesia Postop Eval I: Fluid Summary Crystalloid volume administer 1,300 01/01/25 11:28 DESK ASSISTANT.BHOS (ml) Colloids volume administered ( ml) Blood Product volume administered (ml) Total IV fluid infused 1,300 01/01/25 11:28 DESK ASSISTANT.[facility] Anesthesia Postop Eval I: Summary Notes Anesthesia Complication No 01/01/25 11:28 DESK ASSISTANT.[facility] Anesthesia Complication Comment: Post-operative progress note Anesthesia: Postop Eval II Evaluation Mental status: Awake and Calm Pain Level: 3 nausea: No Vomiting: No Complications Anesthesia Complication: No
--- NOTE | 2025-01-01 16:04 | PCM.PN.HOSP ---
Reason for Visit Reason for Visit: Diagnoses Encounter for other preprocedural examination (01/01/25) Subjective Subjective Consult request by Dr. Felder for postoperative medical management. Patient claims some pain in his left knee. Feels that his toes on his left foot are cold. Denies any other complaints. Objective Data Objective Data Vital Signs: Vital Signs Temp Pulse Resp BP Pulse Ox O2 Del Method O2 Flow Rate 36.4 C L 73 18 126/65 H 96 Room Air 4 01/01/25 16:02 01/01/25 16:02 01/01/25 16:02 01/01/25 16:02 01/01/25 16:02 01/01/25 16:02 01/01/25 12:00 Oxygen Flow Rate (L/min) 4 Oxygen Delivery Method Room Air Weight: 110 kg Body Mass Index (BMI) 33.8 Intake & Output: Intake and Output for Last 24 Hours 12/30/24 12/31/24 01/01/25 23:59 23:59 23:59 Intake Total 2342 / 2342 Balance 2342 / 2342 Lab / Micro Data Labs: Laboratory Results - last 24 hr 01/01/25 07:44: POC Glucose 167 H 01/01/25 12:26: POC Glucose 214 H Micro: Microbiology 12/20/24 10:08 Swab (Method) Nasal Screen MRSA/MSSA - Final Physical Exam Const no apparent distress HEENT head/scalp atraumatic and moist oral mucous membranes Resp normal respiratory effort, no retractions, no use of accessory muscles and clear to auscultation bilaterally Cardio regular rate, regular rhythm, S1 normal heart sound and S2 normal heart sound GI normal to inspection, nondistended, normoactive bowel sounds, soft to palpation, non-tender and non-distended Extremity normal to inspection, full ROM and no clubbing, cyanosis or edema Neuro Sensorium / Orientation: awake and alert Assessment & Plan Assessment/Plan (1) Status post left knee replacement: PLAN: Plan OSBALDO: Stable. Normally wears a CPAP and states that he will be fine tonight without it. 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 on Mexiletine. Follow up with cardiology per routine. Hypertension: Continue with amlodipine and valsartan BPH: Continue tamsulosin. Status post left knee replacement: Management per orthopedics. VTE prophylaxis per orthopedics. Thank for the consult. The hospital service will follow for any acute issues that may arise. Charges/Coding Visit Charges Office Visits / Consults: 02875 OV L2 Est 10min
[2025-01-01] MEDS: 0.9% Saline Lock 10 ML Syringe IV (16:49)
--- NOTE | 2025-01-01 20:48 | NURSING ---
2030: AWAKE & ALERT X 3. ASSIST X 2 TO STAND PATIENT AT THE BEDSIDE WITH ASSIST OF WALKER. PT C/O FEELING DIZZY. ASSISTED PATIENT WITH USE OF URINAL, VOIDED 200 CC CLEAR YELLOW URINE. ASSISTED PATIENT BACK TO BED.
[2025-01-01] MEDS: Losartan Potassium 100 MG Tablet PO (20:54)
[2025-01-01] MEDS: Tamsulosin HCl 0.4 MG Capsule PO (23:01)
[2025-01-01] MEDS: amLODIPine 10 MG Tablet PO (23:02)
[2025-01-01] MEDS: Senna/Docusate Sodium 1 Tablet 2 TABLET PO (23:02)
[2025-01-01] MEDS: Mexiletine 150 MG Capsule 300 MG PO (23:02)
[2025-01-01] MEDS: Aspirin 81 MG TAB.CHEW PO (23:03)
[2025-01-02] VITALS (12 sets, daily range): BP systolic 111–180; BP diastolic 75–93; PULSE 88–101; RESP 15–25; TEMP 36.7–37.1; O2SAT 88–96
[2025-01-02] MEDS: Cefazolin 2 GM in Syringe IV ×2 (01:28→10:01)
[2025-01-02] MEDS: 0.9% Saline Lock 10 ML Syringe IV ×2 (01:28→10:14)
[2025-01-02] MEDS: Acetaminophen 500 MG Tablet 1000 MG PO ×2 (05:08→14:27)
[2025-01-02 05:38] LABS: Hematocrit 37.1 % (40-54); Hemoglobin 12.1 g/dL (13.0-16.5); Mean Corp Hgb Conc 32.6 g/dL (32-36); Mean Corpuscular Hgb 29.3 pg (27.0-32.0); Mean Corpuscular Volume 89.8 fL (80-94); Mean Platelet Vol. 9.6 fl (6.2-12.0); Platelet Count 223 K/mm3 (150-450); RBC Distribution Width CV 12.8 % (11.6-14.6); Red Blood Count 4.13 M/mm3 (4.6-6.2); White Blood Count 12.4 K/mm3 (4.4-11.0)
[2025-01-02 05:55] LABS: Scan Indicated on CBC? Y/N NO
[2025-01-02 06:00] LABS: Anion Gap 8 (5-15); BUN 29 mg/dL (7-18); BUN/Creat Ratio 16.7 RATIO (10-20); Calcium,Total 9.1 mg/dL (8.5-10.1); Chloride 100 mmol/L (98-107); Creatinine, Serum 1.74 mg/dL (0.70-1.30); EST Glomerular Filtration Rate 40 mL/min (>60); Est Glom Filt Rate - Afr Amer 48 mL/min (>60); Estimated Creatinine Clearance 37.02 ml/min; Glucose 274 mg/dL (74-106); Potassium 4.7 mmol/L (3.5-5.1); Sodium Level 128 mmol/L (136-145)
[2025-01-02] MEDS: Mexiletine 150 MG Capsule 300 MG PO (09:54)
[2025-01-02] MEDS: Aspirin 81 MG TAB.CHEW PO (09:54)
[2025-01-02] MEDS: Senna/Docusate Sodium 1 Tablet 2 TABLET PO ×2 (09:55→23:51)
[2025-01-02] MEDS: Finasteride 5 MG Tablet PO (09:55)
[2025-01-02] MEDS: oxyCODONE 5 MG Tablet PO (10:31)
--- NOTE | 2025-01-02 11:02 | CASEMGMT ---
ROSHNI ROJAS Assessment: Face to Face with pt for initial transition planning/care coordination assessment. ROSHNI ROJAS introduced self and role at [facility], pt voices understanding and consents to assessment. Pt is A&O x4 and answers all questions appropriately at this time. Pt sitting up in chair in no distress with and dtr Michelle at bedside. Care providers, pharmacy, and demographics verified/updated. Admitting Dx:TKR Strata Score: 2 PCP:Matilde Specialists:Emerita, ortho; Penny, cardio; Ginny, uro Preferred Pharmacy: [facility] Insurance: [employer] Prescription Benefit: yes LNOK: Elizabeth Torres, ; Michelle Arias, dtr Living Arrangements: Pt lives with in a single story home with no steps to enter. Pt reports he is I in ADLs and performs IADLs. Transportation: Pt drives self and denies concerns with transportation. Pt dtr Maricel will transport pt until he can drive again. DME:adjustable bed, FWW, w/c, walk in shower HHC/SNF: Pt denies hx of HHC, pt has been to [facility] Rehab or TCU, he is not sure. Pt and family state they would like pt to go to the rehab unit at [facility]. They deny need for a list. Spoke with PT who eval'd pt. They are aware that SW will follow up with them. Pt states no further concerns/needs. CM to follow. Advised pt to ask CM if any further questions/concerns/needs arise, voices understanding. Pt Goal: [facility] Rehab unit Plan: TBD, Updated SW on request to [facility] Rehab unit Scott BARAKAT CM
--- NOTE | 2025-01-02 11:26 | CASEMGMT ---
Addendum entered by Syeda Torres 01/02/25 11:41: RU able to accept referral. Pt update. Physician updated. Plan: RU; when medically ready MAAME Morgan Original Note: Social Work- SW received notice that pt would like referral to [facility] IRU. SW completed referral. SW remains available to follow. MAAME Morgan
--- NOTE | 2025-01-02 11:45 | DS.PCM_ITS ---
Providers Date of Admission: 01/01/25 Date of Discharge: 01/02/25 Primary Care Physician: Dr. Juan F Clayton MD Consultations 01/01/25 11:40 Consult: Hospitalist Routine Consulting Provider: Deon Levi Reason for Consult: s/p L total knee, medical management EMERGENT Consult: No MD Notified: Yes Date Notified: 01/01/25 Time Notified: 15:38 Method of Notification: Text Reason For Visit: Total Knee Replacement Robotic Arm Vidya Diagnosis Discharge Diagnosis (1) Status post left knee replacement: Status: Acute Code(s): Z96.652 - Presence of left artificial knee joint Plan: 1. Will continue PT today. Weightbearing as tolerated 2. plan for discharge to inpatient rehab at [facility]. Patient is medically optimized for discharge. 3. Patient will follow up for post op appointment on as previously scheduled 2 weeks 4. WBC 12.4 acute reactive leukocytosis: secondary to pre operative decadron. no acute systemic signs of infection. will monitor, and likely self resolve. 5. H/H 12.1/37.1: post operavtive anemia secondary to acute blood loss intraoperatively. Patient is asymptomatic at this time. No intraoperative complications. will continue to monitor. no acute interventions. 6. DVT prophylaxis : Aspirin 81 mg twice daily x 4 weeks 7. Pain control: patient instructed to take tylenol 500mg 2 tablets TID. and oxycodone 1-2 tablets every 4-6 hours only as needed for pain control. 8. Patient also given a prescription of meloxicam, senna 9. ok to remove post op dressing. post op day 5 Medications at Discharge Home Medications valsartan 320 mg tablet 320 mg PO QHS 06/07/20 aspirin 81 mg tablet,delayed release (Adult Low Dose Aspirin) 81 mg PO DAILY 07/10/20 Held on 01/02/25. Instructions: Resume on 01/30/25. finasteride 5 mg tablet 5 mg PO DAILY 07/10/20 tamsulosin 0.4 mg capsule 0.4 mg PO QHS 08/22/21 glipizide 10 mg tablet, extended release 24 hr 10 mg PO DAILY 10/05/23 amlodipine 10 mg tablet 10 mg PO QHS 04/14/24 mexiletine 150 mg capsule 300 mg (2 x 150 mg) PO Q12H 90 days #360 caps 08/31/24 cholecalciferol (vitamin D3) 125 mcg (5,000 unit) tablet (Vitamin D3) 250 mcg PO DAILY 12/13/24 cyanocobalamin-liver extract tablet 1 tab PO DAILY 12/13/24 acetaminophen 500 mg tablet 1,000 mg (2 x 500 mg) PO Q8 #180 tabs 01/02/25 aspirin 81 mg chewable tablet 81 mg PO BID 4 weeks #56 tabs 01/02/25 meloxicam 7.5 mg tablet 7.5 mg PO BID #60 tabs 01/02/25 oxycodone 5 mg tablet 5 - 10 mg (1 - 2 x 5 mg) PO .q4-6 hrs prn PRN Pain Score 4-10 7 days #60 tabs 01/02/25 sennosides 8.6 mg-docusate sodium 50 mg tablet (Stimulant Laxative Plus) 2 tab PO BID #14 tabs 01/02/25 Hospital Course Operations total knee replacement (Left) Summary of Care Provided Hospital Course: Patient is s/p left sided total knee arthroplasty with Dr. Felder 12/28/2024. Patient resting comfortably in bed. Rates pain 5/ 10 at rest. With movement 5 /10. States taking Tylenol and oxycodone and ice help to relieve pain. Patient has been up with therapy. Walking with the assit of a walker. Afebrile, no chest pain, shortness of breath, negative calf pain/ erythema, and no other signs of DVT. Patient with uncomplicated postoperative course. He was evaluated by physical therapy and recommended for inpatient rehab. Discharged to inpatient rehab when medically ready. At this point he is medically optimized from orthopedic standpoint. Physical Exam Narrative Patient resting comfortably in bed No signs of acute distress Satting well on room air Limb is warm to touch, Sensation intact throughout entire lower extremity, including saphenous, sural, superficial and deep peroneal, and tibial distribution. DP/PT pulses bounding. Dorsiflexion plantarflexion strength 5/5 Dressing clean dry intact Calf nontender to palpation, no erythema, no edema. Negative Homans Weight / BMI Weight Weight: 110 kg Body Mass Index (BMI) 33.8 ABG / Lab / Microbiology Data 01/02/25 05:15 01/02/25 05:15 Laboratory: Laboratory Results - last 24 hr 01/01/25 12:26: POC Glucose 214 H 01/02/25 05:15: WBC 12.4 H, RBC 4.13 L, Hgb 12.1 L, Hct 37.1 L, MCV 89.8, MCH 29.3, MCHC 32.6, RDW Std Deviation 42.0, RDW Coeff of Valeria 12.8, Plt Count 223, MPV 9.6, Sodium 128 L, Potassium 4.7, Chloride 100, Carbon Dioxide 21.0, Anion Gap 8, BUN 29 H, Creatinine 1.74 H, Estim Creat Clear Calc 37.02, Est GFR (MDRD) Af Amer 48 L, Est GFR (MDRD) Non-Af 40 L, BUN/Creatinine Ratio 16.7, Glucose 274 H, Calcium 9.1 Microbiology: Microbiology 12/20/24 10:08 Swab (Method) Nasal Screen MRSA/MSSA - Final D/C Instructions Discharge Diet: No restrictions Discharge Activity: Return to Normal Activity, May Not Drive and May Shower Weight Bearing Status: Weight bearing as tolerated Keep extremity elevated above heart level: Operative Extremity Call your doctor if your incision/area has: Continuous Slow Oozing, Sudden Increased Bleeding, Increased Pain/ Swelling, Increased Redness, Foul Smelling Discharge and Swelling at the incision site Call your doctor if you observe: Fever of 101 or Higher, Numbness or Tingling, Inability to have a bowel movement, Shortness of breath, Dizziness, Chest pain, Increased palpitations (irregular heartbeat), Calf discomfort and Uncontrolled pain Remove Dressing in: 1 week Cleanse incision/area with: Soap & Water and Keep Dressing Clean & Dry DC O2, CPAP, BIPAP Needs Home O2 Discharge instructions: No DC home with Oxygen: No When: 2 weeks as previously scheduled. Meaningful Use Info Meaningful Use Meaningful Use Diagnoses (Choose all that apply): None applicable Ischemic Stroke Statin Dosing Therapy Reference: STATIN DOSE THERAPY REFERENCE: * Patients > 75 years receive moderate or high dose statin therapy. * Patients 75 years or YOUNGER should receive HIGH intensity statin dose unless contraindicated. You will be required to document reason for non-treatment if statin daily dose does not meet guidelines. HIGH DOSE STATIN THERAPY DAILY Atorvastatin > than or = to 40 mg Rosuvastatin > than or = to 20 mg Amlodipine + Atorvastatin > than or = to 2.5/40 mg Ezetimibe + Simvastatin 10/80 mg Simvastatin 80mg Discharge Plan Admission Admit Date/Time: 01/01/25 11:41 Attending Provider: Tashi Felder Primary Care Provider: Juan F Clayton Consulting Providers: Tashi Penny Discharge Orders/Prescriptions Prescriptions: New acetaminophen 500 mg Tablet 1,000 mg PO Q8 Qty: 180 0RF aspirin 81 mg Tablet,Chewable 81 mg PO BID 28 Days Qty: 56 0RF meloxicam 7.5 mg Tablet 7.5 mg PO BID Qty: 60 0RF sennosides-docusate sodium [Stimulant Laxative Plus] 8.6-50 mg Tablet 2 tab PO BID Qty: 14 0RF oxycodone 5 mg Tablet 5 - 10 mg PO .q4-6 hrs prn PRN (Reason: Pain Score 4-10) 7 Days Qty: 60 0RF Continued finasteride 5 mg tablet 5 mg PO DAILY valsartan 320 mg tablet 320 mg PO QHS glipizide 10 mg tablet extended release 24hr 10 mg PO DAILY Patient Comments: TAKE 1 TABLET BY MOUTH EVERY DAY amlodipine 10 mg tablet 10 mg PO QHS tamsulosin 0.4 mg capsule 0.4 mg PO QHS cholecalciferol (vitamin D3) [Vitamin D3] 125 mcg (5,000 unit) tablet 250 mcg PO DAILY cyanocobalamin-liver extract Tablet 1 tab PO DAILY mexiletine 150 mg capsule 300 mg PO Q12H 90 Days Qty: 360 3RF Held aspirin [Adult Low Dose Aspirin] 81 mg tablet,delayed release (DR/EC) 81 mg PO DAILY Hold Instructions: Resume on 01/30/25. Referrals / Follow Up: Juan F Clayton MD [Primary Care Provider] - Disposition Disposition (needs filled in before D/C Order can be placed): Inpatient Rehab Unit/Facility
--- NOTE | 2025-01-02 11:51 | CASEMGMT ---
Met with patient and his daughters to complete NORMAN form. NORMAN form explained to patient who voiced understanding. Pt requested his daughter sign form. Original form placed in pt?s chart and copy provided to patient. Mari Smith, Discharge Planning Asst
--- NOTE | 2025-01-02 12:16 | PCM.PN.HOSP ---
Subjective Subjective Pain is controlled, no issues overnight. Awaiting for PT/OT to work with him today. Objective Data Objective Data Vital Signs: Vital Signs Temp Pulse Resp BP Pulse Ox O2 Del Method O2 Flow Rate 98.4 F 89 16 168/77 H 94 Nasal Cannula 3 01/02/25 08:23 01/02/25 08:24 01/02/25 08:23 01/02/25 08:24 01/02/25 08:23 01/02/25 08:23 01/02/25 10:47 Oxygen Flow Rate (L/min) 3 Oxygen Delivery Method Nasal Cannula Weight: 242 lb 8.136 oz Body Mass Index (BMI) 33.8 Intake & Output: Intake and Output for Last 24 Hours 01/01/25 01/02/25 01/03/25 03:59 03:59 03:59 Intake Total 3782 / 3782 220 / 220 Output Total 650 / 650 350 / 350 Balance 3132 / 3132 -130 / -130 Lab / Micro Data 01/02/25 05:15 01/02/25 05:15 Labs: Laboratory Results - last 24 hr 01/01/25 12:26: POC Glucose 214 H 01/02/25 05:15: WBC 12.4 H, RBC 4.13 L, Hgb 12.1 L, Hct 37.1 L, MCV 89.8, MCH 29.3, MCHC 32.6, RDW Std Deviation 42.0, RDW Coeff of Valeria 12.8, Plt Count 223, MPV 9.6, Sodium 128 L, Potassium 4.7, Chloride 100, Carbon Dioxide 21.0, Anion Gap 8, BUN 29 H, Creatinine 1.74 H, Estim Creat Clear Calc 37.02, Est GFR (MDRD) Af Amer 48 L, Est GFR (MDRD) Non-Af 40 L, BUN/Creatinine Ratio 16.7, Glucose 274 H, Calcium 9.1 Micro: Microbiology 12/20/24 10:08 Swab (Method) Nasal Screen MRSA/MSSA - Final Physical Exam Narrative General: Alert, Oriented x3, Cooperative, No apparent distress HEENT: Atraumatic, PERRLA, EOMI, Normocephalic Oral: Moist Mucosa Neck: Supple, No JVD Lungs: Diminished, Normal air movement, No rhonchi, No wheeze, No rales Cardiovascular: Regular rate, Regular Rhythm, Normal S1, Normal S2, No murmurs Abdomen: Soft, Non Tender, Non-Distended, No Hepato-splenomegaly Extremities: No edema, Capillary Refill Less than 3 Seconds Skin: Surgical dressing CDI Musculoskeletal: No Tenderness to Palpation of Joints or Extremities Neurological: No focal neurological deficits, Motor Exam 5/5 strength throughout, Sensory exam intact to light touch and pain Psych/Mental Status: Normal Affect, Appropriate Assessment & Plan Assessment/Plan (1) Status post left knee replacement: PLAN: Plan 1. Status post left knee replacement on 01/01/2025 ? PT/OT?pain management per primary ? Leukocytosis currently is reactive ? Renal function is at baseline can resume his home medications ? Given age would recommend outpatient follow-up with his PCP for monitoring of his lab work postsurgery ? Medically stable for discharge 2. Essential HTN/HLD ? Blood pressure stable ? Can resume his home blood pressure medications ? Continue with aspirin 3. DM2 ? Continue with his home medications on discharge ? Will monitor make adjustments as necessary DVT: Aspirin twice daily Charges/Coding Visit Charges Office Visits / Consults: [id number] OV L3 Est 20min
--- NOTE | 2025-01-02 12:27 | PCM.PN.ORT ---
Subjective Subjective Patient is s/p left sided total knee arthroplasty with Dr. Felder 12/28/2024. Patient resting comfortably in bed. Rates pain 5/ 10 at rest. With movement 5/10. States taking Tylenol and oxycodone and ice help to relieve pain. Patient has been up with therapy. Walking with the assit of a walker. Afebrile, no chest pain, shortness of breath, negative calf pain/ erythema, and no other signs of DVT. Patient patient is extremely tired today. He is requiring 3 L of oxygen nasal cannula. He did forget to wear his CPAP machine last night. He has been accepted to rehab when medically cleared. Objective Data Objective Data Vital Signs: Vital Signs Temp Pulse Resp BP Pulse Ox O2 Del Method O2 Flow Rate 98.4 F 89 16 168/77 H 94 Nasal Cannula 3 01/02/25 08:23 01/02/25 08:24 01/02/25 08:23 01/02/25 08:24 01/02/25 08:23 01/02/25 08:23 01/02/25 10:47 Oxygen Flow Rate (L/min) 3 Oxygen Delivery Method Nasal Cannula Weight: 110 kg Body Mass Index (BMI) 33.8 Intake & Output: Intake and Output for Last 24 Hours 12/31/24 01/01/25 01/02/25 23:59 23:59 23:59 Intake Total 3762 / 3762 240 / 240 Output Total 450 / 650 550 / 550 Balance 3312 / 3112 -310 / -310 Lab / Micro Data 01/02/25 05:15 01/02/25 05:15 Labs: Laboratory Results - last 24 hr 01/01/25 12:26: POC Glucose 214 H 01/02/25 05:15: WBC 12.4 H, RBC 4.13 L, Hgb 12.1 L, Hct 37.1 L, MCV 89.8, MCH 29.3, MCHC 32.6, RDW Std Deviation 42.0, RDW Coeff of Valeria 12.8, Plt Count 223, MPV 9.6, Sodium 128 L, Potassium 4.7, Chloride 100, Carbon Dioxide 21.0, Anion Gap 8, BUN 29 H, Creatinine 1.74 H, Estim Creat Clear Calc 37.02, Est GFR (MDRD) Af Amer 48 L, Est GFR (MDRD) Non-Af 40 L, BUN/Creatinine Ratio 16.7, Glucose 274 H, Calcium 9.1 Micro: Microbiology 12/20/24 10:08 Swab (Method) Nasal Screen MRSA/MSSA - Final Physical Exam Narrative Patient resting comfortably in bed No signs of acute distress Nasal cannula with 3 L of oxygen in place. Patient is extremely drowsy upon examination. He does engage in conversation however quick to fall asleep when conversations over. Limb is warm to touch, Sensation intact throughout entire lower extremity, including saphenous, sural, superficial and deep peroneal, and tibial distribution. DP/PT pulses bounding. Dorsiflexion plantarflexion strength 5/5 Dressing clear dry intact Calf nontender to palpation, no erythema, no edema. Negative Homans Assessment & Plan Assessment/Plan (1) Status post left knee replacement: PLAN: 1. Will continue PT today. Weightbearing as tolerated. 2. plan for discharge likely tomorrow. At this point based on his examination and her oxygen requirements it appears it would be reasonable to keep him for another night. When medically stable will be excepted to inpatient rehab unit. Appreciate medicine's recommendation and evaluation today. Appreciate recommendations for hyponatremia at 128 today. 3. Patient will follow up for post op appointment as previously scheduled 4. WBC 12.1 acute reactive leukocytosis: secondary to pre operative decadron. no acute systemic signs of infection. will monitor, and likely self resolve. 5. H/H 12.1/37.1: post operavtive anemia secondary to acute blood loss intraoperatively. Patient is asymptomatic at this time. No intraoperative complications. will continue to monitor. no acute interventions. 6. DVT prophylaxis : Aspirin 81 mg twice daily 7. Pain control: patient instructed to take tylenol 500mg 2 tablets TID. and oxycodone 1-2 tablets every 4-6 hours only as needed for pain control. 8. Patient also given a prescription of meloxicam, and senna 9. ok to remove post op dressing. post op day 5
[2025-01-02] MEDS: Insulin Lispro 100 UNIT/ML INSULN.PEN SC ×2 (16:41→23:41)
[2025-01-02 17:17] LABS: Bedside Glucose 296 mg/dL (74-106)
[2025-01-02] MEDS: Ondansetron 4 MG/2 ML Vial IV (20:11)
[2025-01-02] MEDS: amLODIPine 10 MG Tablet PO (20:19)
[2025-01-02] MEDS: Losartan Potassium 100 MG Tablet PO (20:19)
--- NOTE | 2025-01-02 22:08 | CT_ITS ---
PROCEDURE: ABDOMEN/PELVIS WITHOUT CONT REASON FOR EXAM: Vomiting, coffee-ground emesis TECHNIQUE: Abdomen and pelvis CT without intravenous contrast. Coronal and sagittal reformatted images COMPARISON: None. FINDINGS: Noncontrast technique limits evaluation of the abdominal and pelvic viscera. Lung bases: Left base atelectasis or scar. A couple of calcified incidental granulomas. Trace left pleural fluid Liver: Unremarkable. Gallbladder: Unremarkable. Spleen: Unremarkable. Small amount of perisplenic fluid left upper quadrant Pancreas: Unremarkable. Adrenals: Unremarkable. Kidneys: Status post apparent right nephrectomy, correlate with history. Left kidney appears within limits without hydronephrosis. Left perinephric stranding appears nonspecific.. Bladder: Unremarkable. Reproductive Organs: Prostate enlarged 6 cm and contains a lobular low-density focus posterior and periphery measuring around 3 cm axial 171 and sagittal 81 for example possibly may represent sequela of TURP in the appropriate clinical setting. Can not exclude prostate lesion. Bowel: Mildly dilated bowel throughout the abdomen with scattered air-fluid levels and a transition to collapsed distal ileal loops in the right lower quadrant near the terminal ileum for example axial 124 and coronal 62 may represent adhesion with developing obstruction. Gaseous prominence of the hepatic flexure and transverse colon with collapsed descending colon. Diverticulosis. Appendix: Not identified. Lymph nodes: No suspicious lymph node enlargement. Vasculature: Aortoiliac atherosclerotic calcification without abdominal aortic aneurysm. Peritoneum / Retroperitoneum: No free air. Fat containing left inguinal hernia. Bones: Multilevel lumbar spondylosis/discogenic change with bilateral foraminal narrowing and leftward curvature. CT/Abdomen/Pelvis without Cont IMPRESSION: Mildly dilated bowel throughout the abdomen with scattered air-fluid levels and a transition to collapsed distal ileal loops in the right lower quadrant near the terminal ileum for example axial 124 and yolie nal 62 may represent adhesion with developing obstruction. No free air One or more dose reduction techniques were used (e.g., Automated exposure contr ol, adjustment of the mA and/or kV according to patient size, use of iterative reconstruction technique). Reading Location: [id number]
[2025-01-02] MEDS: proCHLORPERazine 10 MG/2 ML Vial IM (22:38)
[2025-01-03] VITALS (11 sets, daily range): BP systolic 119–138; BP diastolic 63–73; PULSE 84–101; RESP 18–24; TEMP 36.3–37.1; O2SAT 89–96
[2025-01-03] MEDS: hydrALAZINE 20 MG/ML Vial 10 MG IV (00:18)
[2025-01-03 00:20] LABS: Bedside Glucose 267 mg/dL (74-106)
[2025-01-03] MEDS: Acetaminophen 500 MG Tablet 1000 MG PO ×3 (05:09→22:58)
[2025-01-03] MEDS: Ondansetron 4 MG/2 ML Vial IV (05:15)
[2025-01-03] MEDS: Insulin Lispro 100 UNIT/ML INSULN.PEN SC ×4 (06:38→23:20)
[2025-01-03 07:17] LABS: Bedside Glucose 264 mg/dL (74-106)
[2025-01-03 07:30] LABS: Hematocrit 37.7 % (40-54); Hemoglobin 12.6 g/dL (13.0-16.5); Mean Corp Hgb Conc 33.4 g/dL (32-36); Mean Corpuscular Hgb 29.4 pg (27.0-32.0); Mean Corpuscular Volume 88.1 fL (80-94); Platelet Count 240 K/mm3 (150-450); RBC Distribution Width CV 12.8 % (11.6-14.6); RBC Distribution Width SD 41.5 fl (35.1-43.9); Red Blood Count 4.28 M/mm3 (4.6-6.2); White Blood Count 19.7 K/mm3 (4.4-11.0)
--- NOTE | 2025-01-03 08:28 | NURSING ---
pt own cpap placed on pt
[2025-01-03] MEDS: 0.9% Saline Lock 10 ML Syringe IV ×2 (08:31→23:20)
[2025-01-03] MEDS: proCHLORPERazine 10 MG/2 ML Vial 5 MG IV (08:31)
[2025-01-03] MEDS: Pantoprazole Sodium 40 MG Tablet PO ×2 (09:43→22:58)
[2025-01-03] MEDS: Finasteride 5 MG Tablet PO (09:44)
[2025-01-03] MEDS: Mexiletine 150 MG Capsule 300 MG PO ×2 (09:44→22:59)
[2025-01-03] MEDS: Senna/Docusate Sodium 1 Tablet 2 TABLET PO ×2 (09:44→22:58)
[2025-01-03] MEDS: Meloxicam 7.5 MG Tablet PO ×2 (09:44→22:59)
[2025-01-03] MEDS: Aspirin 81 MG TAB.CHEW PO ×2 (09:44→22:59)
--- NOTE | 2025-01-03 09:44 | PCM.PN.ORT ---
Subjective Subjective Patient is s/p left sided total knee arthroplasty with Dr. Felder 01/01/2025. Patient resting comfortably in bed. Rates pain 4/ 10 at rest. With movement 4/10. States taking Tylenol and oxycodone and ice help to relieve pain. Patient has been up with therapy. improvement today from yesterday. Walking with the assit of a walker. Afebrile, no chest pain, shortness of breath, negative calf pain/ erythema, and no other signs of DVT. Patient patient is extremely tired today. He is requiring 3 L of oxygen nasal cannula as well as his CPAP machine at the bedside chair. He wore his CPAP machine last night for a little while. He has been accepted to rehab when medically cleared. today he is improved in his drowsiness, however he reports still not having flatus or BM. Objective Data Objective Data Vital Signs: Vital Signs Temp Pulse Resp BP Pulse Ox O2 Del Method O2 Flow Rate 97.8 F 96 20 H 124/73 H 93 Nasal Cannula 3 01/03/25 08:11 01/03/25 08:11 01/03/25 08:11 01/03/25 08:11 01/03/25 08:35 01/03/25 09:25 01/03/25 09:25 Oxygen Flow Rate (L/min) 3 Oxygen Delivery Method Nasal Cannula Weight: 110 kg Body Mass Index (BMI) 33.8 Intake & Output: Intake and Output for Last 24 Hours 01/01/25 01/02/25 01/03/25 23:59 23:59 23:59 Intake Total 3762 / 3762 240 / 240 50 / 50 Output Total 450 / 650 1125 / 1625 500 / 500 Balance 3312 / 3112 -885 / -1385 -450 / -450 Lab / Micro Data 01/03/25 06:58 01/02/25 05:15 Labs: Laboratory Results - last 24 hr 01/02/25 16:40: POC Glucose 296 H 01/02/25 23:40: POC Glucose 267 H 01/03/25 06:37: POC Glucose 264 H 01/03/25 06:58: WBC 19.7 H, RBC 4.28 L, Hgb 12.6 L, Hct 37.7 L, MCV 88.1, MCH 29.4, MCHC 33.4, RDW Std Deviation 41.5, RDW Coeff of Valeria 12.8, Plt Count 240, MPV 10.0 Micro: Microbiology 01/02/25 22:25 Gastric Fluid/Contents Gastric Occult Blood - Final 12/20/24 10:08 Swab (Method) Nasal Screen MRSA/MSSA - Final Radiography Diagnostic Testing: Radiology Impression Abdomen/Pelvis CT 01/02/25 22:08 IMPRESSION: Mildly dilated bowel throughout the abdomen with scattered air-fluid levels and a transition to collapsed distal ileal loops in the right lower quadrant near the terminal ileum for example axial 124 and coronal 62 may represent adhesion with developing obstruction. No free air One or more dose reduction techniques were used (e.g., Automated exposure control, adjustment of the mA and/or kV according to patient size, use of iterative reconstruction technique). Reading Location: [id number] Physical Exam Narrative Patient resting comfortably in bedside chair No signs of acute distress CPAP with 3 L of oxygen in place. Patient is drowsy upon examination. improving from yesterday. Limb is warm to touch, Sensation intact throughout entire lower extremity, including saphenous, sural, superficial and deep peroneal, and tibial distribution. DP/PT pulses bounding. Dorsiflexion plantarflexion strength 5/5 Dressing clear dry intact Calf nontender to palpation, no erythema, no edema. Negative Homans Assessment & Plan Assessment/Plan (1) Status post left knee replacement: PLAN: 1. Will continue PT today. Weightbearing as tolerated. 2. plan for discharge is pending. likely today, however do recommend a second PT session and evaluation in the afternoon. he is still drowsy and requiring CPAP/ O2 at this time. When medically stable will be excepted to inpatient rehab unit. Appreciate medicine's recommendation and evaluation today. 3. Patient will follow up for post op appointment as previously scheduled 4. WBC 19.7 acute reactive leukocytosis: secondary to pre operative decadron. no acute systemic signs of infection. will monitor, and likely self resolve. 5. H/H 12.6/37.7: post operavtive anemia secondary to acute blood loss intraoperatively. Patient is asymptomatic at this time. No intraoperative complications. will continue to monitor. no acute interventions. 6. DVT prophylaxis : Aspirin 81 mg twice daily 7. Pain control: patient instructed to take tylenol 500mg 2 tablets TID. and oxycodone 1-2 tablets every 4-6 hours only as needed for pain control. 8. Patient also given a prescription of meloxicam, and senna 9. ok to remove post op dressing. post op day 5
[2025-01-03] MEDS: oxyCODONE 5 MG Tablet PO ×2 (09:48→14:27)
[2025-01-03 10:08] LABS: EST Glomerular Filtration Rate 39 (>60)
--- NOTE | 2025-01-03 11:35 | NURSING ---
no urge or sensation of needing to void.
[2025-01-03 11:47] LABS: Bedside Glucose 326 mg/dL (74-106)
--- NOTE | 2025-01-03 12:14 | NURSING ---
foreskin placed back in proper position after phan placed
--- NOTE | 2025-01-03 14:05 | PN.HOSP_ITS ---
Subjective Subjective He has developed an ileus overnight, there was an attempted NG tube placement which was unsuccessful. He had a large volume emesis. No flatus or BM Objective Data Objective Data Vital Signs: Vital Signs Temp Pulse Resp BP Pulse Ox O2 Del Method O2 Flow Rate 97.8 F 96 20 H 124/73 H 93 Nasal Cannula 3 01/03/25 08:11 01/03/25 08:11 01/03/25 08:11 01/03/25 08:11 01/03/25 08:35 01/03/25 09:25 01/03/25 09:25 Oxygen Flow Rate (L/min) 3 Oxygen Delivery Method Nasal Cannula Weight: 242 lb 8.136 oz Body Mass Index (BMI) 33.8 Intake & Output: Intake and Output for Last 24 Hours 01/02/25 01/03/25 01/04/25 03:59 03:59 03:59 Intake Total 3782 / 3782 220 / 220 50 / 50 Output Total 650 / 650 1425 / 1425 800 / 800 Balance 3132 / 3132 -1205 / -1205 -750 / -750 Lab / Micro Data 01/03/25 06:58 01/03/25 06:58 Labs: Laboratory Results - last 24 hr 01/02/25 16:40: POC Glucose 296 H 01/02/25 23:40: POC Glucose 267 H 01/03/25 06:37: POC Glucose 264 H 01/03/25 06:58: WBC 19.7 H, RBC 4.28 L, Hgb 12.6 L, Hct 37.7 L, MCV 88.1, MCH 29.4, MCHC 33.4, RDW Std Deviation 41.5, RDW Coeff of Valeria 12.8, Plt Count 240, MPV 10.0, BUN 33 H, Creatinine 1.7 H, Estim Creat Clear Calc 37.89, Est GFR (MDRD) Non-Af 39 L, BUN/Creatinine Ratio 19.9, Glucose 285 H 01/03/25 11:18: POC Glucose 326 H Micro: Microbiology 01/02/25 22:25 Gastric Fluid/Contents Gastric Occult Blood - Final 12/20/24 10:08 Swab (Method) Nasal Screen MRSA/MSSA - Final Radiography Diagnostic Testing: Radiology Impression Abdomen/Pelvis CT 01/02/25 22:08 IMPRESSION: Mildly dilated bowel throughout the abdomen with scattered air-fluid levels and a transition to collapsed distal ileal loops in the right lower quadrant near the terminal ileum for example axial 124 and coronal 62 may represent adhesion with developing obstruction. No free air One or more dose reduction techniques were used (e.g., Automated exposure control, adjustment of the mA and/or kV according to patient size, use of iterative reconstruction technique). Reading Location: [facility] Physical Exam Narrative General: Alert though a little drowsy, Oriented x3, Cooperative, No apparent distress HEENT: Atraumatic, PERRLA, EOMI, Normocephalic Oral: Moist Mucosa Neck: Supple, No JVD Lungs: Diminished, Normal air movement, No rhonchi, No wheeze, No rales Cardiovascular: Regular rate, Regular Rhythm, Normal S1, Normal S2, No murmurs Abdomen: Soft, Non Tender, Non-Distended, No Hepato-splenomegaly Extremities: No edema, Capillary Refill Less than 3 Seconds Skin: Surgical dressing CDI Musculoskeletal: No Tenderness to Palpation of Joints or Extremities Neurological: No focal neurological deficits, Motor Exam 5/5 strength throughout, Sensory exam intact to light touch and pain Psych/Mental Status: Normal Affect, Appropriate Assessment & Plan Assessment/Plan (1) Status post left knee replacement: PLAN: Plan 1. Status post left knee replacement on 01/01/2025 ? PT/OT ? Pain management per primary ? Leukocytosis currently is reactive, he remains afebrile will hold off antibiotics and recheck white count in the morning ? Renal function is at baseline can resume his home medications ? Will continue to await return of bowel function, will decrease diet to clears ? Unclear whether or not he actually has hyponatremia, sodium yesterday was 128 which is a massive drop in the 137 he was a month prior and unfortunately we are having difficulty obtaining electrolyte data today 2. Essential HTN/HLD ? Blood pressure stable ? Can resume his home blood pressure medications ? Continue with aspirin 3. DM2 ? Continue with his home medications on discharge ? Will monitor make adjustments as necessary ? 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 He has been having urinary retention dismission placed a Linder DVT: Aspirin twice daily Charges/Coding Visit Charges Inpatient E&M: 32392 Subs Hosp L2
[2025-01-03 16:11] LABS: BUN 36 mg/dL (4-19); BUN/Creat Ratio 20.8 RATIO (10-20); Creatinine, Serum 1.7 mg/dL (0.8-1.3); Estimated Creatinine Clearance 37.89 ml/min; Glucose 291 mg/dL (70-99)
[2025-01-03 16:34] LABS: Bedside Glucose 270 mg/dL (74-106)
[2025-01-03 20:10] LABS: Anion Gap 17 (5-15); Calcium,Total 9.6 mg/dL (7.6-11.0); Chloride 92 mmol/L (98-107); Potassium 4.3 mmol/L (3.5-5.1); Sodium Level 125 mmol/L (136-145)
[2025-01-03] MEDS: Tamsulosin HCl 0.4 MG Capsule PO (22:58)
[2025-01-03] MEDS: amLODIPine 10 MG Tablet PO (22:59)
[2025-01-03] MEDS: Losartan Potassium 100 MG Tablet PO (22:59)
[2025-01-04] VITALS (14 sets, daily range): BP systolic 80–153; BP diastolic 46–72; PULSE 61–86; RESP 14–20; TEMP 35.9–36.8; O2SAT 88–95
[2025-01-04 00:39] LABS: Bedside Glucose 219 mg/dL (74-106)
[2025-01-04] MEDS: Acetaminophen 500 MG Tablet 1000 MG PO ×3 (02:30→21:06)
[2025-01-04] MEDS: Insulin Lispro 100 UNIT/ML INSULN.PEN SC ×4 (06:24→21:06)
[2025-01-04 07:17] LABS: Bedside Glucose 239 mg/dL (74-106)
[2025-01-04 07:54] LABS: Absolute Neutrophil Count 13.1 X10^3/uL (2.0-7.7); Basophil# 0.07 X10^3/uL; Basophil% 0.4 % (0-1); Eosinophil# 0.26 X10^3/uL; Eosinophils% 1.6 % (0-5); Hematocrit 36.2 % (40-54); Hemoglobin 12.2 g/dL (13.0-16.5); Lymphocyte % 10.2 % (19-41); Mean Corp Hgb Conc 33.7 g/dL (32-36); Mean Corpuscular Volume 88.9 fL (80-94); Mean Platelet Vol. 9.6 fl (6.2-12.0); Monocyte# 1.51 X10^3/uL; NRBC Flagged by Analyzer 0 % (0-5); Neutrophil # 13.07 X10^3/uL (2.7-7.7); Neutrophil % 78.1 % (47-70); POSITIVE DIFFERENTIAL YES; Platelet Count 241 K/mm3 (150-450); RBC Distribution Width CV 12.9 % (11.6-14.6); Red Blood Count 4.07 M/mm3 (4.6-6.2); White Blood Count 16.7 K/mm3 (4.4-11.0)
[2025-01-04 07:59] LABS: Differential Indicated SCAN CRITERIA MET
[2025-01-04] MEDS: 0.9% Saline Lock 10 ML Syringe IV (08:34)
[2025-01-04] MEDS: 0.9% Normal Saline (1000mL) 1,000 ML 100 ML IV (08:34)
[2025-01-04] MEDS: Aspirin 81 MG TAB.CHEW PO (09:31)
[2025-01-04] MEDS: Mexiletine 150 MG Capsule 300 MG PO ×2 (09:32→21:07)
[2025-01-04] MEDS: Meloxicam 7.5 MG Tablet PO (09:33)
[2025-01-04] MEDS: Finasteride 5 MG Tablet PO (09:34)
[2025-01-04] MEDS: Pantoprazole Sodium 40 MG Tablet PO ×2 (09:35→21:07)
[2025-01-04] MEDS: Senna/Docusate Sodium 1 Tablet 2 TABLET PO ×2 (09:35→21:06)
[2025-01-04 10:04] LABS: Anion Gap 14 (5-15); BUN 49 mg/dL (4-19); BUN/Creat Ratio 19.2 RATIO (10-20); Carbon Dioxide 16.6 mmol/L (22.0-29.0); Chloride 90 mmol/L (96-108); Creatinine, Serum 2.5 mg/dL (0.8-1.3); EST Glomerular Filtration Rate 24 (>60); Estimated Creatinine Clearance 25.76 ml/min; Glucose 231 mg/dL (70-99); Potassium 4.4 mmol/L (3.3-5.1); Sodium Level 121 mmol/L (133-145)
--- NOTE | 2025-01-04 10:29 | NURSING ---
closes eyes and rests when not disturbed. no difference in pain with deep breath or palpation. no other c/o of jaw/neck/shoulder/new back pain. skin warm and dry. denies any dizziness/lightheadedness or SOB.
--- NOTE | 2025-01-04 10:32 | EKG12_ITS ---
Test Reason : CHEST PAIN Blood Pressure : */* mmHG Vent. Rate : 68 BPM Atrial Rate : 68 BPM P-R Int : 196 ms QRS Dur : 150 ms QT Int : 408 ms P-R-T Axes : * -13 -1 degrees QTcB Int : 433 ms Normal sinus rhythm with sinus arrhythmia Right bundle branch block Inferior infarct , age undetermined Abnormal ECG Confirmed by Yann Francis ([id number]), film editor GEMA CHANDLER ([id number]) on 01/05/2025 2:22:10 PM Referred By: Tashi Felder Confirmed By: Yann Francis
[2025-01-04] MEDS: 0.9% Normal Saline (1000mL) 1,000 ML 999 ML IV (11:03)
--- NOTE | 2025-01-04 11:57 | PN.ORTHO_ITS ---
Subjective Subjective Patient is s/p left sided total knee arthroplasty with Dr. Felder 01/01/2025. Patient resting comfortably in bed. Rates pain 2/ 10 at rest. With movement 2/10. States taking Tylenol and oxycodone and ice help to relieve pain. Patient has been up with therapy. improvement today from yesterday. Walking with the assit of a walker. Afebrile, no chest pain, shortness of breath, negative calf pain/ erythema, and no other signs of DVT. Patient patient is extremely tired today. He is requiring 2-3 L of oxygen nasal cannula as well as his CPAP machine at the bedside chair. He wore his CPAP machine last night . He has been accepted to rehab when medically cleared. Objective Data Objective Data Vital Signs: Vital Signs Temp Pulse Resp BP Pulse Ox O2 Del Method O2 Flow Rate 97.1 F L 63 14 122/64 H 95 CPAP 3 01/04/25 11:28 01/04/25 11:28 01/04/25 11:28 01/04/25 11:28 01/04/25 11:28 01/04/25 11:28 01/04/25 10:27 Oxygen Flow Rate (L/min) 3 Oxygen Delivery Method CPAP Weight: 110 kg Body Mass Index (BMI) 33.8 Intake & Output: Intake and Output for Last 24 Hours 01/02/25 01/03/25 01/04/25 23:59 23:59 23:59 Intake Total 240 / 240 450 / 450 548.33 / 548.33 Output Total 1125 / 1625 1600 / 1600 100 / 100 Balance -885 / -1385 -1150 / -1150 448.33 / 448.33 Lab / Micro Data 01/04/25 07:46 01/04/25 07:46 Labs: Laboratory Results - last 24 hr 01/03/25 06:58: Sodium 125 L, Potassium 4.3, Chloride 92 L, Carbon Dioxide 16.0 L, Anion Gap 17 H, BUN 36 H, Creatinine 1.7 H, Estim Creat Clear Calc 37.89, B UN/Creatinine Ratio 20.8 H, Glucose 291 H, Calcium 9.6 01/03/25 16:11: POC Glucose 270 H 01/03/25 23:18: POC Glucose 219 H 01/04/25 06:21: POC Glucose 239 H 01/04/25 07:46: WBC 16.7 H, RBC 4.07 L, Hgb 12.2 L, Hct 36.2 L, MCV 88.9, MCH 30.0, MCHC 33.7, RDW Std Deviation 42.0, RDW Coeff of Valeria 12.9, Plt Count 241, MPV 9.6, Immature Gran % (Auto) 0.700, Neut % (Auto) 78.1 H, Lymph % (Auto) 10.2 L, [place] % (Auto) 9.0, Eos % (Auto) 1.6, Baso % (Auto) 0.4, Absolute Neuts (auto) 13.1 H, Absolute Lymphs (auto) 1.70, Nucleated RBC % 0, Diff Path Review March, Sodium 121 L, Potassium 4.4, Chloride Direct 90 L, Carbon Dioxide 16.6 L, Anion Gap 14, BUN 49 H, Creatinine 2.5 H, Estim Creat Clear Calc 25.76, Est GFR (MDRD) Non-Af 24 L, BUN/Creatinine Ratio 19.2, Glucose 231 H, Calcium 9.0 Micro: Microbiology 01/02/25 22:25 Gastric Fluid/Contents Gastric Occult Blood - Final 12/20/24 10:08 Swab (Method) Nasal Screen MRSA/MSSA - Final Physical Exam Narrative Patient resting comfortably in bedside chair No signs of acute distress CPAP with 3 L of oxygen in place. Patient is drowsy upon examination. improving from yesterday. Limb is warm to touch, Sensation intact throughout entire lower extremity, including saphenous, sural, superficial and deep peroneal, and tibial distribution. DP/PT pulses bounding. Dorsiflexion plantarflexion strength 5/5 Dressing clear dry intact Calf nontender to palpation, no erythema, no edema. Negative Homans Assessment & Plan Assessment/Plan (1) Status post left knee replacement: PLAN: 1. Will continue PT today. Weightbearing as tolerated. 2. plan for discharge is pending. likely today, however do recommend a second PT session and evaluation in the afternoon. he is still drowsy and requiring CPAP/ O2 at this time. When medically stable will be excepted to inpatient rehab unit. Appreciate medicine's recommendation and evaluation today. appreciate medicine recommendations on hyponatremia as it continues to downtrend significantly. he is 121 today. BUN/Cr are elevated appreciate medicine recommendations. he is orthopaedically stable. 3. Patient will follow up for post op appointment as previously scheduled 4. WBC 16.7 acute reactive leukocytosis: secondary to pre operative decadron. improving today. no acute systemic signs of infection. will monitor, and likely self resolve. 5. H/H 12.2/36.2: post operavtive anemia secondary to acute blood loss intraoperatively. Patient is asymptomatic at this time. No intraoperative complications. will continue to monitor. no acute interventions. 6. DVT prophylaxis : Aspirin 81 mg twice daily 7. Pain control: patient instructed to take tylenol 500mg 2 tablets TID. and oxycodone 1-2 tablets every 4-6 hours only as needed for pain control. 8. Patient also given a prescription of meloxicam, and senna 9. ok to remove post op dressing. post op day 5
[2025-01-04 11:58] LABS: Bedside Glucose 213 mg/dL (74-106)
[2025-01-04] MEDS: Polyethylene Glycol 3350 17 GM PACKET PO ×2 (14:39→21:07)
--- NOTE | 2025-01-04 14:58 | PN.HOSP_ITS ---
Subjective Subjective Still some distention but less nausea no vomiting. He also states that he had a bowel movement today Objective Data Objective Data Vital Signs: Vital Signs Temp Pulse Resp BP Pulse Ox O2 Del Method O2 Flow Rate 97.6 F L 77 16 94/67 92 CPAP 3 01/04/25 14:29 01/04/25 14:29 01/04/25 14:29 01/04/25 14:29 01/04/25 14:29 01/04/25 14:29 01/04/25 10:27 Oxygen Flow Rate (L/min) 3 Oxygen Delivery Method CPAP Weight: 242 lb 8.136 oz Body Mass Index (BMI) 33.8 Intake & Output: Intake and Output for Last 24 Hours 01/03/25 01/04/25 01/05/25 03:59 03:59 03:59 Intake Total 220 / 220 450 / 450 1548.33 / 1548.33 Output Total 1425 / 1425 1100 / 1100 100 / 100 Balance -1205 / -1205 -650 / -650 1448.33 / 1448.33 Lab / Micro Data 01/04/25 07:46 01/04/25 07:46 Labs: Laboratory Results - last 24 hr 01/03/25 06:58: Sodium 125 L, Potassium 4.3, Chloride 92 L, Carbon Dioxide 16.0 L, Anion Gap 17 H, BUN 36 H, Creatinine 1.7 H, Estim Creat Clear Calc 37.89, B UN/Creatinine Ratio 20.8 H, Glucose 291 H, Calcium 9.6 01/03/25 16:11: POC Glucose 270 H 01/03/25 23:18: POC Glucose 219 H 01/04/25 06:21: POC Glucose 239 H 01/04/25 07:46: WBC 16.7 H, RBC 4.07 L, Hgb 12.2 L, Hct 36.2 L, MCV 88.9, MCH 30.0, MCHC 33.7, RDW Std Deviation 42.0, RDW Coeff of Valeria 12.9, Plt Count 241, MPV 9.6, Immature Gran % (Auto) 0.700, Neut % (Auto) 78.1 H, Lymph % (Auto) 10.2 L, [place] % (Auto) 9.0, Eos % (Auto) 1.6, Baso % (Auto) 0.4, Absolute Neuts (auto) 13.1 H, Absolute Lymphs (auto) 1.70, Nucleated RBC % 0, Diff Path Review March, Sodium 121 L, Potassium 4.4, Chloride Direct 90 L, Carbon Dioxide 16.6 L, Anion Gap 14, BUN 49 H, Creatinine 2.5 H, Estim Creat Clear Calc 25.76, Est GFR (MDRD) Non-Af 24 L, BUN/Creatinine Ratio 19.2, Glucose 231 H, Calcium 9.0 01/04/25 11:40: POC Glucose 213 H Micro: Microbiology 01/02/25 22:25 Gastric Fluid/Contents Gastric Occult Blood - Final 12/20/24 10:08 Swab (Method) Nasal Screen MRSA/MSSA - Final Physical Exam Narrative General: Alert, Oriented x3, Cooperative, No apparent distress HEENT: Atraumatic, PERRLA, EOMI, Normocephalic Oral: Dry mucosa Neck: Supple, No JVD Lungs: Diminished, Normal air movement, No rhonchi, No wheeze, No rales Cardiovascular: Regular rate, Regular Rhythm, Normal S1, Normal S2, No murmurs Abdomen: Soft, Non Tender, Non-Distended, No Hepato-splenomegaly Extremities: No edema, Capillary Refill Less than 3 Seconds Skin: Surgical dressing CDI Musculoskeletal: No Tenderness to Palpation of Joints or Extremities Neurological: No focal neurological deficits, Motor Exam 5/5 strength throughout, Sensory exam intact to light touch and pain Psych/Mental Status: Normal Affect, Appropriate Assessment & Plan Assessment/Plan (1) Status post left knee replacement: PLAN: Plan 1. Status post left knee replacement on 01/01/2025/hyponatremia ? PT/OT ? Pain management per primary ? Leukocytosis appears to be improving without antibiotics will monitor ? Renal function is at baseline can resume his home medications ? He is having some bowel function return, will provide with bowel regimen as well. ? Significant delays due to lab and identifying significant hyponatremia, initially presented after surgery and had a random sodium of 128 however there is a significant delay in repeating this lab and today his sodium is down to 121 indicating an true hyponatremia, this is likely due to dehydration secondary to his emesis as well as surgery and lack of p.o. intake we will continue with IV fluids 2. Essential HTN/HLD ? Blood pressure stable ? Continue with Norvasc but will hold his losartan secondary to his bump in creatinine today ? Continue with aspirin 3. DM2 ? Continue with his home medications on discharge ? Will monitor make adjustments as necessary ? 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 He has been having urinary retention placed a Linder DVT: Aspirin twice daily Charges/Coding Visit Charges Inpatient E&M: 86306 Subs Hosp L2
--- NOTE | 2025-01-04 15:08 | CHAPLAIN ---
Type of Pastoral Visit _x__ Initial Visit ___ Follow-up Visit ___ On-call Visit ___ General Patient Visit ___ Spiritual Assessment ___ Family Conference ___ Bereavement ___ Rapid Response ___ Code Blue ___ Other (describe below) Pastoral Care Referral From _x__ Patient ___ Family _x__ Nurse ___ Physician ___ Social Media Community Manager ___ Line Installer Trolley ___ Other (describe below) Sacrament/Intervention _x__ Active listening ___ Anointing ___ Congregation ___ Bereavement ___ Communion ___ Sherine exploration ___ ___ Life review _x__ Prayer ___ Reconciliation ___ Sacrament of Sick _x__ Supportive presence ___ Wedding ___ Other (describe below) Pastoral Comments RN had called the integration manager because this patient had requested prayer and a visit from this integration manager; pt had been a surgery patient but was experiencing pains in the chest this morning per his report; pt had some anxious moments but by the time this integration manager saw the patient he was resting and not agitated; daughter had come into the room during the visit and added her insights too; pt is welcoming of a prayer to calm his nerves
[2025-01-04 16:20] LABS: Bedside Glucose 215 mg/dL (74-106)
[2025-01-04 18:34] LABS: Anion Gap 13 (5-15); BUN 55 mg/dL (4-19); BUN/Creat Ratio 19.9 RATIO (10-20); Carbon Dioxide 17.8 mmol/L (22.0-29.0); Chloride 91 mmol/L (96-108); Creatinine, Serum 2.77 mg/dL (0.70-1.20); EST Glomerular Filtration Rate 21 (>60); Estimated Creatinine Clearance 23.25 ml/min; Glucose 215 mg/dL (70-99); Potassium 4.3 mmol/L (3.3-5.1); Sodium Level 121 mmol/L (133-145)
--- NOTE | 2025-01-04 20:53 | RAD_ITS ---
PROCEDURE: ABD DECUB AND/OR ERECT(PORTABL REASON FOR EXAM: Abdominal distention TECHNIQUE: Supine and upright views 5 total images COMPARISON: CT 01/02/2025 FINDINGS: There is diffuse gaseous distention of bowel throughout the abdomen. Prominent appearance of the small bowel folds within the left abdomen may represent some small bowel wall thickening, edema. No free air identified. Aqih-gvamrhi-figu-right base atelectasis RAD/Abd Decub and/or Erect(Portabl IMPRESSION: Diffuse gaseous distention of bowel and areas of possible wall thickening seen on the small bowel loops left abdomen as above. May consider repeat CT to further evaluate for worsening obstruction Reading Location: [id number]
[2025-01-04] MEDS: amLODIPine 10 MG Tablet PO (21:06)
[2025-01-04] MEDS: Tamsulosin HCl 0.4 MG Capsule PO (21:07)
[2025-01-04 21:39] LABS: Bedside Glucose 253 mg/dL (74-106)
[2025-01-04] MEDS: Ondansetron 4 MG/2 ML Vial IV (22:34)
--- NOTE | 2025-01-04 22:43 | PN.HOSP_ITS ---
Hospitalist Note I was called by med-neurological surgeon and informed patient had an abnormal KUB ordered earlier suggestive of SBO. Radiologist, Dr. Montes, recommends repeat CT due to increased bowel distention. We will also consult general surgeon to see patient on-rounds in the AM with help appreciated in advance. CT was still pending final read at this time. Then around 12:32 AM EDOUARD LUNA was called overhead after NG tube was successfully placed and patient had massive bilious and feculent emesis emanating from mouth and nares simultaneously. Patient immediately went into PEA arrest and was treated with 4 rounds of IV epinephrine via ACLS protocol. He was also given 1 amp of sodium bicarbonate without response. His time of was at 12:48 AM. [facility] Imaging Services [address] [place] [address] [id number] Abdomen/Pelvis without Cont MR#: [id number] Acct: [id number] Name: SULEMAN RAMIREZ Rep #: [id number] : 1935 M 89 From: José Montes MD PCP: Dr. Juan F Clayton MD Status: ADM IN Study: Abdomen/Pelvis without Cont Date of Exam: 01/04/25 Exam# [id number] Ordering Dr: Flaquito Shell DO PROCEDURE: ABDOMEN/PELVIS WITHOUT CONT REASON FOR EXAM: Worsening abdominal distention with suspected small-bowel obstruction TECHNIQUE: Abdomen and pelvis CT without intravenous contrast. Coronal and sagittal reformatted images COMPARISON: 01/02/2025. FINDINGS: There has been increase in the amount of small bowel dilation with persistent associated air-fluid levels throughout the small bowel since the prior study with the last few cm of the distal ileum again are nondilated. There is some mild gaseous prominence of the cecum, ascending colon, hepatic flexure and transverse colon which contain air-fluid level and considerations would include ileus with possibility of a partial obstructing process at the distal ileum not entirely excluded. The descending left colon and sigmoid are collapsed. No evidence of bowel wall thickening on noncontrast imaging. No pneumatosis or portal venous gas identified. No free air. There is now a very small amount of pelvic free fluid seen. Basilar atelectasis. The appendix is not identified. Again the right kidney is not identified. Other abdominal solid organs and gallbladder appear within limits. Left greater than right flank anasarca again noted. Linder within a collapsed bladder. CT/Abdomen/Pelvis without Cont IMPRESSION: There has been interval increase in the amount of small bowel dilation with persistent associated air-fluid levels throughout the small bowel since the prior study with the last few cm of the distal ileum again are nondilated. There is some mild gaseous prominence of the cecum, ascending colon, hepatic flexure and transverse colon which contain air-fluid level and considerations would include ileus with possibility of a partial obstructing process at the distal ileum not entirely excluded. The descending left colon and sigmoid are collapsed. No evidence of bowel wall thickening on noncontrast imaging. No pneumatosis or portal venous gas identified. No free air. There is now a very small amount of pelvic free fluid seen. One or more dose reduction techniques were used (e.g., Automated exposure contr ol, adjustment of the mA and/or kV according to patient size, use of iterative reconstruction technique). Reading Location: [id number] CC: Dr. Flaquito Shell DO; Dr. Juan F Clayton MD ~ Circuit Board Inspector:
--- NOTE | 2025-01-05 00:56 | NURSING ---
Addendum entered by Rodrick Jordan 01/05/25 01:08: We started to place NG tube around 0015 on 01/05/25. Original Note: Nurse Anna Tompkins and I Yared Jordan with Spa Manager/Esthetician in the room tried multiple times to place an NG tube in Pt but met resistance and failed to get insertion. Pt vomited during insertion.Pts abdomen was extremely distended. After we quit trying to insert the NG tube the Spa Manager/Esthetician and I were cleaning up the pt and his eyes glazed over and he became unresponsive and started agonal breathing. Pt started vomiting greenish brown emesis and it was also poring out of his nostrils. We called a rapid response and that quickly turned into a Code Blue. No pulse felt CPR started.
--- NOTE | 2025-01-05 06:55 | PCM.DEATH ---
Preliminary Cause of Preliminary Cause of Preliminary Cause of : Aspiration Date of Admission: 01/01/25 Date of : 01/05/25 Principle Diagnosis Problem List: Active and Suspected Problems (Updated 01/04/25 @ 22:[address] Flaquito Shell, DO) Status post left knee replacement (Acute) Hospital Course Mr. Torres is an 89-year-old male presented to the hospital for an elective left total knee replacement. He did well with the surgery however after surgery he had a episode of hyponatremia that it first was felt to be a spurious lab so it was rechecked and after significant delay it did come back at 125 so he was started on IV fluids. He had an episode of nausea and vomiting with what was felt to be an ileus overnight on the into the and an NG tube was attempted to be placed at that time but after several attempts of placement was unsuccessful his diet was backed down to clears and he was continued to be monitored. He had at that time no abdominal pain and after his initial nausea and vomiting episode he denied any further nausea. On 01/04/2025 he had some abdominal distention but stated that he had no nausea or vomiting and that he had a small bowel movement as well as was passing gas so initially was felt that he may have been improving however it was noted that his sodium had gone down to 121 and his creatinine had increased to 2.5. He was given a 1 L fluid bolus and placed on maintenance fluid. Repeat labs were ordered for 6 PM and it appears that his creatinine continued to worsen while his sodium stayed at 121. His bicarb did improve with the IV fluids and so a KUB was ordered. In the process of waiting for the KUB read was worried that an NG tube be placed. This required 6 or 7 attempts by nursing and in the meantime a CT scan had been obtained which showed interval worsening of his small bowel dilatation with no obvious transition point. Once the NG tube was able to be placed successfully he had a massive volume emesis which, per the [facility] note, resulted in immediate PEA arrest and [facility] called. After several rounds of CPR at 0048 on 01/05/2025.
[2025-01-05 14:21] LABS: Pathologist Review Reviewed
== END 2025-01-05 00:48 | DRG 982 ==
LOC: SDC 15:06 → MS3 15:06
PROVIDERS: Family Medicine; Admitting Provider Student in an Organized Health Care Education/Training Program; PCP Family Medicine; Referring Provider Student in an Organized Health Care Education/Training Program; Visit Provider Student in an Organized Health Care Education/Training Program
PROC: 0SRD0JZ Replacement of Left Knee Joint with Synthetic Substitute, Open Approach (ICD-10-PCS; CPT 27447; principal; 2025-01-01 09:00)
DX: K56.609 Unspecified intestinal obstruction, unspecified as to partial versus complete obstruction (principal); D62 Acute posthemorrhagic anemia; E87.1 Hypo-osmolality and hyponatremia; N17.9 Acute kidney failure, unspecified; N13.8 Other obstructive and reflux uropathy; E11.9 Type 2 diabetes mellitus without complications; I10 Essential (primary) hypertension; I46.9 Cardiac arrest, cause unspecified; E86.0 Dehydration; M17.12 Unilateral primary osteoarthritis, left knee; E78.5 Hyperlipidemia, unspecified; G47.33 Obstructive sleep apnea (adult) (pediatric); Z79.4 Long term (current) use of insulin; N40.1 Benign prostatic hyperplasia with lower urinary tract symptoms; R33.8 Other retention of urine; Z79.82 Long term (current) use of aspirin; Z79.84 Long term (current) use of oral hypoglycemic drugs; Z79.899 Other long term (current) drug therapy
CPT/HCPCS: 36415; 51702; 74019; 74176; 80048; 82271; 82962; 85025; 85027; 87077; 87081; 88305; 88311; 92950; 93005; 94668; 97110; 97116; 97162; 97166; 97530; 97535; C1776; A4216; J2405; J3475